=== PATIENT | female | born 1955 | race Hispanic/Latino ===

== ENCOUNTER 2019-01-20 04:49 | Emergency (ER) | payer MEDICARE ==
[~2019-01-20] VITALS: Ht 154.9 cm; Wt 65.8 kg
--- OUTSIDE RECORDS SUMMARY | 2019-01-20 04:52 | XMS REPORT | Clinical Summary ---
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 Active blood glucose meter Use as 1 Kit 0 (ACCU-CHEK JAKE PLUS directed.. 9 METER)Indications: Controlled type 2 diabetes mellitus with complication, without long-term current use of insulin Active blood glucose (ACCU-CHEK Use 2 times 100 Each 3 JAKE PLUS TEST STRP) daily to test 9 test stripsIndications: blood sugar. Controlled type 2 diabetes mellitus with complication, without long-term current use of insulin Active lancets (ACCU-CHEK Use 2 times 100 Each 2 SOFTCLIX daily to 9 LANCETS)Indications: check blood Controlled type 2 sugar. diabetes mellitus with complication, without long-term current use of insulin Active alendronate (FOSAMAX) 70 Take 1 tablet 12 tablet 3 mg tabletIndications: once a week 9 Senile osteoporosis on empty stomach with 8 oz of water and remain upright for 30 minutes. Active loratadine (CLARITIN) 10 Take 1 tablet 30 tablet 0 mg tabletIndications: by mouth 9 Upper respiratory daily. infection with cough and congestion Active benzonatate (TESSALON Take 2 20 capsule 0 PERLES) 100 mg capsules by 9 capsuleIndications: Upper mouth 3 times respiratory infection daily as with cough and congestion needed for Cough. Active naproxen (NAPROSYN) 500 Take 1 tablet 60 tablet 1 mg tabletIndications: by mouth 2 9 Primary osteoarthritis of times daily both knees as needed for Pain (take with food) (1 fwljtj=809 mg). Active levothyroxine (SYNTHROID) TAKE 1 TABLET 30 tablet 2 88 mcg tabletIndications: BY MOUTH 9 Hypothyroidism, EVERY MORNING unspecified type BEFORE BREAKFAST. Active atorvastatin (LIPITOR) 20 Take 1 tablet 90 tablet 1 mg tabletIndications: by mouth at 9 Hypertriglyceridemia bedtime nightly. Active traMADol (ULTRAM) 50 mg Take 1 tablet 30 tablet 0 tabletIndications: Pain by mouth 2 9 in both knees, times daily unspecified chronicity, as needed for Primary osteoarthritis of Pain. both knees Active fenofibrate (LOFIBRA) 160 TAKE 1 TABLET 90 tablet 0 mg tabletIndications: BY MOUTH 9 Hyperlipidemia, EVERY DAY unspecified hyperlipidemia type Active metFORMIN (GLUCOPHAGE) TAKE 1 TABLET 180 tablet 0 500 mg tabletIndications: BY MOUTH 9 Controlled type 2 TWICE DAILY diabetes mellitus with WITH FOOD. complication, without long-term current use of insulin Active ammonium lactate Apply to 222 mL 0 (LAC-HYDRIN) 12 % affected area 9 lotionIndications: Dry as needed for skin dermatitis dry skin. Active traZODone (DESYREL) 50 mg Take 1/2 to 2 180 tablet 0 tabletIndications: PTSD tablets by 9 (post-traumatic stress mouth nightly disorder), Moderate at bedtime as episode of recurrent needed for major depressive Sleep. disorder, Grief Active busPIRone (BUSPAR) 10 mg Take 1 tablet 270 tablet 0 tabletIndications: PTSD by mouth 3 9 (post-traumatic stress times daily disorder) For anxiety.. Active FLUoxetine (PROZAC) 20 mg Take 1 90 capsule 0 capsuleIndications: PTSD capsule by 9 (post-traumatic stress mouth daily disorder), Moderate For episode of recurrent depression. major depressive disorder, Grief 07/06/2018 Discontinued hydrocortisone Insert 1 12 1 (ANUSOL-HC) 25 mg rectal Suppository Suppository 5 suppositoryIndications: rectally 2 Hemorrhoid times daily as needed for hemorrhoids. 07/06/2018 Discontinued blood glucose Use as 1 Kit 0 meterIndications: directed 2 7 Borderline diabetes, times weekly. Controlled type 2 diabetes mellitus without complication, without long-term current use of insulin 07/06/2018 Discontinued lancets 28 1 Each 2 100 Each 12 gaugeIndications: times weekly. 7 Borderline diabetes, Controlled type 2 diabetes mellitus without complication, without long-term current use of insulin 07/06/2018 Discontinued blood glucose test 1 Each 2 50 Each 6 stripsIndications: times weekly. 7 Borderline diabetes, Controlled type 2 diabetes mellitus without complication, without long-term current use of insulin 07/06/2018 Discontinued ergocalciferol (VITAMIN Take 1 12 capsule 0 D2) 50,000 unit capsule by 7 capsuleIndications: mouth weekly. Vitamin D deficiency 04/11/2018 Discontinued levothyroxine (SYNTHROID) Take 1 tablet 90 tablet 1 75 mcg tabletIndications: by mouth 8 Hypothyroidism, every morning unspecified type (before breakfast). 07/06/2018 Discontinued fenofibrate (LOFIBRA) 160 Take 1 tablet 30 tablet 3 mg tabletIndications: by mouth 8 Hyperlipidemia, daily. unspecified hyperlipidemia type 06/28/2018 Discontinued metFORMIN (GLUCOPHAGE) Take 1 tablet 60 tablet 3 500 mg tabletIndications: by mouth 2 8 Controlled type 2 times daily diabetes mellitus without (with meals). complication, without long-term current use of insulin 07/06/2018 Discontinued alendronate (FOSAMAX) 70 Take 1 tablet 12 tablet 3 mg tabletIndications: once a week 8 Senile osteoporosis on empty stomach with 8 oz of water and remain upright for 30 minutes. 07/06/2018 Discontinued blood glucose meter Use as 1 Kit 0 (ACCU-CHEK JAKE PLUS directed.. 8 METER)Indications: Controlled type 2 diabetes mellitus with complication, without long-term current use of insulin 07/06/2018 Discontinued blood glucose (ACCU-CHEK Use 2 times 50 Each 3 JAKE PLUS TEST STRP) weekly (once 8 test stripsIndications: per day on Controlled type 2 Mon,) to diabetes mellitus with test blood complication, without sugar. long-term current use of insulin 07/06/2018 Discontinued lancets (ACCU-CHEK Use 2 times 100 Each 1 SOFTCLIX weekly as 8 LANCETS)Indications: directed. Controlled type 2 diabetes mellitus with complication, without long-term current use of insulin 02/14/2018 Discontinued sertraline (ZOLOFT) 100 Take 2 180 tablet 0 mg tabletIndications: tablets by 8 PTSD (post-traumatic mouth daily stress disorder) For depression and anxiety. Take every day, do not skip doses.. 02/14/2018 Discontinued busPIRone (BUSPAR) 7.5 mg Take 1 tablet 270 tablet 0 tabletIndications: PTSD by mouth 3 8 (post-traumatic stress times daily disorder) For anxiety.. 02/14/2018 Discontinued traMADol (ULTRAM) 50 mg Take 1 tablet 30 tablet 0 tabletIndications: Pain by mouth 8 in both knees, every 8 hours unspecified chronicity, as needed for Primary osteoarthritis of Pain. both knees 07/06/2018 Discontinued traMADol (ULTRAM) 50 mg Take 1 tablet 30 tablet 0 tabletIndications: Pain by mouth 8 in both knees, every 8 hours unspecified chronicity, as needed for Primary osteoarthritis of Pain. both knees, Pain in joint, multiple sites 07/06/2018 Discontinued naproxen (NAPROSYN) 500 Take 1 tablet 40 tablet 0 mg tabletIndications: by mouth 2 8 Primary osteoarthritis of times daily both knees, Pain in both (with meals). knees, unspecified chronicity, Pain in joint, multiple sites 08/23/2018 Discontinued busPIRone (BUSPAR) 7.5 mg Take 1 tablet 270 tablet 0 tabletIndications: PTSD by mouth 3 8 (post-traumatic stress times daily disorder) For anxiety.. 07/06/2018 Discontinued sertraline (ZOLOFT) 100 Take 2 180 tablet 0 mg tabletIndications: tablets by 8 PTSD (post-traumatic mouth daily stress disorder) For depression and anxiety. Take every day, do not skip doses.. 06/13/2018 Discontinued levothyroxine (SYNTHROID) TAKE 1 TABLET 90 tablet 0 75 mcg tabletIndications: BY MOUTH 8 Hypothyroidism, EVERY MORNING unspecified type BEFORE BREAKFAST 09/21/2018 Discontinued levothyroxine (SYNTHROID) TAKE 1 TABLET 90 tablet 0 75 mcg tabletIndications: BY MOUTH 9 Hypothyroidism, EVERY MORNING unspecified type BEFORE BREAKFAST 07/06/2018 Discontinued metFORMIN (GLUCOPHAGE) TAKE 1 TABLET 60 tablet 0 500 mg tabletIndications: BY MOUTH 9 Controlled type 2 TWICE DAILY diabetes mellitus without WITH MEALS complication, without long-term current use of insulin 01/03/2019 tropicamide (MYDRIACYL) Instill 1 15 mL 0 0.5 % ophthalmic Drop in each 9 solutionIndications: eye once as Controlled type 2 needed for up diabetes mellitus with to 1 dose complication, without (for poor long-term current use of retina scan insulin image). 12/20/2018 Discontinued metFORMIN (GLUCOPHAGE) TAKE 1 TABLET 180 tablet 1 500 mg tabletIndications: BY MOUTH 9 Controlled type 2 TWICE DAILY diabetes mellitus with WITH MEALS. complication, without long-term current use of insulin 08/23/2018 Discontinued sertraline (ZOLOFT) 100 Take 2 180 tablet 1 mg tabletIndications: tablets by 9 PTSD (post-traumatic mouth daily stress disorder) For depression and anxiety. Take every day, do not skip doses.. 12/20/2018 Discontinued fenofibrate (LOFIBRA) 160 Take 1 tablet 90 tablet 1 mg tabletIndications: by mouth 9 Hyperlipidemia, daily. unspecified hyperlipidemia type 07/06/2018 Discontinued naproxen (NAPROSYN) 500 Take 1 tablet 40 tablet 1 mg tabletIndications: by mouth 2 9 Primary osteoarthritis of times daily both knees, Pain in both (with meals). knees, unspecified chronicity 09/13/2018 Discontinued traMADol (ULTRAM) 50 mg Take 1 tablet 30 tablet 0 tabletIndications: Pain by mouth 9 in both knees, every 8 hours unspecified chronicity, as needed for Primary osteoarthritis of Pain. both knees 07/11/2018 azithromycin (ZITHROMAX) Take 2 6 Each 0 250 mg tabletIndications: tablets by 9 Upper respiratory mouth on the infection with cough and first day, congestion then take one tablet every day for the next 4 days. 09/13/2018 Discontinued naproxen (NAPROSYN) 500 TAKE 1 TABLET 180 tablet 1 mg tabletIndications: BY MOUTH 9 Primary osteoarthritis of TWICE DAILY both knees, Pain in both WITH FOOD knees, unspecified chronicity 09/24/2018 Discontinued busPIRone (BUSPAR) 10 mg Take 1 tablet 270 tablet 0 tabletIndications: PTSD by mouth 3 9 (post-traumatic stress times daily disorder) For anxiety.. 01/10/2019 Discontinued FLUoxetine (PROZAC) 20 mg Take 1 90 capsule 0 capsuleIndications: PTSD capsule by 9 (post-traumatic stress mouth daily disorder), Moderate For episode of recurrent depression. major depressive disorder, Grief 11/15/2018 Discontinued traZODone (DESYREL) 50 mg Take 0.5-2 180 tablet 0 tabletIndications: PTSD tablets by 9 (post-traumatic stress mouth nightly disorder), Moderate at bedtime as episode of recurrent needed for major depressive Sleep. disorder, Grief 09/13/2018 Discontinued naproxen (NAPROSYN) 500 Take 1 tablet 60 tablet 1 mg tabletIndications: by mouth 2 9 Primary osteoarthritis of times daily both knees as needed for Pain (take with food) (1 lzoyxb=477 mg). 11/29/2018 Discontinued traMADol (ULTRAM) 50 mg Take 1 tablet 30 tablet 0 tabletIndications: Pain by mouth 9 in both knees, every 8 hours unspecified chronicity, as needed for Primary osteoarthritis of Pain. both knees 11/29/2018 Discontinued levothyroxine (SYNTHROID) TAKE 1 TABLET 90 tablet 0 75 mcg tabletIndications: BY MOUTH 9 Hypothyroidism, EVERY MORNING unspecified type BEFORE BREAKFAST 11/15/2018 Discontinued busPIRone (BUSPAR) 10 mg Take 1 tablet 270 tablet 0 tabletIndications: PTSD by mouth 3 9 (post-traumatic stress times daily disorder) For anxiety.. 01/10/2019 Discontinued traZODone (DESYREL) 50 mg Take 1/2 to 2 180 tablet 0 tabletIndications: PTSD tablets by 9 (post-traumatic stress mouth nightly disorder), Moderate at bedtime as episode of recurrent needed for major depressive Sleep. disorder, Grief 01/10/2019 Discontinued busPIRone (BUSPAR) 10 mg Take 1 tablet 270 tablet 0 tabletIndications: PTSD by mouth 3 9 (post-traumatic stress times daily disorder) For anxiety.. 11/29/2018 Discontinued levothyroxine (SYNTHROID) TAKE 1 TABLET 30 tablet 2 88 mcg tabletIndications: BY MOUTH 9 Hypothyroidism, EVERY MORNING unspecified type BEFORE BREAKFAST. 11/29/2018 Discontinued atorvastatin (LIPITOR) 20 Take 1 tablet 90 tablet 1 mg tabletIndications: by mouth at 9 Hypertriglyceridemia bedtime nightly. 11/29/2018 Discontinued traMADol (ULTRAM) 50 mg Take 1 tablet 30 tablet 0 tabletIndications: Pain by mouth 9 in both knees, every 8 hours unspecified chronicity, as needed for Primary osteoarthritis of Pain. both knees 01/10/2019 Discontinued ammonium lactate Apply to 222 mL 0 (LAC-HYDRIN) 12 % affected area 9 lotionIndications: Dry as needed for skin dermatitis dry skin. Active Problems Problem Noted Date Primary osteoarthritis of both knees 11/01/2017 Moderate episode of recurrent major depressive disorder 10/12/2017 Rectal cancer, s/p entire tumor removed 05/24/2016, large bowel 06/02/2016 recto-sigmoid resection S/P colonoscopy with polypectomy done at [facility] 03/201605/10/2016 Family history of breast cancer- breast ,colon 08/03/2015 Diabetes mellitus type II, uncontrolled 07/31/2015 Hyperlipidemia 06/12/2015 Thrombocytopenia, unspecified-per ER visit 05/26/2015 06/12/2015 S/P colonoscopic polypectomy done at [place] 04/23/2015 Overview: 5 polyps removed and moderately severe ischemic colitis History of alcohol abuse- quit 2012 " because of stomach problem" ; binge 02/05/2015 drinking 12 pk wk ends for 10 yrs Vitamin D deficiency 02/05/2015 Osteoporosis 02/05/2015 Arthralgia 02/05/2015 Hearing problem 02/05/2015 Shoulder pain 09/18/2014 PTSD (post-traumatic stress disorder) - sisters dying (grief... per 09/05/2014 patient) Shoulder injury 09/05/2014 Ankle pain, left- per history had fracture 2011 -intermittent pain 10/12/2012 Depressive disorder 06/14/2012 Unspecified hypothyroidism 06/14/2012 Unspecified hearing loss 06/14/2012 Tympanic membrane rupture 06/14/2012 Broken tooth 04/27/2012 Osteopenia 04/11/2012 Osteoporosis, unspecified 04/11/2012 Encounters Care Team Description Date Type Specialty Alicia Perez DO 01/17/2019 Hospital Radiology Encounter Alicia Perez DO Sebaceous cyst (Primary Dx); Senile osteoporosis; Dry skin dermatitis 01/10/2019 Office Visit Family [facility] Donald Frank MD PTSD (post-traumatic stress disorder); Moderate episode of recurrent major depressive disorder; Grief 01/10/2019 Orders Only Psychiatry Ivett Macias RN PTSD (post-traumatic stress disorder); Moderate episode of recurrent major depressive disorder; Grief 01/10/2019 Refill [facility] Ailyn Mattson MDD (major depressive disorder), recurrent episode, moderate (Primary Dx); Grief 12/21/2018 Office Visit Psychology Jackson Rose III, MD Hyperlipidemia, unspecified hyperlipidemia type; Controlled type 2 diabetes mellitus with complication, without long-term current use of insulin 12/20/2018 Refill [facility] Alicia Perez DO Hypertriglyceridemia (Primary Dx); Hypothyroidism, unspecified type; Controlled type 2 diabetes mellitus with complication, without long-term current use of insulin; Pain in both knees, unspecified chronicity; Primary osteoarthritis of both knees; PTSD (post-traumatic stress disorder) 11/29/2018 Office Visit [facility] Alicia Perez DO PTSD (post-traumatic stress disorder) 11/29/2018 Orders Only [facility] Jessica Ring RN PTSD (post-traumatic stress disorder); Moderate episode of recurrent major depressive disorder; Grief 11/15/2018 Refill [facility] Jackson Rose III, MD 10/18/2018 Ancillary Radiology Procedure Jessica Ring RN PTSD (post-traumatic stress disorder) 09/24/2018 Refill [facility] Jackson Rose III, MD Hypothyroidism, unspecified type 09/21/2018 Refill [facility] Jackson Rose III, MD PTSD (post-traumatic stress disorder) (Primary Dx); Primary osteoarthritis of both knees; Hyperlipidemia, unspecified hyperlipidemia type; Hypothyroidism, unspecified type; Type 2 diabetes mellitus without complication, without long-term current use of insulin; Preventative health care; Pain in both knees, unspecified chronicity 09/13/2018 Office Visit Family [facility] Donald Frank MD Moderate episode of recurrent major depressive disorder (Primary Dx); PTSD (post-traumatic stress disorder); Grief 08/23/2018 Office Visit Psychiatry Ailyn Mattson MDD (major depressive disorder), severe (Primary Dx); Grief 08/21/2018 Office Visit Psychology Dina Rebollar, RETA 08/20/2018 Nurse Triage Ana Rosa Rodriges RN 08/17/2018 Nurse Triage Dena Chavez NP Controlled type 2 diabetes mellitus with complication, without long-term current use of insulin 08/06/2018 Ancillary Ophthalmology Procedure Dena Suárez RN 08/06/2018 Nurse Only Dena Chavez NP Controlled type 2 diabetes mellitus with complication, without long-term current use of insulin (Primary Dx); PTSD (post-traumatic stress disorder); Senile osteoporosis; Hyperlipidemia, unspecified hyperlipidemia type; Primary osteoarthritis of both knees; Pain in both knees, unspecified chronicity; Hypothyroidism, unspecified type; Pressure in chest; Upper respiratory infection with cough and congestion 07/06/2018 Office Visit [facility] Jackson Roes III, MD Primary osteoarthritis of both knees; Pain in both knees, unspecified chronicity 07/06/2018 Refill [facility] Jackson Rose III, MD Controlled type 2 diabetes mellitus without complication, without long-term current use of insulin 06/28/2018 Refill [facility] Jackson Rose III, MD Hypothyroidism, unspecified type 06/13/2018 Refill [facility] Jackson Rose III, MD Hypothyroidism, unspecified type 04/11/2018 Refill [facility] Clau Phan 03/06/2018 Clinical Case Social Work Mgt Ailyn Mattson MDD (major depressive disorder), recurrent episode, moderate (Primary Dx) 02/20/2018 Office Visit Psychology Dena Chavez NP Controlled type 2 diabetes mellitus without complication, without long-term current use of insulin (Primary Dx); Flu vaccine need; Dietary counseling for Above / Below Normal BMI; Exercise counseling for Above Normal BMI Only!; Primary osteoarthritis of both knees; Seasonal allergic rhinitis, unspecified trigger; Perforated ear drum, bilateral; Pain in both knees, unspecified chronicity; Pain in joint, multiple sites; Need for [id number] (Tdap) vaccine; PTSD (post-traumatic stress disorder) 02/14/2018 Office Visit Family Practice Dina Rebollar RN 01/31/2018 Nurse Triage after 01/19/2018 Immunizations Name Administration Dates Next Due DTaP Diphtheria, Tetanus, 02/27/2008 Acellular, Pertussis Influenza Vaccine 04/09/2015, 07/31/2014 (Deferred: Patient already had this immunization), 02/08/2012 Influenza Vaccine, 06/01/2017 (Deferred: Patient Refused - refused) Seasonal, Injectable Influenza, 02/14/2018 Vaccine<FLUCELVAX>(Multi- Dose) PNEUMOCOCCAL 23-VALPS 07/31/2014 VACCINE 25 MCG/0.5 ML INJECTION Tdap (Tetanus Toxoid, 02/14/2018 Reduced Diphtheria Toxoid And Acellular Pertussis, Absorbed) Tropicamide 0.5% Eye-Annabel 08/06/2018 15ml Family History Medical History Relation Name Comments Cancer Brother Other Brother accident Cancer Daughter Cancer Mother breast Cancer Sister colon Cancer Sister breast Relation Name Status Comments Brother Alive Brother Brother Daughter Alive Father Maternal Grandfather Maternal Grandmother Mother Paternal Grandfather Paternal Grandmother Sister Sister Alive Sister Alive Sister Alive Sister Alive Son Alive Social History Date Tobacco Use Types Packs/Day Years Used Never Smoker Smokeless Tobacco: Never Used Tobacco Cessation: Counseling Given: No Drinks/Week oz/Week Comments Alcohol Use occasional: social gatherings Yes Food Insecurity Answer Date Recorded Within the past 12 months, you worried that your Never true 02/14/2018 food would run out before you got money to buy more. Within the past 12 months, the food you bought Never true 02/14/2018 just didn't last and you didn't have money to get more. Sex Assigned at Date Recorded Not on file Industry Job Start Date Occupation Not on file Not on file Not on file Travel End Travel History Travel Start No recent travel history available. Last Filed Vital Signs Reading Time Taken Comments Vital Sign 119/65 01/10/2019 9:33 AM CDT Blood Pressure 81 01/10/2019 9:33 AM CDT Pulse 36.7 C (98.1 F) 01/10/2019 9:33 AM CDT Temperature 20 01/10/2019 9:33 AM CDT Respiratory Rate - - Oxygen Saturation - - Inhaled Oxygen Concentration 67.1 kg (148 lb) 01/10/2019 9:33 AM CDT Weight 154.9 cm (5' 1") 01/10/2019 9:33 AM CDT Height 27.96 01/10/2019 9:33 AM CDT Body Mass Index Plan of Treatment Care Team Description Date Type Specialty Ailyn Mattson [address] [place] [address] [id number] [place] [address] 01/21/2019 Office Visit Psychology Alicia Perez DO [address] [place] [address] [place] [address] 01/31/2019 Lab Appointment Lab Donald Frank MD [address] [facility] 2nd [id number] [place] [address] 03/14/2019 Office Visit Psychiatry Health Maintenance Due Date Last Done Comments Cervical Cancer Scrn (3 06/27/2017 06/27/2014, 10/22/2002 Yrs) DM Foot Exam (Yearly) 07/07/2019 07/06/2018, 02/14/2018, 06/01/2017, Additional history exists DM Retinal Exam (Yearly) 08/07/2019 08/06/2018, 06/08/2017, 05/11/2016 Breast Cancer Scrn 10/19/2019 10/18/2018, 10/12/2017, 10/17/2016, (Yearly) Additional history exists DM HGBA1C (Yearly) 11/14/2019 11/13/2018, 08/06/2018, 09/15/2017, Additional history exists DM Microalbumin Urine 11/14/2019 11/13/2018, 09/13/2017, 08/24/2016, Scrn (Yearly) Additional history exists Goals Goal Patient Associated Recent Progress Patient-Stat Author Goal Type Problems ed? Eat Healthy Lifestyle No Emperatriz Joe Procedures Comments Procedure Name Priority Date/Time Associated Diagnosis ALANINE Routine 11/13/2018 Hyperlipidemia, AMINOTRASFERASE/ASPARTATE 8:24 AM CDT unspecified AMINOTRANSFERASE hyperlipidemia type (ALT/AST) LIPID PROFILE Routine 11/13/2018 Hyperlipidemia, 8:24 AM CDT unspecified hyperlipidemia type THYROID STIMULATING Routine 11/13/2018 Hypothyroidism, HORMONE (TSH) 8:24 AM CDT unspecified type FREE T4 Routine 11/13/2018 Hypothyroidism, 8:24 AM CDT unspecified type GLUCOSE Routine 11/13/2018 Type 2 diabetes mellitus 8:24 AM CDT without complication, without long-term current use of insulin HEMOGLOBIN A1C Routine 11/13/2018 Type 2 diabetes mellitus 8:23 AM CDT without complication, without long-term current use of insulin MICROALBUMIN / CREATININE Routine 11/13/2018 Type 2 diabetes mellitus URINE RATIO 8:23 AM CDT without complication, without long-term current use of insulin MAMMOGRAM BILAT SCREEN Routine 10/18/2018 [facility] DIGITAL 1:41 PM CDT OPHTHALMOLOGY RETINAL Routine 08/06/2018 Controlled type 2 SCAN 10:18 AM CDT diabetes mellitus with complication, without long-term current use of insulin THYROID STIMULATING Routine 08/06/2018 Hypothyroidism, HORMONE (TSH) 9:25 AM CDT unspecified type LIVER PROFILE Routine 08/06/2018 Hyperlipidemia, 9:25 AM CDT unspecified hyperlipidemia type LIPID PROFILE Routine 08/06/2018 Hyperlipidemia, 9:25 AM CDT unspecified hyperlipidemia type HEMOGLOBIN A1C Routine 08/06/2018 Controlled type 2 9:25 AM CDT diabetes mellitus with complication, without long-term current use of insulin CBC/DIFF Routine 08/06/2018 Controlled type 2 9:25 AM CDT diabetes mellitus with complication, without long-term current use of insulin BASIC METABOLIC PANEL Routine 08/06/2018 Controlled type 2 9:25 AM CDT diabetes mellitus with complication, without long-term current use of insulin 12 LEAD EKG STAT 07/06/2018 Pressure in chest 3:59 PM [employer]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 TSH 5.13 (H) 0.57 - 3.74 uIU/mL DERICK DICKERSON Comment: LABORATORY If , please see the following reference ranges (not verified by lab): 1st Trimester: 0.05 -3.70 uIU/mL 2nd Trimester: 0.31 -4.35 uIU/mL 3rd Trimester: 0.41 - 5.18 uIU/mL Specimen Blood Performing Organization Address [facility] Phone Number [facility] [address] [place] [address] * FREE T4 (11/13/2018 8:24 AM CDT) Free T4 0.97 0.61 - 1.18 ng/dl [facility] ARELLANOB [facility] Specimen Blood Performing Organization Address [facility] Phone Number [facility] [address] [place] [address] * LIPID PROFILE (11/13/2018 8:24 AM CDT) Only the most recent of 2 results within the time period is included. Triglyceride 369 (H) <150 mg/dL DERICK DICKERSON Comment: LABORATORY Normal: < 150.0 mg/dL Borderline: 150-199 mg/dL High: 200-499 mg/dL Very High: >=500 mg/dL Cholesterol 200.0 <=200.0 mg/dL DERICK DICKERSON Comment: LABORATORY Desirable: < 200.0 mg/dL Borderline: 200 - 240 mg/dL High Risk: > 240 mg/dL HDL 41.0 See Reference Range DERICK TSERING Comment: Narrative. mg/dL LABORATORY Increased CHD Risk: < 40.0 mg/dL Decreased CHD Risk: > 60 mg/dL LDL 85 <100 mg/dL DERICK TSERING Comment: LABORATORY Optimal: < 100.0 mg/dL Near Optimal: 120-129 mg/dL Borderline: 130-159 mg/dL High: 160-189 mg/dL Very High: >=190 mg/dL Specimen Blood Performing Organization Address [facility] Phone Number [facility] [address] [place] [address] * GLUCOSE (11/13/2018 8:24 AM CDT) Glucose 145 (H) 70 - 110 mg/dL [facility] Specimen Blood Performing Organization Address [facility] Phone Number [facility] [address] [place] [address] * ALT/AST (11/13/2018 8:24 AM CDT) ALT 13 7 - 52 U/L [facility] TS[facility] AST 10 (L) 13 - 39 U/L [facility] TS[facility] Specimen Blood Performing Organization Address [facility] Phone Number [facility] [address] [place] [address] * MICROALBUM, URINE (11/13/2018 8:23 AM CDT) Microalbumin, <0.7 <30.0 mg/dL DERICK TSERING [facility] Creatinine, 128 20 - 320 mg/dL DERICK TSERING Urine LABORATORY Urine <5.5 0.0 - 30.0 mg/g DERICK TSERING Microalbumin LABORATORY Specimen Urine Performing Organization Address [facility] Phone Number [facility] [address] [place] [address] * HEMOGLOBIN A1C (11/13/2018 8:23 AM CDT) Only the most recent of 2 results within the time period is included. Hemoglobin A1c 7.1 % [facility] Estimated 157 (H) 70 - 110 mg/dL DERICK TSERING Average Glucose LABORATORY Specimen Blood Performing Organization Address [facility] Phone Number [facility] [address] [place] [phone] * MAMMOGRAM BILAT SCREEN DIGITAL (10/18/2018 1:41 PM CDT) Specimen Impressions Performed At IMPRESSION: BENIGN SMS There is no mammographic evidence of malignancy. A 1 year screening mammogram is recommended. This document has been electronically signed. Dodie Parada M.D. aar/penrad:10/18/2018 14:10:10 Costume Mistress: Leda Byrd Sr. Boning Room Worker, [facility] letter sent: Mammography Normal Mammogram BI-RADS: 2 Benign G0202 Z85.3 Narrative Performed At #[id number] - MAMMOGRAM BILAT SCREEN DIGITAL SMS BILATERAL DIGITAL SCREENING MAMMOGRAM WITH CAD: 10/18/2018 CLINICAL: Screening for malignancy. Comparison is made to exams dated:10/12/2017, 10/17/2016, 10/17/2016 [facility], 08/21/2015, and 07/09/2014 [facility] [place]. The tissue of both breasts is heterogeneously dense. This may lower the sensitivity of mammography. Current study was also evaluated with a Computer Aided Detection (CAD) system. There are benign calcifications in both breasts.There also are benign masses in both breasts. No significant masses, calcifications, or other findings are seen in either breast. Procedure Note Interface, Rad/Mammog In - 10/18/2018 2:28 PM CDT #[id number] - MAMMOGRAM BILAT SCREEN DIGITAL BILATERAL DIGITAL SCREENING MAMMOGRAM WITH CAD: 10/18/2018 CLINICAL: Screening for malignancy. Comparison is made to exams dated: 10/12/2017, 10/17/2016, 10/17/2016 [facility], 08/21/2015, and 07/09/2014 [facility] [place]. The tissue of both breasts is heterogeneously dense. This may lower the sensitivity of mammography. Current study was also evaluated with a Computer Aided Detection (CAD) system. There are benign calcifications in both breasts. There also are benign masses in both breasts. No significant masses, calcifications, or other findings are seen in either breast. IMPRESSION IMPRESSION: BENIGN There is no mammographic evidence of malignancy. A 1 year screening mammogram is recommended. This document has been electronically signed. Dodie Parada M.D. aar/penrad:10/18/2018 14:10:10 Costume Mistress: Leda Byrd Sr. Boning Room Worker, [facility] letter sent: Mammography Normal Mammogram BI-RADS: 2 Benign G0202 Z85.3 Performing Organization Address [facility] Phone Number SMS * OPHTHALMOLOGY RETINAL SCAN (08/06/2018 10:18 AM CDT) RETINAL NORMAL IRIS SCAN-FINAL RESULT Right Diabetic None IRIS Retinopathy Right Macular None IRIS Edema Right Other None IRIS Suspected Conditions Right Image Gradeable Image IRIS Quality Left Diabetic None IRIS Retinopathy Left Macular None IRIS Edema Left Other None IRIS Suspected Conditions Left Image Gradeable Image IRIS Quality Specimen Narrative Performed At Retinal Study Result for MARIBELL FRANCES MAGDALENA, a 62 y/o, F (: 1955, ) presented to [facility] on 08-06-2018 for a retinal imaging study of the left and right eyes. Based on the findings of the study, the following is recommended for MARIBELL FRANCES Normal Scan: Please advise the patient to return for another scan in 1 year. Interpreting Provider's Comments:No comments provided Right Eye Findings: Normal Result.Negative for Diabetic Retinopathy. Left Eye Findings: Normal Result.Negative for Diabetic Retinopathy. This result was electronically signed by Alonzo Alan MD, , Taxonomy: [id number] on 08-06-2018 11:42:25 [facility] time. NOTE:Any pathology noted on this diabetic retinal evaluation should be confirmed by an appropriate ophthalmic examination. Performing Organization Address City/[facility] Phone Number IRIS * LIVER PROFILE (08/06/2018 9:25 AM CDT) Protein, Total, 6.8 6.0 - 8.3 g/dL [facility] Serum 1 Albumin 4.1 3.7 - 5.3 g/dL [facility] 1 Bilirubin, 0.8 0.2 - 1.2 mg/dL [facility] Total 1 Alkaline 103 34 - 104 U/L [facility] Phosphatase, S 1 AST (SGOT) 10 (L) 13 - 39 U/L [facility] 1 ALT 10 7 - 52 U/L [facility] 1 D Bilirubin 0.1 0.0 - 0.2 mg/dL [facility] 1 Specimen Blood Performing Organization Address City/State/Zipcode Phone Number MISYS [facility] 1 * CBC/DIFF (08/06/2018 9:25 AM CDT) WBC 8.1 4.5 - 11.0 K/uL [facility] 2 RBC 4.49 4.20 - 5.40 M/uL [facility] 2 Hemoglobin 13.6 12.0 - 16.0 g/dL [facility] 2 Hematocrit 41.7 37.0 - 47.0 % [facility] 2 MCV 93 (H) 82 - 92 fL [facility] 2 MCH 30.3 27.0 - 32.0 pg [facility] 2 MCHC 32.6 32.0 - 36.0 g/dL [facility] 2 RDW 42.5 36.4 - 46.3 fL [facility] 2 Platelets 262 150 - 400 K/uL [facility] 2 Mean Platelet 11.1 9.4 - 12.4 fL [facility] Volume 2 Percent NRBC 0.0 [facility] 2 Absolute NRBC 0.00 [facility] 2 Neutrophils 59.6 34.0 - 70.0 % [facility] 2 Lymphs 30.9 20.0 - 50.0 % [facility] 2 Monocytes 8.2 5.0 - 12.0 % [facility] 2 Eos 0.7 0.7 - 5.0 % [facility] 2 Basos 0.4 0.1 - 1.2 % [facility] 2 Immature 0.2 0.0 - 0.5 [facility] Granulocytes 2 Neutrophils 4.79 1.56 - 6.13 K/uL [facility] (Absolute) 2 Lymphs 2.49 1.18 - 3.74 K/uL [facility] (Absolute) 2 Monocytes(Absol 0.66 (H) 0.24 - 0.36 K/uL [facility] [place]) 2 Eos (Absolute) 0.06 0.04 - 0.36 K/uL [facility] 2 Baso (Absolute) 0.03 0.01 - 0.08 K/uL [facility] 2 Immature Grans 0.02 0.00 - 0.03 K/uL [facility] (Abs) 2 Specimen Blood Performing Organization Address [facility] Phone Number MISYS [facility] * BASIC METABOLIC PANEL (08/06/2018 9:25 AM CDT) CO2 33 (H) 21 - 31 mmol/L [facility] 1 Chloride 103 98 - 107 mmol/L [facility] 1 Potassium 4.0 3.5 - 5.1 mmol/L [facility] 1 Sodium 140 136 - 145 mmol/L [facility] 1 Glucose 130 (H) 70 - 110 mg/dL [facility] 1 BUN 11 7 - 25 mg/dL [facility] 1 Creatinine 0.80 0.6 - 1.2 mg/dL [facility] 1 Anion Gap 4 [facility] 1 Calcium 9.1 8.6 - 10.3 mg/dL [facility] 1 GFR, Estimated >60 mL/min/1.73 m2 [facility] 1 eGFR If Africn >60 mL/min/1.73 m2 [facility] Am 1 Specimen Blood Performing Organization Address [facility] Phone Number [facility] 1 * 12 LEAD EKG (07/06/2018 3:59 PM LANDSCAPE HORTICULTURE INSTRUCTOR) 12 LEAD EKG FOR [facility] Test Date:2018-07-06 Pat Name: MARIBELL Tobias ent: [id number] Room: Gender: F Appeals And Generalist Clerk: :[phone] Requested By: DENA Hansen Order Number: [id number] Abdiel MD: Noelle Borrero Measurements Intervals [place] Rate: 65 P:10 [place]: 152 QRS: 28 QRSD: 77 T:53 QT: 382 QTc:399 Interpretive Statements SINUS RHYTHM Electronically Signed On 07-06-2018 16:08:02 LANDSCAPE HORTICULTURE INSTRUCTOR by Noelle Borrero Specimen Performing Organization Address [facility] Phone Number [facility] * DIABETIC FOOT EXAM (07/06/2018 3:30 PM LANDSCAPE HORTICULTURE INSTRUCTOR) Only the most recent of 2 results within the time period is included. Narrative Performed At Dena Chavez NP 07/06/20184:36 PM Diabetic Foot Exam was performed at 07/06/2018 4:35 PM.Right foot sensation is normal, right foot pulses are normal, right foot appearance is normal.Left foot sensation is normal,left foot pulses are normal, left foot appearance is normal. after 01/19/2018 Insurance Type Payer Benefit Subscriber ID Effective Phone Address Plan / Dates Group AARP MEDICARE COMPLETE AARP xxxxxxxxx 2016-P [phone] MEDICARE resent [address] [place] [address] [id number] [facility] (Home) [place] [phone] Maribell Frances Third Self 1955 [address] [facility] [address] [place] ([place]) [place] [address] Liability Maribell Frances Psych Self 1955 [address] [facility] ([facility]) [place] [phone]
--- OUTSIDE RECORDS SUMMARY | 2019-01-20 04:52 | XMS REPORT | Clinical Summary ---
Author Author [facility] Organization [place] [facility] Address Unknown Phone Unavailable Care Team Providers Care Wage Analyst Name Role Phone Asked, No Pcp PCP Unavailable Allergies Comments Active Allergy Reactions Severity Noted Date Penicillins Itching, Rash Low 04/29/2016 Medications End Date Status Medication Sig Dispensed Refills Start Date Active metFORMIN (GLUCOPHAGE) Take 500 mg 0 500 mg tablet by mouth every morning. Active fenofibrate (LOFIBRA) 160 Take 160 mg 0 MG tablet by mouth every morning. Active levothyroxine (SYNTHROID, Take 75 mcg 0 LEVOXYL) 75 mcg tablet by mouth every morning. Active alendronate (FOSAMAX) 70 Take 70 mg by 0 MG tablet mouth every 7 days. Take in the morning with a full glass of water, on an empty stomach, and do not take anything else by mouth or lie down for the next 30 min. Active sertraline (ZOLOFT) 50 MG Take 50 mg by 0 tablet mouth nightly. Active busPIRone (BUSPAR) 5 MG Take 5 mg by 0 tablet mouth nightly. Active CIMETIDINE (TAGAMET HB Take 1 tablet 0 ORAL) by mouth as needed. Active traMADol (ULTRAM) 50 mg Take 50 mg by 0 tablet mouth every 6 6 (six) hours as needed. Active Problems Problem Noted Date Colon carcinoma 05/24/2016 Social History Date Tobacco Use Types Packs/Day Years Used Never Smoker Drinks/Week oz/Week Comments Alcohol Use occassional No Sex Assigned at Date Recorded Not on file Industry Job Start Date Occupation Not on file Not on file Not on file Travel End Travel History Travel Start No recent travel history available. Last Filed Vital Signs Not on file Plan of Treatment Health Maintenance Due Date Last Done Comments CERVICAL CANCER SCREENING 1977 BREAST CANCER SCREENING 2006 COLONOSCOPY SCREENING 2006 SHINGLES VACCINES (#1) 2006 INFLUENZA VACCINE 12/06/2018 Implants Device Identifier Shelf Expiration Date Model / Serial / Lot Implanted Type Area Manufactur er 11/05/2020 XL 5410 / / [id number] Epifix Xl 4 X 10 - [id number] Surgical N/A: N/A MIMEDX Implanted: Qty: 1 on 05/24/2016 by Implants; [employer] Kandi Pete MD at [facility] Expanders; HOSPITAL Extenders; Surgical Wires 2231 / / Drain Wound Hbls Round Radopaq Surgical N/A: N/A Trocar Radha White 0.25in 19fr - Implants; [id number] Expanders; Implanted: Qty: 1 on 05/24/2016 by Extenders; Kandi Pete MD at [facility] Surgical HOSPITAL Wires 12/06/2020 XL 5410 / / [id number] Epifix Xl 4 X 10 - [id number] Surgical N/A: N/A MIMEDX Implanted: 05/24/2016 at [facility] Implants; [facility] (Quantity not on file) Expanders; Extenders; Surgical Wires Results Not on fileafter 01/19/2018 Insurance Type Payer Benefit Subscriber ID Effective Phone Address Plan / Dates Group Medicare MEDICARE MEDICARE xxxxxxxxxx 2013-P MARTINEZ, PART A AND [place] B Advance Directives For more information, please contact: [phone] Patient Infrastructure Architect Explanation Type Date Recorded Advance Directives, Living Will and Medical Power of Milking Machine Technician Date Inactivated Comments Code Status Date Activated 05/26/2016 7:54 PM Full Code 05/24/2016 11:39 PM Code Status decision reached by: Patient
--- OUTSIDE RECORDS SUMMARY | 2019-01-20 04:53 | XMS REPORT | Continuity of Care Document ---
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 Role Phone [email or web address] Unavailable Unavailable Problems Problem Status Onset Date Classification Date Reported Comments Source Primary osteoarthritis of both knees Active 11/01/2017 12/22/2018 [facility] Moderate episode of recurrent major depressive disorder Active 10/12/2017 12/22/2018 [facility] Rectal cancer, s/p entire tumor removed 05/24/2016, large bowel recto-sigmoid resection Active 06/02/2016 12/22/2018 [facility] S/P colonoscopy with polypectomy done at [facility] 03/2016 Active 05/10/2016 12/22/2018 [facility] Family history of breast cancer- breast ,colon Active 08/03/2015 12/22/2018 [facility] Diabetes mellitus type II, uncontrolled Active 07/31/2015 12/22/2018 [facility] Hyperlipidemia Active 06/12/2015 12/22/2018 [facility] Thrombocytopenia, unspecified-per ER visit 05/26/2015 Active 06/12/2015 12/22/2018 [facility] S/P colonoscopic polypectomy done at [facility] Active 04/23/2015 12/22/2018 [facility] Vitamin D deficiency Active 02/05/2015 12/22/2018 [facility] Osteoporosis Active 02/05/2015 12/22/2018 [facility] Arthralgia Active 02/05/2015 12/22/2018 [facility] Shoulder pain Active 09/18/2014 12/22/2018 [facility] PTSD - sisters dying (grief... per patient) Active 09/05/2014 11/13/2018 [facility] Shoulder injury Active 09/05/2014 12/22/2018 [facility] PTSD (post-traumatic stress disorder) - sisters dying (grief... per patient) Active 09/05/2014 12/22/2018 [facility] Ankle pain, left- per history had fracture 2012 -intermittent pain Active 10/12/2012 11/13/2018 [facility] Ankle pain, left- per history had fracture 2012 -intermittent pain Active 10/12/2012 12/22/2018 [facility] Depressive disorder Active 06/14/2012 12/22/2018 [facility] Unspecified hypothyroidism Active 06/14/2012 12/22/2018 [facility] Unspecified hearing loss Active 06/14/2012 12/22/2018 [facility] Tympanic membrane rupture Active 06/14/2012 12/22/2018 [facility] Broken tooth Active 04/27/2012 12/22/2018 [facility] Osteopenia Active 04/11/2012 12/22/2018 [facility] Osteoporosis, unspecified Active 04/11/2012 12/22/2018 [facility] PTSD Active 11/13/2018 [facility] Hypothyroidism, unspecified type Active 12/22/2018 [facility] Hyperlipidemia, unspecified hyperlipidemia type Active 12/22/2018 [facility] Type 2 diabetes mellitus without complication, without long-term current use of insulin Active 12/22/2018 [facility] Preventative health care Active 12/22/2018 [facility] Pain in both knees, unspecified chronicity Active 12/22/2018 [facility] Grief Active 12/22/2018 [facility] MDD , severe Active 11/13/2018 [facility] Controlled type 2 diabetes mellitus with complication, without long-term current use of insulin Active 12/22/2018 [facility] Senile osteoporosis Active 12/22/2018 [facility] Pressure in chest Active 12/22/2018 [facility] Upper respiratory infection with cough and congestion Active 12/22/2018 [facility] Controlled type 2 diabetes mellitus without complication, without long-term current use of insulin Active 12/22/2018 [facility] Perforated ear drum, bilateral Active 12/22/2018 [facility] MDD , recurrent episode, moderate Active 11/13/2018 [facility] Flu vaccine need Active 12/22/2018 [facility] Dietary counseling Active 12/22/2018 [facility] Exercise counseling Active 12/22/2018 [facility] Seasonal allergic rhinitis, unspecified trigger Active 12/22/2018 [facility] Pain in joint, multiple sites Active 12/22/2018 [facility] Need for ndtszypkcg-vkhvqbt-ufbgudflh vaccine Active 11/13/2018 [facility] Hypertriglyceridemia Active 12/22/2018 [facility] PTSD (post-traumatic stress disorder) Active 12/22/2018 [facility] MDD (major depressive disorder), severe Active 12/22/2018 [facility] MDD (major depressive disorder), recurrent episode, moderate Active 12/22/2018 [facility] Need for hudcekmgjv-fswbprl-couwwyyyt (Tdap) vaccine Active 12/22/2018 [facility] Medications Medication Details Route Status Patient Instructions Ordering Provider Order Date Source levothyroxine (SYNTHROID) 88 mcg tablet TAKE 1 TABLET BY MOUTH EVERY MORNING BEFORE BREAKFAST. Inactive 11/29/2018 [facility] atorvastatin (LIPITOR) 20 mg tablet Take 1 tablet by mouth at bedtime nightly. Oral Inactive 11/29/2018 [facility] traMADol (ULTRAM) 50 mg tablet Take 1 tablet by mouth every 8 hours as needed for Pain. Oral Inactive 11/29/2018 [facility] traZODone (DESYREL) 50 mg tablet Take 1/2 to 2 tablets by mouth nightly at bedtime as needed for Sleep. Oral Active 11/15/2018 [facility] busPIRone (BUSPAR) 10 mg tablet Take 1 tablet by mouth 3 times daily For anxiety.. Oral Active 11/15/2018 [facility] levothyroxine (SYNTHROID) 75 mcg tablet TAKE 1 TABLET BY MOUTH EVERY MORNING BEFORE BREAKFAST No Longer Active 09/26/2018 [facility] busPIRone (BUSPAR) 10 mg tablet Take 1 tablet by mouth 3 times daily For anxiety.. Oral No Longer Active 09/24/2018 [facility] traMADol (ULTRAM) 50 mg tablet Take 1 tablet by mouth every 8 hours as needed for Pain. Oral No Longer Active 09/14/2018 [facility] naproxen (NAPROSYN) 500 mg tablet Take 1 tablet by mouth 2 times daily as needed for Pain (take with food) (1 pniksl=251 mg). Oral Inactive 09/13/2018 [facility] busPIRone (BUSPAR) 10 mg tablet Take 1 tablet by mouth 3 times daily For anxiety.. Oral No Longer Active 08/23/2018 [facility] FLUoxetine (PROZAC) 20 mg capsule Take 1 capsule by mouth daily For depression. Oral Active 08/23/2018 [facility] traZODone (DESYREL) 50 mg tablet Take 0.5-2 tablets by mouth nightly at bedtime as needed for Sleep. Oral No Longer Active 08/23/2018 [facility] naproxen (NAPROSYN) 500 mg tablet TAKE 1 TABLET BY MOUTH TWICE DAILY WITH FOOD No Longer Active 07/09/2018 [facility] tropicamide (MYDRIACYL) 0.5 % ophthalmic solution Instill 1 Drop in each eye once as needed for up to 1 dose (for poor retina scan image). Active 07/06/2018 [facility] blood glucose meter (ACCU-CHEK RASHIDA PLUS METER) Use as directed.. Active 07/06/2018 [facility] blood glucose (ACCU-CHEK RASHIDA PLUS TEST STRP) test strips Use 2 times daily to test blood sugar. Active 07/06/2018 [facility] lancets (ACCU-CHEK SOFTCLIX LANCETS) Use 2 times daily to check blood sugar. Active 07/06/2018 [facility] metFORMIN (GLUCOPHAGE) 500 mg tablet TAKE 1 TABLET BY MOUTH TWICE DAILY WITH MEALS. Active 07/06/2018 [facility] sertraline (ZOLOFT) 100 mg tablet Take 2 tablets by mouth daily For depression and anxiety. Take every day, do not skip doses.. Oral No Longer Active 07/06/2018 [facility] alendronate (FOSAMAX) 70 mg tablet Take 1 tablet once a week on empty stomach with 8 oz of water and remain upright for 30 minutes. Active 07/06/2018 [facility] fenofibrate (LOFIBRA) 160 mg tablet Take 1 tablet by mouth daily. Oral Active 07/06/2018 [facility] naproxen (NAPROSYN) 500 mg tablet Take 1 tablet by mouth 2 times daily (with meals). Oral Inactive 07/06/2018 [facility] traMADol (ULTRAM) 50 mg tablet Take 1 tablet by mouth every 8 hours as needed for Pain. Oral No Longer Active 07/06/2018 [facility] azithromycin (ZITHROMAX) 250 mg tablet Take 2 tablets by mouth on the first day, then take one tablet every day for the next 4 days. No Longer Active 07/06/2018 [facility] loratadine (CLARITIN) 10 mg tablet Take 1 tablet by mouth daily. Oral Active 07/06/2018 [facility] benzonatate (TESSALON PERLES) 100 mg capsule Take 2 capsules by mouth 3 times daily as needed for Cough. Oral Active 07/06/2018 [facility] metFORMIN (GLUCOPHAGE) 500 mg tablet TAKE 1 TABLET BY MOUTH TWICE DAILY WITH MEALS No Longer Active 06/29/2018 [facility] levothyroxine (SYNTHROID) 75 mcg tablet TAKE 1 TABLET BY MOUTH EVERY MORNING BEFORE BREAKFAST No Longer Active 06/14/2018 [facility] levothyroxine (SYNTHROID) 75 mcg tablet TAKE 1 TABLET BY MOUTH EVERY MORNING BEFORE BREAKFAST No Longer Active 04/12/2018 [facility] Tramadol 50 Mg Tablet Take 1 tablet by mouth every 8 hours as needed for Pain. Oral Active 02/14/2018 [facility] Naproxen 500 Mg Tablet Naprosyn 500 Mg Tablet Take 1 tablet by mouth 2 times daily (with meals). Oral Active 02/14/2018 [facility] Buspirone 7.5 Mg Tablet Take 1 tablet by mouth 3 times daily For anxiety.. Oral Active 02/14/2018 [facility] Sertraline 100 Mg Tablet Take 2 tablets by mouth daily For depression and anxiety. Take every day, do not skip doses.. Oral Active 02/14/2018 [facility] traMADol (ULTRAM) 50 mg tablet Take 1 tablet by mouth every 8 hours as needed for Pain. Oral No Longer Active 02/14/2018 [facility] naproxen (NAPROSYN) 500 mg tablet Take 1 tablet by mouth 2 times daily (with meals). Oral No Longer Active 02/14/2018 [facility] busPIRone (BUSPAR) 7.5 mg tablet Take 1 tablet by mouth 3 times daily For anxiety.. Oral No Longer Active 02/14/2018 [facility] sertraline (ZOLOFT) 100 mg tablet Take 2 tablets by mouth daily For depression and anxiety. Take every day, do not skip doses.. Oral No Longer Active 02/14/2018 [facility] Triamcinolone Acetonide 40 Mg/Ml Suspension For Injection INTRA-ARTICULAR Inactive 01/17/2018 [facility] Lidocaine 10 Mg/Ml (1 %) Injection Solution Injection Inactive 01/17/2018 [facility] triamcinolone acetonide (KENALOG-40) injection 40 mg INTRA-ARTICULAR Inactive 01/17/2018 [facility] lidocaine 1 % (XYLOCAINE) injection 2 mL Injection Inactive 01/17/2018 [facility] Tramadol 50 Mg Tablet Take 1 tablet by mouth every 8 hours as needed for Pain. Oral No Longer Active 12/29/2017 [facility] traMADol (ULTRAM) 50 mg tablet Take 1 tablet by mouth every 8 hours as needed for Pain. Oral No Longer Active 12/29/2017 [facility] Sertraline 100 Mg Tablet Take 2 tablets by mouth daily For depression and anxiety. Take every day, do not skip doses.. Oral No Longer Active 12/28/2017 [facility] Buspirone 7.5 Mg Tablet Take 1 tablet by mouth 3 times daily For anxiety.. Oral No Longer Active 12/28/2017 [facility] sertraline (ZOLOFT) 100 mg tablet Take 2 tablets by mouth daily For depression and anxiety. Take every day, do not skip doses.. Oral No Longer Active 12/28/2017 [facility] busPIRone (BUSPAR) 7.5 mg tablet Take 1 tablet by mouth 3 times daily For anxiety.. Oral No Longer Active 12/28/2017 [facility] Blood-Glucose Meter Accu-Chek Rashida Plus Meter Use as directed.. Active 11/01/2017 [facility] Blood Sugar Diagnostic Strips Accu-Chek Rashida Plus Test Strips Use 2 times weekly (once per day on ) to test blood sugar. Active 11/01/2017 [facility] Lancets Accu-Chek Softclix Lancets Use 2 times weekly as directed. Active 11/01/2017 [facility] Tramadol 50 Mg Tablet Take 1 tablet by mouth every 8 hours as needed for Pain. Oral No Longer Active 11/01/2017 [facility] blood glucose meter (ACCU-CHEK RASHIDA PLUS METER) Use as directed.. No Longer Active 11/01/2017 [facility] blood glucose (ACCU-CHEK RASHIDA PLUS TEST STRP) test strips Use 2 times weekly (once per day on ) to test blood sugar. No Longer Active 11/01/2017 [facility] lancets (ACCU-CHEK SOFTCLIX LANCETS) Use 2 times weekly as directed. No Longer Active 11/01/2017 [facility] traMADol (ULTRAM) 50 mg tablet Take 1 tablet by mouth every 8 hours as needed for Pain. Oral No Longer Active 11/01/2017 [facility] Sertraline 100 Mg Tablet Take 2 tablets by mouth daily For depression and anxiety. Take every day, do not skip doses.. Oral No Longer Active 10/12/2017 [facility] Buspirone 5 Mg Tablet Take 1 tablet by mouth 3 times daily . For anxiety.. Oral No Longer Active 10/12/2017 [facility] sertraline (ZOLOFT) 100 mg tablet Take 2 tablets by mouth daily For depression and anxiety. Take every day, do not skip doses.. Oral No Longer Active 10/12/2017 [facility] busPIRone (BUSPAR) 5 mg tablet Take 1 tablet by mouth 3 times daily . For anxiety.. Oral No Longer Active 10/12/2017 [facility] Tramadol 50 Mg Tablet Take 1 tablet by mouth every 8 hours as needed for Pain. Oral Inactive 09/13/2017 [facility] Sertraline 100 Mg Tablet Take 1.5 tablets by mouth daily For depression and anxiety. Take every day, do not skip doses.. Oral No Longer Active 07/27/2017 [facility] Buspirone 5 Mg Tablet Take 1 tablet by mouth 3 times daily . For anxiety.. Oral No Longer Active 07/27/2017 [facility] Tropicamide 0.5 % Eye Drops Instill 1 Drop in each eye once as needed for up to 1 dose (for poor retina scan image). No Longer Active 06/01/2017 [facility] Levothyroxine 75 McG Tablet Take 1 tablet by mouth every morning (before breakfast). Oral Active 06/01/2017 [facility] Fenofibrate 160 Mg Tablet Take 1 tablet by mouth daily. Oral Active 06/01/2017 [facility] Metformin 500 Mg Tablet Take 1 tablet by mouth 2 times daily (with meals). Oral Active 06/01/2017 [facility] Alendronate 70 Mg Tablet Take 1 tablet once a week on empty stomach with 8 oz of water and remain upright for 30 minutes. Active 06/01/2017 [facility] Buspirone 5 Mg Tablet Take 1 tablet by mouth 3 times daily . For anxiety.. Oral No Longer Active 06/01/2017 [facility] Sertraline 100 Mg Tablet Take 1 tablet by mouth daily For depression and anxiety. Take every day, do not skip doses.. Oral No Longer Active 06/01/2017 [facility] Azelastine 0.05 % Eye Drops Instill 1 Drop in each eye 2 times daily. Active 06/01/2017 [facility] Tramadol 50 Mg Tablet Take 1 tablet by mouth every 8 hours as needed for Pain. Oral No Longer Active 06/01/2017 [facility] levothyroxine (SYNTHROID) 75 mcg tablet Take 1 tablet by mouth every morning (before breakfast). Oral No Longer Active 06/01/2017 [facility] fenofibrate (LOFIBRA) 160 mg tablet Take 1 tablet by mouth daily. Oral No Longer Active 06/01/2017 [facility] metFORMIN (GLUCOPHAGE) 500 mg tablet Take 1 tablet by mouth 2 times daily (with meals). Oral No Longer Active 06/01/2017 [facility] alendronate (FOSAMAX) 70 mg tablet Take 1 tablet once a week on empty stomach with 8 oz of water and remain upright for 30 minutes. No Longer Active 06/01/2017 [facility] azelastine (OPTIVAR) 0.05 % ophthalmic solution Instill 1 Drop in each eye 2 times daily. Active 06/01/2017 [facility] Tramadol 50 Mg Tablet TAKE 1 TABLET BY MOUTH EVERY 8 HOURS NEEDED FOR PAIN Oral No Longer Active 04/14/2017 [facility] Lidocaine 10 Mg/Ml (1 %) Injection Solution Injection Inactive 04/07/2017 [facility] triamcinolone acetonide (KENALOG-40) injection 40 mg INTRA-ARTICULAR Inactive 04/07/2017 [facility] Ergocalciferol (Vitamin D2) 50,000 Unit Capsule Vitamin D2 50,000 Unit Capsule Take 1 capsule by mouth weekly. Oral Active 02/22/2017 [facility] ergocalciferol (VITAMIN D2) 50,000 unit capsule Take 1 capsule by mouth weekly. Oral No Longer Active 02/22/2017 [facility] Tramadol 50 Mg Tablet Ultram 50 Mg Tablet Take 1 tablet by mouth every 8 hours as needed for Pain. Oral No Longer Active 2016 [facility] Sertraline 100 Mg Tablet Take 1 tablet by mouth daily For depression and anxiety. Take every day, do not skip doses.. Oral No Longer Active 12/22/2016 [facility] Buspirone 5 Mg Tablet Take 1 tablet by mouth 3 times daily . For anxiety.. Oral No Longer Active 12/22/2016 [facility] Alendronate 70 Mg Tablet Take 1 tablet once a week on empty stomach with 8 oz of water and remain upright for 30 minutes. No Longer Active 09/15/2016 [facility] Levothyroxine 75 McG Tablet Take 1 tablet by mouth every morning (before breakfast). Oral No Longer Active 09/15/2016 [facility] Fenofibrate 160 Mg Tablet Take 1 tablet by mouth daily. Oral No Longer Active 09/15/2016 [facility] Metformin 500 Mg Tablet Take 1 tablet by mouth 2 times daily (with meals). Oral No Longer Active 09/15/2016 [facility] Lancets 28 Gauge 1 Each 2 times weekly. Active 05/12/2016 [facility] Blood Sugar Diagnostic Strips 1 Each 2 times weekly. Active 05/12/2016 [facility] lancets 28 gauge 1 Each 2 times weekly. No Longer Active 05/12/2016 [facility] blood glucose test strips 1 Each 2 times weekly. No Longer Active 05/12/2016 [facility] Blood-Glucose Meter Use as directed 2 times weekly. Active 05/10/2016 [facility] blood glucose meter Use as directed 2 times weekly. No Longer Active 05/10/2016 [facility] Hydrocortisone Acetate 25 Mg Rectal Suppository Anusol-Hc 25 Mg Rectal Suppository Insert 1 Suppository rectally 2 times daily as needed for hemorrhoids. Rectal Active 06/10/2014 [facility] hydrocortisone (ANUSOL-HC) 25 mg rectal suppository Insert 1 Suppository rectally 2 times daily as needed for hemorrhoids. Rectal No Longer Active 06/10/2014 [facility] Allergies, Adverse Reactions, Alerts Substance Category Reaction Severity Reaction type Status Date Reported Comments Source Penicillin G Propensity to adverse reactions to drug Active 03/26/2010 [facility] Penicillins Itching, Rash Low, Low Propensity to adverse reactions to drug Active 04/29/2016 [facility] Immunizations Immunization Date Given Site Status Last Updated Comments Source Tropicamide 0.5% Eye-Annabel 15ml 08/06/[address] [facility] Influenza, Vaccine<FLUCELVAX>(Multi-Dose) 02/14/2018 [facility] TDap (Tetanus Toxoid, Reduced Diphtheria Toxoid And Acellular Pertussis, Absorbed) 02/14/2018 [facility] Influenza, Vaccine<FLUCELVAX>(Multi-Dose) 02/14/2018 completed [facility] Tdap (Tetanus Toxoid, Reduced Diphtheria Toxoid And Acellular Pertussis, Absorbed) 02/14/2018 completed [facility] Influenza Vaccine, Seasonal, Injectable 06/01/2017 Not Given Deferred: Patient Refused - refused [facility] Influenza Vaccine 04/09/2015 [facility] Influenza Vaccine 07/31/2014 Not Given Deferred: Patient already had this immunization [facility] PNEUMOCOCCAL 23-VALPS VACCINE 25 MCG/0.5 ML INJECTION 07/31/2014 completed [facility] Influenza Vaccine 02/08/2012 completed [facility] DTaP Diphtheria, Tetanus, Acellular, Pertussis 02/27/2008 [facility] Results Order Name Results Value Reference Range Date Interpretation Comments Source FREE T4 Free T4 0.97 0.61 - 1.18 11/13/2018 [facility] FREE T4 Lab Interpretation Normal 11/13/2018 [facility] TSH TSH 5.13 0.57 - 3.74 11/13/2018 If , please see the following reference ranges (not verified by lab):

1st Trimester: 0.05 -3.70 uIU/mL
2nd Trimester: 0.31 -4.35 uIU/mL
3rd Trimester: 0.41 - 5.18 uIU/mL
[facility] TSH Lab Interpretation Abnormal 11/13/2018 [facility] ALT/AST ALT 13 7 - 52 11/13/2018 [facility] ALT/AST AST 10 13 - 39 11/13/2018 [facility] ALT/AST Lab Interpretation Abnormal 11/13/2018 [facility] GLUCOSE Glucose 145 70 - 110 11/13/2018 [facility] GLUCOSE Lab Interpretation Abnormal 11/13/2018 [facility] LIPID PROFILE Triglyceride 369 <150 11/13/2018 Normal: < 150.0 mg/dL
Borderline: 150-199 mg/dL
High: 200- 499 mg/dL
Very High: >=500 mg/dL
[facility] LIPID PROFILE <td ID="[id number]">Cholesterol</td><td><span>200.0</span>
<span style="allIndent"><span style="cellHeader">Comment: </span>
<span ID="[id number]" style="pre">Desirable: < 200.0 mg/dL
Borderline: 200 - 240 mg/dL
High Risk: > 240 mg/dL
</span&gt ;</span></td><td><=200.0 mg/dL</td><td>[facility]</td><td ID="[id number]"/> 200.0 <=200.0 11/13/2018 Desirable: < 200.0 mg/dL
Borderline: 200 - 240 mg/dL
High Risk: > 240 mg/dL
[facility] LIPID PROFILE <td ID="[id number]">HDL</td><td><span>41.0</span>
<span style="allIndent"><span style="cellHeader">Comment: </span>
<span ID="[id number]" style="pre">Increased CHD Risk: < 40.0 mg/dL
Decreased CHD Risk: > 60 mg/dL
</span></span></td><td>See Reference Range Narrative. mg/dL</td><td>[facility]</td><td ID="[id number]"/> 41.0 See Reference Range Narrative. 11/13/2018 Increased CHD Risk: < 40.0 mg/dL
Decreased CHD Risk: > 60 mg/dL
[facility] LIPID PROFILE <td ID="[id number]">LDL</td><td><span>85</span>
<span style="allIndent"><span style="cellHeader">Comment: </span>
<span ID="[id number]" style="pre">Optimal: < 100.0 mg/dL
Near Optimal: 120-129 mg/dL
Borderline: 130-159 mg/dL
High: 160-189 mg/dL
Very High: >=190 mg/dL
</span></span></td><td><100 mg/dL</td><td>[facility]</td><td ID="[id number]"/> 85 <100 11/13/2018 Optimal: < 100.0 mg/dL
Near Optimal: 120-129 mg/dL
Borderline: 130-159 mg/dL
High: 160-189 mg/dL
Very High: >=190 mg/dL
[facility] LIPID PROFILE Lab Interpretation Abnormal 11/13/2018 [facility] MICROALBUM, URINE Microalbumin, Random <0.7 <30.0 mg/dL 11/13/2018 [facility] MICROALBUM, URINE Creatinine, Urine 128 20 - 320 11/13/2018 [facility] MICROALBUM, URINE Urine Microalbumin <5.5 0 - 30 11/13/2018 [facility] MICROALBUM, URINE Lab Interpretation Normal 11/13/2018 [facility] HEMOGLOBIN A1C <td ID="[id number]">Hemoglobin A1c</td><td>7.1</td><td>%</td><td>[facility]</td><td ID="[id number]"/> 7.1 11/13/2018 [facility] HEMOGLOBIN A1C Estimated Average Glucose 157 70 - 110 11/13/2018 [facility] HEMOGLOBIN A1C Lab Interpretation Abnormal 11/13/2018 [facility] MAMMOGRAM BILAT SCREEN DIGITAL <p>IMPRESSION: BENIGN</p><p>There is no mammographic evidence of malignancy. A 1 year </p><p>screening mammogram is recommended.</p><p>This document has been electronically signed.</p><p> </p><p>Dodie Parada M.D.</p><p>aar/penrad:10/18/2018 14:10:10</p><p> </p><p>Lean Specialist: Leda Byrd Sr. Order Builder Loader, </p><p>[facility]</p><p>letter sent: Mammography Normal</p><p>Mammogram BI-RADS: 2 Benign G0202 Z85.3</p> IMPRESSION: BENIGNThere is no mammographic evidence of malignancy. A 1 year screening mammogram is recommended.This document has been electronically signed. Dodie Parada M.D.aar/penrad:10/18/2018 14:10:10 [facility] Specialist: Leda Byrd Sr. Order Builder Loader[facility] Mammography NormalMammogram BI-RADS: 2 Benign G0202 Z85.3 10/18/2018 [facility] MAMMOGRAM BILAT SCREEN DIGITAL <p> </p><p>#[id number] - MAMMOGRAM BILAT SCREEN DIGITAL</p><p>BILATERAL DIGITAL SCREENING MAMMOGRAM WITH CAD: 10/18/2018</p><p>CLINICAL: Screening for malignancy.</p><p> </p><p>Comparison is made to exams dated:10/12/2017, 10/17/2016, 10/17/2016</p><p> [facility] [facility], 08/21/2015, and 07/09/2014 [facility] </p><p>[facility].</p><p>The tissue of both breasts is heterogeneously dense. This may </p><p>lower the sensitivity of mammography.</p><p>Current study was also evaluated with a Computer Aided Detection </p><p>(CAD) system.</p><p>There are benign calcifications in both breasts.There also are </p><p>benign masses in both breasts.</p><p>No significant masses, calcifications, or other findings are seen </p><p>in either breast.</p><p> </p> #[id number] - MAMMOGRAM BILAT SCREEN DIGITALBILATERAL DIGITAL SCREENING MAMMOGRAM WITH CAD: 10/18/2018CLINICAL: Screening for malignancy. Comparison is made to exams dated:10/12/2017, 10/17/2016, 10/17/2016 [facility], 08/21/2015, and 07/09/2014 [facility].The tissue of both breasts is heterogeneously dense. This may lower the sensitivity of mammography.Current study was also evaluated with a Computer Aided Detection (CAD) system.There are benign calcifications in both breasts.There also are benign masses in both breasts.No significant masses, calcifications, or other findings are seen in either breast. 10/18/2018 [facility] MAMMOGRAM BILAT SCREEN DIGITAL <p styleCode="header">Interface, Rad/Mammog In - 10/18/2018 2:28 PM CDT</p><p>
<span>#[id number] - MAMMOGRAM BILAT SCREEN DIGITAL</span>
<span>BILATERAL DIGITAL SCREENING MAMMOGRAM WITH CAD: 10/18/2018</span>
<span>CLINICAL: Screening for malignancy. </span>

<span>Comparison is made to exams dated: 10/12/2017, 10/17/2016, 10/17/2016</span>
<span> [facility], 08/21/2015, and 07/09/2014 [facility] </span>
<span>Bre[facility] Imaging Center. </span>
<span>The tissue of both breasts is heterogeneously dense. This may </span>
<span>lower the sensitivity of mammography. &a mp;lt;/span>
<span>Current study was also evaluated with a Computer Aided Detection </span>
<span>(CAD) system. </span>
<span>There are benign calcifications in both breasts. There also are </span>
<span>benign masses in both breasts. </span>
<span>No significant masses, calcifications, or other findings are seen </span>
<span>in either breast. </span>

<span>IMPRESSION</span>
<span>IMPRESSION: BENIGN</span>
<span>There is no mammographic evidence of malignancy. A 1 year </span>
<span>screening mammogram is recommended. </span>
<span>This document has been electronically signed.</span>

<span>Dodie Parada M.D. </span>
<span>ana lilia/roni:10/18/2018 14:10:10 </span>

<span>Lean Specialist: Leda Byrd Sr. Order Builder Loader, </span>
<span>[facility]</span>
<span>letter sent: Mammography Normal </span>
<span>Mammogram BI-RADS: 2 Benign G0202 Z85.3</span></p> Interface, Rad/Mammog In - 10/18/2018 2:28 PM CDT #[id number] - MAMMOGRAM BILAT SCREEN DIGITAL BILATERAL DIGITAL SCREENING MAMMOGRAM WITH CAD: 10/18/2018 CLINICAL: Screening for malignancy. Comparison is made to exams dated: 10/12/2017, 10/17/2016, 10/17/2016 [facility], 08/21/2015, and 07/09/2014 [facility]. The tissue of both breasts is heterogeneously [...] This document has been electronically signed. Dodie sung/roni:10/18/2018 14:10:10 Lean Specialist: Leda Byrd Sr. Order Builder Loader, [facility] letter sent: Mammography Normal Mammogram BI-RADS: 2 Benign G0202 Z85.3 10/18/2018 [facility] HEMOGLOBIN A1C <td ID="[id number]">Hemoglobin A1c</td><td><span style="flagData">7.5</span><span style="flagData"> (H)</span></td><td>4.3 - 6.1 %</td><td>BT DIAGNOSTIC IMMUNOLOGY</td><td ID="[id number]"/> 7.5 4.3 - 6.1 08/07/2018 [facility] HEMOGLOBIN A1C Est Average Gluc 168.6 08/07/2018 [facility] HEMOGLOBIN A1C Lab Interpretation Abnormal 08/07/2018 [facility] OPHTHALMOLOGY RETINAL SCAN RETINAL SCAN-FINAL RESULT NORMAL 08/06/2018 [facility] OPHTHALMOLOGY RETINAL SCAN Right Diabetic Retinopathy None 08/06/2018 [facility] OPHTHALMOLOGY RETINAL SCAN Right Macular Edema None 08/06/2018 [facility] OPHTHALMOLOGY RETINAL SCAN Right Other Suspected Conditions None 08/06/2018 [facility] OPHTHALMOLOGY RETINAL SCAN Right Image Quality Gradeable Image 08/06/2018 [facility] OPHTHALMOLOGY RETINAL SCAN Left Diabetic Retinopathy None 08/06/2018 [facility] OPHTHALMOLOGY RETINAL SCAN Left Macular Edema None 08/06/2018 [facility] OPHTHALMOLOGY RETINAL SCAN Left Other Suspected Conditions None 08/06/2018 [facility] OPHTHALMOLOGY RETINAL SCAN Left Image Quality Gradeable Image 08/06/2018 [facility] OPHTHALMOLOGY RETINAL SCAN <p>Retinal Study Result for MRAA FRANCES</p><p> </p><p>MARA FRANCES a 62 y/o, F (: 1955, )</p><p>presented to [facility] on 08-06-2018 for a retinal imaging study of the left and right eyes.</p><p> </p><p>Based on the findings of the study, the following is recommended for MARA FRANCES</p><p>Normal Scan: Please advise the patient to return for another scan in 1 year.</p><p> </p><p>Interpreting Provider's Comments:No comments provided</p><p> </p><p>Right Eye Findings:</p><p>Normal Result.Negative for Diabetic Retinopathy.</p><p> </p><p>Left Eye F indings:</p><p>Normal Result.Negative for Diabetic Retinopathy.</p><p> </p><p> </p><p>This result was electronically signed by Alonzo Alan MD, , Taxonomy: [id number] on 08-06-2018 11:42:25 [facility] time.</p><p> </p><p>NOTE:Any pathology noted on this diabetic retinal evaluation should be confirmed by an appropriate ophthalmic examination.</p> Retinal Study Result for MARA FRANCES MAGDALENA, a 62 y/o, F (: 1955, )presented to [facility] on 08-06-2018 for a retinal imaging study of the left and right eyes. Based on the findings of the study, the following is recommended for KATINA FRANCESANormal Scan: Please advise the patient to return for another scan in 1 year. Interpreting Provider's Comments:No comments provided Right Eye Findings:Normal Result.Negative for Diabetic Retinopathy. Left Eye Findings:Normal Result.Negative for Diabetic Retinopathy. This result was electronically signed by Alonzo Alan MD, , Taxonomy: [id number] on 08-06-2018 11:42:25 [facility] time. NOTE:Any pathology noted on this diabetic retinal evaluation should be confirmed by an appropriate ophthalmic examination. 08/06/2018 [facility] TSH <td ID="[id number]">TSH</td><td><span style="flagData">5.51</span><span style="flagData"> (H)</span></td><td>0.57 - 3.74 uIU/mL</td><td>BT MAIN-STATION 1</td><td ID="[id number]"/> 5.51 0.57 - 3.74 08/06/2018 [facility] TSH Lab Interpretation Abnormal 08/06/2018 [facility] BASIC METABOLIC PANEL <td ID="[id number]">CO2</td><td><span style="flagData">33</span><span style="flagData"> (H)</span></td><td>21 - 31 mmol/L</td><td>BT MAIN-STATION 1</td><td ID=&a mp;quot;[id number]"/> 33 21 - 31 08/06/2018 [facility] BASIC METABOLIC PANEL <td ID="[id number]">Chloride</td><td>103</td><td>98 - 107 mmol/L</td><td>BT MAIN-STATION 1</td><td ID="[id number]"/> 103 98 - 107 08/06/2018 [facility] BASIC METABOLIC PANEL <td ID="[id number]">Potassium</td><td>4.0</td><td>3.5 - 5.1 mmol/L</td><td>BT MAIN-STATION 1</td><td ID="[id number]"/> 4.0 3.5 - 5.1 08/06/2018 [facility] BASIC METABOLIC PANEL <td ID="[id number]">Sodium</td><td>140</td><td>136 - 145 mmol/L</td><td>BT MAIN-STATION 1</td><td ID="[id number]"/> 140 136 - 145 08/06/2018 [facility] BASIC METABOLIC PANEL <td ID="[id number]">Glucose</td><td><span style="flagData">130</span><span style="flagData"> (H)</span></td><td>70 - 110 mg/dL</td><td>BT MAIN-STATION 1</td><td ID="[id number]"/> 130 70 - 110 08/06/2018 [facility] BASIC METABOLIC PANEL <td ID="[id number]">BUN</td><td>11</td><td>7 - 25 mg/dL</td><td>BT MAIN-STATION 1</td><td ID="[id number]"/> 11 7 - 25 08/06/2018 [facility] BASIC METABOLIC PANEL <td ID="[id number]">Creatinine</td><td>0.80</td><td>0.6 - 1.2 mg/dL</td><td>BT MAIN-STATION 1</td><td ID="[id number]"/> 0.80 0.6 - 1.2 08/06/2018 [facility] BASIC METABOLIC PANEL Anion Gap 4 08/06/2018 [facility] BASIC METABOLIC PANEL <td ID="[id number]">Calcium</td><td>9.1</td><td>8.6 - 10.3 mg/dL</td><td>BT MAIN-STATION 1</td><td ID="[id number]"/> 9.1 8.6 - 10.3 08/06/2018 [facility] BASIC METABOLIC PANEL GFR, Estimated >60 mL/min/1.73 m2 08/06/2018 [facility] BASIC METABOLIC PANEL eGFR If Africn Am >60 mL/min/1.73 m2 08/06/2018 [facility] BASIC METABOLIC PANEL Lab Interpretation Abnormal 08/06/2018 [facility] LIPID PROFILE <td ID="[id number]">Cholesterol</td><td><span>206</span>
<span style="allIndent"><span style="cellHeader">Comment: </span>
<span ID="[id number]" style="pre">REFERENCE RANGE:
Desirable: <200 mg/dL
Borderline: 200-240 mg/dL
High Risk: >240 mg/dL

</span></span></td><td>mg/dL</td><td>BT MAIN-STATION 1</td><td ID=&amp ;quot;[id number]"/> 206 08/06/2018 REFERENCE RANGE:
Desirable: <200 mg/dL
Borderline: 200-240 mg/dL
High Risk: >240 mg/dL

[facility] LIPID PROFILE <td ID="[id number]">Triglyceride</td><td><span style="flagData">229</span><span style="flagData"> (H)</span>
<span style="allIndent"><span style="cellHeader">Comment: </span>
<span ID="[id number]" style="pre">REFERENCE RANGE:
Normal: &lt ;150 mg/dL
Borderline High: 150-199 mg/dL
High: 200-499 mg/dL
Very High: >iw=349 mg/dL

</span></span></td><td><150 mg/dL</td><td>BT MAIN-STATION 1</td><td ID="[id number]"/> 229 <150 08/06/2018 REFERENCE RANGE:
Normal: <150 mg/dL
Borderline High: 150-199 mg/dL
High: 200-499 mg/dL
Very High: >tp=177 mg/dL

[facility] LIPID PROFILE <td ID="[id number]">HDL</td><td><span>40</span>
<span style="allIndent"><span style="cellHeader">Comment: </span>
<span ID="[id number]" style="pre">Increased CHD risk: <40 mg/dL
Decreased CHD risk: >60 mg/dL

</span></span>&am p;lt;/td><td>mg/dL</td><td>BT MAIN-STATION 1</td><td ID="[id number]"/> 40 08/06/2018 Increased CHD risk: <40 mg/dL
Decreased CHD risk: >60 mg/dL

[facility] LIPID PROFILE <td ID="[id number]">LDL</td><td><span>120</span>
<span style="allIndent"><span style="cellHeader">Comment: </span>
<span ID="[id number]" style="pre">REFERENCE RANGE:
Optimal: <100 mg/dL
Near Optimal: 100-129 mg/dL
Borderline High: 130-159 mg/dL
High: 160-189 mg/dL
Very High: >lg=304 mg/dL

</span></span></td><td>mg/dL</td><td>BT MAIN-STATION 1</td><td ID="[id number]"/> 120 08/06/2018 REFERENCE RANGE:
Optimal: <100 mg/dL
Near Optimal: 100-129 mg/dL
Borderline High: 130-159 mg/dL
High: 160-189 mg/dL
Very High: >uw=380 mg/dL

[facility] LIPID PROFILE Lab Interpretation Abnormal 08/06/2018 [facility] LIVER PROFILE <td ID="[id number]">Protein, Total, Serum</td><td>6.8</td><td>6.0 - 8.3 g/dL</td><td>BT MAIN-STATION 1</td><td ID="[id number]"/> 6.8 6 - 8.3 08/06/2018 [facility] LIVER PROFILE <td ID="[id number]">Albumin</td><td>4.1</td><td>3.7 - 5.3 g/dL</td><td>BT MAIN-STATION 1</td><td ID="[id number]"/> 4.1 3.7 - 5.3 08/06/2018 [facility] LIVER PROFILE <td ID="[id number]">Bilirubin, Total</td><td>0.8</td><td>0.2 - 1.2 mg/dL</td><td>BT MAIN-STATION 1</td><td ID="[id number]"/> 0.8 0.2 - 1.2 08/06/2018 [facility] LIVER PROFILE <td ID="[id number]">Alkaline Phosphatase, S</td><td>103</td><td>34 - 104 U/L</td><td>BT MAIN-STATION 1</td><td ID="[id number]"/> 103 34 - 104 08/06/2018 [facility] LIVER PROFILE <td ID="[id number]">AST (SGOT)</td><td><span style="flagData">10</span><span style="flagData"> (L)</span></td><td>13 - 39 U/L</td><td>BT MAIN-STATION 1</td><td ID="Dhfmcv941474531Acvp1Mcvdwjbyp"/> 10 13 - 39 08/06/2018 [facility] LIVER PROFILE <td ID="Dhohpb605534304Vznd2Frnz">ALT</td><td>10</td><td>7 - 52 U/L</td><td>BT MAIN-STATION 1</td><td ID="[id number]"/> 10 7 - 52 08/06/2018 [facility] LIVER PROFILE <td ID="[id number]">D Bilirubin</td><td>0.1</td><td>0.0 - 0.2 mg/dL</td><td>BT MAIN-STATION 1</td><td ID="[id number]"/> 0.1 0 - 0.2 08/06/2018 [facility] LIVER PROFILE Lab Interpretation Abnormal 08/06/2018 [facility] CBC/DIFF <td ID="[id number]">WBC</td><td>8.1</td><td>4.5 - 11.0 K/uL</td><td>BT MAIN-STATION 2</td><td ID="[id number]"/> 8.1 4.5 - 11 08/06/2018 [facility] CBC/DIFF <td ID="[id number]">RBC</td><td>4.49</td><td>4.20 - 5.40 M/uL</td><td>BT MAIN-STATION 2</td><td ID="Zealty068559103Vqcm9Mmrkdmmho"/> 4.49 4.20 - 5.40 08/06/2018 [facility] CBC/DIFF <td ID="[id number]">Hemoglobin</td><td>13.6</td><td>12.0 - 16.0 g/dL</td><td> MAIN-STATION 2</td><td ID="[id number]"/> 13.6 12 - 16 08/06/2018 [facility] CBC/DIFF <td ID="[id number]">Hematocrit</td><td>41.7</td><td>37.0 - 47.0 %</td><td> MAIN-STATION 2</td><td ID="Zvbxuw559335919Alac7Nnsskpuah"/> 41.7 37 - 47 08/06/2018 [facility] CBC/DIFF <td ID="[id number]">MCV</td><td><span style="flagData">93</span><span style="flagData"> (H)</span></td><td>82 - 92 fL</td><td> MAIN-STATION 2</td><td ID="[id number]"/> 93 82 - 92 08/06/2018 [facility] CBC/DIFF <td ID="[id number]">MCH</td><td>30.3</td><td>27.0 - 32.0 pg</td><td>BT MAIN-STATION 2</td><td ID="[id number]"/> 30.3 27 - 32 08/06/2018 [facility] CBC/DIFF <td ID="[id number]">MCHC</td><td>32.6</td><td>32.0 - 36.0 g/dL</td><td>BT MAIN-STATION 2</td><td ID="Wnryaj079345593Yzeh0Dyrkmwusi"/> 32.6 32 - 36 08/06/2018 [facility] CBC/DIFF <td ID="[id number]">RDW</td><td>42.5</td><td>36.4 - 46.3 fL</td><td>BT MAIN-STATION 2</td><td ID="[id number]"/> 42.5 36.4 - 46.3 08/06/2018 [facility] CBC/DIFF <td ID="[id number]">Platelets</td><td>262</td><td>150 - 400 K/uL</td><td>BT MAIN-STATION 2</td><td ID="[id number]"/> 262 150 - 400 08/06/2018 [facility] CBC/DIFF <td ID="[id number]">Mean Platelet Volume</td><td>11.1</td><td>9.4 - 12.4 fL</td><td>BT MAIN-STATION 2</td><td ID="[id number]"/> 11.1 9.4 - 12.4 08/06/2018 [facility] CBC/DIFF Percent NRBC 0.0 08/06/2018 [facility] CBC/DIFF Absolute NRBC 0.00 08/06/2018 [facility] CBC/DIFF <td ID="[id number]">Neutrophils</td><td>59.6</td><td>34.0 - 70.0 %</td><td>BT MAIN-STATION 2</td><td ID="[id number]"/> 59.6 34 - 70 08/06/2018 [facility] CBC/DIFF <td ID="[id number]">Lymphs</td><td>30.9</td><td>20.0 - 50.0 %</td><td>BT MAIN-STATION 2</td><td ID="Hatvtw576123901Rwrl95Qbybjxmry"/> 30.9 20 - 50 08/06/2018 [facility] CBC/DIFF <td ID="[id number]">Monocytes</td><td>8.2</td><td>5.0 - 12.0 %</td><td>BT MAIN-STATION 2</td><td ID="[id number]"/> 8.2 5 - 12 08/06/2018 [facility] CBC/DIFF <td ID="[id number]">Eos</td><td>0.7</td><td>0.7 - 5.0 %</td><td>BT MAIN-STATION 2</td><td ID="Kmhqiz505274599Seez91Bzhfsbpos"/> 0.7 0.7 - 5 08/06/2018 [facility] CBC/DIFF <td ID="[id number]">Basos</td><td>0.4</td><td>0.1 - 1.2 %</td><td>BT MAIN-STATION 2</td><td ID="[id number]"/> 0.4 0.1 - 1.2 08/06/2018 [facility] CBC/DIFF Immature Granulocytes 0.2 0.0 - 0.5 08/06/2018 [facility] CBC/DIFF Neutrophils (Absolute) 4.79 1.56 - 6.13 08/06/2018 [facility] CBC/DIFF Lymphs (Absolute) 2.49 1.18 - 3.74 08/06/2018 [facility] CBC/DIFF Monocytes(Absolute) 0.66 0.24 - 0.36 08/06/2018 [facility] CBC/DIFF Eos (Absolute) 0.06 0.04 - 0.36 08/06/2018 [facility] CBC/DIFF Baso (Absolute) 0.03 0.01 - 0.08 08/06/2018 [facility] CBC/DIFF Immature Grans (Abs) 0.02 0 - 0.03 08/06/2018 [facility] CBC/DIFF Lab Interpretation Abnormal 08/06/2018 [facility] 12 LEAD EKG 12 LEAD EKG FOR [facility] Test Date:2018-07-06 Pat Name: MARA FRANCESDepartment: [id number] : Gender: FTechnician: :[id number] Requested By: DENA Hansen Order Number: [id number] MD: Noelle Borrero Measurements IntervalsAxis Rate: 65 P:10 IA: 152QRS:28 QRSD: 77 T:53 QT: 382 QTc:399 Interpretive Statements SINUS RHYTHM Electronically Signed On 07-06-2018 16:08:02 RELIEF MATE by Noelle Borrero 07/06/2018 [facility] DIABETIC FOOT EXAM <p>Dena Chavez NP 07/06/20184:36 PM</p><p>Diabetic Foot Exam was performed at 07/06/2018 4:35 PM.Right foot </p><p>sensation is normal, right foot pulses are normal, right foot appearance </p><p>is normal.Left foot sensation is normal,left foot pulses are normal,</p><p>left foot appearance is normal. </p><p> </p><p> </p> Dena Chavez NP 07/06/20184:36 PMDiabetic Foot Exam was performed at 07/06/2018 4:35 PM.Right foot sensation is normal, right foot pulses are normal, right foot appearance is normal.Left foot sensation is normal,left foot pulses are normal,left foot appearance is normal. 07/06/2018 [facility] DIABETIC FOOT EXAM <p>Dena Chavez NP 02/14/20185:29 PM</p><p>Diabetic Foot Exam was performed at 02/14/2018 5:29 PM.Right foot </p><p>sensation is normal, right foot pulses are normal, right foot appearance </p><p>is normal.Left foot sensation is normal,left foot pulses are normal,</p><p>left foot appearance is normal. </p><p> </p><p> </p> Dena Chavez NP 02/14/20185:29 PMDiabetic Foot Exam was performed at 02/14/2018 5:29 PM.Right foot sensation is normal, right foot pulses are normal, right foot appearance is normal.Left foot sensation is normal,left foot pulses are normal,left foot appearance is normal. 02/14/2018 [facility] MAMMOGRAM BILAT SCREEN DIGITAL <p>IMPRESSION: BENIGN</p><p>There is no mammographic evidence of malignancy. A 1 year </p><p>screening mammogram is recommended.</p><p> </p><p>I have reviewed the study and agree with the findings in the </p><p>report.</p><p> </p><p>This document has been electronically signed.</p><p> </p><p>Talia St M.D.</p><p>farshad,dp/:10/12/2017 14:15:49</p><p> </p><p>Lean Specialist: Ms. Mary COBURN(R)(M), [place] </p><p>[facility]</p><p>letter sent: Benign Exam</p><p>Mammogram BI-RADS: 2 Benign G0202 Z12.31</p> IMPRESSION: BENIGNThere is no mammographic evidence of malignancy. A 1 year screening mammogram is recommended. I have reviewed the study and agree with the findings in the report. This document has been electronically signed. Talia Wang,dp/:10/12/2017 14:15:49 Lean Specialist: [facility]. Mary Henriquez RT(R)(M), [facility] Benign Exam Mammogram BI-RADS: 2 Benign G0202 Z12.31 10/12/2017 [facility] MAMMOGRAM BILAT SCREEN DIGITAL <p> </p><p>#[id number] - MAMMOGRAM BILAT SCREEN DIGITAL</p><p>BILATERAL DIGITAL SCREENING MAMMOGRAM WITH CAD: 10/12/2017</p><p>CLINICAL: Screening for malignancy.</p><p> </p><p>Comparison is made to exams dated:08/21/2015, 08/21/2015, </p><p>07/09/2014, 07/09/2014 [facility] [place], 06/27/2014, </p><p>and 05/29/2012 [facility].</p><p>The tissue of both breasts is heterogeneously dense. This may </p><p>lower the sensitivity of mammography.</p><p>Current study was also evaluated with a Computer Aided Detection </p><p>(CAD) system.</p><p>There are benign calcifications and calcifications in both </p><p>breasts.There also are benign masses in both breasts.</p><p>No significant masses, calcifications, or other findings are seen </p><p>in either breast.</p><p>There has been no significant interval change.</p><p> </p> #[id number] - MAMMOGRAM BILAT SCREEN DIGITALBILATERAL DIGITAL SCREENING MAMMOGRAM WITH CAD: 10/12/2017CLINICAL: Screening for malignancy. Comparison is made to exams dated:08/21/2015, 08/21/2015, 07/09/2014, [facility], 06/27/2014, and 05/29/2012 [facility].The tissue of both breasts is heterogeneously dense. This may lower the sensitivity of mammography.Current study was also evaluated with a Computer Aided Detection (CAD) system.There are benign calcifications and calcifications in both breasts.There also are benign masses in both breasts.No significant masses, calcifications, or other findings are seen in either breast.There has been no significant interval change. 10/12/2017 [facility] MAMMOGRAM BILAT SCREEN DIGITAL <p styleCode="header">Interface, Rad/Mammog In - 10/12/2017 3:49 PM CDT</p><p>
<span>#[id number] - MAMMOGRAM BILAT SCREEN DIGITAL</span>
<span>BILATERAL DIGITAL SCREENING MAMMOGRAM WITH CAD: 10/12/2017</span>
<span>CLINICAL: Screening for malignancy. </span>

<span>Comparison is made to exams dated: 08/21/2015, 08/21/2015, </span>
<span>07/09/2014, 07/09/2014 [facility], 06/27/2014, </span>
<span>and 05/29/2012 [facility]. </sp an>
<span>The tissue of both breasts is heterogeneously dense. This may </span>
<span>lower the sensitivity of mammography. </span>
<span>Current study was also evaluated with a Computer Aided Detection </span>
<span>(CAD) system. </span>
<span>There are benign calcifications and calcifications in both </span>
<span>breasts. There also are benign masses in both breasts. </span>
<span>No significant masses, calcifications, or other findings are seen </span>
<span>in either breast. </span>
<span>There has been no significant interval change.</span>

<span>IMPRESSION</span>
<span>IMPRESSION: BENIGN</span>
<span>There is no mammographic evidence of malignancy. A 1 year </span>
<span>screening mammogram is recommended. </span>

<span>I have reviewed the study and agree with the findings in the </span>
<span>report.</span>

<span>This document has been electronically signed.</span>

<span>Talia St M.D.</span>
<span>farshaddp/:10/12/2017 14:15:49 </span>

<span>Lean Specialist: Gege Maryevita Henriquez RT(R)(M), [place] </span>
<span>[facility]</span>
<span>letter sent: Benign Exam </span>
<span>Mammogram BI-RADS: 2 Benign G0202 Z12.31</span></p> Interface, Rad/Mammog In - 10/12/2017 3:49 PM CDT #[id number] - MAMMOGRAM BILAT SCREEN DIGITAL BILATERAL DIGITAL SCREENING MAMMOGRAM WITH CAD: 10/12/2017 CLINICAL: Screening for malignancy. Comparison is made to exams dated: 08/21/2015, 08/21/2015, 07/09/2014, 07/09/2014 [facility], 06/27/2014, and 05/29/2012 [facility]. The tissue of both breasts is heterogeneously dense. This may lower the sensitivity of mammography. Current study was also evaluated with a Computer Aided Detection (CAD) system. There are benign calcifications and calcifications in both breasts. There also are benign masses in both breasts. No significant masses, calcifications, or other findings are seen in either breast. There has been no significant interval change. IMPRESSION IMPRESSION: BENIGN There is no mammographic evidence of malignancy. A 1 year screening mammogram is recommended. I have reviewed the study and agree with the findings in the report. This document has been electronically signed. maci Woods M.D., M.D./:10/12/2017 14:15:49 Lean Specialist: Ms. Mary Henriquez RT(R)(M), [facility] letter sent: Benign Exam Mammogram BI-RADS: 2 Benign G0202 Z12.31 10/12/2017 [facility] HEMOGLOBIN A1C Hemoglobin A1c 7.1 4.3 - 6.1 09/16/2017 [facility] HEMOGLOBIN A1C Est Average Gluc 157.1 09/16/2017 [facility] HEMOGLOBIN A1C Lab Interpretation Abnormal 09/16/2017 [facility] BASIC METABOLIC PANEL CO2 29 21 - 31 09/15/2017 [facility] BASIC METABOLIC PANEL Chloride 105 98 - 107 09/15/2017 [facility] BASIC METABOLIC PANEL Potassium 4.4 3.5 - 5.1 09/15/2017 [facility] BASIC METABOLIC PANEL Sodium 144 136 - 145 09/15/2017 [facility] BASIC METABOLIC PANEL Glucose 130 70 - 110 09/15/2017 [facility] BASIC METABOLIC PANEL Urea Nitrogen 9 7 - 25 09/15/2017 [facility] BASIC METABOLIC PANEL Creatinine 0.80 0.6 - 1.2 09/15/2017 [facility] BASIC METABOLIC PANEL Anion Gap 10 09/15/2017 [facility] BASIC METABOLIC PANEL Calcium 9.4 8.6 - 10.3 09/15/2017 [facility] BASIC METABOLIC PANEL GFR, Estimated >60 mL/min/1.73 m2 09/15/2017 [facility] BASIC METABOLIC PANEL GFR, Estim, Afr-Am >60 mL/min/1.73 m2 09/15/2017 [facility] BASIC METABOLIC PANEL Lab Interpretation Abnormal 09/15/2017 [facility] LIPID PROFILE Cholesterol 203 09/15/2017 REFERENCE RANGE:
Desirable: <200 mg/dL
Borderline: 200-240 mg/dL
High Risk: >240 mg/dL

[facility] LIPID PROFILE Triglyceride 343 <150 09/15/2017 REFERENCE RANGE:
Normal: <150 mg/dL
Borderline High: 150-199 mg/dL
High: 200-499 mg/dL
Very High: >ek=808 mg/dL

[facility] LIPID PROFILE HDL 39 09/15/2017 Increased CHD risk: <40 mg/dL
Decreased CHD risk: >60 mg/dL

[facility] LIPID PROFILE LDL 95 09/15/2017 REFERENCE RANGE:
Optimal: <100 mg/dL
Near Optimal: 100-129 mg/dL
Borderline High: 130-159 mg/dL
High: 160-189 mg/dL
Very High: >qt=041 mg/dL

[facility] LIPID PROFILE Lab Interpretation Abnormal 09/15/2017 [facility] LIVER PROFILE T Protein 6.5 6 - 8.3 09/15/2017 [facility] LIVER PROFILE Albumin 3.9 3.7 - 5.3 09/15/2017 [facility] LIVER PROFILE T Bilirubin 0.6 0.2 - 1.2 09/15/2017 [facility] LIVER PROFILE Alk Phos 121 34 - 104 09/15/2017 [facility] LIVER PROFILE AST 10 13 - 39 09/15/2017 [facility] LIVER PROFILE ALT 11 7 - 52 09/15/2017 [facility] LIVER PROFILE D Bilirubin 0.1 0 - 0.2 09/15/2017 [facility] LIVER PROFILE Lab Interpretation Abnormal 09/15/2017 [facility] TSH TSH 1.97 0.57 - 3.74 09/15/2017 [facility] CBC/DIFF WBC 8.1 4.5 - 11 09/15/2017 [facility] CBC/DIFF RBC 4.61 4.20 - 5.40 09/15/2017 [facility] CBC/DIFF Hemoglobin 13.8 12 - 16 09/15/2017 [facility] CBC/DIFF Hematocrit 41.8 37 - 47 09/15/2017 [facility] CBC/DIFF MCV 91 82 - 92 09/15/2017 [facility] CBC/DIFF MCH 29.9 27 - 32 09/15/2017 [facility] CBC/DIFF MCHC 33.0 32 - 36 09/15/2017 [facility] CBC/DIFF RDW 41.0 36.4 - 46.3 09/15/2017 [facility] CBC/DIFF Platelet 292 150 - 400 09/15/2017 [facility] CBC/DIFF Mean Platelet Volume 10.8 9.4 - 12.4 09/15/2017 [facility] CBC/DIFF Percent NRBC 0.0 09/15/2017 [facility] CBC/DIFF Absolute NRBC 0.00 09/15/2017 [facility] CBC/DIFF Neutrophil 62.0 34 - 70 09/15/2017 [facility] CBC/DIFF Lymphocyte 29.7 20 - 50 09/15/2017 [facility] CBC/DIFF Monocyte 6.6 5 - 12 09/15/2017 [facility] CBC/DIFF Eosinophil 1.1 0.7 - 5 09/15/2017 [facility] CBC/DIFF Basophil 0.4 0.1 - 1.2 09/15/2017 [facility] CBC/DIFF Pct Immat Gran 0.2 0.0 - 0.5 09/15/2017 [facility] CBC/DIFF Neutrophil, Abs 5.01 1.56 - 6.13 09/15/2017 [facility] CBC/DIFF Lymphocyte, Abs 2.40 1.18 - 3.74 09/15/2017 [facility] CBC/DIFF Monocyte, Abs 0.53 0.24 - 0.36 09/15/2017 [facility] CBC/DIFF Eosinophil, Abs 0.09 0.04 - 0.36 09/15/2017 [facility] CBC/DIFF Basophil, Abs 0.03 0.01 - 0.08 09/15/2017 [facility] CBC/DIFF Absol Immat Gran 0.02 0 - 0.03 09/15/2017 [facility] CBC/DIFF Lab Interpretation Abnormal 09/15/2017 [facility] MICROALBUM, URINE Microalbum, Random <0.7 0 - 29 09/14/2017 [facility] MICROALBUM, URINE Creatinine, Ur 20.4 20 - 320 09/14/2017 [facility] MICROALBUM, URINE Urine Microalbumin Unable to calculate, parameters incomplete 0 - 29 09/14/2017 To minimize intra-individual variation, analysis of three random urine
samples collected over the course of a week is recommended.

[facility] OPHTHALMOLOGY RETINAL SCAN RETINAL SCAN-FINAL RESULT NORMAL 06/08/2017 [facility] OPHTHALMOLOGY RETINAL SCAN Right Diabetic Retinopathy None 06/08/2017 [facility] OPHTHALMOLOGY RETINAL SCAN Right Macular Edema None 06/08/2017 [facility] OPHTHALMOLOGY RETINAL SCAN Right Other Suspected Conditions None 06/08/2017 [facility] OPHTHALMOLOGY RETINAL SCAN Right Image Quality Gradeable Image 06/08/2017 [facility] OPHTHALMOLOGY RETINAL SCAN Left Diabetic Retinopathy None 06/08/2017 [facility] OPHTHALMOLOGY RETINAL SCAN Left Macular Edema None 06/08/2017 [facility] OPHTHALMOLOGY RETINAL SCAN Left Other Suspected Conditions None 06/08/2017 [facility] OPHTHALMOLOGY RETINAL SCAN Left Image Quality Gradeable Image 06/08/2017 [facility] OPHTHALMOLOGY RETINAL SCAN <p>Retinal Study Result for MARA FRANCES</p><p> </p><p>MARA FRANCES a 61 y/o, F (: 1955, )</p><p>presented to [facility] on 06-08-2017 for a retinal imaging study of the left and right eyes.</p><p> </p><p>Based on the findings of the study, the following is recommended for MARA FRANCES</p><p>Normal Scan: Please advise the patient to return for another scan in 1 year.</p><p> </p><p>Interpreting Provider's Comments:No comments provided</p><p> </p><p>Right Eye Findings:</p><p>Normal Result.Negative for Diabetic Retinopathy.</p><p> </p><p>Left Eye F indings:</p><p>Normal Result.Negative for Diabetic Retinopathy.</p><p> </p><p> </p><p>This result was electronically signed by Alonzo Alan MD. Taxonomy: [id number] on 06-08-2017 10:11:06 [facility] time.</p><p> </p><p>NOTE:Any pathology noted on this diabetic retinal evaluation should be confirmed by an appropriate ophthalmic examination.</p> Retinal Study Result for MARA FRANCES MAGDALENA, a 61 y/o, F (: 1955, )presented to [facility] on 06-08-2017 for a retinal imaging study of the left and right eyes. Based on the findings of the study, the following is recommended for Kaelyn FRANCESrmal Scan: Please advise the patient to return for another scan in 1 year. Interpreting Provider's Comments:No comments provided Right Eye Findings:Normal Result.Negative for Diabetic Retinopathy. Left Eye Findings:Normal Result.Negative for Diabetic Retinopathy. This result was electronically signed by Alonzo Alan MD. Taxonomy: [id number] on 06-08-2017 10:11:06 [facility] time. NOTE:Any pathology noted on this diabetic retinal evaluation should be confirmed by an appropriate ophthalmic examination. 06/08/2017 [facility] Pathology Reports No Data Provided for This Section Diagnostic Reports No Data Provided for This Section Consultation Notes No Data Provided for This Section Discharge Summaries No Data Provided for This Section History and Physicals No Data Provided for This Section Vital Signs Vital Sign Value Date Comments Source Systolic (mm Hg) 139 11/29/2018 [facility] Diastolic (mm Hg) 64 11/29/2018 [facility] Heart Rate 71 11/29/2018 [facility] Temperature Oral (F) 36.5 Maribel 11/29/2018 [facility] Respitory Rate 20 11/29/2018 [facility] Height 154.9 cm 11/29/2018 [facility] Weight 70.58 11/29/2018 [facility] Systolic (mm Hg) 120 09/13/2018 [facility] Diastolic (mm Hg) 59 09/13/2018 [facility] Heart Rate 73 09/13/2018 [facility] Temperature Oral (F) 36.83 Maribel 09/13/2018 [facility] Respitory Rate 20 09/13/2018 [facility] Height 154.9 cm 09/13/2018 [facility] Weight 68.221 09/13/2018 [facility] Systolic (mm Hg) 142 02/14/2018 [facility] Diastolic (mm Hg) 64 02/14/2018 [facility] Heart Rate 76 02/14/2018 [facility] Temperature Oral (F) 36.67 Maribel 02/14/2018 [facility] Respitory Rate 18 02/14/2018 [facility] Height 154.9 cm 02/14/2018 [facility] Weight 72.576 02/14/2018 [facility] BMI Calculated 30.23 02/14/2018 [facility] Encounters Location Location Details Encounter Type Encounter Number Reason For Visit Attending Provider ADM Date DC Date Status Source Family [place] Refill [id number] Pain in both knees, unspecified chronicity Jackson Rose MD 04/05/2017 [facility] Procedures [place] Office Visit [id number] Primary osteoarthritis of left knee Dena Chavez NP 04/07/2017 04/07/2017 [facility] Nursing [place] Telephone [id number] Nohemycora Hernandezhandy AMEZQUITAN 04/14/2017 [facility] Family Practice [place] Office Visit [id number] Controlled type 2 diabetes mellitus without complication, without long-term current use of insulin Hypothyroidism, unspecified type Hyperlipidemia, unspecified hyperlipidemia type Senile osteoporosis PTSD (post-traumatic stress disorder) Itchy eyes Flu vaccine need Pain in both knees, unspecified chronicity Dena Chavez NP 06/01/2017 06/01/2017 [facility] Ophthalmology/Optometry Straw* Ancillary Procedure [id number] Controlled type 2 diabetes mellitus without complication, without long-term current use of insulin Dena Chavez NP 06/08/2017 06/08/2017 [facility] Psychiatry [place] Office Visit [id number] Other recurrent depressive disorders PTSD (post-traumatic stress disorder) 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 07/27/2017 07/27/2017 [facility] Pharmacy [place] Pharmacy Visit [id number] 07/28/2017 [facility] Practice [place] Office Visit [id number] Hospital discharge follow-up S/P laparoscopic cholecystectomy Controlled type 2 diabetes mellitus with complication, without long-term current use of insulin Other hyperlipidemia Rectal cancer Screening for breast cancer Pain in both knees, unspecified chronicity Dena Chavez NP 09/13/2017 09/13/2017 [facility] [place] Refill [id number] Pain in both knees, unspecified chronicity Jackson Rose MD 09/23/2017 [facility] Mammography [place] Ancillary Procedure [id number] Dena Chavez NP 10/12/2017 10/12/2017 [facility] Psychiatry [place] Office Visit [id number] Moderate episode of recurrent major depressive disorder PTSD (post-traumatic stress disorder) Kar Ochoa MD 10/12/2017 10/12/2017 [facility] [place] Refill [id number] Vitamin D deficiency Jessica Ring RN 10/27/2017 [facility] [place] Office Visit [id number] Encounter to discuss test results Controlled type 2 diabetes mellitus with complication, without long-term current use of insulin Hypertriglyceridemia Primary osteoarthritis of both knees Pain in both knees, unspecified chronicity Dena Chavez NP 11/01/2017 11/01/2017 [facility] [place] Refill [id number] Jackson Rose MD 12/28/2017 [facility] Psychiatry [place] Office Visit [id number] Donald Frank MD 12/28/2017 12/28/2017 [facility] [place] Orders Only [id number] Dena Chavez NP 12/29/2017 [facility] Procedures [place] Office Visit [id number] Harlan Brooks MD 01/12/2018 01/12/2018 [facility] Nursing [place] Telephone [id number] Jessica Ring RN 01/31/2018 [facility] ASK YOUR NURSE PROGRAM Nurse Triage [id number] Dina Rebollar RN 01/31/2018 [facility] [place] Office Visit [id number] Dena Chavez NP 02/14/2018 02/14/2018 [facility] Behavioral Health/Counseling [place] Office Visit [id number] Ailyn Mattson 02/20/2018 02/21/2018 [facility] [place] Telephone [id number] Clau Phan 03/02/2018 [facility] [place] Clinical Case Mgt [id number] Clau Phan 03/06/2018 [facility] Practice [place] Telephone [id number] Dena Chavez NP 03/18/2018 [facility] [place] Telephone [id number] Clau Phan 04/02/2018 [facility] [place] Refill [id number] Jackson Rose MD 04/11/2018 [facility] [place] Telephone [id number] Clau Phan 04/16/2018 [facility] [place] Telephone [id number] Elizabeth Najera RN 05/14/2018 [facility] Practice [place] Refill [id number] Jackson Rose MD 06/13/2018 [facility] [place] Refill [id number] Jackson Rose MD 06/28/2018 [facility] [place] Refill [id number] Jackson Rose MD 07/06/2018 [facility] Travel [id number] 07/06/2018 [facility] [place] Office Visit [id number] Dena Chavez NP 07/06/2018 08/16/2018 [facility] Nursing [place] Nurse Only [id number] Dena Suárez RN 08/06/2018 [facility] Travel [id number] 08/06/2018 [facility] Ophthalmology/Optometry Straw* Ancillary Procedure [id number] 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 08/06/2018 08/06/2018 [facility] Travel [id number] 08/17/2018 [facility] ASK YOUR NURSE PROGRAM Nurse Triage [id number] Ana Rosa Rodriges RN 08/17/2018 [facility] ASK YOUR NURSE PROGRAM Nurse Triage [id number] Dina Rebollar RN 08/20/2018 [facility] [place] Telephone [id number] Elizabeth Najera RN 08/21/2018 [facility] Behavioral Health/Counseling [place] Office Visit [id number] Ailyn Mattson 08/21/2018 08/21/2018 [facility] Psychiatry [place] Office Visit [id number] Donald Frank MD 08/23/2018 08/23/2018 [facility] Travel [id number] 09/13/2018 [facility] Practice [place] Office Visit [id number] Jackson Rose MD 09/13/2018 11/14/2018 [facility] [place] Refill [id number] Jackson Rose MD 09/21/2018 [facility] Practice [place] Refill [id number] Jessica Ring RN 09/24/2018 [facility] Travel [id number] 10/18/2018 [facility] Nursing [place] Telephone [id number] Kelsey Ann 10/18/2018 [facility] Mammography [place] Ancillary Procedure [id number] Jackson Rose MD 10/18/2018 10/18/2018 [facility] Travel [id number] 11/13/2018 [facility] Practice [place] Refill [id number] Jessica Ring RN 11/15/2018 [facility] [place] Orders Only [id number] Alicia Chris DO 11/29/2018 [facility] Practice [place] Office Visit [id number] Alicia Chris DO 11/29/2018 11/29/2018 [facility] [place] Refill [id number] Jackson Rose MD 12/20/2018 [facility] Travel [id number] 12/21/2018 [facility] Behavioral Health/Counseling [place] Office Visit [id number] Ailyn Mattson 12/21/2018 12/21/2018 [facility] Procedures Procedure Code Date Perfomer Comments Source GLUCOSE 10341 11/13/2018 [facility] FREE T4 86104 11/13/2018 [facility] ALANINE AMINOTRASFERASE/ASPARTATE AMINOTRANSFERASE (ALT/AST) 91311 11/13/2018 [facility] MICROALBUMIN / CREATININE URINE RATIO 42322 11/13/2018 [facility] MAMMOGRAM BILAT SCREEN DIGITAL G0202 10/18/2018 [facility] OPHTHALMOLOGY RETINAL SCAN [id number] 08/06/2018 [facility] BASIC METABOLIC PANEL 71052 08/06/2018 [facility] CBC/DIFF 28726 08/06/2018 [facility] HEMOGLOBIN A1C 75928 08/06/2018 [facility] LIPID PROFILE 30289 08/06/2018 [facility] LIVER PROFILE 50780 08/06/2018 [facility] THYROID STIMULATING HORMONE (TSH) 05147 08/06/2018 [facility] 12 LEAD EKG 47049 07/07/2018 [facility] DIABETIC FOOT EXAM 8F 02/15/2018 [facility] TSH 35640 09/15/2017 [facility] MICROALBUM, URINE 62405 09/13/2017 [facility] OPHTHALMOLOGY RETINAL SCAN 654506 06/08/2017 [facility] Assessment and Plan No Data Provided for This Section Plan of Care Plan of Care Date Source DM HGBA1C (Yearly) 11/14/2019 [facility] Breast Cancer Scrn (Yearly) 10/19/2019 [facility] DM Retinal Exam (Yearly) 08/07/2019 [facility] DM Foot Exam (Yearly) 07/07/2019 [facility] DM Foot Exam (Yearly) 02/14/2019 [facility] Upcoming EncountersDateTypeSpecialtyCare TeamDescription 01/21/2019 Office Visit Psychology Ailyn Mattson [address] [place] [address] [phone] (Fax) 01/31/2019 Lab Appointment Lab Alicia Perez, DO[address] [address] [place], [place] [phone] (Fax) 03/14/2019 Office Visit Psychiatry Donald Frank MD[address] [place] [address] [phone] (Fax) Health MaintenanceDue DateLast DoneComments Cervical Cancer Scrn (3 Yrs) 06/27/2017 06/27/2014, 10/22/2002 DM Foot Exam (Yearly) 07/07/2019 07/06/2018, 02/14/2018, 06/01/2017, Additional history exists DM Retinal Exam (Yearly) 08/07/2019 08/06/2018, 06/08/2017, 05/11/2016 Breast Cancer Scrn (Yearly) 10/19/2019 10/18/2018, 10/12/2017, 10/17/2016, Additional history exists DM HGBA1C (Yearly) 11/14/2019 11/13/2018, 08/06/2018, 09/15/2017, Additional history exists DM Microalbumin Urine Scrn (Yearly) 11/14/2019 11/13/2018, 09/13/2017, 08/24/2016, Additional history exists 12/21/2018 [facility] Upcoming EncountersDateTypeSpecialtyCare TeamDescription 12/21/2018 Office Visit Psychology Ailyn Mattson [address] [place] [address] [phone] (Fax) adv $[address] [facility] not active 01/31/2019 Lab Appointment Lab Alicia Perez, [address] [place], [place] [id number] [place], [place] [phone] (Fax) [facility] DateLast DoneComments Cervical Cancer Scrn (3 Yrs) 06/27/2017 06/27/2014, 10/22/2002 DM Foot Exam (Yearly) 07/07/2019 07/06/2018, 02/14/2018, 06/01/2017, Additional history exists DM Retinal Exam (Yearly) 08/07/2019 08/06/2018, 06/08/2017, 05/11/2016 Breast Cancer Scrn (Yearly) 10/19/2019 10/18/2018, 10/12/2017, 10/17/2016, Additional history exists DM HGBA1C (Yearly) 11/14/2019 11/13/2018, 08/06/2018, 09/15/2017, Additional history exists DM Microalbumin Urine Scrn (Yearly) 11/14/2019 11/13/2018, 09/13/2017, 08/24/2016, Additional history exists 12/20/2018 [facility] Upcoming EncountersDateTypeSpecialtyCare TeamDescription 12/21/2018 Office Visit Psychology Ailyn Mattson[address] [place] [phone], [place] [phone] 01/31/2019 Lab Appointment Lab Alicia Perez [address] [place], [place] [id number] [place], [place] [phone] (Fax) [facility] DateLast DoneComments Cervical Cancer Scrn (3 Yrs) 06/27/2017 06/27/2014, 10/22/2002 DM Foot Exam (Yearly) 07/07/2019 07/06/2018, 02/14/2018, 06/01/2017, Additional history exists DM Retinal Exam (Yearly) 08/07/2019 08/06/2018, 06/08/2017, 05/11/2016 Breast Cancer Scrn (Yearly) 10/19/2019 10/18/2018, 10/12/2017, 10/17/2016, Additional history exists DM HGBA1C (Yearly) 11/14/2019 11/13/2018, 08/06/2018, 09/15/2017, Additional history exists DM Microalbumin Urine Scrn (Yearly) 11/14/2019 11/13/2018, 09/13/2017, 08/24/2016, Additional history exists 11/29/2018 [facility] Upcoming EncountersDateTypeSpecialtyCare TeamDescription 11/14/2018 Appointment Audiology Juwan Perry [id number] [place], [place] [phone] Katharine Salas [facility] MaintenanceDue DateLast DoneComments Cervical Cancer Scrn (3 Yrs) 06/27/2017 06/27/2014, 10/22/2002 DM Microalbumin Urine Scrn (Yearly) 09/13/2018 09/13/2017, 08/24/2016, 04/23/2015, Additional history exists DM Foot Exam (Yearly) 07/07/2019 07/06/2018, 02/14/2018, 06/01/2017, Additional history exists DM HGBA1C (Yearly) 08/07/2019 08/06/2018, 09/15/2017, 02/16/2017, Additional history exists DM Retinal Exam (Yearly) 08/07/2019 08/06/2018, 06/08/2017, 05/11/2016 Breast Cancer Scrn (Yearly) 10/19/2019 10/18/2018, 10/12/2017, 10/17/2016, Additional history exists 11/13/2018 [facility] Breast Cancer Scrn (Yearly) 10/12/2018 [facility] DM HGBA1C (Yearly) 09/15/2018 [facility] DM Microalbumin Urine Scrn (Yearly) 09/13/2018 [facility] DM Retinal Exam (Yearly) 06/08/2018 [facility] Upcoming EncountersDateTypeSpecialtyCare TeamDescription 03/21/2018 Office Visit Psychology Ailyn Mattson[address] [place] [phone], [place] [phone] (Fax) 03/22/2018 Office Visit Psychiatry Donald Frank MD7 [facility] [place] [address] [phone] (Fax) E [phone] 04/05/2018 Lab Appointment Lab Dena Chavez, [phone] (Fax) Health MaintenanceDue DateLast DoneComments Cervical Cancer Scrn (3 Yrs) 06/27/2017 06/27/2014, 10/22/2002 DM Retinal Exam (Yearly) 06/08/2018 06/08/2017, 05/11/2016 DM Microalbumin Urine Scrn (Yearly) 09/13/2018 09/13/2017, 08/24/2016, 04/23/2015, Additional history exists DM HGBA1C (Yearly) 09/15/2018 09/15/2017, 02/16/2017, 08/24/2016, Additional history exists Breast Cancer Scrn (Yearly) 10/12/2018 10/12/2017, 10/17/2016, 08/21/2015, Additional history exists DM Foot Exam (Yearly) 02/14/2019 02/14/2018, 06/01/2017, 2016, Additional history exists 03/11/2018 [facility] Cervical Cancer Scrn (3 Yrs) 06/27/2017 [facility] Social History Social History Date Source Tobacco UseTypesPacks/DayYears UsedDate Never Smoker Smokeless Tobacco: Never Used Tobacco Cessation: Counseling Given: No Alcohol UseDrinks/Weekoz/WeekComments Yes occasional: social gatherings Food InsecurityAnswerDate Recorded Within the past 12 months, you worried that your food would run out before you got money to buy more. Never true 02/14/2018 Within the past 12 months, the food you bought just didn't last and you didn't have money to get more. Never true 02/14/2018 Sex Assigned at BirthDate Recorded Not on file Job Start DateOccupationIndustry Not on file Not on file Not on file Travel HistoryTravel StartTravel End No recent travel history available. 11/29/2018 [facility] Family History Value Date Source Medical HistoryRelationNameComments Cancer Brother Other Brother accident Cancer Daughter Cancer Mother breast Cancer Sister colon Cancer Sister breast RelationNameStatusComments Brother Alive Brother Brother Daughter Alive Father Maternal Grandfather Maternal Grandmother Mother Paternal Grandfather Paternal Grandmother Sister Sister Alive Sister Alive Sister Alive Sister Alive Son Alive 12/21/2018 [facility] Medical HistoryRelationNameComments Cancer Brother Other Brother accident Cancer Daughter Cancer Mother breast Cancer Sister colon Cancer Sister breast RelationNameStatusComments Brother Alive Brother Brother Daughter Alive Father Maternal Grandfather Maternal Grandmother Mother Paternal Grandfather Paternal Grandmother Sister Sister Alive Sister Alive Sister Alive Sister Alive Son Alive 12/20/2018 [facility] Medical HistoryRelationNameComments Cancer Brother Other Brother accident Cancer Daughter Cancer Mother breast Cancer Sister colon Cancer Sister breast RelationNameStatusComments Brother Alive Brother Brother Daughter Alive Father Maternal Grandfather Maternal Grandmother Mother Paternal Grandfather Paternal Grandmother Sister Sister Alive Sister Alive Sister Alive Sister Alive Son Alive 11/29/2018 [facility] Medical HistoryRelationNameComments Cancer Brother Other Brother accident Cancer Daughter Cancer Mother breast Cancer Sister colon Cancer Sister breast RelationNameStatusComments Brother Alive Brother Brother Daughter Alive Father Maternal Grandfather Maternal Grandmother Mother Paternal Grandfather Paternal Grandmother Sister Sister Alive Sister Alive Sister Alive Sister Alive Son Alive 11/13/2018 [facility] Medical HistoryRelationNameComments Cancer Brother Other Brother accident Cancer Daughter Cancer Mother breast Cancer Sister colon Cancer Sister breast RelationNameStatusComments Brother Alive Brother Brother Daughter Alive Father Maternal Grandfather Maternal Grandmother Mother Paternal Grandfather Paternal Grandmother Sister Sister Alive Sister Alive Sister Alive Sister Alive Son Alive 03/11/2018 [facility] Advance Directives No Data Provided for This Section Functional Status No Data Provided for This Section
--- OUTSIDE RECORDS SUMMARY | 2019-01-20 04:53 | XMS REPORT | Clinical Summary ---
Author Author [facility] Organization [facility] Address Unknown Phone Unavailable Care Team Providers Care University Tutor Name Role Phone Alicia Perez DO PCP Allergies Comments Active Allergy Reactions Severity Noted Date Penicillin G 03/26/2010 Penicillins Itching, Rash Low 04/29/2016 Medications End Date Status Medication Sig Dispensed Refills Start Date Active azelastine (OPTIVAR) 0.05 Instill 1 6 mL 1 % ophthalmic Drop in each 8 solutionIndications: eye 2 times Itchy eyes daily. 01/03/2019 Active tropicamide (MYDRIACYL) Instill 1 15 mL 0 0.5 % ophthalmic Drop in each 9 solutionIndications: eye once as Controlled type 2 needed for up diabetes mellitus with to 1 dose complication, without (for poor long-term current use of retina scan insulin image). Active blood glucose meter Use as 1 [...] without long-term current use of insulin Active metFORMIN (GLUCOPHAGE) TAKE 1 TABLET 180 [...] and remain upright for 30 minutes. Active fenofibrate (LOFIBRA) 160 Take 1 tablet 90 tablet 1 mg tabletIndications: by mouth 9 Hyperlipidemia, daily. unspecified hyperlipidemia type Active loratadine (CLARITIN) 10 Take 1 tablet 30 tablet 0 mg tabletIndications: by mouth 9 Upper respiratory daily. infection with cough and congestion Active benzonatate (TESSALON Take 2 20 capsule 0 PERLES) 100 mg capsules by 9 capsuleIndications: Upper mouth 3 times respiratory infection daily as with cough and congestion needed for Cough. Active FLUoxetine (PROZAC) 20 mg Take 1 90 capsule 0 capsuleIndications: PTSD capsule by 9 (post-traumatic stress mouth daily disorder), Moderate For episode of recurrent depression. major depressive disorder, Grief Active naproxen (NAPROSYN) 500 Take 1 tablet 60 tablet 1 mg tabletIndications: by mouth 2 9 Primary osteoarthritis of times daily both knees as needed for Pain (take with food) (1 gislnm=624 mg). Active traZODone (DESYREL) 50 mg Take 1/2 to 2 180 tablet 0 tabletIndications: PTSD tablets by 9 (post-traumatic stress mouth nightly disorder), Moderate at bedtime as episode of recurrent needed for major depressive Sleep. disorder, Grief Active busPIRone (BUSPAR) 10 mg Take 1 tablet 270 tablet 0 tabletIndications: PTSD by mouth 3 9 (post-traumatic stress times daily disorder) For anxiety.. Active levothyroxine (SYNTHROID) TAKE 1 TABLET 30 [...] osteoarthritis of Pain. both knees 07/06/2018 Discontinued hydrocortisone Insert 1 12 1 [...] water and remain upright for 30 minutes. 12/28/2017 Discontinued sertraline (ZOLOFT) 100 Take 2 180 tablet 0 10/12/ mg tabletIndications: tablets by 8 PTSD (post-traumatic mouth daily stress disorder) For depression and anxiety. Take every day, do not skip doses.. 12/28/2017 Discontinued busPIRone (BUSPAR) 5 mg Take 1 tablet 270 tablet 0 tabletIndications: PTSD by mouth 3 8 (post-traumatic stress times daily . disorder) For anxiety.. 07/06/2018 Discontinued blood glucose meter Use as [...] complication, without long-term current use of insulin 12/29/2017 Discontinued traMADol (ULTRAM) 50 mg Take 1 tablet 30 tablet 0 tabletIndications: Pain by mouth 8 in both knees, every 8 hours unspecified chronicity, as needed for Primary osteoarthritis of Pain. both knees 02/14/2018 Discontinued sertraline (ZOLOFT) 100 Take 2 [...] Take every day, do not skip doses.. 07/06/2018 Discontinued naproxen (NAPROSYN) 500 Take 1 [...] (post-traumatic stress times daily disorder) For anxiety.. 11/15/2018 Discontinued traZODone (DESYREL) 50 mg Take [...] needed for Pain (take with food) (1 trehoq=840 mg). 11/29/2018 Discontinued traMADol (ULTRAM) 50 mg [...] for Primary osteoarthritis of Pain. both knees Status Hospital, Clinic, or Ordered Dose Route Frequency Start End Date Other Facility Date Administered Medication Ended triamcinolone acetonide 40 mg IX ONCE 01/18/20 (KENALOG-40) injection 40 18 8 mgIndications: Primary osteoarthritis of both knees Ended lidocaine 1 % (XYLOCAINE) 2 mL IJ ONCE 01/18/20 injection 2 18 8 mLIndications: Primary osteoarthritis of both knees Active Problems Problem Noted Date Primary osteoarthritis of both knees 11/01/2017 Moderate episode of recurrent major depressive disorder 10/12/2017 Rectal cancer, s/p entire tumor removed 05/24/2016, large bowel 06/02/2016 recto-sigmoid resection S/P colonoscopy with polypectomy done at [facility] 03/201605/10/2016 Family history of breast cancer- breast ,colon 08/03/2015 Diabetes mellitus type II, uncontrolled 07/31/2015 Hyperlipidemia 06/12/2015 Thrombocytopenia, unspecified-per ER visit 05/26/2015 06/12/2015 S/P colonoscopic polypectomy done at [place] 04/23/2015 Overview: 5 polyps removed and moderately [...] Encounters Care Team Description Date Type Specialty Jackson Rose III, MD Hyperlipidemia, unspecified hyperlipidemia type; Controlled type 2 diabetes mellitus with complication, without long-term current use of insulin 12/20/2018 Refill [facility] Alicia Perez DO Hypertriglyceridemia (Primary Dx); Hypothyroidism, unspecified type; Controlled type 2 diabetes mellitus with complication, without long-term current use of insulin; Pain in both knees, unspecified chronicity; Primary osteoarthritis of both knees; PTSD (post-traumatic stress disorder) 11/29/2018 Office Visit [facility] Alicia Perez DO PTSD (post-traumatic stress disorder) 11/29/2018 Orders Only [facility] Jessica Ring RN PTSD (post-traumatic stress disorder); Moderate episode of recurrent major depressive disorder; Grief 11/15/2018 Refill [facility] 11/13/2018 Travel Jackson Rose III, MD 10/18/2018 Ancillary Radiology Procedure 10/18/2018 Travel Kelsey Ann Appointment Related Questions 10/18/2018 Telephone Jessica Ring RN PTSD (post-traumatic stress disorder) 09/24/2018 Refill [facility] Jackson Rose III, MD Hypothyroidism, unspecified type 09/21/2018 Refill [facility] Jackson Rose III, MD PTSD (post-traumatic stress disorder) (Primary Dx); Primary osteoarthritis of both knees; Hyperlipidemia, unspecified hyperlipidemia type; Hypothyroidism, unspecified type; Type 2 diabetes mellitus without complication, without long-term current use of insulin; Preventative health care; Pain in both knees, unspecified chronicity 09/13/2018 Office Visit [facility] 09/13/2018 Donald Mallory MD Moderate episode of recurrent major depressive disorder (Primary Dx); PTSD (post-traumatic stress disorder); Grief 08/23/2018 Office Visit Psychiatry Ailyn Mattson MDD (major depressive disorder), severe (Primary Dx); Grief 08/21/2018 Office Visit Psychology Elizabeth Najera RN Information Only 08/21/2018 Telephone [facility] Dina Rebollar, RETA 08/20/2018 Nurse Triage 08/17/2018 Travel Ana Rosa Rodriges RN 08/17/2018 Nurse Triage Dena Chavez NP Controlled type 2 diabetes mellitus with complication, without long-term current use of insulin 08/06/2018 Ancillary Ophthalmology Procedure Dena Suárez RN 08/06/2018 Nurse Only 08/06/2018 Travel Dena Chavez NP Controlled type 2 diabetes mellitus with complication, without long-term current use of insulin (Primary Dx); PTSD (post-traumatic stress disorder); Senile osteoporosis; Hyperlipidemia, unspecified hyperlipidemia type; Primary osteoarthritis of both knees; Pain in both knees, unspecified chronicity; Hypothyroidism, unspecified type; Pressure in chest; Upper respiratory infection with cough and congestion 07/06/2018 Office Visit [facility] Jackson Rose III, MD Primary osteoarthritis of both knees; Pain in both knees, unspecified chronicity 07/06/2018 Refill [facility] 07/06/2018 Travel Jackson Rose III, MD Controlled type 2 diabetes mellitus without complication, without long-term current use of insulin 06/28/2018 Refill [facility] Jackson Rose III, MD Hypothyroidism, unspecified type 06/13/2018 Refill [facility] Elizabeth Najera RN Information Only 05/14/2018 Telephone [facility] Clau Phan Ski Topper; Pre-clinic Chart Review 04/16/2018 Telephone Social Work Jackson Rose III, MD Hypothyroidism, unspecified type 04/11/2018 Refill [facility] Clau Phan Ski Topper 04/02/2018 Telephone Social Work Dena Chavez NP Consult (Needs to schedule appointment with Audiology.) 03/18/2018 Telephone [facility] Clau Phan 03/06/2018 Clinical Case Social Work Mgt Clau Phan Ski Topper; Pre-clinic Chart Review 03/02/2018 Telephone Social Work Ailyn Mattson MDD (major depressive disorder), recurrent [...] Pain in joint, multiple sites; Need for [id number]-[id number] (Tdap) vaccine; PTSD (post-traumatic stress disorder) 02/14/2018 Office Visit Family Practice Jessica Ring, RETA Can Not Get Appointment 01/31/2018 Telephone Dina Rebollar RN 01/31/2018 Nurse Triage Harlan Brooks MD Primary osteoarthritis of both knees (Primary Dx) 01/12/2018 Office Visit Family Practice Dena Chavez NP Pain in both knees, unspecified chronicity; Primary osteoarthritis of both knees 12/29/2017 Orders Only Family Practice Donald Frank MD Moderate episode of recurrent major depressive disorder (Primary Dx); PTSD (post-traumatic stress disorder) 12/28/2017 Office Visit Psychiatry Jackson Rose III, MD Pain in both knees, unspecified chronicity; Primary osteoarthritis of both knees 12/28/2017 Refill Family Practice after 12/19/2017 Immunizations Name Administration Dates Next Due DTaP [...] Signs Reading Time Taken Comments Vital Sign 139/64 11/29/2018 1:10 PM CDT Blood Pressure 71 11/29/2018 1:10 PM CDT Pulse 36.5 C (97.7 F) 11/29/2018 1:10 PM CDT Temperature 20 11/29/2018 1:10 PM CDT Respiratory Rate - - Oxygen Saturation - - Inhaled Oxygen Concentration 70.6 kg (155 lb 9.6 oz) 11/29/2018 1:10 PM CDT Weight 154.9 cm (5' 1") 11/29/2018 1:10 PM CDT Height 29.4 11/29/2018 1:10 PM CDT Body Mass Index Plan of Treatment Care Team Description Date Type Specialty Ailyn Mattson [address] [place] [address] [id number] [place], [place] [id number] adv $95 if [facility] not active 12/21/2018 Office Visit Psychology Alicia Perez DO [address] [place] [address] [address] [place], [place] [id number] 01/31/2019 Lab Appointment Lab Health Maintenance Due Date Last Done Comments [...] Type Problems ed? Eat Healthy Lifestyle No Joe, Emperatriz Jessica Procedures Comments Procedure Name Priority Date/Time Associated [...] of insulin MAMMOGRAM BILAT SCREEN Routine 10/18/2018 [facility] DIGITAL 1:41 PM CDT OPHTHALMOLOGY [...] STAT 07/06/2018 Pressure in chest 3:59 PM RAM CAR OPERATOR DIABETIC FOOT EXAM Routine 07/06/2018 Controlled type 2 3:30 PM RAM CAR OPERATOR diabetes mellitus with complication, without long-term current use of insulin DIABETIC FOOT EXAM Routine 02/14/2018 Controlled type 2 3:58 PM CDT diabetes mellitus without complication, without long-term current use of insulin after 12/19/2017 Results * TSH (11/13/2018 8:24 AM CDT) Only the most recent of 2 results within the time period is included. TSH 5.13 (H) 0.57 - 3.74 uIU/mL [facility] Comment: LABORATORY If , please see the following reference ranges (not verified by lab): 1st Trimester: 0.05 -3.70 uIU/mL 2nd Trimester: 0.31 -4.35 uIU/mL 3rd Trimester: 0.41 - 5.18 uIU/mL Specimen Blood Performing Organization Address [facility] Phone Number [facility] [address] [place] [address] * FREE T4 (11/13/2018 8:24 AM CDT) Free T4 0.97 0.61 - 1.18 ng/dl [facility] Specimen Blood Performing Organization Address [facility] Phone Number [facility] [address] [place] [address] * LIPID PROFILE (11/13/2018 8:24 AM CDT) Only the most recent of 2 results within the time period is included. Triglyceride 369 (H) <150 mg/dL [facility] Comment: LABORATORY Normal: < 150.0 mg/dL Borderline: 150-199 mg/dL High: 200-499 mg/dL Very High: >=500 mg/dL Cholesterol 200.0 <=200.0 mg/dL [facility] Comment: LABORATORY Desirable: < 200.0 mg/dL Borderline: 200 - 240 mg/dL High Risk: > 240 mg/dL HDL 41.0 See Reference Range [facility] Comment: Narrative. mg/dL LABORATORY Increased CHD Risk: < 40.0 mg/dL Decreased CHD Risk: > 60 mg/dL LDL 85 <100 mg/dL [facility] Comment: LABORATORY Optimal: < 100.0 mg/dL Near Optimal: 120-129 mg/dL Borderline: 130-159 mg/dL High: 160-189 mg/dL Very High: >=190 mg/dL Specimen Blood Performing Organization Address [facility] Phone Number [facility] [address] [place] [address] * GLUCOSE (11/13/2018 8:24 AM CDT) Glucose 145 (H) 70 - 110 mg/dL [facility] Specimen Blood Performing Organization Address [facility] Phone Number [facility] [address] [place] [address] * ALT/AST (11/13/2018 8:24 AM CDT) ALT 13 7 - 52 U/L [facility] AST 10 (L) 13 - 39 U/L [facility] Specimen Blood Performing Organization Address [facility] Phone Number [facility] [address] [place] [address] * MICROALBUM, URINE (11/13/2018 8:23 AM CDT) Microalbumin, <0.7 <30.0 mg/dL [facility] Random LABORATORY Creatinine, 128 20 - 320 mg/dL [facility] Urine LABORATORY Urine <5.5 0.0 - 30.0 mg/g [facility] Microalbumin LABORATORY Specimen Urine Performing Organization Address [facility] Phone Number [facility] [address] [place] [phone] * HEMOGLOBIN A1C (11/13/2018 8:23 AM CDT) Only the most recent of 2 results within the time period is included. Hemoglobin A1c 7.1 % [facility] Estimated 157 (H) 70 - 110 mg/dL [facility] Average Glucose LABORATORY Specimen Blood Performing Organization Address City/State/Zipcode Phone Number [facility] [address] [place] [address] * MAMMOGRAM BILAT SCREEN DIGITAL (10/18/2018 1:41 PM CDT) Specimen Impressions Performed At IMPRESSION: BENIGN SMS There is no mammographic evidence of malignancy. A 1 year screening mammogram is recommended. This document has been electronically signed. Dodie sung/penlinda:10/18/2018 14:10:10 College Recruiter: Leda Byrd Sr. Neurourologist, [facility] letter sent: Mammography Normal Mammogram BI-RADS: 2 Benign G0202 Z85.3 Narrative Performed At #[id number] - MAMMOGRAM BILAT SCREEN DIGITAL SMS BILATERAL DIGITAL SCREENING MAMMOGRAM WITH CAD: 10/18/2018 CLINICAL: Screening for malignancy. Comparison is made to exams dated:10/12/2017, 10/17/2016, 10/17/2016 [facility], 08/21/2015, and 07/09/2014 [facility]. The tissue of both breasts is heterogeneously dense. This may lower the sensitivity of mammography. Current study was also evaluated with a Computer Aided Detection (CAD) system. There are benign calcifications in both breasts.There also are benign masses in both breasts. No significant masses, calcifications, or other findings are seen in either breast. Procedure Note Interface, Rad/Mammog In - 10/18/2018 2:28 PM CDT #[id number] - MAMMOGRAM BILAT SCREEN DIGITAL BILATERAL DIGITAL SCREENING MAMMOGRAM WITH CAD: 10/18/2018 CLINICAL: Screening for malignancy. Comparison is made to exams dated: 10/12/2017, 10/17/2016, 10/17/2016 [facility], 08/21/2015, and 07/09/2014 [facility]. The tissue of both breasts is heterogeneously [...] has been electronically signed. Dodie Parada M.D. aar/penlinda:10/18/2018 14:10:10 College Recruiter: Leda Byrd Sr. Neurourologist, [facility] letter sent: Mammography Normal Mammogram BI-RADS: 2 Benign G0202 Z85.3 Performing Organization Address City/[facility] Phone Number SMS * OPHTHALMOLOGY RETINAL SCAN [...] y/o, F (: 1955, ) presented to [facility] on 08-06-2018 for a retinal imaging study [...] signed by Alonzo Alan MD, , Taxonomy: [id number] on 08-06-2018 11:42:25 [facility] time. NOTE:Any pathology noted on this diabetic retinal evaluation should be confirmed by an appropriate ophthalmic examination. Performing Organization Address [facility] Phone Number IRIS * LIVER PROFILE (08/06/2018 [...] (H) 0.24 - 0.36 K/uL BT MAIN-STATION radha) 2 Eos (Absolute) 0.06 0.04 - 0.36 K/uL BT MAIN-STATION 2 Baso (Absolute) 0.03 0.01 - 0.08 K/uL BT MAIN-STATION 2 Immature Grans 0.02 0.00 - 0.03 K/uL BT MAIN-STATION (Abs) 2 Specimen Blood Performing Organization Address [facility] Phone Number MISYS BT MAIN-STATION 2 * [...] Am 1 Specimen Blood Performing Organization Address [facility] Phone Number MISYS BT MAIN-STATION 1 * 12 LEAD EKG (07/06/2018 3:59 PM RAM CAR OPERATOR) 12 LEAD EKG FOR [facility] Test Date:2018-07-06 Pat Name: MARIBELL Tobias ent: [id number] Room: Gender: F Telegraphic Typewriter Installer: :[id number] Requested By: DENA Hansen Order Number: [id number] Reading MD: Noelle Borrero Measurements Intervals Parsons Rate: 65 P:10 NH: 152 QRS: 28 QRSD: 77 T:53 QT: 382 QTc:399 Interpretive Statements SINUS RHYTHM Electronically Signed On 07-06-2018 16:08:02 RAM CAR OPERATOR by Noelle Borrero Specimen Performing Organization Address City/[facility] Phone Number [facility] * DIABETIC FOOT EXAM (07/06/2018 3:30 PM RAM CAR OPERATOR) Only the most recent of 2 results within the time period is included. Narrative Performed At Dena Chavez NP 07/06/20184:36 PM Diabetic Foot Exam was performed at 07/06/2018 4:35 PM.Right foot sensation is normal, right foot pulses are normal, right foot appearance is normal.Left foot sensation is normal,left foot pulses are normal, left foot appearance is normal. after 12/19/2017 Insurance Type Payer Benefit Subscriber ID Effective Phone Address Plan / Dates Group [employer] MEDICARE COMPLETE AAR xxxxxxxxx 2016-P [phone] [address] [place] [id number] [place] [address] [facility] xxxxxxxxx 2018-P [phone] [place] [id number] [facility] [address]
--- OUTSIDE RECORDS SUMMARY | 2019-01-20 04:54 | XMS REPORT | Clinical Summary ---
Author Author [facility] Organization [facility] Address Unknown Phone Unavailable Care Team Providers Care Health Safety Coordinator Name Role Phone Alicia Perez DO PCP [...] needed for Pain (take with food) (1 njgrhk=021 mg). Active traZODone (DESYREL) 50 mg Take [...] needed for Pain (take with food) (1 iddhrq=352 mg). 11/29/2018 Discontinued traMADol (ULTRAM) 50 mg [...] resection S/P colonoscopy with polypectomy done at [facility] 03/201605/10/2016 Family history of breast cancer- breast ,colon 08/03/2015 Diabetes mellitus type II, uncontrolled 07/31/2015 Hyperlipidemia 06/12/2015 Thrombocytopenia, unspecified-per ER visit 05/26/2015 06/12/2015 S/P colonoscopic polypectomy done at [facility] 04/23/2015 Overview: 5 polyps removed and moderately [...] Encounters Care Team Description Date Type Specialty Ailyn Mattson MDD (major depressive disorder), recurrent episode, moderate (Primary Dx); Grief 12/21/2018 Office Visit Psychology 12/21/2018 Travel Jackson Rose III, MD Hyperlipidemia, unspecified hyperlipidemia type; Controlled type 2 diabetes mellitus with complication, without long-term current use of insulin 12/20/2018 Refill [facility][1] Alicia Perez DO Hypertriglyceridemia (Primary Dx); Hypothyroidism, unspecified type; Controlled type 2 diabetes mellitus with complication, without long-term current use of insulin; Pain in both knees, unspecified chronicity; Primary osteoarthritis of both knees; PTSD (post-traumatic stress disorder) 11/29/2018 Office Visit Family [facility] Alicia Perez DO PTSD (post-traumatic stress disorder) 11/29/2018 Orders Only [facility][1] Jessica Ring RN PTSD (post-traumatic stress disorder); Moderate episode of recurrent major depressive disorder; Grief 11/15/2018 Refill [facility] Practice 11/13/2018 Travel Jackson Rose III, MD 10/18/2018 Ancillary Radiology Procedure 10/18/2018 Travel Kelsey Ann Appointment Related Questions 10/18/2018 Telephone Jessica Ring RN PTSD (post-traumatic stress disorder) 09/24/2018 Refill [facility][1] Jackson Rose III, MD Hypothyroidism, unspecified type 09/21/2018 Refill [facility][1] Jackson Rose III, MD PTSD (post-traumatic stress disorder) (Primary Dx); Primary osteoarthritis of both knees; Hyperlipidemia, unspecified hyperlipidemia type; Hypothyroidism, unspecified type; Type 2 diabetes mellitus without complication, without long-term current use of insulin; Preventative health care; Pain in both knees, unspecified chronicity 09/13/2018 Office Visit Family Practice 09/13/2018 Travel Donald Frank MD Moderate episode of recurrent major depressive disorder (Primary Dx); PTSD (post-traumatic stress disorder); Grief 08/23/2018 Office Visit Psychiatry Ailyn Mattson MDD (major depressive disorder), severe (Primary Dx); Grief 08/21/2018 Office Visit Psychology Elizabeth Najera RN Information Only 08/21/2018 Telephone [facility] Practice Dina Rebollar RN 08/20/2018 Nurse Triage 08/17/2018 Travel Ana Rosa Rodriges RN 08/17/2018 Nurse Triage Dena Chavez NP Controlled type 2 diabetes mellitus with complication, without long-term current use of insulin 08/06/2018 Ancillary Ophthalmology Procedure Dena Suárez, RETA 08/06/2018 Nurse Only 08/06/2018 Travel Dena Chavez NP Controlled type 2 diabetes mellitus with complication, without long-term current use of insulin (Primary Dx); PTSD (post-traumatic stress disorder); Senile osteoporosis; Hyperlipidemia, unspecified hyperlipidemia type; Primary osteoarthritis of both knees; Pain in both knees, unspecified chronicity; Hypothyroidism, unspecified type; Pressure in chest; Upper respiratory infection with cough and congestion 07/06/2018 Office Visit [facility][1] Jackson Rose III, MD Primary osteoarthritis of both knees; Pain in both knees, unspecified chronicity 07/06/2018 Refill [facility][1] 07/06/2018 Travel Jackson Rose III, MD Controlled type 2 diabetes mellitus without complication, without long-term current use of insulin 06/28/2018 Refill [facility][1] Jackson Rose III, MD Hypothyroidism, unspecified type 06/13/2018 Refill [facility][1] Elizabeth Najera RN Information Only 05/14/2018 Telephone [facility][1] Clau Phan Survey Cad Technician; Pre-clinic Chart Review 04/16/2018 Telephone Social Work Jackson Rose III, MD Hypothyroidism, unspecified type 04/11/2018 Refill [facility][1] Clau Phan Survey Cad Technician 04/02/2018 Telephone Social Work Dena Chavez NP Consult (Needs to schedule appointment with Audiology.) 03/18/2018 Telephone [facility][1] Clau Phan 03/06/2018 Clinical Case Social Work Mgt Clau Phan Survey Cad Technician; Pre-clinic Chart Review 03/02/2018 Telephone Social Work Aliyn Mattson MDD (major depressive disorder), recurrent episode, [...] Pain in joint, multiple sites; Need for bxhiaptwzq-okdtkai-gtzzuhtgv (Tdap) vaccine; PTSD (post-traumatic stress disorder) 02/14/2018 Office Visit Family Practice Jessica Ring, RN Can Not Get Appointment 01/31/2018 Telephone Dina [...] both knees 12/28/2017 Refill Family Practice after 12/20/2017 Immunizations Name Administration Dates Next Due DTaP [...] Team Description Date Type Specialty Ailyn Mattson [address] [place] [address] [id number] [place] [address] [phone] 01/21/2019 Office Visit Psychology Alicia Perez DO [address] [place] [address] [place], [place] [id number] 01/31/2019 Lab Appointment Lab Donald Frank MD [address] [facility] 2nd Floor [address] [place], [place] [id number] 03/14/2019 Office Visit Psychiatry Health Maintenance Due [...] Goal Type Problems ed? Eat Healthy Lifestyle Bella MayoaEmperatriz Procedures Comments Procedure Name Priority Date/Time Associated [...] of insulin MAMMOGRAM BILAT SCREEN Routine 10/18/2018 [facility] health care DIGITAL 1:41 PM CDT OPHTHALMOLOGY RETINAL Routine [...] STAT 07/06/2018 Pressure in chest 3:59 PM WAITER/[employer]RESS [employer] DIABETIC FOOT EXAM Routine 07/06/2018 Controlled type 2 3:30 PM [employer]ITER[employer] diabetes mellitus with complication, without long-term current use of insulin DIABETIC FOOT EXAM Routine 02/14/2018 Controlled type 2 3:58 PM CDT diabetes mellitus without complication, without long-term current use of insulin after 12/20/2017 Results * TSH (11/13/2018 8:24 AM CDT) [...] 5.18 uIU/mL Specimen Blood Performing Organization Address [facility] Phone Number [facility] [address] [place] [address] * FREE T4 (11/13/2018 8:24 AM CDT) Free T4 0.97 0.61 - 1.18 ng/dl [facility] Specimen Blood Performing Organization Address [facility] Phone Number [facility] [address] [place] [address] * LIPID PROFILE (11/13/2018 8:24 AM CDT) Only the most recent of 2 results within the time period is included. Triglyceride 369 (H) <150 mg/dL [facility] Comment: [facility] Normal: < 150.0 mg/dL Borderline: 150-199 mg/dL High: 200-499 mg/dL Very High: >=500 mg/dL Cholesterol 200.0 <=200.0 mg/dL [facility] Comment: [facility] Desirable: < 200.0 mg/dL [...] >=190 mg/dL Specimen Blood Performing Organization Address [facility] Phone Number [facility] [address] [place] [address] * GLUCOSE (11/13/2018 8:24 AM CDT) Glucose 145 (H) 70 - 110 mg/dL [facility] Specimen Blood Performing Organization Address [facility] Phone Number [facility] [address] [place] [address] * ALT/AST (11/13/2018 8:24 AM CDT) ALT 13 7 - 52 U/L [facility] AST 10 (L) 13 - 39 U/L [facility] Specimen Blood Performing Organization Address [facility] Phone Number [facility] [address] [place] [address] * MICROALBUM, URINE (11/13/2018 8:23 AM CDT) Microalbumin, <0.7 <30.0 mg/dL [facility] Creatinine, 128 20 - 320 mg/dL [facility] Urine [facility] Urine <5.5 0.0 - 30.0 mg/g [facility] Microalbumin [facility] Specimen Urine Performing Organization Address [facility]/Zipcode Phone Number [facility] [address] [place] [address] * HEMOGLOBIN A1C (11/13/2018 8:23 AM CDT) Only the most recent of 2 results within the time period is included. Hemoglobin A1c 7.1 % [facility] Estimated 157 (H) 70 - 110 mg/dL [facility] Average Glucose LABOR[facility]ORY Specimen Blood Performing Organization Address City/State/Zipcode Phone Number [facility] [address] [place] [address] * MAMMOGRAM BILAT SCREEN DIGITAL (10/18/2018 1:41 PM CDT) Specimen Impressions Performed At IMPRESSION: BENIGN SMS There is no mammographic evidence of malignancy. A 1 year screening mammogram is recommended. This document has been electronically signed. Dodie sung/penrad:10/18/2018 14:10:10 Cook Box Filler: Leda Byrd Sr. Collections Specialist, [facility] letter sent: Mammography Normal Mammogram BI-RADS: 2 Benign G0202 Z85.3 Narrative Performed At #[id number] - MAMMOGRAM BILAT SCREEN DIGITAL SMS BILATERAL DIGITAL SCREENING MAMMOGRAM WITH CAD: 10/18/2018 CLINICAL: Screening for malignancy. Comparison is made to exams dated:10/12/2017, 10/17/2016, 10/17/2016 [facility], 08/21/2015, and 07/09/2014 [facility] [place]. The tissue of both breasts is heterogeneously dense. This may lower the sensitivity of mammography. Current study was also evaluated with a Computer Aided Detection (CAD) system. There are benign calcifications in both breasts.There also are benign masses in both breasts. No significant masses, calcifications, or other findings are seen in either breast. Procedure Note Interface, Rad/Mammog In - 10/18/2018 2:28 PM CDT #[id number] - MAMMOGRAM BILAT SCREEN DIGITAL BILATERAL DIGITAL SCREENING MAMMOGRAM WITH CAD: 10/18/2018 CLINICAL: Screening for malignancy. Comparison is made to exams dated: 10/12/2017, 10/17/2016, 10/17/2016 [facility], 08/21/2015, and 07/09/2014 [facility]. The tissue of both [...] has been electronically signed. Dodie sung/roni:10/18/2018 14:10:10 Cook Box Filler: Leda Byrd Sr. Collections Specialist, [facility] letter sent: Mammography Normal Mammogram BI-RADS: 2 Benign G0202 Z85.3 Performing Organization Address City/State/[facility] Phone Number SMS * OPHTHALMOLOGY RETINAL SCAN [...] At Retinal Study Result for MARIBELL FRANCES PRADIP WEBERENEZMARIBELLevita 62 y/o, F (: 1955, ) presented to [facility] on 08-06-2018 for a retinal imaging study of the left and right eyes. Based on the findings of the study, the following is recommended for FRANCESMARIBELL Normal Scan: Please advise the patient to return for another scan in 1 year. Interpreting Provider's Comments:No comments provided Right Eye Findings: Normal Result.Negative for Diabetic Retinopathy. Left Eye Findings: Normal Result.Negative for Diabetic Retinopathy. This result was electronically signed by Alonzo Alan MD, , Taxonomy: [id number] on 08-06-2018 11:42:25 [facility] time. NOTE:Any pathology noted on this diabetic retinal evaluation should be confirmed by an appropriate ophthalmic examination. Performing Organization Address City/State/[facility] Phone Number IRIS * LIVER PROFILE (08/06/2018 9:25 AM CDT) Pathologist [facility] Protein, Total, 6.8 6.0 - 8.3 g/dL [...] 1 * CBC/DIFF (08/06/2018 9:25 AM CDT) [facility] WBC 8.1 4.5 - 11.0 K/uL BT [...] (H) 0.24 - 0.36 K/uL BT MAIN-STATION andreafski) 2 Eos (Absolute) 0.06 0.04 - 0.36 K/uL BT MAIN-STATION 2 Baso (Absolute) 0.03 0.01 - 0.08 K/uL BT MAIN-STATION 2 Immature Grans 0.02 0.00 - 0.03 K/uL BT MAIN-STATION (Abs) 2 Specimen Blood Performing Organization Address [facility] Phone Number MISYS BT MAIN-STATION 2 * [...] Am 1 Specimen Blood Performing Organization Address [facility] Phone Number MISYS BT MAIN-STATION 1 * 12 LEAD EKG (07/06/2018 3:59 PM WAITER/[employer]RESS [employer]) 12 LEAD EKG FOR [facility] Test Date:2018-07-06 Pat Name: MARIBELL Tobias ent: [id number] Room: Gender: F Cost Accounting Analyst: :[id number] 12-27 Requested By: DENA Hansen Order Number: [id number] Abdiel MD: Noelle Borrero Measurements Intervals [place] Rate: 65 P:10 WI: 152 QRS: 28 QRSD: 77 T:53 QT: 382 QTc:399 Interpretive Statements SINUS RHYTHM Electronically Signed On 07-06-2018 16:08:02 [employer] by Noelle Borrero Specimen Performing Organization Address City/State/Zipcode Phone Number SMS * DIABETIC FOOT EXAM (07/06/2018 3:30 PM [employer]) Only the most recent of 2 results within the time period is included. Narrative Performed At Dena Chavez NP 07/06/20184:36 PM Diabetic Foot Exam was performed at 07/06/2018 4:35 PM.Right foot sensation is normal, right foot pulses are normal, right foot appearance is normal.Left foot sensation is normal,left foot pulses are normal, left foot appearance is normal. after 12/20/2017 Insurance Type Payer Benefit Subscriber ID Effective Phone Address Plan / Dates Group [employer] MEDICARE COMPLETE [facility] xxxxxxxxx 2016-P [phone] [id number] [place] [address] [facility] xxxxxxxxx 2018-P [phone] [place] [id number] [facility] [id number]
--- OUTSIDE RECORDS SUMMARY | 2019-01-20 04:54 | XMS REPORT | Clinical Summary ---
Author Author [facility] Organization [facility] Address Unknown Phone Unavailable Care Team Providers Care Braze Operator Name Role Phone Alicia Perez DO PCP [...] recurrent depression. major depressive disorder, Grief Active traZODone (DESYREL) 50 mg Take 0.5-2 180 tablet 0 tabletIndications: PTSD tablets by 9 (post-traumatic stress mouth nightly disorder), Moderate at bedtime as episode of recurrent needed for major depressive Sleep. disorder, Grief Active naproxen (NAPROSYN) 500 Take 1 tablet 60 tablet 1 mg tabletIndications: by mouth 2 9 Primary osteoarthritis of times daily both knees as needed for Pain (take with food) (1 musred=068 mg). Active traMADol (ULTRAM) 50 mg Take 1 tablet 30 tablet 0 tabletIndications: Pain by mouth 9 in both knees, every 8 hours unspecified chronicity, as needed for Primary osteoarthritis of Pain. both knees Active levothyroxine (SYNTHROID) TAKE 1 TABLET 90 tablet 0 75 mcg tabletIndications: BY MOUTH 9 Hypothyroidism, EVERY MORNING unspecified type BEFORE BREAKFAST Active busPIRone (BUSPAR) 10 mg Take 1 tablet 270 tablet 0 tabletIndications: PTSD by mouth 3 9 (post-traumatic stress times daily disorder) For anxiety.. 07/06/2018 Discontinued hydrocortisone Insert 1 12 1 [...] (post-traumatic stress times daily disorder) For anxiety.. 09/13/2018 Discontinued naproxen (NAPROSYN) 500 Take 1 tablet 60 tablet 1 mg tabletIndications: by mouth 2 9 Primary osteoarthritis of times daily both knees as needed for Pain (take with food) (1 gsdiwg=818 mg). Status Hospital, Clinic, or Ordered Dose Route [...] resection S/P colonoscopy with polypectomy done at [facility] 03/201605/10/2016 Family history of breast cancer- breast ,colon 08/03/2015 Diabetes mellitus type II, uncontrolled 07/31/2015 Hyperlipidemia 06/12/2015 Thrombocytopenia, unspecified-per ER visit 05/26/2015 06/12/2015 S/P colonoscopic polypectomy done at [place] 04/23/2015 Overview: 5 polyps removed and moderately [...] Encounters Care Team Description Date Type Specialty 11/13/2018 Travel Jackson Rose III, MD 10/18/2018 Ancillary Radiology Procedure 10/18/2018 Travel Kelsey Ann Appointment Related Questions 10/18/2018 Telephone Jessica Ring RN PTSD (post-traumatic stress disorder) 09/24/2018 Refill [facility] Jackson Rose III, MD Hypothyroidism, unspecified type 09/21/2018 Refill [facility] Jackson Rose III, MD PTSD (post-traumatic stress [...] Elizabeth Najera RN Information Only 08/21/2018 Telephone [facility] Dina Rebollar, RETA 08/20/2018 Nurse Triage 08/17/2018 Travel Aan Rosa Rodriges RN 08/17/2018 Nurse Triage Dena [...] with cough and congestion 07/06/2018 Office Visit Family Practice Jackson Rose III, MD Primary osteoarthritis of both knees; Pain in both knees, unspecified chronicity 07/06/2018 Refill [facility] 07/06/2018 Travel Jackson Rose III, MD Controlled type 2 diabetes mellitus without complication, without long-term current use of insulin 06/28/2018 Refill [facility] Jackson Rose III, MD Hypothyroidism, unspecified type 06/13/2018 Refill [facility] Elizabeth Najera RN Information Only 05/14/2018 Telephone [facility] Clau Phan Glove Turner; Pre-clinic Chart Review 04/16/2018 Telephone Social Work Jackson Rose III, MD Hypothyroidism, unspecified type 04/11/2018 Refill [facility] Clau Phan [employer] 04/02/2018 Telephone Social Work Dena Chavez NP Consult (Needs to schedule appointment with Audiology.) 03/18/2018 Telephone [facility] Clau Phan 03/06/2018 Clinical Case Social Work Mgt Clau Phan [employer]ove Turner; Pre-clinic Chart Review 03/02/2018 Telephone Social Work [...] Pain in joint, multiple sites; Need for ujscajlcpv-xyrbgqj-wwkxtghfo (Tdap) vaccine; PTSD (post-traumatic stress disorder) 02/14/2018 [...] both knees 12/28/2017 Refill Family Practice after 11/12/2017 Immunizations Name Administration Dates Next Due DTaP [...] Signs Reading Time Taken Comments Vital Sign 120/59 09/13/2018 2:26 PM CDT Blood Pressure 73 09/13/2018 2:26 PM CDT Pulse 36.8 C (98.3 F) 09/13/2018 2:26 PM CDT Temperature 20 09/13/2018 2:26 PM CDT Respiratory Rate - - Oxygen Saturation - - Inhaled Oxygen Concentration 68.2 kg (150 lb 6.4 oz) 09/13/2018 2:26 PM CDT Weight 154.9 cm (5' 1") 09/13/2018 2:26 PM CDT Height 28.42 09/13/2018 2:26 PM CDT Body Mass Index Plan of Treatment Care Team Description Date Type Specialty [facility] [address] [place] [address] Katharine Salas 11/14/2018 Appointment Audiology Health Maintenance Due Date Last Done Comments Cervical Cancer Scrn (3 06/27/2017 06/27/2014, 10/22/2002 Yrs) DM Microalbumin Urine 09/13/2018 09/13/2017, 08/24/2016, 04/23/2015, Scrn (Yearly) Additional history exists DM Foot Exam (Yearly) 07/07/2019 07/06/2018, 02/14/2018, 06/01/2017, Additional history exists DM HGBA1C (Yearly) 08/07/2019 08/06/2018, 09/15/2017, 02/16/2017, Additional history exists DM Retinal Exam (Yearly) 08/07/2019 08/06/2018, 06/08/2017, 05/11/2016 Breast Cancer Scrn 10/19/2019 10/18/2018, 10/12/2017, 10/17/2016, (Yearly) Additional history exists Goals Goal Patient Associated Recent Progress Patient-Stat Author Goal Type Problems ed? Eat Healthy Lifestyle Emperatriz Chaves Procedures Comments Procedure Name Priority Date/Time Associated Diagnosis MAMMOGRAM BILAT SCREEN Routine 10/18/2018 [facility] DIGITAL 1:41 PM CDT OPHTHALMOLOGY [...] STAT 07/06/2018 Pressure in chest 3:59 PM ASSET ADMINISTRATOR DIABETIC FOOT EXAM Routine 07/06/2018 Controlled type 2 3:30 PM ASSET ADMINISTRATOR diabetes mellitus with complication, without long-term current use of insulin DIABETIC FOOT EXAM Routine 02/14/2018 Controlled type 2 3:58 PM CDT diabetes mellitus without complication, without long-term current use of insulin after 11/12/2017 Results * MAMMOGRAM BILAT SCREEN DIGITAL (10/18/2018 1:41 PM CDT) Specimen Impressions Performed At IMPRESSION: BENIGN SMS There is no mammographic evidence of malignancy. A 1 year screening mammogram is recommended. This document has been electronically signed. Dodie sung/roni:10/18/2018 14:10:10 Sports Editor: Leda Byrd Sr. Supervisory Historian, [facility] letter sent: Mammography Normal Mammogram BI-RADS: 2 Benign G0202 Z85.3 Narrative Performed At #[id number] - MAMMOGRAM BILAT SCREEN DIGITAL SMS BILATERAL DIGITAL SCREENING MAMMOGRAM WITH CAD: 10/18/2018 CLINICAL: Screening for malignancy. Comparison is made to exams dated:10/12/2017, 10/17/2016, 10/17/2016 [facility], 08/21/2015, and 07/09/2014 [facility]. The tissue of both [...] Rad/Mammog In - 10/18/2018 2:28 PM CDT #[id number] - MAMMOGRAM BILAT SCREEN DIGITAL BILATERAL DIGITAL SCREENING MAMMOGRAM WITH CAD: 10/18/2018 CLINICAL: Screening for malignancy. Comparison is made to exams dated: 10/12/2017, 10/17/2016, 10/17/2016 [facility], 08/21/2015, and 07/09/2014 [facility]. The tissue of both [...] has been electronically signed. Dodie sung/penlinda:10/18/2018 14:10:10 Sports Editor: Leda Byrd Sr. Supervisory Historian, [facility] letter sent: Mammography Normal Mammogram BI-RADS: 2 Benign G0202 Z85.3 Performing Organization Address City/State/Zipcode Phone Number SMS * OPHTHALMOLOGY RETINAL SCAN [...] Performed At Retinal Study Result for MARIBELL FRACNES MAGDALENA, a 62 y/o, F (: 1955, ) presented to [facility] on 08-06-2018 for a retinal imaging study [...] signed by Alonzo Alan MD, , Taxonomy: [id number] on 08-06-2018 11:42:25 [facility] time. NOTE:Any pathology noted on this diabetic retinal evaluation should be confirmed by an appropriate ophthalmic examination. Performing Organization Address City/[facility]/Zipcode Phone Number IRIS * HEMOGLOBIN A1C (08/06/2018 9:25 AM CDT) Hemoglobin A1c 7.5 (H) 4.3 - 6.1 % BT DIAGNOSTIC IMMUNOLOGY Est Average 168.6 mg/dL BT DIAGNOSTIC Gluc IMMUNOLOGY Specimen Blood Performing Organization Address [facility] Phone Number MISYS BT DIAGNOSTIC IMMUNOLOGY * TSH (08/06/2018 9:25 AM CDT) TSH 5.51 (H) 0.57 - 3.74 uIU/mL BT MAIN-STATION 1 Specimen Blood Performing Organization Address [facility] Phone Number MISYS BT MAIN-STATION 1 * LIVER PROFILE (08/06/2018 9:25 AM CDT) [...] MAIN-STATION 1 Specimen Blood Performing Organization Address [facility] Phone Number MISYS BT MAIN-STATION 1 * LIPID PROFILE (08/06/2018 9:25 AM CDT) Cholesterol 206 mg/dL BT MAIN-STATION Comment: 1 REFERENCE RANGE: Desirable: <200 mg/dL Borderline: 200-240 mg/dL High Risk: >240 mg/dL Triglyceride 229 (H) <150 mg/dL BT MAIN-STATION Comment: 1 REFERENCE RANGE: Normal: <150 mg/dL Borderline High: 150-199 mg/dL High: 200-499 mg/dL Very High: >xk=817 mg/dL HDL 40 mg/dL BT MAIN-STATION Comment: 1 Increased CHD risk: <40 mg/dL Decreased CHD risk: >60 mg/dL LDL 120 mg/dL BT MAIN-STATION Comment: 1 REFERENCE RANGE: Optimal: <100 mg/dL Near Optimal: 100-129 mg/dL Borderline High: 130-159 mg/dL High: 160-189 mg/dL Very High: >or=697 mg/dL Specimen Blood Performing Organization Address City/State/Zipcode Phone [...] (H) 0.24 - 0.36 K/uL BT MAIN-STATION [place]) 2 Eos (Absolute) 0.06 0.04 - 0.36 K/uL BT MAIN-STATION 2 Baso (Absolute) 0.03 0.01 - 0.08 K/uL BT MAIN-STATION 2 Immature Grans 0.02 0.00 - 0.03 K/uL BT MAIN-STATION (Abs) 2 Specimen Blood Performing Organization Address City/[facility] Phone Number MISYS BT MAIN-STATION 2 * [...] Am 1 Specimen Blood Performing Organization Address City/State/Zipcode Phone Number MISYS BT MAIN-STATION 1 * 12 LEAD EKG (07/06/2018 3:59 PM ASSET ADMINISTRATOR) 12 LEAD EKG FOR [facility] Test Date:2018-07-06 Pat Name: MARIBELL Tobias ent: [id number] Room: Gender: F Nutrient Management Specialist: :[id number] Requested By: DENA Hansen Order Number: [id number] Reading MD: Noelle Borrero Measurements Intervals [place] Rate: 65 P:10 SD: 152 QRS: 28 QRSD: 77 T:53 QT: 382 QTc:399 Interpretive Statements SINUS RHYTHM Electronically Signed On 07-06-2018 16:08:02 ASSET ADMINISTRATOR by Noelle Borrero Specimen Performing Organization Address City/State/Zipcode Phone Number SMS * DIABETIC FOOT EXAM (07/06/2018 3:30 PM ASSET ADMINISTRATOR) Only the most recent of 2 results within the time period is included. Narrative Performed At Dena Chavez NP 07/06/20184:36 PM Diabetic Foot Exam was performed at 07/06/2018 4:35 PM.Right foot sensation is normal, right foot pulses are normal, right foot appearance is normal.Left foot sensation is normal,left foot pulses are normal, left foot appearance is normal. after 11/12/2017 Insurance Type Payer Benefit Subscriber ID Effective Phone Address Plan / Dates Group AARP MEDICARE COMPLETE AAR xxxxxxxxx 2016-P [phone] [address] MED[place]ARE [place] [address] [place] [address] Maribell Frances Third Self 1955 [id number] [place] (Home) [place] [address] Liability Maribell Frances Psych Self [address] (Home) [place] [address]
--- OUTSIDE RECORDS SUMMARY | 2019-01-20 04:55 | XMS REPORT | Clinical Summary ---
Author Author [facility] Organization [facility] Address Unknown Phone Unavailable Care Team Providers Care Talent Development Analyst Name Role Phone Alicia Perez DO PCP [...] needed for Pain (take with food) (1 axyxmh=477 mg). Active traZODone (DESYREL) 50 mg Take [...] needed for Pain (take with food) (1 epcyhj=800 mg). 11/29/2018 Discontinued traMADol (ULTRAM) 50 mg [...] resection S/P colonoscopy with polypectomy done at [facility] 03/201605/10/2016 Family history of breast cancer- breast ,colon 08/03/2015 Diabetes mellitus type II, uncontrolled 07/31/2015 Hyperlipidemia 06/12/2015 Thrombocytopenia, unspecified-per ER visit 05/26/2015 06/12/2015 S/P colonoscopic polypectomy done at [place] 04/23/2015 Overview: 5 polyps removed and moderately [...] Description Date Type Specialty Alicia Perez DO Hypertriglyceridemia (Primary Dx); Hypothyroidism, unspecified type; Controlled type 2 diabetes mellitus with complication, without long-term current use of insulin; Pain in both knees, unspecified chronicity; Primary osteoarthritis of both knees; PTSD (post-traumatic stress disorder) 11/29/[address] [facility] [place] [place] Jessica Ring RN PTSD (post-traumatic stress disorder); Moderate episode of recurrent major depressive disorder; Grief 11/15/2018 Refill [facility] 11/13/2018 Travel Jackson Rsoe III, MD 10/18/2018 Ancillary Radiology Procedure 10/18/2018 Travel Kelsey Ann Appointment Related Questions 10/18/2018 Telephone Jessica Ring RN PTSD (post-traumatic stress disorder) 09/24/[address] [facility] [place] [place] Jackson Rose III, MD Hypothyroidism, unspecified type 09/21/[address] [facility] [place] [place] Jackson Rose III, MD PTSD (post-traumatic [...] Elizabeth Najera RN Information Only 08/21/[address] [facility] [place] [place] Dina Rebollar, RETA 08/20/2018 Nurse Triage [...] with cough and congestion 07/06/2018 Office Visit [facility] Jackson Rose III, MD Primary osteoarthritis of both knees; Pain in both knees, unspecified chronicity 07/06/2018 Refill [facility] 07/06/2018 Travel Jackson Rose III, MD Controlled type 2 diabetes mellitus without complication, without long-term current use of insulin 06/28/[address] [facility] [place] [place] Jackson Rose III, MD Hypothyroidism, unspecified type 06/13/2018 Refill [facility] Elizabeth Najera RN Information Only 05/14/[address] 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 [place] Clau Phan [employer] 04/02/2018 Telephone Social Work Dena Chavez NP Consult (Needs to schedule appointment with Audiology.) 03/18/[address] [facility] [place] [place] Clau Phan 03/06/2018 Clinical Case Social Work Mgt Clau Phan [employer] Marker; Pre-clinic Chart Review 03/02/2018 Telephone Social Work [...] Pain in joint, multiple sites; Need for ebyggkcbsx-pjnlogt-izyprhvuu (Tdap) vaccine; PTSD (post-traumatic stress disorder) 02/14/2018 Office Visit Family Practice Jessica Ring, RETA Can Not Get Appointment 01/31/2018 Telephone Dina Rebollar RN 01/31/2018 Nurse Triage Harlan Brooks MD Primary osteoarthritis of both knees (Primary Dx) 01/12/2018 Office Visit [facility] Dena Chavez NP Pain in both knees, unspecified chronicity; Primary osteoarthritis of both knees 12/29/2017 Orders Only [facility] Donald Frank MD Moderate episode of recurrent major depressive disorder (Primary Dx); PTSD (post-traumatic stress disorder) 12/28/2017 Office Visit Psychiatry Jackson Rose III, MD Pain in both knees, unspecified chronicity; Primary osteoarthritis of both knees 12/28/2017 Refill Family Practice after 11/28/2017 Immunizations Name Administration Dates Next Due DTaP [...] Team Description Date Type Specialty Ailyn Mattson [address] [place], [place] [id number] 12/21/2018 Office Visit Psychology Chris AliciaDO evita [address] [place] [address] 01/31/2019 Lab Appointment Lab Health Maintenance Due [...] of insulin MAMMOGRAM BILAT SCREEN Routine 10/18/2018 [facility] DIGITAL 1:41 PM CDT OPHTHALMOLOGY RETINAL Routine [...] STAT 07/06/2018 Pressure in chest 3:59 PM CAR TRIMMER DIABETIC FOOT EXAM Routine 07/06/2018 Controlled type 2 3:30 PM CAR TRIMMER diabetes mellitus with complication, without long-term current use of insulin DIABETIC FOOT EXAM Routine 02/14/2018 Controlled type 2 3:58 PM CDT diabetes mellitus without complication, without long-term current use of insulin after 11/28/2017 Results * TSH (11/13/2018 8:24 AM CDT) [...] Specimen Blood Performing Organization Address [facility] Phone Number [facility] [address] [place] [address] * FREE T4 (11/13/2018 8:24 AM CDT) Free T4 0.97 0.61 - 1.18 ng/dl [facility] Specimen Blood Performing Organization Address [facility] Phone Number [facility] [address] [place] [address] * LIPID PROFILE (11/13/2018 8:24 AM CDT) Only the most recent of 2 results within the time period is included. Triglyceride 369 (H) <150 mg/dL [facility] Comment: LABORATORY Normal: < 150.0 mg/dL Borderline: 150-199 mg/dL High: 200-499 mg/dL Very High: >=500 mg/dL Cholesterol 200.0 <=200.0 mg/dL [facility] Comment: LABORATORY Desirable: < 200.0 mg/dL Borderline: 200 - 240 mg/dL High Risk: > 240 mg/dL HDL 41.0 See Reference Range [facility] Comment: Narrative. mg/dL LABORATORY Increased CHD Risk: < 40.0 mg/dL Decreased CHD Risk: > 60 mg/dL LDL 85 <100 mg/dL [facility] Comment: LABORATORY Optimal: < 100.0 mg/dL Near Optimal: 120-129 mg/dL Borderline: 130-159 mg/dL High: 160-189 mg/dL Very High: >=190 mg/dL Specimen Blood Performing Organization Address [facility] Phone Number [facility] [address] [place] [address] * GLUCOSE (11/13/2018 8:24 AM CDT) Glucose 145 (H) 70 - 110 mg/dL [facility] Specimen Blood Performing Organization Address [facility] Phone Number [facility] [address] [place] [address] * ALT/AST (11/13/2018 8:24 AM CDT) ALT 13 7 - 52 U/L [facility] AST 10 (L) 13 - 39 U/L [facility] Specimen Blood Performing Organization Address [facility] Phone Number [facility] [address] [place] [address] * MICROALBUM, URINE (11/13/2018 8:23 AM CDT) Microalbumin, <0.7 <30.0 mg/dL [facility] Random [facility] Creatinine, 128 20 - 320 mg/dL [facility] Urine LABORATORY Urine <5.5 0.0 - 30.0 mg/g [facility] Microalbumin LAB[facility]ORY Specimen Urine Performing Organization Address [facility] Phone Number [facility] [address] [place] [address] * HEMOGLOBIN A1C (11/13/2018 8:23 AM CDT) Only the most recent of 2 results within the time period is included. Hemoglobin A1c 7.1 % [facility] Estimated 157 (H) 70 - 110 mg/dL [facility] Average Glucose LABORATORY Specimen Blood Performing Organization Address [facility] Phone Number [facility] [address] [place], [place] [phone] * MAMMOGRAM BILAT SCREEN DIGITAL (10/18/2018 1:41 PM CDT) Specimen Impressions Performed At IMPRESSION: BENIGN SMS There is no mammographic evidence of malignancy. A 1 year screening mammogram is recommended. This document has been electronically signed. Dodie Parada M.D. aar/penrad:10/18/2018 14:10:10 Brake Drum Lathe Operator: Leda Byrd Sr. Field Administrative [facility] letter sent: Mammography Normal Mammogram BI-RADS: 2 Benign G0202 Z85.3 Narrative Performed At #[id number] - MAMMOGRAM BILAT SCREEN DIGITAL SMS BILATERAL DIGITAL SCREENING MAMMOGRAM WITH CAD: 10/18/2018 CLINICAL: Screening for malignancy. Comparison is made to exams dated:10/12/2017, 10/17/2016, 10/17/2016 [facility] 08/21/2015, and 07/09/2014 [facility] [place]. The tissue of both breasts is heterogeneously dense. This may lower the sensitivity of mammography. Current study was also evaluated with a Computer Aided Detection (CAD) system. There are benign calcifications in both breasts.There also are benign masses in both breasts. No significant masses, calcifications, or other findings are seen in either breast. Procedure Note Interface, Rad/Mammog In - 10/18/2018 2:28 PM CDT #[id number] - MAMMOGRAM BILAT SCREEN DIGITAL BILATERAL DIGITAL SCREENING MAMMOGRAM WITH CAD: 10/18/2018 CLINICAL: Screening for malignancy. Comparison is made to exams dated: 10/12/2017, 10/17/2016, 10/17/2016 [facility] 08/21/2015, and 07/09/2014 [facility] [place]. The tissue of both breasts is heterogeneously [...] electronically signed. Dodie Parada M.D. aar/penrad:10/18/2018 14:10:10 Brake Drum Lathe Operator: Leda Byrd Sr. Field Administrative AssistantHackensack [facility] letter sent: Mammography Normal Mammogram [...] y/o, F (: 1955, ) presented to [facility] on 08-06-2018 for a retinal imaging [...] signed by Alonzo Alan MD, , Taxonomy: [id number] on 08-06-2018 11:42:25 [facility] time. NOTE:Any pathology noted on this diabetic retinal evaluation should be confirmed by an appropriate ophthalmic examination. Performing Organization Address [facility] Phone Number IRIS * LIVER PROFILE (08/06/2018 [...] MAIN-STATION 1 Specimen Blood Performing Organization Address [facility] Phone Number MISYS BT MAIN-STATION 1 * [...] (H) 0.24 - 0.36 K/uL BT MAIN-STATION [place]) 2 Eos (Absolute) 0.06 0.04 - 0.36 K/uL BT MAIN-STATION 2 Baso (Absolute) 0.03 0.01 - 0.08 K/uL BT MAIN-STATION 2 Immature Grans 0.02 0.00 - 0.03 K/uL BT MAIN-STATION (Abs) 2 Specimen Blood Performing Organization Address City/State/Zipcode Phone Number MISYS BT MAIN-STATION 2 * [...] Am 1 Specimen Blood Performing Organization Address City/[facility] Phone Number MISYS BT MAIN-STATION 1 * 12 LEAD EKG (07/06/2018 3:59 PM CAR TRIMMER) 12 LEAD EKG FOR [facility] Test Date:2018-07-06 Pat Name: MARIBELL Tobias ent: [id number] Room: Gender: F 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 Narrative Performed At Dena Chavez NP 07/06/20184:36 PM Diabetic Foot Exam was performed at 07/06/2018 4:35 PM.Right foot sensation is normal, right foot pulses are normal, right foot appearance is normal.Left foot sensation is normal,left foot pulses are normal, left foot appearance is normal. after 11/28/2017 Insurance Type Payer Benefit Subscriber ID Effective Phone Address Plan / Dates Group AARP MEDICARE COMPLETE AAR xxxxxxxxx 2016-P [phone] [address] [place] [address] [place] [address] Maribell Frances Third Self 1955 [phone] (Home) [place] [id number] Liability Maribell Frances Psych Self 1955 [phone] (Home) [place] [id number]
--- OUTSIDE RECORDS SUMMARY | 2019-01-20 04:55 | XMS REPORT | Clinical Summary ---
Author Author [facility] Organization [facility] Address Unknown Phone Unavailable Care Team Providers Care Computer Engineering Professor Name Role Phone ScottRosaura [employer] MANAG[employer] PCP Allergies Active Allergy Reactions Severity Noted Date Comments Penicillin G 03/26/2010 Current Medications Prescription Sig. Disp. Refills Start End Date Status Date hydrocortisone Insert 1 Suppository 12 1 06/10/19 Active (ANUSOL-HC) 25 mg rectal rectally 2 times daily as Suppository 15 suppositoryIndications: needed for hemorrhoids. Hemorrhoid blood glucose Use as directed 2 times 1 Kit 0 05/10/19 Active meterIndications: weekly. 17 Borderline diabetes, Controlled type 2 diabetes mellitus without complication, without long-term current use of insulin lancets 28 1 Each 2 times weekly. 100 Each 12 05/12/19 Active gaugeIndications: 17 Borderline diabetes, Controlled type 2 diabetes mellitus without complication, without long-term current use of insulin blood glucose test 1 Each 2 times weekly. 50 Each 6 05/12/19 Active stripsIndications: 17 Borderline diabetes, Controlled type 2 diabetes mellitus without complication, without long-term current use of insulin ergocalciferol (VITAMIN Take 1 capsule by mouth 12 capsule 0 02/23/20 Active D2) 50,000 unit weekly. 17 capsuleIndications: Vitamin D deficiency levothyroxine (SYNTHROID) Take 1 tablet by mouth 90 tablet 1 06/01/19 Active 75 mcg tabletIndications: every morning (before 18 Hypothyroidism, breakfast). unspecified type fenofibrate (LOFIBRA) 160 Take 1 tablet by mouth 30 tablet 3 06/01/19 Active mg tabletIndications: daily. 18 Hyperlipidemia, unspecified hyperlipidemia type metFORMIN (GLUCOPHAGE) Take 1 tablet by mouth 2 60 tablet 3 06/01/19 Active 500 mg tabletIndications: times daily (with meals). 18 Controlled type 2 diabetes mellitus without complication, without long-term current use of insulin alendronate (FOSAMAX) 70 Take 1 tablet once a week 12 tablet 3 06/01/19 Active mg tabletIndications: on empty stomach with 8 18 Senile osteoporosis oz of water and remain upright for 30 minutes. azelastine (OPTIVAR) 0.05 Instill 1 Drop in each 6 mL 1 06/01/19 Active % ophthalmic eye 2 times daily. 18 solutionIndications: Itchy eyes blood glucose meter Use as directed.. 1 Kit 0 11/02/19 Active (ACCU-CHEK JAKE PLUS 18 METER)Indications: Controlled type 2 diabetes mellitus with complication, without long-term current use of insulin blood glucose (ACCU-CHEK Use 2 times weekly (once 50 Each 11/02/19 Active JAKE PLUS TEST STRP) per day on Mon,) to 18 test stripsIndications: test blood sugar. Controlled type 2 diabetes mellitus with complication, without long-term current use of insulin lancets (ACCU-CHEK Use 2 times weekly as 100 Each 1 11/02/19 Active SOFTCLIX directed. 18 LANCETS)Indications: Controlled type 2 diabetes mellitus with complication, without long-term current use of insulin traMADol (ULTRAM) 50 mg Take 1 tablet by mouth 30 tablet 0 02/15/20 Active tabletIndications: Pain every 8 hours as needed 18 in both knees, for Pain. unspecified chronicity, Primary osteoarthritis of both knees, Pain in joint, multiple sites naproxen (NAPROSYN) 500 Take 1 tablet by mouth 2 40 tablet 0 20 Active mg tabletIndications: times daily (with meals). 18 Primary osteoarthritis of both knees, Pain in both knees, unspecified chronicity, Pain in joint, multiple sites busPIRone (BUSPAR) 7.5 mg Take 1 tablet by mouth 3 270 tablet 0 02/15/20 Active tabletIndications: PTSD times daily For anxiety.. 18 (post-traumatic stress disorder) sertraline (ZOLOFT) 100 Take 2 tablets by mouth 180 tablet 0 20 Active mg tabletIndications: daily For depression and 18 PTSD (post-traumatic anxiety. Take every day, stress disorder) do not skip doses.. alendronate (FOSAMAX) 70 Take 1 tablet once a week 12 tablet 3 09/16/19 06/01/19 Discontin mg tabletIndications: on empty stomach with 8 17 18 ued Senile osteoporosis oz of water and remain upright for 30 minutes. levothyroxine (SYNTHROID) Take 1 tablet by mouth 90 tablet 1 09/16/19 06/01/19 Discontin 75 mcg tabletIndications: every morning (before 17 18 ued Hypothyroidism, breakfast). unspecified type fenofibrate (LOFIBRA) 160 Take 1 tablet by mouth 30 tablet 3 09/16/19 06/01/19 Discontin mg tabletIndications: daily. 17 18 ued Hyperlipidemia, unspecified hyperlipidemia type metFORMIN (GLUCOPHAGE) Take 1 tablet by mouth 2 60 tablet 3 09/16/19 06/01/19 Discontin 500 mg tabletIndications: times daily (with meals). 17 18 ued Controlled type 2 diabetes mellitus without complication, without long-term current use of insulin sertraline (ZOLOFT) 100 Take 1 tablet by mouth 90 tablet 0 12/23/19 06/01/19 Discontin mg tabletIndications: daily For depression and 17 18 ued PTSD (post-traumatic anxiety. Take every day, stress disorder) do not skip doses.. busPIRone (BUSPAR) 5 mg Take 1 tablet by mouth 3 270 tablet 0 12/23/19 06/01/19 Discontin tabletIndications: PTSD times daily . For 17 18 ued (post-traumatic stress anxiety.. disorder) traMADol (ULTRAM) 50 mg Take 1 tablet by mouth 30 tablet 0 12/28/19 04/05/20 Discontin tabletIndications: Pain every 8 hours as needed 17 17 ued in both knees, for Pain. unspecified chronicity traMADol (ULTRAM) 50 mg TAKE 1 TABLET BY MOUTH 30 tablet 0 04/14/20 06/01/19 Discontin tabletIndications: Pain EVERY 8 HOURS NEEDED 17 18 ued in both knees, FOR PAIN unspecified chronicity tropicamide (MYDRIACYL) Instill 1 Drop in each 15 mL 0 06/01/19 06/01/19 0.5 % ophthalmic eye once as needed for up 18 18 solutionIndications: to 1 dose (for poor Controlled type 2 retina scan image). diabetes mellitus without complication, without long-term current use of insulin busPIRone (BUSPAR) 5 mg Take 1 tablet by mouth 3 270 tablet 0 06/01/19 07/28/19 Discontin tabletIndications: PTSD times daily . For 18 18 ued (post-traumatic stress anxiety.. disorder) sertraline (ZOLOFT) 100 Take 1 tablet by mouth 90 tablet 0 06/01/19 07/28/19 Discontin mg tabletIndications: daily For depression and 18 18 ued PTSD (post-traumatic anxiety. Take every day, stress disorder) do not skip doses.. traMADol (ULTRAM) 50 mg Take 1 tablet by mouth 30 tablet 0 06/01/19 09/14/19 Discontin tabletIndications: Pain every 8 hours as needed 18 18 ued in both knees, for Pain. unspecified chronicity sertraline (ZOLOFT) 100 Take 1.5 tablets by mouth 135 tablet 0 07/28/19 10/13/19 Discontin mg tabletIndications: daily For depression and 18 18 ued PTSD (post-traumatic anxiety. Take every day, stress disorder) do not skip doses.. busPIRone (BUSPAR) 5 mg Take 1 tablet by mouth 3 270 tablet 0 07/28/19 10/13/19 Discontin tabletIndications: PTSD times daily . For 18 18 ued (post-traumatic stress anxiety.. disorder) traMADol (ULTRAM) 50 mg Take 1 tablet by mouth 30 tablet 0 09/14/19 09/14/19 Discontin tabletIndications: Pain every 8 hours as needed 18 18 ued in both knees, for Pain. unspecified chronicity traMADol (ULTRAM) 50 mg Take 1 tablet by mouth 30 tablet 0 09/14/19 11/02/19 Discontin tabletIndications: Pain every 8 hours as needed 18 18 ued in both knees, for Pain. unspecified chronicity sertraline (ZOLOFT) 100 Take 2 tablets by mouth 180 tablet 0 10/13/19 12/29/19 Discontin mg tabletIndications: daily For depression and 18 18 ued PTSD (post-traumatic anxiety. Take every day, stress disorder) do not skip doses.. busPIRone (BUSPAR) 5 mg Take 1 tablet by mouth 3 270 tablet 0 10/13/19 12/29/19 Discontin tabletIndications: PTSD times daily . For 18 18 ued (post-traumatic stress anxiety.. disorder) traMADol (ULTRAM) 50 mg Take 1 tablet by mouth 30 tablet 0 11/02/19 12/30/19 Discontin tabletIndications: Pain every 8 hours as needed 18 18 ued in both knees, for Pain. unspecified chronicity, Primary osteoarthritis of both knees sertraline (ZOLOFT) 100 Take 2 tablets by mouth 180 tablet 0 12/29/19 02/15/20 Discontin mg tabletIndications: daily For depression and 18 18 ued PTSD (post-traumatic anxiety. Take every day, stress disorder) do not skip doses.. busPIRone (BUSPAR) 7.5 mg Take 1 tablet by mouth 3 270 tablet 0 12/29/19 02/15/20 Discontin tabletIndications: PTSD times daily For anxiety.. 18 18 ued (post-traumatic stress disorder) traMADol (ULTRAM) 50 mg Take 1 tablet by mouth 30 tablet 0 12/30/19 02/15/20 Discontin tabletIndications: Pain every 8 hours as needed 18 18 ued in both knees, for Pain. unspecified chronicity, Primary osteoarthritis of both knees Hospital, Clinic, or Ordered Dose Route Frequency Start End Date Status Other Facility Date Administered Medication lidocaine 1 % (XYLOCAINE) 2 mL IJ ONCE 04/07/20 04/07/20 Ended injection 2 17 17 mLIndications: Primary osteoarthritis of left knee triamcinolone acetonide 40 mg IX ONCE 04/07/20 04/07/20 Ended (KENALOG-40) injection 40 17 17 mgIndications: Primary osteoarthritis of left knee triamcinolone acetonide 40 mg IX ONCE 01/18/20 01/18/20 Ended (KENALOG-40) injection 40 18 18 mgIndications: Primary osteoarthritis of both knees lidocaine 1 % (XYLOCAINE) 2 mL IJ ONCE 01/18/20 01/18/20 Ended injection 2 18 18 mLIndications: Primary osteoarthritis of both knees Active Problems Problem Noted Date Primary osteoarthritis of both knees 11/01/2017 Moderate episode of recurrent major depressive disorder 10/12/2017 Rectal cancer, s/p entire tumor removed 05/24/2016, large bowel 06/02/2016 recto-sigmoid resection S/P colonoscopy with polypectomy done at [facility] 03/201605/10/2016 Family history of breast cancer- breast ,colon 08/03/2015 Diabetes mellitus type II, uncontrolled 07/31/2015 Hyperlipidemia 06/12/2015 Thrombocytopenia, unspecified-per ER visit 05/26/2015 06/12/2015 S/P colonoscopic polypectomy done at [place] 04/23/2015 Overview: 5 polyps removed and moderately [...] 04/27/2012 Osteopenia 04/11/2012 Osteoporosis, unspecified 04/11/2012 Encounters Date Type Specialty Care Team Description 03/06/2018 Clinical Case Social Work Clau Phan Mgshelley 03/02/2018 Telephone Social Work Clau Phan [employer] [facility]; Pre-clinic Chart Review 02/20/2018 Office Visit Psychology Ailyn Mattson MDD (major depressive disorder), recurrent episode, moderate (Primary Dx) 02/14/2018 Office Visit Family Practice Rosaura Chavez NP Controlled type 2 diabetes mellitus without complication, without long-term current use of insulin (Primary Dx); Flu vaccine need; Dietary counseling for Above / Below Normal BMI; Exercise counseling for Above Normal BMI Only!; Primary osteoarthritis of both knees; Seasonal allergic rhinitis, unspecified trigger; Perforated ear drum, bilateral; Pain in both knees, unspecified chronicity; Pain in joint, multiple sites 01/31/2018 Telephone Jessica Ring, RETA Can Not Get Appointment 01/31/2018 Nurse Triage Dina Rebollar RN 01/12/2018 Office Visit Family Practice Harlan Brooks MD Primary osteoarthritis of both knees (Primary Dx) 12/29/2017 Orders Only Family Practice Rosaura Cahvez NP Pain in both knees, unspecified chronicity; Primary osteoarthritis of both knees 12/28/2017 Office Visit Psychiatry Donald Frank MD Moderate episode of recurrent major depressive disorder (Primary Dx); PTSD (post-traumatic stress disorder) 12/28/[address] [facility] Jackson Rose MD Pain in both knees, unspecified chronicity; Primary osteoarthritis of both knees 11/01/2017 Office Visit [facility] Rosaura Chavez NP Encounter to discuss test results (Primary Dx); Controlled type 2 diabetes mellitus with complication, without long-term current use of insulin; Hypertriglyceridemia; Primary osteoarthritis of both knees; Pain in both knees, unspecified chronicity 10/27/[address] [facility] Jessica Ring RN Vitamin D deficiency 10/12/2017 Office Visit Psychiatry Kar Ochoa MD Moderate episode of Donald Frank MD recurrent major depressive disorder (Primary Dx); PTSD (post-traumatic stress disorder) 10/12/2017 Ancillary Radiology Rosaura Chavez NP Procedure 09/23/[address] [facility] Jackson Rose MD Pain in both knees, unspecified chronicity 09/13/[address] [facility] Rosaura Chavez NP Hospital discharge follow-up (Primary Dx); S/P laparoscopic cholecystectomy 08/09/2017; Controlled type 2 diabetes mellitus with complication, without long-term current use of insulin; Other hyperlipidemia; Rectal cancer, s/p entire tumor removed 05/24/2016, large bowel recto-sigmoid resection; Screening for breast cancer; Pain in both knees, unspecified chronicity 07/28/2017 Pharmacy Visit 07/27/2017 Office Visit Psychiatry Rosaura Chavez NP Other recurrent Donald Frank MD depressive disorders (Primary Dx); PTSD (post-traumatic stress disorder) 06/08/2017 Ancillary Ophthalmology Rosaura Chavez NP Controlled type 2 Procedure diabetes mellitus without complication, without long-term current use of insulin 06/01/2017 Office Visit [facility] Practice Rosaura Chavez NP Controlled type 2 diabetes mellitus without complication, without long-term current use of insulin (Primary Dx); Hypothyroidism, unspecified type; Hyperlipidemia, unspecified hyperlipidemia type; Senile osteoporosis; PTSD (post-traumatic stress disorder); Itchy eyes; Flu vaccine need; Pain in both knees, unspecified chronicity 04/14/2017 Telephone Nohemy Esqueda LVN Medication Refill 04/07/2017 Office Visit [facility] Practice Rosaura Chavez NP Primary osteoarthritis of Harlan Brooks MD left knee (Primary Dx) 04/05/2017 Refill Family Practice Jackson Rose MD Pain in both knees, unspecified chronicity after 03/10/2017 Immunizations Name Dates Previously Given Next Due DTaP Diphtheria, Tetanus, 02/27/2008 Acellular, Pertussis Influenza Vaccine 04/09/2015, 07/31/2014 (Deferred: Patient already had this immunization), 02/08/2012 Influenza Vaccine, 06/01/2017 (Deferred: Patient Refused - refused) Seasonal, Injectable Influenza, 02/14/2018 Vaccine<FLUCELVAX>(Multi- Dose) PNEUMOCOCCAL 23-VALPS 07/31/2014 VACCINE 25 MCG/0.5 ML INJECTION TDap (Tetanus Toxoid, 02/14/2018 Reduced Diphtheria Toxoid And Acellular Pertussis, Absorbed) Family History Medical History Relation Name Comments Cancer Brother Other Brother accident Cancer Daughter Cancer Mother breast Cancer Sister colon Cancer Sister breast Relation Name Status Comments Brother Alive Brother Brother Daughter Alive Father Maternal Grandfather Maternal Grandmother Mother Paternal Grandfather Paternal Grandmother Sister Sister Alive Sister Alive Sister Alive Sister Alive Son Alive Social History Tobacco Use Types Packs/Day Years Used Date Never Smoker Smokeless Tobacco: Never Used Tobacco Cessation: Counseling Given: No Alcohol Use Drinks/Week oz/Week Comments Yes occasional: social gatherings Sex Assigned at Date Recorded Not on file Last Filed Vital Signs Vital Sign Reading Time Taken Blood Pressure 142/64 02/14/2018 3:39 PM CDT Pulse 76 02/14/2018 3:39 PM CDT Temperature 36.7 C (98 F) 02/14/2018 3:39 PM CDT Respiratory Rate 18 02/14/2018 3:39 PM CDT Oxygen Saturation - - Inhaled Oxygen - - Concentration Weight 72.6 kg (160 lb) 02/14/2018 3:39 PM CDT Height 154.9 cm (5' 1") 02/14/2018 3:39 PM CDT Body Mass Index 30.23 02/14/2018 3:39 PM CDT Plan of Treatment Date Type Specialty Care Team Description 03/21/2018 Office Visit Psychology Ailyn Mattson [address] [place] [address] [id number] [place] [address] [phone] 03/22/2018 Office Visit Psychiatry Donald Frank MD [address] [facility] [id number] [place] [address] [phone] 04/05/2018 Lab Appointment Lab Rosaura Chavez KASIA [phone] Health Maintenance Due Date Last Done Comments Cervical Cancer Scrn (3 06/27/2017 06/27/2014, 10/22/2002 Yrs) DM Retinal Exam (Yearly) 06/08/2018 06/08/2017, 05/11/2016 DM Microalbumin Urine 09/13/2018 09/13/2017, 08/24/2016, 04/23/2015, Scrn (Yearly) Additional history exists DM HGBA1C (Yearly) 09/15/2018 09/15/2017, 02/16/2017, 08/24/2016, Additional history exists Breast Cancer Scrn 10/12/2018 10/12/2017, 10/17/2016, 08/21/2015, (Yearly) Additional history exists DM Foot Exam (Yearly) 02/14/2019 02/14/2018, 06/01/2017, 2016, Additional history exists Goals Patient Goal Type Goal Recent Progress Patient-Stat Author ed? Lifestyle Eat Healthy Emperatriz Chaves Procedures Procedure Name Priority Date/Time Associated Diagnosis Comments DIABETIC FOOT EXAM Routine 02/14/2018 Controlled type 2 Results for this 3:58 PM CDT diabetes mellitus without procedure are in the complication, without results section. long-term current use of insulin MAMMOGRAM BILAT SCREEN Routine 10/12/2017 Screening for breast Results for this DIGITAL 2:04 PM CDT cancer procedure are in the results section. TSH Routine 09/15/2017 Controlled type 2 Results for this 9:46 AM CDT diabetes mellitus with procedure are in the complication, without results section. long-term current use of insulin LIVER PROFILE Routine 09/15/2017 Other hyperlipidemia Results for this 9:46 AM CDT procedure are in the results section. LIPID PROFILE Routine 09/15/2017 Other hyperlipidemia Results for this 9:46 AM CDT procedure are in the results section. HEMOGLOBIN A1C Routine 09/15/2017 Controlled type 2 Results for this 9:46 AM CDT diabetes mellitus with procedure are in the complication, without results section. long-term current use of insulin CBC/DIFF Routine 09/15/2017 Controlled type 2 Results for this 9:46 AM CDT diabetes mellitus with procedure are in the complication, without results section. long-term current use of insulin BASIC METABOLIC PANEL Routine 09/15/2017 Controlled type 2 Results for this 9:46 AM CDT diabetes mellitus with procedure are in the complication, without results section. long-term current use of insulin MICROALBUM, URINE Routine 09/13/2017 Controlled type 2 Results for this 4:19 PM CDT diabetes mellitus with procedure are in the complication, without results section. long-term current use of insulin OPHTHALMOLOGY RETINAL Routine 06/08/2017 Controlled type 2 Results for this SCAN 5:11 PM [employer] diabetes mellitus without procedure are in the complication, without results section. long-term current use of insulin DIABETIC FOOT EXAM Routine 06/01/2017 Controlled type 2 Results for this 11:44 AM [employer] diabetes mellitus without procedure are in the complication, without results section. long-term current use of insulin after 03/10/2017 Results * DIABETIC FOOT EXAM (02/14/2018 3:58 PM) Only the most recent of 2 results within the time period is included. Narrative Performed At Rosaura Chavez NP 02/14/20185:29 PM Diabetic Foot Exam was performed at 02/14/2018 5:29 PM.Right foot sensation is normal, right foot pulses are normal, right foot appearance is normal.Left foot sensation is normal,left foot pulses are normal, left foot appearance is normal. * MAMMOGRAM BILAT SCREEN DIGITAL (10/12/2017 2:04 PM) Impressions Performed At IMPRESSION: BENIGN SMS There is no mammographic evidence of malignancy. A 1 year screening mammogram is recommended. I have reviewed the study and agree with the findings in the report. This document has been electronically signed. Talia yen,dp/:10/12/2017 14:15:49 Women'S Apparel Salesperson: Ms. Mary Henriquez RT(R)(M), [facility] letter sent: Benign Exam Mammogram BI-RADS: 2 Benign G0202 Z12.31 Narrative Performed At #[id number] - MAMMOGRAM BILAT SCREEN DIGITAL SMS BILATERAL DIGITAL SCREENING MAMMOGRAM WITH CAD: 10/12/2017 CLINICAL: Screening for malignancy. Comparison is made to exams dated:08/21/2015, 08/21/2015, 07/09/2014, 07/09/2014 [facility] [place], 06/27/2014, and 05/29/2012 [facility]. The tissue of both breasts is heterogeneously dense. This may lower the sensitivity of mammography. Current study was also evaluated with a Computer Aided Detection (CAD) system. There are benign calcifications and calcifications in both breasts.There also are benign masses in both breasts. No significant masses, calcifications, or other findings are seen in either breast. There has been no significant interval change. Procedure Note Interface, Rad/Mammog In - 10/12/2017 3:49 PM CDT #[id number] - MAMMOGRAM BILAT SCREEN DIGITAL BILATERAL DIGITAL SCREENING MAMMOGRAM WITH CAD: 10/12/2017 CLINICAL: Screening for malignancy. Comparison is made to exams dated: 08/21/2015, 08/21/2015, 07/09/2014, 07/09/2014 [facility], 06/27/2014, and 05/29/2012 [facility]. The tissue of both breasts is heterogeneously [...] This document has been electronically signed. Talia yen,dp/:10/12/2017 14:15:49 Women[employer]S App[employer] Salesperson: Ms. Mary Henriquez RT(R)(M), [facility] letter sent: Benign Exam Mammogram BI-RADS: 2 Benign G0202 Z12.31 Performing Organization Address City/State/Zipcode Phone Number SMS * HEMOGLOBIN A1C (09/15/2017 9:46 AM) Hemoglobin A1c 7.1 (H) 4.3 - 6.1 % [facility]UN[facility] Est Average Gluc 157.1 mg/dL [facility]UN[facility] Specimen Blood Performing Organization Address [facility] Phone Number [facility] * TSH (09/15/2017 9:46 AM) TSH 1.97 0.57 - 3.74 uIU/mL BT MAIN[facility]ST[facility] 1 Specimen Blood Performing Organization Address [facility] Phone Number [facility] 1 * LIVER PROFILE (09/15/2017 9:46 AM) T Protein 6.5 6.0 - 8.3 g/dL BT [facility] 1 Albumin 3.9 3.7 - 5.3 g/dL BT [facility] 1 T Bilirubin 0.6 0.2 - 1.2 mg/dL BT [facility] 1 Alk Phos 121 (H) 34 - 104 U/L BT MAIN[facility] 1 AST 10 (L) 13 - 39 U/L BT MAIN[facility] 1 ALT 11 7 - 52 U/L BT [facility] 1 D Bilirubin 0.1 0.0 - 0.2 mg/dL BT MAIN-ST[facility] 1 Specimen Blood Performing Organization Address [facility] Phone Number MISYS BT [facility]IN[facility] 1 * LIPID PROFILE (09/15/2017 9:46 AM) Cholesterol 203 mg/dL BT MAIN-STATION 1 Comment: REFERENCE RANGE: Desirable: <200 mg/dL Borderline: 200-240 mg/dL High Risk: >240 mg/dL Triglyceride 343 (H) <150 mg/dL BT MAIN-STATION 1 Comment: REFERENCE RANGE: Normal: <150 mg/dL Borderline High: 150-199 mg/dL High: 200-499 mg/dL Very High: >lp=925 mg/dL HDL 39 mg/dL BT MAIN-STATION 1 Comment: Increased CHD risk: <40 mg/dL Decreased CHD risk: >60 mg/dL LDL 95 mg/dL BT MAIN-STATION 1 Comment: REFERENCE RANGE: Optimal: <100 mg/dL Near Optimal: 100-129 mg/dL Borderline High: 130-159 mg/dL High: 160-189 mg/dL Very High: >kg=829 mg/dL Specimen Blood Performing Organization Address [facility] Phone Number [facility] 1 * CBC/DIFF (09/15/2017 9:46 AM) WBC 8.1 4.5 - 11.0 K/uL BT MAIN-STATION 2 RBC 4.61 4.20 - 5.40 M/uL BT MAIN-[facility]ATION 2 Hemoglobin 13.8 12.0 - 16.0 g/dL BT MAIN[facility] 2 Hematocrit 41.8 37.0 - 47.0 % BT [facility]IN[facility] 2 MCV 91 82 - 92 fL BT MAIN[facility] 2 MCH 29.9 27.0 - 32.0 pg BT MAIN-[facility]ATION 2 MCHC 33.0 32.0 - 36.0 g/dL BT [facility]IN[facility] 2 RDW 41.0 36.4 - 46.3 fL BT MAIN-[facility] 2 Platelet 292 150 - 400 K/uL BT MAIN[facility]ATION 2 Mean Platelet Volume 10.8 9.4 - 12.4 fL BT MAIN-[facility]ATION 2 Percent NRBC 0.0 BT MAIN-[facility]ATION 2 Absolute NRBC 0.00 BT MAIN-[facility] 2 Neutrophil 62.0 34.0 - 70.0 % BT [facility] 2 Lymphocyte 29.7 20.0 - 50.0 % BT MAIN[facility] 2 Monocyte 6.6 5.0 - 12.0 % BT MAIN-[facility] 2 Eosinophil 1.1 0.7 - 5.0 % BT MAIN-[facility] 2 Basophil 0.4 0.1 - 1.2 % BT MAIN-[facility] 2 Pct Immat Gran 0.2 0.0 - 0.5 BT MAIN-STATION 2 Neutrophil, Abs 5.01 1.56 - 6.13 K/uL BT MAIN-STATION 2 Lymphocyte, Abs 2.40 1.18 - 3.74 K/uL BT MAIN-STATION 2 Monocyte, Abs 0.53 (H) 0.24 - 0.36 K/uL BT MAIN-STATION 2 Eosinophil, Abs 0.09 0.04 - 0.36 K/uL BT MAIN-STATION 2 Basophil, Abs 0.03 0.01 - 0.08 K/uL BT MAIN-STATION 2 Absol Immat Gran 0.02 0.00 - 0.03 K/uL BT MAIN-STATION 2 Specimen Blood Performing Organization Address City/State/Zipcode Phone Number MISYS BT MAIN-STATION 2 * BASIC METABOLIC PANEL (09/15/2017 9:46 AM) CO2 29 21 - 31 mmol/L BT MAIN-STATION 1 Chloride 105 98 - 107 mmol/L [facility] Potassium 4.4 3.5 - 5.1 mmol/L [facility] 1 Sodium 144 136 - 145 mmol/L [facility] 1 Glucose 130 (H) 70 - 110 mg/dL [facility] 1 Urea Nitrogen 9 7 - 25 mg/dL [facility] Creatinine 0.80 0.6 - 1.2 mg/dL [facility] 1 Anion Gap 10 [facility] 1 Calcium 9.4 8.6 - 10.3 mg/dL [facility] 1 GFR, Estimated >60 mL/min/1.73 m2 [facility] 1 GFR, Estim, Afr-Am >60 mL/min/1.73 m2 [facility] 1 Specimen Blood Performing Organization Address [facility] Phone Number [facility] * MICROALBUM, URINE (09/13/2017 4:19 PM) Microalbum, Random <0.7 0.0 - 29.0 mg/dL [facility] Creatinine, Ur 20.4 20 - 320 mg/dL [facility] 1 Urine Microalbumin Unable to calculate, 0 - 29 mg/g UCR [facility] 3 parameters incomplete Comment: To minimize intra-individual variation, analysis of three random urine samples collected over the course of a week is recommended. Performing Organization Address [facility] Phone Number [facility] * OPHTHALMOLOGY RETINAL SCAN (06/08/2017 5:11 PM) RETINAL SCAN-FINAL RESULT NORMAL IRIS Right Diabetic None IRIS Retinopathy Right Macular Edema None IRIS Right Other Suspected None IRIS Conditions Right Image Quality Gradeable Image IRIS Left Diabetic Retinopathy None IRIS Left Macular Edema None IRIS Left Other Suspected None IRIS Conditions Left Image Quality Gradeable Image IRIS Narrative Performed At Retinal Study Result for MARIBELL SARABIA MAGDALENA, a 61 y/o, F (: 1955, ) presented to [facility] on 06-08-2017 for a retinal imaging study of the left and right eyes. Based on the findings of the study, the following is recommended for MARIBELL SARABIA Normal Scan: Please advise the patient to return for another scan in 1 year. Interpreting Provider's Comments:No comments provided Right Eye Findings: Normal Result.Negative for Diabetic Retinopathy. Left Eye Findings: Normal Result.Negative for Diabetic Retinopathy. This result was electronically signed by Alonzo Alan MD. Taxonomy: [id number] on 06-08-2017 10:11:06 [facility] time. NOTE:Any pathology noted on this diabetic retinal evaluation should be confirmed by an appropriate ophthalmic examination. Performing Organization Address City/State/Zipcode Phone Number IRIS after 03/10/2017
--- OUTSIDE RECORDS SUMMARY | 2019-01-20 04:56 | XMS REPORT ---
[facility] Unknown Phone Unavailable Care Team Providers Care Window Decorator Name Role Phone Unavailable Unavailable Payers Payer Name Policy Type Policy Number Effective Date Expiration Date Problems This patient has no known problems. Allergies, Adverse Reactions, Alerts Allergy Name Allergy Type Status Severity Reaction(s) Onset Date Inactive Date Treating Clinician Comments cyclobenzaprine HCl DA Active MD 2019-01-14 00:00:00 Penicillins DA Active MD 2019-01-14 00:00:00 Sulfa (Sulfonamide Antibiotics) DA Active MD 2019-01-14 00:00:00 cyclobenzaprine HCl DA Active MD 2018-08-17 00:00:00 Penicillins DA Active MD 2018-08-17 00:00:00 Sulfa (Sulfonamide Antibiotics) DA Active MD 2018-08-17 00:00:00 cyclobenzaprine HCl DA Active MD 2016-03-09 00:00:00 Penicillins DA Active MD 2016-03-09 00:00:00 Sulfa (Sulfonamide Antibiotics) DA Active MD 2016-03-09 00:00:00 Medications This patient has no known medications. Encounters Start Date/Time End Date/Time Encounter Type Admission Type Attending Clinicians Care Facility Care Department Encounter ID 2019-03-14 00:00:00 2019-03-14 00:00:00 Outpatient [facility] [id number] 2019-01-31 00:00:00 2019-01-31 00:00:00 Outpatient [facility] [id number] 2019-01-21 00:00:00 2019-01-21 00:00:00 Outpatient [facility] [id number] 2019-01-17 00:00:00 2019-01-17 00:00:00 Outpatient [facility] [id number] 2019-01-10 09:33:53 2019-01-10 09:33:53 Outpatient [facility] [id number] 2018-12-21 13:01:40 2018-12-21 13:01:40 Outpatient [facility] [id number] 2018-12-07 00:00:00 2018-12-07 00:00:00 Outpatient [facility] [id number] 2018-11-29 13:10:50 2018-11-29 13:10:50 Outpatient [facility] [id number] 2018-11-22 00:00:00 2018-11-22 00:00:00 Outpatient [facility] [id number] 2018-11-14 00:00:00 2018-11-14 00:00:00 Outpatient [facility] [id number] 2018-11-13 08:22:35 2018-11-13 08:22:35 Outpatient [facility] [id number] 2018-11-13 00:00:00 2018-11-13 00:00:00 Outpatient [facility] [id number] 2018-10-25 00:00:00 2018-10-25 00:00:00 Outpatient [facility] [id number] 2018-10-18 13:08:17 2018-10-18 13:08:17 Outpatient [facility] [id number] 2018-10-12 00:00:00 2018-10-12 00:00:00 Outpatient [facility] [id number] 2018-09-14 00:00:00 2018-09-14 00:00:00 Outpatient [facility] [id number] 2018-09-13 14:26:49 2018-09-13 14:26:49 Outpatient [facility] [id number] 2018-09-11 00:00:00 2018-09-11 00:00:00 Outpatient [facility] [id number] 2018-08-23 14:04:56 2018-08-23 14:04:56 Outpatient [facility] [id number] 2018-08-21 08:32:32 2018-08-21 08:32:32 Outpatient [facility] [id number] 2018-08-06 10:08:12 2018-08-06 10:08:12 Outpatient [facility] [id number] 2018-08-06 09:59:22 2018-08-06 09:59:22 Outpatient [facility] [id number] 2018-07-06 15:02:16 2018-07-06 15:02:16 Outpatient [facility] [id number] 2018-04-05 00:00:00 2018-04-05 00:00:00 Outpatient [facility] [id number] 2018-04-02 00:00:00 2018-04-02 00:00:00 Outpatient [facility] [id number] 2018-03-22 00:00:00 2018-03-22 00:00:00 Outpatient [facility] [id number] 2018-03-21 00:00:00 2018-03-21 00:00:00 Outpatient [facility] [id number] 2018-03-06 00:00:00 2018-03-06 00:00:00 Outpatient [facility] [id number] 2018-02-20 14:15:23 2018-02-20 14:15:23 Outpatient [facility] [id number] 2018-02-14 15:37:42 2018-02-14 15:37:42 Outpatient [facility] [id number] 2018-01-31 00:00:00 2018-01-31 00:00:00 Outpatient [facility] [id number] 2018-01-29 00:00:00 2018-01-29 00:00:00 Outpatient [facility] [id number] 2018-01-12 10:23:53 2018-01-12 10:23:53 Outpatient [facility] [id number] 2017-12-29 00:00:00 2017-12-29 00:00:00 Outpatient [facility] [id number] 2017-12-28 15:30:41 2017-12-28 15:30:41 Outpatient [facility] [id number] 2017-12-22 00:00:00 2017-12-22 00:00:00 Outpatient [facility] [id number] 2017-11-01 15:30:06 2017-11-01 15:30:06 Outpatient [facility] [id number] 2017-11-01 00:00:00 2017-11-01 00:00:00 Outpatient [facility] [id number] 2017-10-12 14:53:48 2017-10-12 14:53:48 Outpatient [facility] [id number] 2017-10-12 13:32:46 2017-10-12 13:32:46 Outpatient [facility] [id number] 2017-09-15 09:47:31 2017-09-15 09:47:31 Outpatient [facility] [id number] 2017-09-13 15:35:04 2017-09-13 15:35:04 Outpatient [facility] [id number] 2017-08-30 00:00:00 2017-08-30 00:00:00 Outpatient [facility] [id number] 2017-08-28 00:00:00 2017-08-28 00:00:00 Outpatient [facility] [id number] 2017-07-31 00:00:00 2017-07-31 00:00:00 Outpatient [facility] [id number] 2017-07-27 15:25:03 2017-07-27 15:25:03 Outpatient [facility] [id number] 2017-06-08 15:26:34 2017-06-08 15:26:34 Outpatient [facility] [id number] 2017-06-01 10:58:06 2017-06-01 10:58:06 Outpatient [facility] [id number] 2017-04-14 00:00:00 2017-04-14 00:00:00 Outpatient [facility] [id number] 2017-04-07 08:09:53 2017-04-07 08:09:53 Outpatient [facility] [id number] 2017-03-16 00:00:00 2017-03-16 00:00:00 Outpatient [facility] [id number] 2017-02-16 09:18:13 2017-02-16 09:18:13 Outpatient [facility] [id number] 2017-02-10 11:16:30 2017-02-10 11:16:30 Outpatient [facility] [id number] 2017-02-02 00:00:00 2017-02-02 00:00:00 Outpatient [facility] [id number] 2017-01-30 09:00:32 2017-01-30 09:00:32 Outpatient [facility] [id number] 2017-01-06 00:00:00 2017-01-06 00:00:00 Outpatient [facility] [id number] 2017-01-06 00:00:00 2017-01-06 00:00:00 Outpatient [facility] [id number] 2016-12-30 00:00:00 2016-12-30 00:00:00 Outpatient [facility] [id number] 2016-12-30 00:00:00 2016-12-30 00:00:00 Outpatient [facility] [id number] 2016 15:34:28 2016 15:34:28 Outpatient [facility] [id number] 2016-12-22 15:38:55 2016-12-22 15:38:55 Outpatient [facility] [id number] 2016-12-16 00:00:00 2016-12-16 00:00:00 Outpatient [facility] [id number] 2016-10-17 10:16:50 2016-10-17 10:16:50 Outpatient [facility] [id number] 2016-09-29 15:17:30 2016-09-29 15:17:30 Outpatient [facility] [id number] Results Test Description Test Time Test Comments Text Results Atomic Results Result Comments BASIC METABOLIC PANEL 2019-01-17 18:27:00 SODIUM (test code=NA) 131 mmol/L 136-145 POTASSIUM (test code=K) 3.5 mmol/L 3.5-5.1 CHLORIDE (test code=CL) 97.0 mmol/L 98-107 CARBON DIOXIDE (test code=CO2) 23.0 mmol/L 21-32 ANION GAP (test code=GAP) 14.5 10-20 GLUCOSE (test code=GLU) 129 mg/dL 74-106 BLOOD UREA NITROGEN (test code=BUN) 4 mg/dL 7-18 GLOMERULAR FILTRATION RATE (test code=GFR) > 60 mL/min >=60 Estimated GFR by using Modified MDRD formula.Chronic kidney disease is defined as either kidney damageor GFR <60 mL/min/1.73 m2 for >3 months. CREATININE (test code=CREAT) 0.60 mg/dL 0.55-1.02 Note change in reference range due to change in reagent. BUN/CREATININE RATIO (test code=BUN/CREA) 6.7 10-20 CALCIUM (test code=CA) 7.9 mg/dL 8.5-10.1 HEPATIC FUNCTION [id number] 18:27:00* Test Item Value Reference Range Comments TOTAL PROTEIN (test code=PROT) 7.0 gram/dL 6.4-8.2 ALBUMIN (test code=ALB) 3.1 g/dL 3.4-5.0 GLOBULIN (test code=GLOB) 3.9 gram/dL 2.7-4.2 ALBUMIN/GLOBULIN RATIO (test code=A/G) 0.8 0.75-1.50 BILIRUBIN TOTAL (test code=BILT) 0.70 mg/dL 0.0-1.0 BILIRUBIN DIRECT (test code=BILD) 0.19 mg/dL 0.0-0.20 SGOT/AST (test code=AST) 20 IUnit/L 15-37 SGPT/ALT (test code=ALT) 29 IUnit/L 12-78 ALKALINE PHOSPHATASE TOTAL (test code=ALKP) 142 IUnit/L 45-117 Note change in reference range due to change in reagent. [id number] 18:27:00* Test Item Value Reference Range Comments LIPASE (test code=LIP) 72 U/L 73.0-393.0 [id number] 18:27:00* Test Item Value Reference Range Comments TROPONIN-I (test code=TROPI) <0.015 ng/mL 0-0.045 BASIC METABOLIC [id number] 18:16:00* Test Item Value Reference Range Comments SODIUM (test code=NA) 131 mmol/L 136-145 POTASSIUM (test code=K) 3.5 mmol/L 3.5-5.1 CHLORIDE (test code=CL) 97.0 mmol/L 98-107 CARBON DIOXIDE (test code=CO2) mmol/L 21-32 ANION GAP (test code=GAP) 10-20 GLUCOSE (test code=GLU) mg/dL 74-106 BLOOD UREA NITROGEN (test code=BUN) mg/dL 7-18 GLOMERULAR FILTRATION RATE (test code=GFR) mL/min >=60 CREATININE (test code=CREAT) mg/dL 0.55-1.02 BUN/CREATININE RATIO (test code=BUN/CREA) 10-20 CALCIUM (test code=CA) mg/dL 8.5-10.1 HEPATIC FUNCTION [id number] 18:16:00* Test Item Value Reference Range Comments TOTAL PROTEIN (test code=PROT) gram/dL 6.4-8.2 ALBUMIN (test code=ALB) g/dL 3.4-5.0 GLOBULIN (test code=GLOB) gram/dL 2.7-4.2 ALBUMIN/GLOBULIN RATIO (test code=A/G) 0.75-1.50 BILIRUBIN TOTAL (test code=BILT) mg/dL 0.0-1.0 BILIRUBIN DIRECT (test code=BILD) mg/dL 0.0-0.20 SGOT/AST (test code=AST) IUnit/L 15-37 SGPT/ALT (test code=ALT) IUnit/L 12-78 ALKALINE PHOSPHATASE TOTAL (test code=ALKP) IUnit/L 45-117 [id number] 18:16:00* Test Item Value Reference Range Comments LIPASE (test code=LIP) U/L 73.0-393.0 [id number] 18:16:00* Test Item Value Reference Range Comments TROPONIN-I (test code=TROPI) ng/mL 0-0.045 CBC W/O [id number] 18:03:00* Test Item Value Reference Range Comments WHITE BLOOD CELL (test code=WBC) 4.5 K/mm3 4.5-12.5 RED BLOOD CELL (test code=RBC) 4.18 mill/mm3 3.7-5.2 HEMOGLOBIN (test code=HGB) 12.5 gram/dL 11.5-15.5 HEMATOCRIT (test code=HCT) 35.3 % 36.0-46.0 MEAN CELL VOLUME (test code=MCV) 84.4 fL 80-98 MEAN CELL HGB (test code=MCH) 29.9 picogram 27.0-33.0 MEAN CELL HGB CONCETRATION (test code=MCHC) 35.4 gram/dL 33.0-36.0 RED CELL DISTRIBUTION WIDTH (test code=RDW) 11.9 % 11.6-16.2 PLATELET COUNT (test code=PLT) 184 K/mm3 150-450 MEAN PLATELET VOLUME (test code=MPV) 10.2 fL 6.7-11.0 - CT ABD PELVIS [id number] 10:47:00 Name: MARA FRANCES [facility] : 1955 Age/S: 63 / F [address] [facility] Unit #: [id number] Loc: [facility] [place] [address] Phys: Jackelin Gaona MD Acct: [id number] Dis Date: Status: REG ER PHONE #: [phone] Exam Date: 01/17/2019 1023 FAX #: [phone] Reason: epigastric abdminal pain EXAMS: CPT CODE: [id number] CT ABD PELVIS W/CONT 15107 REASON FOR EXAM: epigastric abdminal pain EXAM ORDER DATE: 01/17/2019 8:45 AM Ordering Nina: Jackelin Gaona MD PROCEDURE: - CT ABD PELVIS W/CONT COMPARISON: FINDINGS: CT images of the abdomen and pelvis were obtained with IV and without oral contrast at 5mm. Dose modulation, iterative reconstruction, and/or weight based adjustment of the MA/KV was utilized to reduce the radiation dose to as low as reasonably achievable. Intravenous contrast: 100cc of Omnipaque 370. The liver, spleen, pancreas are grossly within normal limits. Subcentimeter low- density lesion in the right lobe the liver suggestive of hepatic cyst The patient is status post cholecystectomy The kidneys are within normal limits. The urinary bladder is unremarkable. The colon, small bowel, and stomach are within normal limits without evidence of obstruction. The appendix is unremarkable. Mild diffuse atherosclerotic disease of the abdominal aorta. No evidence of free air or free fluid. The uterus is unremarkable. IMPRESSION: No acute findings in the abdomen at 1047 Reported and signed by: Carlos López M.D. CC: Jackelin Gaona MD Technologist:Zulema Saravia RT(R),CT CTDI: DLP: Trnscb Christiano e/Time: 01/17/2019 (9627) tADAIRL Orig Print D/T: S: (4797) PAGE 1 Signed Report BASIC METABOLIC [id number] 09:54:00* Test Item Value Reference Range Comments SODIUM (test code=NA) 134 mmol/L 136-145 POTASSIUM (test code=K) 3.3 mmol/L 3.5-5.1 CHLORIDE (test code=CL) 99.0 mmol/L 98-107 CARBON DIOXIDE (test code=CO2) 27.0 mmol/L 21-32 ANION GAP (test code=GAP) 11.3 10-20 GLUCOSE (test code=GLU) 137 mg/dL 74-106 BLOOD UREA NITROGEN (test code=BUN) 6 mg/dL 7-18 GLOMERULAR FILTRATION RATE (test code=GFR) > 60 mL/min >=60 Estimated GFR by using Modified MDRD formula.Chronic kidney disease is defined as either kidney damageor GFR <60 mL/min/1.73 m2 for >3 months. CREATININE (test code=CREAT) 0.80 mg/dL 0.55-1.02 Note change in reference range due to change in reagent. BUN/CREATININE RATIO (test code=BUN/CREA) 7.5 10-20 CALCIUM (test code=CA) 8.8 mg/dL 8.5-10.1 HEPATIC FUNCTION [id number] 09:54:00* Test Item Value Reference Range Comments TOTAL PROTEIN (test code=PROT) 7.6 gram/dL 6.4-8.2 ALBUMIN (test code=ALB) 3.5 g/dL 3.4-5.0 GLOBULIN (test code=GLOB) 4.1 gram/dL 2.7-4.2 ALBUMIN/GLOBULIN RATIO (test code=A/G) 0.9 0.75-1.50 BILIRUBIN TOTAL (test code=BILT) 0.70 mg/dL 0.0-1.0 BILIRUBIN DIRECT (test code=BILD) 0.12 mg/dL 0.0-0.20 SGOT/AST (test code=AST) 30 IUnit/L 15-37 SGPT/ALT (test code=ALT) 32 IUnit/L 12-78 ALKALINE PHOSPHATASE TOTAL (test code=ALKP) 174 IUnit/L 45-117 Note change in reference range due to change in reagent. [id number] 09:54:00* Test Item Value Reference Range Comments LIPASE (test code=LIP) 76 U/L 73.0-393.0 [id number] 09:54:00* Test Item Value Reference Range Comments TROPONIN-I (test code=TROPI) <0.015 ng/mL 0-0.045 BASIC METABOLIC [id number] 09:42:00* Test Item Value Reference Range Comments SODIUM (test code=NA) 134 mmol/L 136-145 POTASSIUM (test code=K) 3.3 mmol/L 3.5-5.1 CHLORIDE (test code=CL) 99.0 mmol/L 98-107 CARBON DIOXIDE (test code=CO2) mmol/L 21-32 ANION GAP (test code=GAP) 10-20 GLUCOSE (test code=GLU) mg/dL 74-106 BLOOD UREA NITROGEN (test code=BUN) mg/dL 7-18 GLOMERULAR FILTRATION RATE (test code=GFR) mL/min >=60 CREATININE (test code=CREAT) mg/dL 0.55-1.02 BUN/CREATININE RATIO (test code=BUN/CREA) 10-20 CALCIUM (test code=CA) mg/dL 8.5-10.1 HEPATIC FUNCTION [id number] 09:42:00* Test Item Value Reference Range Comments TOTAL PROTEIN (test code=PROT) gram/dL 6.4-8.2 ALBUMIN (test code=ALB) g/dL 3.4-5.0 GLOBULIN (test code=GLOB) gram/dL 2.7-4.2 ALBUMIN/GLOBULIN RATIO (test code=A/G) 0.75-1.50 BILIRUBIN TOTAL (test code=BILT) mg/dL 0.0-1.0 BILIRUBIN DIRECT (test code=BILD) mg/dL 0.0-0.20 SGOT/AST (test code=AST) IUnit/L 15-37 SGPT/ALT (test code=ALT) IUnit/L 12-78 ALKALINE PHOSPHATASE TOTAL (test code=ALKP) IUnit/L 45-117 [id number] 09:42:00* Test Item Value Reference Range Comments LIPASE (test code=LIP) U/L 73.0-393.0 [id number] 09:42:00* Test Item Value Reference Range Comments TROPONIN-I (test code=TROPI) ng/mL 0-0.045 CBC W/AUTO [id number] 09:31:00* Test Item Value Reference Range Comments WHITE BLOOD CELL (test code=WBC) 4.7 K/mm3 4.5-12.5 RED BLOOD CELL (test code=RBC) 4.64 mill/mm3 3.7-5.2 HEMOGLOBIN (test code=HGB) 13.9 gram/dL 11.5-15.5 HEMATOCRIT (test code=HCT) 39.4 % 36.0-46.0 MEAN CELL VOLUME (test code=MCV) 84.9 fL 80-98 MEAN CELL HGB (test code=MCH) 30.0 picogram 27.0-33.0 MEAN CELL HGB CONCETRATION (test code=MCHC) 35.3 gram/dL 33.0-36.0 RED CELL DISTRIBUTION WIDTH (test code=RDW) 11.9 % 11.6-16.2 RED CELL DISTRIBUTION WIDTH SD (test code=RDW-SD) 36.3 fL 37.0-51.0 PLATELET COUNT (test code=PLT) 199 K/mm3 150-450 MEAN PLATELET VOLUME (test code=MPV) 10.9 fL 6.7-11.0 NEUTROPHIL % (test code=NT%) 70.6 % 39.0-69.0 IMMATURE GRANULOCYTE % (test code=IG%) 0.0 % 0.0-5.0 LYMPHOCYTE % (test code=LY%) 17.5 % 25.0-55.0 MONOCYTE % (test code=MO%) 10.3 % 0.0-10.0 EOSINOPHIL % (test code=EO%) 0.8 % 0.0-5.0 BASOPHIL % (test code=BA%) 0.8 % 0.0-1.0 NUCLEATED RBC % (test code=NRBC%) 0.0 % 0-0 NEUTROPHIL # (test code=NT#) 3.34 K/mm3 1.8-7.7 IMMATURE GRANULOCYTE # (test code=IG#) 0.00 x10 3/uL 0-0.03 LYMPHOCYTE # (test code=LY#) 0.83 K/mm3 1.0-5.0 MONOCYTE # (test code=MO#) 0.49 K/mm3 0-0.8 EOSINOPHIL # (test code=EO#) 0.04 K/mm3 0.0-0.5 BASOPHIL # (test code=BA#) 0.04 K/mm3 0.0-0.2 NUCLEATED RBC # (test code=NRBC#) 0.00 K/mm3 0.0-0.1 MANUAL DIFF REQUIRED (test code=MDIFF) NO URINALYSIS [id number] 08:36:00* Test Item Value Reference Range Comments UA COLOR (test code=COLU) Light-Yellow YELLOW UA APPEARANCE (test code=APPU) CLEAR CLEAR UA GLUCOSE DIPSTICK (test code=DGLUU) NEGATIVE mg/dL NEGATIVE UA BILIRUBIN DIPSTICK (test code=BILU) NEGATIVE mg/dL NEGATIVE UA KETONE DIPSTICK (test code=KETU) NEGATIVE mg/dL NEGATIVE UA SPECIFIC GRAVITY (test code=SGU) 1.009 1.001-1.035 UA BLOOD DIPSTICK (test code=BRIANNA) Negative mg/dL NEGATIVE UA PH DIPSTICK (test code=BARRY) 7.0 5.0-8.0 UA PROTEIN DIPSTICK (test code=PROU) NEGATIVE mg/dL NEGATIVE UA UROBILINIOGEN DIPSTICK (test code=URO) Normal mg/dL NEGATIVE UA NITRITE DIPSTICK (test code=ANUP) NEGATIVE NEGATIVE UA LEUKOCYTE ESTERASE W REFLEX (test code=LEUUR) NEGATIVE Sabas/uL NEGATIVE UA WBC (test code=WBCU) 0-5 per HPF 0-5 UA RBC (test code=RBCU) 0-2 #/HPF 0-5 UA EPITHELIAL CELLS (test code=EPIU) FEW per HPF FEW UA BACTERIA (test code=BACU) FEW #/HPF NONE Urine Source? Clean CatchURINALYSIS [id number] 08:30:00* Test Item Value Reference Range Comments UA COLOR (test code=COLU) Light-Yellow YELLOW UA APPEARANCE (test code=APPU) CLEAR CLEAR UA GLUCOSE DIPSTICK (test code=DGLUU) NEGATIVE mg/dL NEGATIVE UA BILIRUBIN DIPSTICK (test code=BILU) NEGATIVE mg/dL NEGATIVE UA KETONE DIPSTICK (test code=KETU) NEGATIVE mg/dL NEGATIVE UA SPECIFIC GRAVITY (test code=SGU) 1.009 1.001-1.035 UA BLOOD DIPSTICK (test code=BRIANNA) Negative mg/dL NEGATIVE UA PH DIPSTICK (test code=BARRY) 7.0 5.0-8.0 UA PROTEIN DIPSTICK (test code=PROU) NEGATIVE mg/dL NEGATIVE UA UROBILINIOGEN DIPSTICK (test code=URO) Normal mg/dL NEGATIVE UA NITRITE DIPSTICK (test code=ANUP) NEGATIVE NEGATIVE UA LEUKOCYTE ESTERASE W REFLEX (test code=LEUUR) NEGATIVE Sabas/uL NEGATIVE UA WBC (test code=WBCU) per HPF 0-5 UA RBC (test code=RBCU) per HPF 0-5 UA EPITHELIAL CELLS (test code=EPIU) per HPF Few UA BACTERIA (test code=BACU) per HPF NONE Urine Source? Clean [id number] 12:51:00* Test Item Value Reference Range Comments GLUBED (test code=GLUBED) 163 mg/dL 74-106 Performed by certified chucking and sawing machine operator at [facility] - CT NECK [id number] 11:06:00 Name: MARA FRANCES [facility] : 1955 Age/S: 62 / F [address] Unit #: [id number] Loc: [facility] [place] [address] Phys: Ad Shelby MD Acct: [id number] Dis Date: Status: REG ER PHONE #: [phone] Exam Date: 11/16/2018 1059 FAX #: [phone] Reason: pain EXAMS: CPT CODE: [id number] CT NECK W/CONTRAST 12713 TECHNIQUE: - CT NECK W/CONTRAST . This exam was performed using one or more of the following dose reduction techniques: Automated exposure control, adjustment of the mA and/ or kV according to patient size or use of iterative reconstruction technique. COMPARISON: None provided. HISTORY: 62 years Female pain FINDINGS: Lymphadenopathy: No significant adenopathy. Parotid, submandibular salivary glands and space of mastication: No stones, focal mass, enlargement, or other abnormalities. Nasopharynx, Oropharynx: No asymmetry or soft tissue mass. The carotid space, lateral pharyngeal space, para-pharyngeal space are normal. Soft palate, tonsillar fossa, and tongue are normal. Larynx and Para-laryngeal space: True and false vocal cords are symmetric. No discrete mass. The glottic, supraglottic and infraglottic airway is normal. Median glossoepiglottic fold, epiglottis, aryepiglottic fold, pyriform sinus, para-laryngeal space are normal. Post cricoid space is normal. Visualized bones: Age appropriate. Other: Thyroid gland: No abnormalities. Included intracranial structures: No abnormalities. IMPRESSION: No significant neck abnormalities demonstrated. PAGE 1 Signed Report (CONTINUED) Name: MARA FRANCES [facility] : Age/S: 62 / F [address] [facility] Unit #: [id number] Loc: [facility] [place] [address] Phys: Ad Shelby MD Acct: [id number] Dis Da te: Status: REG ER PHONE #: Exam Date: 11/16/2018 1059 FAX #: [phone] Reason: pain EXAMS: CPT CODE: [id number] CT NECK W/CONTRAST 86803 <Continued> at 1106 Reported and signed by: Sami Arevalo M.D. CC: Ad Shelby MD Technologist:[address],RT(R),CT CTDI: DLP: Trnscb Date/Time: 11/16/2018 (2758) t.VEL Orig Print D/T: S: 11/16/2018 (8979) PAGE 2 Signed Report BASIC METABOLIC [id number] 10:43:00* Test Item Value Reference Range Comments SODIUM (test code=NA) 140 mmol/L 136-145 POTASSIUM (test code=K) 3.7 mmol/L 3.5-5.1 CHLORIDE (test code=CL) 107.0 mmol/L 98-107 CARBON DIOXIDE (test code=CO2) 26.0 mmol/L 21-32 ANION GAP (test code=GAP) 10.7 10-20 GLUCOSE (test code=GLU) 144 mg/dL 74-106 BLOOD UREA NITROGEN (test code=BUN) 9 mg/dL 7-18 GLOMERULAR FILTRATION RATE (test code=GFR) > 60 mL/min >=60 Estimated GFR by using Modified MDRD formula.Chronic kidney disease is defined as either kidney damageor GFR <60 mL/min/1.73 m2 for >3 months. CREATININE (test code=CREAT) 0.80 mg/dL 0.55-1.02 Note change in reference range due to change in reagent. BUN/CREATININE RATIO (test code=BUN/CREA) 10.8 10-20 CALCIUM (test code=CA) 8.7 mg/dL 8.5-10.1 [id number] 10:43:00* Test Item Value Reference Range Comments TROPONIN-I (test code=TROPI) <0.015 ng/mL 0-0.045 BASIC METABOLIC [id number] 10:35:00* Test Item Value Reference Range Comments SODIUM (test code=NA) 140 mmol/L 136-145 POTASSIUM (test code=K) 3.7 mmol/L 3.5-5.1 CHLORIDE (test code=CL) 107.0 mmol/L 98-107 CARBON DIOXIDE (test code=CO2) 26.0 mmol/L 21-32 ANION GAP (test code=GAP) 10.7 10-20 GLUCOSE (test code=GLU) 144 mg/dL 74-106 BLOOD UREA NITROGEN (test code=BUN) 9 mg/dL 7-18 GLOMERULAR FILTRATION RATE (test code=GFR) > 60 mL/min >=60 Estimated GFR by using Modified MDRD formula.Chronic kidney disease is defined as either kidney damageor GFR <60 mL/min/1.73 m2 for >3 months. CREATININE (test code=CREAT) 0.80 mg/dL 0.55-1.02 Note change in reference range due to change in reagent. BUN/CREATININE RATIO (test code=BUN/CREA) 10.8 10-20 CALCIUM (test code=CA) 8.7 mg/dL 8.5-10.1 [id number] 10:35:00* Test Item Value Reference Range Comments TROPONIN-I (test code=TROPI) ng/mL 0-0.045 BASIC METABOLIC [id number] 10:29:00* Test Item Value Reference Range Comments SODIUM (test code=NA) 140 mmol/L 136-145 POTASSIUM (test code=K) 3.7 mmol/L 3.5-5.1 CHLORIDE (test code=CL) 107.0 mmol/L 98-107 CARBON DIOXIDE (test code=CO2) mmol/L 21-32 ANION GAP (test code=GAP) 10-20 GLUCOSE (test code=GLU) mg/dL 74-106 BLOOD UREA NITROGEN (test code=BUN) mg/dL 7-18 GLOMERULAR FILTRATION RATE (test code=GFR) mL/min >=60 CREATININE (test code=CREAT) mg/dL 0.55-1.02 BUN/CREATININE RATIO (test code=BUN/CREA) 10-20 CALCIUM (test code=CA) mg/dL 8.5-10.1 [id number] 10:29:00* Test Item Value Reference Range Comments TROPONIN-I (test code=TROPI) ng/mL 0-0.045 PROTHROMBIN [id number] 10:22:00* Test Item Value Reference Range Comments PROTHROMBIN TIME PATIENT (test code=PTP) 10.0 seconds 9.0-14.0 INTERNATIONAL NORMAL RATIO (test code=INR) 0.8 0.8-1.2 The therapeutic range for oral anticoagulant therapy formost indications is an international normalized ratio (INR)of between 2.0 and 3.0. The recommended therapeutic INRrange for various clinical situations is listed below: Clinical Situation INR range Pulmonary e mbolism treatment (2.0-3.0)Venous thrombosis treatmentVenous thrombosis prophylaxis (high risk surgery)Prevention of systemic embolism from: Acute myocardial infarction Valvular heart disease Atrial fibrillation Mechanical prosthetic heart valves (2.5-3.5) IS PATIENT ON ANTICOAGULANTS? NTHROMBOPLASTIN TIME [id number] 10:22:00* Test Item Value Reference Range Comments THROMBOPLASTIN TIME PARTIAL (test code=PTT) 28.8 seconds 25.0-36.5 IS PATIENT ON ANTICOAGULANTS? N- XR CHEST 1 [id number] 10:15:00 FAX: Ad Shelby MD [place]: B St: REG Name: MARA SHORT [facility] : [birth year] Age/S: 62/F [address] [facility] Unit #: [id number] Loc: CHAVEZ [place] [address] Phys: Ad Shelby MD Acct: [id number] Dis Date: Status: REG ER PHONE #: [phone] Exam Date: 11/16/2018 1008 FAX #: [phone] Reason: CODE STROKE EXAMS: CPT CODE: [id number] XR CHEST 1 V 53525 TECHNIQUE - XR CHEST 1 V . COMPARISON: Chest x-ray 08/17/2018 HISTORY: 62 years Female CODE STROKE FINDINGS: Left lower lung field atelectasis versus infiltrate. Small left effusion. No pneumothorax. No congestion. Cardiac silhouette is enlarged. 4 mm de nsity right upper lobe. Overall since old chest x-ray 08/17/2018 no significant change. IMPRESSION: Overall since old chest x-ray 08/17/2018 no significant change. Electronically Sig beata by Sami Arevalo M.D. on 11/16/2018 at 1015 Reported an d signed by: Sami Arevalo M.D. CC: Ad Shelby MD Technologist: FLYNN MORRISON JR Trnnhrd Date/Time/By: 11/16/2018 (1015) : By: OksanaKRIS Orig Print D/T: S: 11/16/2018 (1014) PAGE 1 Signed Report CBC W/AUTO [id number] 10:06:00* Test Item Value Reference Range Comments WHITE BLOOD CELL (test code=WBC) 9.3 K/mm3 4.5-12.5 RED BLOOD CELL (test code=RBC) 4.66 mill/mm3 3.7-5.2 HEMOGLOBIN (test code=HGB) 14.0 gram/dL 11.5-15.5 HEMATOCRIT (test code=HCT) 41.1 % 36.0-46.0 MEAN CELL VOLUME (test code=MCV) 88.2 fL 80-98 MEAN CELL HGB (test code=MCH) 30.0 picogram 27.0-33.0 MEAN CELL HGB CONCETRATION (test code=MCHC) 34.1 gram/dL 33.0-36.0 RED CELL DISTRIBUTION WIDTH (test code=RDW) 12.0 % 11.6-16.2 RED CELL DISTRIBUTION WIDTH SD (test code=RDW-SD) 38.9 fL 37.0-51.0 PLATELET COUNT (test code=PLT) 267 K/mm3 150-450 MEAN PLATELET VOLUME (test code=MPV) 10.4 fL 6.7-11.0 NEUTROPHIL % (test code=NT%) 63.4 % 39.0-69.0 IMMATURE GRANULOCYTE % (test code=IG%) 0.4 % 0.0-5.0 LYMPHOCYTE % (test code=LY%) 27.4 % 25.0-55.0 MONOCYTE % (test code=MO%) 7.1 % 0.0-10.0 EOSINOPHIL % (test code=EO%) 1.2 % 0.0-5.0 BASOPHIL % (test code=BA%) 0.5 % 0.0-1.0 NUCLEATED RBC % (test code=NRBC%) 0.0 % 0-0 NEUTROPHIL # (test code=NT#) 5.91 K/mm3 1.8-7.7 IMMATURE GRANULOCYTE # (test code=IG#) 0.04 x10 3/uL 0-0.03 LYMPHOCYTE # (test code=LY#) 2.56 K/mm3 1.0-5.0 MONOCYTE # (test code=MO#) 0.66 K/mm3 0-0.8 EOSINOPHIL # (test code=EO#) 0.11 K/mm3 0.0-0.5 BASOPHIL # (test code=BA#) 0.05 K/mm3 0.0-0.2 NUCLEATED RBC # (test code=NRBC#) 0.00 K/mm3 0.0-0.1 CBC W/AUTO [id number] 10:05:00* Test Item Value Reference Range Comments WHITE BLOOD CELL (test code=WBC) K/mm3 4.5-12.5 RED BLOOD CELL (test code=RBC) mill/mm3 3.7-5.2 HEMOGLOBIN (test code=HGB) 14.0 gram/dL 11.5-15.5 HEMATOCRIT (test code=HCT) 41.1 % 36.0-46.0 MEAN CELL VOLUME (test code=MCV) fL 80-98 MEAN CELL HGB (test code=MCH) picogram 27.0-33.0 MEAN CELL HGB CONCETRATION (test code=MCHC) gram/dL 33.0-36.0 RED CELL DISTRIBUTION WIDTH (test code=RDW) % 11.6-16.2 RED CELL DISTRIBUTION WIDTH SD (test code=RDW-SD) fL 37.0-51.0 PLATELET COUNT (test code=PLT) K/mm3 150-450 MEAN PLATELET VOLUME (test code=MPV) fL 6.7-11.0 NEUTROPHIL % (test code=NT%) % 39.0-69.0 IMMATURE GRANULOCYTE % (test code=IG%) % 0.0-5.0 LYMPHOCYTE % (test code=LY%) % 25.0-55.0 MONOCYTE % (test code=MO%) % 0.0-10.0 EOSINOPHIL % (test code=EO%) % 0.0-5.0 BASOPHIL % (test code=BA%) % 0.0-1.0 NEUTROPHIL # (test code=NT#) K/mm3 1.8-7.7 LYMPHOCYTE # (test code=LY#) K/mm3 1.0-5.0 MONOCYTE # (test code=MO#) K/mm3 0-0.8 EOSINOPHIL # (test code=EO#) K/mm3 0.0-0.5 BASOPHIL # (test code=BA#) K/mm3 0.0-0.2 [id number] 15:28:00* Test Item Value Reference Range Comments TROPONIN-I (test code=TROPI) <0.015 ng/mL 0-0.045 BASIC METABOLIC [id number] 15:20:00* Test Item Value Reference Range Comments SODIUM (test code=NA) 138 mmol/L 136-145 POTASSIUM (test code=K) 4.0 mmol/L 3.5-5.1 CHLORIDE (test code=CL) 104.0 mmol/L 98-107 CARBON DIOXIDE (test code=CO2) 29.0 mmol/L 21-32 ANION GAP (test code=GAP) 9.0 10-20 GLUCOSE (test code=GLU) 125 mg/dL 74-106 BLOOD UREA NITROGEN (test code=BUN) 10 mg/dL 7-18 GLOMERULAR FILTRATION RATE (test code=GFR) > 60 mL/min >=60 Estimated GFR by using Modified MDRD formula.Chronic kidney disease is defined as either kidney damageor GFR <60 mL/min/1.73 m2 for >3 months. CREATININE (test code=CREAT) 0.80 mg/dL 0.55-1.02 Note change in reference range due to change in reagent. BUN/CREATININE RATIO (test code=BUN/CREA) 12.5 10-20 CALCIUM (test code=CA) 8.9 mg/dL 8.5-10.1 HEPATIC FUNCTION [id number] 15:20:00* Test Item Value Reference Range Comments TOTAL PROTEIN (test code=PROT) 7.7 gram/dL 6.4-8.2 ALBUMIN (test code=ALB) 3.9 g/dL 3.4-5.0 GLOBULIN (test code=GLOB) 3.8 gram/dL 2.7-4.2 ALBUMIN/GLOBULIN RATIO (test code=A/G) 1.0 0.75-1.50 BILIRUBIN TOTAL (test code=BILT) 0.60 mg/dL 0.0-1.0 BILIRUBIN DIRECT (test code=BILD) 0.11 mg/dL 0.0-0.20 SGOT/AST (test code=AST) 14 IUnit/L 15-37 SGPT/ALT (test code=ALT) 20 IUnit/L 12-78 ALKALINE PHOSPHATASE TOTAL (test code=ALKP) 134 IUnit/L 45-117 Note change in reference range due to change in reagent. [id number] 15:20:00* Test Item Value Reference Range Comments LIPASE (test code=LIP) 102 U/L 73.0-393.0 URINALYSIS [id number] 15:19:00* Test Item Value Reference Range Comments UA COLOR (test code=COLU) COLORLESS YELLOW UA APPEARANCE (test code=APPU) CLEAR CLEAR UA GLUCOSE DIPSTICK (test code=DGLUU) NEGATIVE mg/dL NEGATIVE UA BILIRUBIN DIPSTICK (test code=BILU) NEGATIVE mg/dL NEGATIVE UA KETONE DIPSTICK (test code=KETU) NEGATIVE mg/dL NEGATIVE UA SPECIFIC GRAVITY (test code=SGU) 1.002 1.001-1.035 UA BLOOD DIPSTICK (test code=BRIANNA) Negative mg/dL NEGATIVE UA PH DIPSTICK (test code=BARRY) 6.0 5.0-8.0 UA PROTEIN DIPSTICK (test code=PROU) NEGATIVE mg/dL NEGATIVE UA UROBILINIOGEN DIPSTICK (test code=URO) Normal mg/dL NEGATIVE UA NITRITE DIPSTICK (test code=ANUP) NEGATIVE NEGATIVE UA LEUKOCYTE ESTERASE W REFLEX (test code=LEUUR) NEGATIVE [place]/uL NEGATIVE UA WBC (test code=WBCU) 0-5 per HPF 0-5 UA RBC (test code=RBCU) 0-2 per HPF 0-5 UA EPITHELIAL CELLS (test code=EPIU) Few (2-5/hpf) per HPF Few UA BACTERIA (test code=BACU) NONE SEEN per HPF NONE Urine Source? Clean CatchBASIC METABOLIC [id number] 15:11:00* Test Item Value Reference Range Comments SODIUM (test code=NA) 138 mmol/L 136-145 POTASSIUM (test code=K) 4.0 mmol/L 3.5-5.1 CHLORIDE (test code=CL) 104.0 mmol/L 98-107 CARBON DIOXIDE (test code=CO2) mmol/L 21-32 ANION GAP (test code=GAP) 10-20 GLUCOSE (test code=GLU) mg/dL 74-106 BLOOD UREA NITROGEN (test code=BUN) mg/dL 7-18 GLOMERULAR FILTRATION RATE (test code=GFR) mL/min >=60 CREATININE (test code=CREAT) mg/dL 0.55-1.02 BUN/CREATININE RATIO (test code=BUN/CREA) 10-20 CALCIUM (test code=CA) mg/dL 8.5-10.1 HEPATIC FUNCTION [id number] 15:11:00* Test Item Value Reference Range Comments TOTAL PROTEIN (test code=PROT) gram/dL 6.4-8.2 ALBUMIN (test code=ALB) g/dL 3.4-5.0 GLOBULIN (test code=GLOB) gram/dL 2.7-4.2 ALBUMIN/GLOBULIN RATIO (test code=A/G) 0.75-1.50 BILIRUBIN TOTAL (test code=BILT) mg/dL 0.0-1.0 BILIRUBIN DIRECT (test code=BILD) mg/dL 0.0-0.20 SGOT/AST (test code=AST) IUnit/L 15-37 SGPT/ALT (test code=ALT) IUnit/L 12-78 ALKALINE PHOSPHATASE TOTAL (test code=ALKP) IUnit/L 45-117 [id number] 15:11:00* Test Item Value Reference Range Comments LIPASE (test code=LIP) U/L 73.0-393.0 URINALYSIS [id number] 15:03:00* Test Item Value Reference Range Comments UA COLOR (test code=COLU) COLORLESS YELLOW UA APPEARANCE (test code=APPU) CLEAR CLEAR UA GLUCOSE DIPSTICK (test code=DGLUU) NEGATIVE mg/dL NEGATIVE UA BILIRUBIN DIPSTICK (test code=BILU) NEGATIVE mg/dL NEGATIVE UA KETONE DIPSTICK (test code=KETU) NEGATIVE mg/dL NEGATIVE UA SPECIFIC GRAVITY (test code=SGU) 1.002 1.001-1.035 UA BLOOD DIPSTICK (test code=BRIANNA) Negative mg/dL NEGATIVE UA PH DIPSTICK (test code=BARRY) 6.0 5.0-8.0 UA PROTEIN DIPSTICK (test code=PROU) NEGATIVE mg/dL NEGATIVE UA UROBILINIOGEN DIPSTICK (test code=URO) Normal mg/dL NEGATIVE UA NITRITE DIPSTICK (test code=ANUP) NEGATIVE NEGATIVE UA LEUKOCYTE ESTERASE W REFLEX (test code=LEUUR) NEGATIVE Sabas/uL NEGATIVE UA WBC (test code=WBCU) per HPF 0-5 UA RBC (test code=RBCU) per HPF 0-5 UA EPITHELIAL CELLS (test code=EPIU) per HPF Few UA BACTERIA (test code=BACU) per HPF NONE Urine Source? Clean CatchCBC W/O [id number] 15:02:00* Test Item Value Reference Range Comments WHITE BLOOD CELL (test code=WBC) 9.5 K/mm3 4.5-12.5 RED BLOOD CELL (test code=RBC) 4.84 mill/mm3 3.7-5.2 HEMOGLOBIN (test code=HGB) 14.7 gram/dL 11.5-15.5 HEMATOCRIT (test code=HCT) 41.9 % 36.0-46.0 MEAN CELL VOLUME (test code=MCV) 86.6 fL 80-98 MEAN CELL HGB (test code=MCH) 30.4 picogram 27.0-33.0 MEAN CELL HGB CONCETRATION (test code=MCHC) 35.1 gram/dL 33.0-36.0 RED CELL DISTRIBUTION WIDTH (test code=RDW) 12.1 % 11.6-16.2 PLATELET COUNT (test code=PLT) 281 K/mm3 150-450 MEAN PLATELET VOLUME (test code=MPV) 10.3 fL 6.7-11.0 B-TYPE NATRIURETIC [id number] 12:56:00* Test Item Value Reference Range Comments B-TYPE NATRIURETIC PEPTIDE (test code=BNP) 31.08 pgram/mL 0-100 PROTHROMBIN [id number] 12:40:00* Test Item Value Reference Range Comments PROTHROMBIN TIME PATIENT (test code=PTP) 11.3 seconds 9.0-14.0 INTERNATIONAL NORMAL RATIO (test code=INR) 1.0 0.8-1.2 The therapeutic range for oral anticoagulant therapy formost indications is an international normalized ratio (INR)of between 2.0 and 3.0. The recommended therapeutic INRrange for various clinical situations is listed below: Clinical Situation INR range Pulmonary e mbolism treatment (2.0-3.0)Venous thrombosis treatmentVenous thrombosis prophylaxis (high risk surgery)Prevention of systemic embolism from: Acute myocardial infarction Valvular heart disease Atrial fibrillation Mechanical prosthetic heart valves (2.5-3.5) IS PATIENT ON ANTICOAGULANTS? NTHROMBOPLASTIN TIME [id number] 12:40:00* Test Item Value Reference Range Comments THROMBOPLASTIN TIME PARTIAL (test code=PTT) 31.7 seconds 25.0-36.5 IS PATIENT ON ANTICOAGULANTS? NBASIC METABOLIC [id number] 12:37:00* Test Item Value Reference Range Comments SODIUM (test code=NA) 141 mmol/L 136-145 POTASSIUM (test code=K) 3.7 mmol/L 3.5-5.1 CHLORIDE (test code=CL) 107.0 mmol/L 98-107 CARBON DIOXIDE (test code=CO2) 28.0 mmol/L 21-32 ANION GAP (test code=GAP) 9.7 10-20 GLUCOSE (test code=GLU) 117 mg/dL 74-106 BLOOD UREA NITROGEN (test code=BUN) 9 mg/dL 7-18 GLOMERULAR FILTRATION RATE (test code=GFR) > 60 mL/min >=60 Estimated GFR by using Modified MDRD formula.Chronic kidney disease is defined as either kidney damageor GFR <60 mL/min/1.73 m2 for >3 months. CREATININE (test code=CREAT) 0.90 mg/dL 0.55-1.02 Note change in reference range due to change in reagent. BUN/CREATININE RATIO (test code=BUN/CREA) 10.0 10-20 CALCIUM (test code=CA) 8.9 mg/dL 8.5-10.1 HEPATIC FUNCTION [id number] 12:37:00* Test Item Value Reference Range Comments TOTAL PROTEIN (test code=PROT) 7.5 gram/dL 6.4-8.2 ALBUMIN (test code=ALB) 3.8 g/dL 3.4-5.0 GLOBULIN (test code=GLOB) 3.7 gram/dL 2.7-4.2 ALBUMIN/GLOBULIN RATIO (test code=A/G) 1.0 0.75-1.50 BILIRUBIN TOTAL (test code=BILT) 0.60 mg/dL 0.0-1.0 BILIRUBIN DIRECT (test code=BILD) 0.13 mg/dL 0.0-0.20 SGOT/AST (test code=AST) 10 IUnit/L 15-37 SGPT/ALT (test code=ALT) 15 IUnit/L 12-78 ALKALINE PHOSPHATASE TOTAL (test code=ALKP) 111 IUnit/L 45-117 Note change in reference range due to change in reagent. [id number] 12:37:00* Test Item Value Reference Range Comments LIPASE (test code=LIP) 100 U/L 73.0-393.0 [id number] 12:37:00* Test Item Value Reference Range Comments MAGNESIUM (test code=MAG) 2.2 mg/dL 1.8-2.4 [id number] 12:37:00* Test Item Value Reference Range Comments TROPONIN-I (test code=TROPI) <0.015 ng/mL 0-0.045 - CT HEAD/BRAIN W/O [id number] 12:25:00 Name: MARA FRANCES [facility] : 1955 Age/S: 62 / F [place] Unit #: [id number] Loc: [facility]Z [place] [address] Phys: Shawnee Krishna MD Acct: [id number] Dis Date: Status: REG ER PHONE #: [phone] Exam Date: 08/17/2018 1201 FAX #: [phone] Reason: paresthesia EXAMS: CPT CODE: [id number] CT HEAD/BRAIN W/O CONT 39840 HISTORY: Paresthesia. COMPARISON: November 22, 2017. CT brain without contrast: Automated exposure control. No acute intracranial bleeds or extra-axial collections are noted. No acute territorial vascular infarction is noted. 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 The sulci, gyri, ventricles and subarachnoid spaces and the basilar cisterns are normal for patient's age. No herniation or hydrocephalus or midline shift is noted. Mild periventricular ischemic gliosis is noted. Age-appropriate atrophy is noted as well. Portions of the visualized paranasal sinuses demonstrated polyp or retention cyst within the floor of the right maxillary sinus. No obvious bony calvarial defect is noted. Marked sclerosis of bilateral mastoid air cells. IMPRESSION: No acute intracranial bleeds or extra-axial collections. No acute territorial vascular infarction. No herniation or hydrocephalus or midline shift. Chronic white matter ischemic disease and atrophy . at 1225 Report ed and signed by: Edouard Millan M.D. CC: Shawnee Krishna MD Technologist:SAMANTHA NICOLE RT(R) CTDI: D LP: Trnscb Date/Time: 08/17/2018 (1008) [email or web address] Orig Print D/T: S: 08/17/2018 (5371) CTDI: DLP: PAGE 1 Signed Report CBC W/O DIFF 2018-08-17 12:15:00* Test Item Value Reference Range Comments WHITE BLOOD CELL (test code=WBC) 9.0 K/mm3 4.5-12.5 RED BLOOD CELL (test code=RBC) 4.67 mill/mm3 3.7-5.2 HEMOGLOBIN (test code=HGB) 13.7 gram/dL 11.5-15.5 HEMATOCRIT (test code=HCT) 42.3 % 36.0-46.0 MEAN CELL VOLUME (test code=MCV) 90.6 fL 80-98 MEAN CELL HGB (test code=MCH) 29.3 picogram 27.0-33.0 MEAN CELL HGB CONCETRATION (test code=MCHC) 32.4 gram/dL 33.0-36.0 RED CELL DISTRIBUTION WIDTH (test code=RDW) 12.1 % 11.6-16.2 PLATELET COUNT (test code=PLT) 260 K/mm3 150-450 MEAN PLATELET VOLUME (test code=MPV) 10.5 fL 6.7-11.0 BASIC METABOLIC [id number] 12:14:00* Test Item Value Reference Range Comments SODIUM (test code=NA) 141 mmol/L 136-145 POTASSIUM (test code=K) 3.7 mmol/L 3.5-5.1 CHLORIDE (test code=CL) 107.0 mmol/L 98-107 CARBON DIOXIDE (test code=CO2) mmol/L 21-32 ANION GAP (test code=GAP) 10-20 GLUCOSE (test code=GLU) mg/dL 74-106 BLOOD UREA NITROGEN (test code=BUN) mg/dL 7-18 GLOMERULAR FILTRATION RATE (test code=GFR) mL/min >=60 CREATININE (test code=CREAT) mg/dL 0.55-1.02 BUN/CREATININE RATIO (test code=BUN/CREA) 10-20 CALCIUM (test code=CA) mg/dL 8.5-10.1 HEPATIC FUNCTION [id number] 12:14:00* Test Item Value Reference Range Comments TOTAL PROTEIN (test code=PROT) gram/dL 6.4-8.2 ALBUMIN (test code=ALB) g/dL 3.4-5.0 GLOBULIN (test code=GLOB) gram/dL 2.7-4.2 ALBUMIN/GLOBULIN RATIO (test code=A/G) 0.75-1.50 BILIRUBIN TOTAL (test code=BILT) mg/dL 0.0-1.0 BILIRUBIN DIRECT (test code=BILD) mg/dL 0.0-0.20 SGOT/AST (test code=AST) IUnit/L 15-37 SGPT/ALT (test code=ALT) IUnit/L 12-78 ALKALINE PHOSPHATASE TOTAL (test code=ALKP) IUnit/L 45-117 [id number] 12:14:00* Test Item Value Reference Range Comments LIPASE (test code=LIP) U/L 73.0-393.0 [id number] 12:14:00* Test Item Value Reference Range Comments MAGNESIUM (test code=MAG) mg/dL 1.8-2.4 [id number] 12:14:00* Test Item Value Reference Range Comments TROPONIN-I (test code=TROPI) ng/mL 0-0.045 CBC W/O [id number] 12:13:00* Test Item Value Reference Range Comments WHITE BLOOD CELL (test code=WBC) K/mm3 4.5-12.5 RED BLOOD CELL (test code=RBC) mill/mm3 3.7-5.2 HEMOGLOBIN (test code=HGB) 13.7 gram/dL 11.5-15.5 HEMATOCRIT (test code=HCT) 42.3 % 36.0-46.0 MEAN CELL VOLUME (test code=MCV) fL 80-98 MEAN CELL HGB (test code=MCH) picogram 27.0-33.0 MEAN CELL HGB CONCETRATION (test code=MCHC) gram/dL 33.0-36.0 RED CELL DISTRIBUTION WIDTH (test code=RDW) % 11.6-16.2 PLATELET COUNT (test code=PLT) K/mm3 150-450 MEAN PLATELET VOLUME (test code=MPV) fL 6.7-11.0 - XR CHEST 1 [id number] 11:28:00 FAX: Shawnee Krishna MD [phone] [place]: B St: REG Name: MARA SHORT [facility] : [birth year] Age/S: 62/F [address] [facility] Unit #: [id number] Loc: [facility] [place] [address] Phys: Shawnee Krishna MD Acct: [id number] Dis Date: Status: REG ER PHONE #: [phone] Exam Date: 08/17/2018 1055 FAX #: [phone] Reason: CHEST PAIN EXAMS: CPT CODE: [id number] XR CHEST 1 V 24196 HISTORY: Chest pain. COMPARISON: August 08, 2018. No acute infiltrates or congestion is noted. Suboptimal inspiration. Dependent changes. Small left effusion. Cardiomegaly. IMPRESSION: Small e ffusion without infiltrates or congestion. Dependent changes. Electr onically Signed by Nina Millan on 08/17/2018 at 1128 Reported and signed by: Edouard Millan M.D. CC: Shawnee Sapp MD Technologist: Esther Snyder(R) Trnscrd Date/Time/By: 08/17/2018 (1128 ) : By: [email or web address] Orig Print D/T: S: 08/17/2018 (2900) PAGE 1 Signed Report BASIC METABOLIC [id number] 13:49:00* Test Item Value Reference Range Comments SODIUM (test code=NA) 141 mmol/L 136-145 POTASSIUM (test code=K) 3.8 mmol/L 3.5-5.1 CHLORIDE (test code=CL) 106.0 mmol/L 98-107 CARBON DIOXIDE (test code=CO2) 28.0 mmol/L 21-32 ANION GAP (test code=GAP) 10.8 10-20 GLUCOSE (test code=GLU) 154 mg/dL 74-106 BLOOD UREA NITROGEN (test code=BUN) 10 mg/dL 7-18 GLOMERULAR FILTRATION RATE (test code=GFR) > 60 mL/min >=60 Estimated GFR by using Modified MDRD formula.Chronic kidney disease is defined as either kidney damageor GFR <60 mL/min/1.73 m2 for >3 months. CREATININE (test code=CREAT) 0.90 mg/dL 0.55-1.02 Note change in reference range due to change in reagent. BUN/CREATININE RATIO (test code=BUN/CREA) 11.1 10-20 CALCIUM (test code=CA) 9.2 mg/dL 8.5-10.1 [id number] 13:49:00* Test Item Value Reference Range Comments TROPONIN-I (test code=TROPI) <0.015 ng/mL 0-0.045 - XR CHEST 1 [id number] 13:47:00 FAX: Jean St MD [phone] [place]: St: REG Name: MARA SHORT [facility] : [birth year] Age/S: 62/F [address] [facility] Unit #: [id number] Loc: [place] [address] Phys: Jean St MD Acct: [id number] Dis Date: Status: REG ER PHONE #: [phone] Exam Date: 08/08/2018 1319 FAX #: [phone] Reason: CHEST PAIN EXAMS: CPT CODE: [id number] XR CHEST 1 V 36957 HISTORY: Chest pain. COMPARISON: August 06, 2017. Trace left effusion with dependent joel nges without infiltrates or congestion. Calcified granuloma in the right u pper lobe laterally. Suboptimal inspiration. Cardiomegaly. IMPRESSION: Trace left effusion with dependent changes without infiltrates or congestion. at 134 Reported and signed by : Edouard Millan M.D. CC: Jean St MD Technologist: Esther Snyder(R); Laura Perez(R) Trnscrd Date/Time/By: 08/08/2018 (6950) : By: [email or web address] Orig Print D/T: S: 08/08/2018 (4225) PAGE 1 Signed Report [id number] 13:39:00* Test Item Value Reference Range Comments D-DIMER (test code=DDIMER) 293.00 ng/mLFEU 0-500 Clinical Cut-off value for D- Dimer is 500 ng/mL FEU. Comment: The [employer] D-Dimer assay is intended for use asan aid in the diagnosis of venous thromboembolism (VTE)[deep vein thrombosis (DVT) or pulmonary embolism (PE)].The measurement of D-Dimer should not be used as an aid inthe diagnosis of VTE, in patient with: -Therapeutic dose anticoagulant therapy for >24 hours -Fibrinolytic therapy within previous 7 days -Trauma or surgery within previous 4 weeks -Disseminated malignancies - Aortic aneurysm -Sepsis, severe infections, pneumonia, severe skin infections -Liver cirrhosis - CBC W/O [id number] 13:36:00* Test Item Value Reference Range Comments WHITE BLOOD CELL (test code=WBC) 7.4 K/mm3 4.5-12.5 RED BLOOD CELL (test code=RBC) 4.82 mill/mm3 3.7-5.2 HEMOGLOBIN (test code=HGB) 14.7 gram/dL 11.5-15.5 HEMATOCRIT (test code=HCT) 43.5 % 36.0-46.0 MEAN CELL VOLUME (test code=MCV) 90.2 fL 80-98 MEAN CELL HGB (test code=MCH) 30.5 picogram 27.0-33.0 MEAN CELL HGB CONCETRATION (test code=MCHC) 33.8 gram/dL 33.0-36.0 RED CELL DISTRIBUTION WIDTH (test code=RDW) 12.2 % 11.6-16.2 PLATELET COUNT (test code=PLT) 275 K/mm3 150-450 MEAN PLATELET VOLUME (test code=MPV) 10.4 fL 6.7-11.0 CBC W/O [id number] 13:26:00* Test Item Value Reference Range Comments WHITE BLOOD CELL (test code=WBC) K/mm3 4.5-12.5 RED BLOOD CELL (test code=RBC) mill/mm3 3.7-5.2 HEMOGLOBIN (test code=HGB) 14.7 gram/dL 11.5-15.5 HEMATOCRIT (test code=HCT) 43.5 % 36.0-46.0 MEAN CELL VOLUME (test code=MCV) fL 80-98 MEAN CELL HGB (test code=MCH) picogram 27.0-33.0 MEAN CELL HGB CONCETRATION (test code=MCHC) gram/dL 33.0-36.0 RED CELL DISTRIBUTION WIDTH (test code=RDW) % 11.6-16.2 PLATELET COUNT (test code=PLT) K/mm3 150-450 MEAN PLATELET VOLUME (test code=MPV) fL 6.7-11.0
[2019-01-20] MEDS ORDERED: SODIUM CHLORIDE 0.9% 1000ML 1,000 ML IV STA (05:03)
[2019-01-20 05:53] LABS: BILIRUBIN,URINE NEGATIVE (NEGATIVE); CLARITY,URINE CLEAR (CLEAR); KETONES,URINE NEGATIVE (NEGATIVE); LEUKOCYTE ESTERASE ,URINE SMALL (NEGATIVE); NITRITE,URINE NEGATIVE (NEGATIVE); PROTEIN,URINE DIPSTICK NEGATIVE (NEGATIVE); URINE UROBILINOGEN 0.2 mg/dL (0.2 - 1)
[2019-01-20 05:54] LABS: BASOPHILS % 0.4 % (0.0-1.0); EOSINOPHILS # (AUTO) 0.1 (0.0-0.4); EOSINOPHILS % 0.8 % (0.0-6.0); HEMATOCRIT 37.8 % (34.2-44.1); HEMOGLOBIN 13.7 g/dL (12.0-16.0); LYMPHOCYTES # (AUTO) 1.8 (1.0-3.2); LYMPHOCYTES % 18.5 % (18.0-39.1); MEAN CORPUSCULAR HEMOGLOBIN 30.2 pg (28-32); MEAN CORPUSCULAR HGB CONC 36.2 g/dL (31-35); MEAN CORPUSCULAR VOLUME 83.3 fL (81-99); MONOCYTES # (AUTO) 0.8 (0.2-0.8); MONOCYTES % 7.9 % (4.4-11.3); NEUTROPHILS # (AUTO) 6.9 (2.1-6.9); NEUTROPHILS % 71.9 % (38.7-80.0); PLATELET COUNT 295 x10e3/uL (140-360); RED BLOOD COUNT 4.54 x10e6/uL (3.6-5.1); RED CELL DISTRIBUTION WIDTH 11.9 % (11.7-14.4)
[2019-01-20 05:58] LABS: COLOR,URINE YELLOW (YELLOW)
[2019-01-20] MEDS ORDERED: MORPHINE SULFATE INJ 4 MG/ML INJ 1ML IV PRN (06:00)
[2019-01-20] MEDS ORDERED: ONDANSETRON HCL INJ 2MG/ML 2ML 2 MG/ML VIAL ONE (06:08)
[2019-01-20] MEDS ORDERED: MORPHINE SULFATE INJ 4 MG/ML INJ 1ML ONE (06:08)
[2019-01-20 06:13] LABS: ALANINE AMINOTRANSFERASE 16 IU/L (0-55); ALBUMIN 3.7 g/dL (3.5-5.0); ALBUMIN/GLOBULIN RATIO 1.1 (0.8-2.0); ALKALINE PHOSPHATASE 119 IU/L (40-150); ANION GAP 13.3 mmol/L (8-16); BLOOD UREA NITROGEN 5 mg/dL (7-26); BUN/CREATININE RATIO 6 (6-25); CALCIUM 9.2 mg/dL (8.4-10.2); CARBON DIOXIDE 28 mmol/L (22-29); CHLORIDE 97 mmol/L (98-107); CREATININE, SERUM 0.82 mg/dL (0.57-1.11); EST GLOMERULAR FILTRATION RATE > 60 ML/MIN (60-); GLUCOSE 164 mg/dL (74-118); LIPASE 22 U/L (8-78); POTASSIUM 3.3 mmol/L (3.5-5.1); SODIUM 135 mmol/L (136-145)
[2019-01-20 06:17] LABS: BACTERIA,URINE MODERATE /HPF; EPITHELIAL CELLS,URINE FEW /LPF; RBC,URINE 0-5 /HPF (0-5)
[2019-01-20] MEDS ORDERED: SODIUM CHLORIDE 0.9% 50ML 50 ML ONE (06:30)
[2019-01-20] MEDS ORDERED: IOPAMIDOL 370 MG/ML 200 ML INFUS..BTL INJ ONE (06:30)
[2019-01-20] MEDS ORDERED: ONDANSETRON HCL INJ 2MG/ML 2ML 2 MG/ML VIAL IV STA (06:52)
--- NOTE | 2019-01-20 07:24 | NUR ---
report to polly [facility]
--- NOTE | 2019-01-20 07:36 | Diagnostic Imaging Report ---
EXAM: CT of the abdomen and pelvis WITH contrast HISTORY: Abdominal pain, right lower quadrant, flank pain, history of colorectal cancer, cholecystectomy, appendectomy, tubal ligation COMPARISON: None. TECHNIQUE: The abdomen and pelvis were scanned utilizing a multidetector helical scanner. Coronal and sagittal reformats are provided. PROTOCOL: Routine IV CONTRAST: 100 cc of Isovue-[id number]. ORAL CONTRAST: None, which limits sensitivity and specificity of the exam. RADIATION DOSE: Total DLP: 311.7 mGy*cm Estimated effective dose: (DLP x 0.015 x size factor) Dose modulation, iterative reconstruction, and/or weight based adjustment of the mA/kV was utilized to reduce the radiation dose to as low as reasonably achievable. COMPLICATIONS: None FINDINGS: LOWER THORAX: Unremarkable. HEPATOBILIARY: A 4 mm hypodensity near the dome of the right lobe, too small to characterize, statistically most likely a small cyst. Focal fatty infiltration adjacent to the falciform ligament. No biliary dilation. Metallic clips in the right upper quadrant of the abdomen are compatible with prior cholecystectomy. SPLEEN: No splenomegaly. PANCREAS: No focal masses or ductal dilatation. ADRENALS: No discrete adrenal nodule. KIDNEYS/URETERS: No hydronephrosis, stones, or definite solid mass lesions. PELVIC ORGANS/BLADDER: The visualized pelvic organs appear unremarkable. GI TRACT: Radiopaque suture material at the sigmoid colon. Radiopaque suture material position of the cecum and No dilation or wall thickening identified. PERITONEUM / RETROPERITONEUM: No free air or fluid. LYMPH NODES: No pathologically enlarged lymph node. Small nonspecific mesenteric and retroperitoneal lymph nodes. VESSELS: Diffusely scattered calcified and irregular noncalcified atherosclerotic vascular plaques. BONES and JOINTS: No aggressive osseous lesion or acute fracture. A few small scattered nonaggressive sclerotic densities, for example: The L2 vertebral body, right iliac bone, and the largest at the left sacral ala measuring 1.2 cm in greatest dimension. SOFT TISSUES: Unremarkable. IMPRESSION: 1. No acute CT abnormality. 2. A few scattered small nonaggressive sclerotic osseous lesions, statistically most likely bone islands. However, given the provided history of colorectal cancer, correlation with a follow-up nonemergent nuclear medicine bone scan would be needed for more definitive characterization. Signed by: Dr. Ralph Kelley D.O., M.M.M. on 01/20/2019 7:33 AM
== END 2019-01-20 08:16 | disposition home or self-care (01) ==
LOC: ER 04:49
DX: R10.11 Right upper quadrant pain (principal); R05 Cough; Z85.038 Personal history of other malignant neoplasm of large intestine; I10 Essential (primary) hypertension; E11.9 Type 2 diabetes mellitus without complications; E03.9 Hypothyroidism, unspecified; E78.5 Hyperlipidemia, unspecified
CPT/HCPCS: 36415; 74177; 80053; 81001; 83690; 85025; 99284; J2270; J2405; J7030; Q9967

== ENCOUNTER 2019-01-22 00:48 | Emergency (ER) | payer MEDICARE ==
[~2019-01-22] VITALS: Ht 154.9 cm; Wt 65.8 kg
--- OUTSIDE RECORDS SUMMARY | 2019-01-22 00:51 | XMS REPORT | Clinical Summary ---
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 Name Role Phone Asked, No Pcp PCP [...] Manufactur er 11/05/2020 XL 5410 / / [id number] Epifix Xl 4 X 10 - [id number] Surgical N/A: N/A MIMEDX Implanted: Qty: 1 on 05/24/2016 by Implants; [employer] Kandi Pete MD at [facility] Expanders; HOSPITAL Extenders; Surgical Wires 2231 / / Drain Wound Hbls Round Radopaq Surgical N/A: N/A Trocar Radha White 0.25in 19fr - Implants; [id number] Expanders; Implanted: Qty: 1 on 05/24/2016 by Extenders; Kandi Pete MD at [facility] Surgical HOSPITAL Wires 12/06/2020 XL 5410 / / [id number] Epifix Xl 4 X 10 - [id number] Surgical N/A: N/A MIMEDX Implanted: 05/24/2016 at [facility] not on [facility] Expanders; Extenders; Surgical Wires Results Not on fileafter 01/21/2018 Insurance Type Payer Benefit Subscriber ID Effective Phone Address Plan / Dates Group Medicare MEDICARE MEDICARE xxxxxxxxxx 2013-P MARTINEZ, PART A AND stella [place] B Advance Directives For more information, please contact: [phone] 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
--- OUTSIDE RECORDS SUMMARY | 2019-01-22 00:52 | XMS REPORT | Clinical Summary ---
Author Author [facility] Organization [facility] Address Unknown Phone Unavailable Care Team Providers Care Inspector Machine Cut Glass Name Role Phone Alicia Perez DO PCP [...] needed for Pain (take with food) (1 yrpfmi=031 mg). Active levothyroxine (SYNTHROID) TAKE 1 TABLET [...] needed for Pain (take with food) (1 bkpxkc=432 mg). 11/29/2018 Discontinued traMADol (ULTRAM) 50 mg [...] resection S/P colonoscopy with polypectomy done at [facility] 03/201605/10/2016 Family history of breast cancer- breast ,colon 08/03/2015 Diabetes mellitus type II, uncontrolled 07/31/2015 Hyperlipidemia 06/12/2015 Thrombocytopenia, unspecified-per ER visit 05/26/2015 06/12/2015 S/P colonoscopic polypectomy done at [facility] 04/23/2015 Overview: 5 polyps removed and moderately [...] Team Description Date Type Specialty Ailyn Mattson Arrived 01/21/2019 Office Visit Psychology Alicia Perez DO 01/17/2019 Hospital Radiology Encounter Alicia Perez DO Sebaceous cyst (Primary Dx); Senile osteoporosis; Dry skin dermatitis 01/10/2019 Office Visit Family [facility] Donald Frank MD PTSD (post-traumatic stress disorder); Moderate episode of recurrent major depressive disorder; Grief 01/10/2019 Orders Only Psychiatry Ivett Macias RN PTSD (post-traumatic stress disorder); Moderate episode of recurrent major depressive disorder; Grief 01/10/2019 Refill [facility] Ailyn Mattson MDD (major depressive disorder), recurrent episode, moderate (Primary Dx); Grief 12/21/2018 Office Visit Psychology Jackson Rose III, MD Hyperlipidemia, unspecified hyperlipidemia type; Controlled type 2 diabetes mellitus with complication, without long-term current use of insulin 12/20/2018 Refill [facility] Alicia Perez DO Hypertriglyceridemia (Primary Dx); Hypothyroidism, unspecified type; Controlled type 2 diabetes mellitus with complication, without long-term current use of insulin; Pain in both knees, unspecified chronicity; Primary osteoarthritis of both knees; PTSD (post-traumatic stress disorder) 11/29/2018 Office Visit [facility] Alicia Perez DO PTSD (post-traumatic stress disorder) 11/29/2018 Orders Only [facility] Jessica Ring RN PTSD (post-traumatic stress disorder); Moderate episode of recurrent major depressive disorder; Grief 11/15/2018 Refill [facility] Jackson Rose III, MD 10/18/2018 Ancillary Radiology Procedure Jessica Ring RN PTSD (post-traumatic stress disorder) 09/24/2018 Refill [facility] Jackson Rose III, MD Hypothyroidism, unspecified type 09/21/2018 Refill [facility] Jackson Rose III, MD PTSD (post-traumatic stress disorder) (Primary Dx); Primary osteoarthritis of both knees; Hyperlipidemia, unspecified hyperlipidemia type; Hypothyroidism, unspecified type; Type 2 diabetes mellitus without complication, without long-term current use of insulin; Preventative health care; Pain in both knees, unspecified chronicity 09/13/2018 Office Visit [facility] Donald Frank MD Moderate episode of recurrent major depressive disorder (Primary Dx); PTSD (post-traumatic stress disorder); Grief 08/23/2018 Office Visit Psychiatry Ailyn Mattson MDD (major depressive disorder), severe (Primary Dx); Grief 08/21/2018 Office Visit Psychology Dina Rebollar, RN 08/20/2018 Nurse Triage Ana Rosa Rodriges RN [...] with cough and congestion 07/06/2018 Office Visit [facility] Jackson Rose III, MD Primary osteoarthritis of both knees; Pain in both knees, unspecified chronicity 07/06/2018 Refill [facility] Jackson Rose III, MD Controlled type 2 diabetes mellitus without complication, without long-term current use of insulin 06/28/2018 Refill [facility] Jackson Rose III, MD Hypothyroidism, unspecified type 06/13/2018 Refill [facility] Jackson Rose III, MD Hypothyroidism, unspecified type 04/11/2018 Refill [facility] Clau Phan 03/06/2018 Clinical [...] Pain in joint, multiple sites; Need for dwzngoasvc-zebbkds-xvnhrnlrv (Tdap) vaccine; PTSD (post-traumatic stress disorder) 02/14/2018 Office Visit Family Practice Dina Rebollar RN 01/31/2018 Nurse Triage after 01/20/2018 Immunizations Name Administration Dates Next Due DTaP [...] Treatment Care Team Description Date Type Specialty Alicia Perez DO [address] [place] [address] [place], [place] [id number] 01/31/2019 Lab Appointment Lab Ailyn Mattson [address] [place] [address] [id number] [place] [address] [phone] 02/21/2019 Office Visit Psychology Donald Frank MD [address] [facility] [id number] [place] [address] 03/14/2019 Office Visit Psychiatry Health [...] of insulin MAMMOGRAM BILAT SCREEN Routine 10/18/2018 [facility] care DIGITAL 1:41 PM CDT OPHTHALMOLOGY RETINAL [...] STAT 07/06/2018 Pressure in chest 3:59 PM INFORMATICS MANAGER DIABETIC FOOT EXAM Routine 07/06/2018 Controlled type 2 3:30 PM INFORMATICS MANAGER diabetes mellitus with complication, without long-term current use of insulin DIABETIC FOOT EXAM Routine 02/14/2018 Controlled type 2 3:58 PM CDT diabetes mellitus without complication, without long-term current use of insulin after 01/20/2018 Results * TSH (11/13/2018 8:24 AM CDT) [...] 5.18 uIU/mL Specimen Blood Performing Organization Address [facility] Phone Number [facility] [address] [place] [address] * FREE T4 (11/13/2018 8:24 AM CDT) Free T4 0.97 0.61 - 1.18 ng/dl [facility] Specimen Blood Performing Organization Address [facility] Phone Number [facility] [address] [place] [address] * LIPID PROFILE (11/13/2018 8:24 AM CDT) [...] >=190 mg/dL Specimen Blood Performing Organization Address [facility] Phone Number [facility] [address] [place] [address] * GLUCOSE (11/13/2018 8:24 AM CDT) Glucose 145 (H) 70 - 110 mg/dL [facility] Specimen Blood Performing Organization Address [facility] Phone Number [facility] [address] [place] [address] * ALT/AST (11/13/2018 8:24 AM CDT) ALT 13 7 - 52 U/L [facility] AST 10 (L) 13 - 39 U/L [facility] Specimen Blood Performing Organization Address [facility] Phone Number [facility] [address] [place] [address] * MICROALBUM, URINE (11/13/2018 8:23 AM CDT) Microalbumin, <0.7 <30.0 mg/dL [facility] Creatinine, 128 20 - 320 mg/dL [facility] Urine [facility]OR[facility] Urine <5.5 0.0 - 30.0 mg/g [facility] Microalbumin [facility] Specimen Urine Performing Organization Address [facility] Phone Number [facility] [address] [place] [address] * HEMOGLOBIN A1C (11/13/2018 8:23 AM CDT) Only the most recent of 2 results within the time period is included. Hemoglobin A1c 7.1 % [facility] Estimated 157 (H) 70 - 110 mg/dL [facility] Average Glucose LABORATORY Specimen Blood Performing Organization Address [facility] Phone Number [facility] [address] [place] [address] * MAMMOGRAM BILAT SCREEN DIGITAL (10/18/2018 1:41 PM CDT) Specimen Impressions Performed At IMPRESSION: BENIGN SMS There is no mammographic evidence of malignancy. A 1 year screening mammogram is recommended. This document has been electronically signed. Dodie sung/penrad:10/18/2018 14:10:10 File Drawer Finisher: Leda Byrd Sr. Placing Judge, [facility] letter sent: Mammography Normal Mammogram BI-RADS: 2 Benign G0202 Z85.3 Narrative Performed At #[id number] - MAMMOGRAM BILAT SCREEN DIGITAL SMS BILATERAL DIGITAL SCREENING MAMMOGRAM WITH CAD: 10/18/2018 CLINICAL: Screening for malignancy. Comparison is made to exams dated:10/12/2017, 10/17/2016, 10/17/2016 [facility], 08/21/2015, and 07/09/2014 [facility]. The tissue of both breasts is [...] Rad/Mammog In - 10/18/2018 2:28 PM CDT #[id number] - MAMMOGRAM BILAT SCREEN DIGITAL BILATERAL DIGITAL SCREENING MAMMOGRAM WITH CAD: 10/18/2018 CLINICAL: Screening for malignancy. Comparison is made to exams dated: 10/12/2017, 10/17/2016, 10/17/2016 [facility], 08/21/2015, and 07/09/2014 [facility] [place]. The tissue of both breasts is heterogeneously [...] has been electronically signed. Dodie sung/roni:10/18/2018 14:10:10 File Drawer Finisher: Leda Byrd Sr. Placing Judge, [facility] letter sent: Mammography Normal Mammogram BI-RADS: 2 Benign G0202 Z85.3 Performing Organization Address [facility] Phone Number SMS * OPHTHALMOLOGY RETINAL SCAN [...] y/o, F (: 1955, ) presented to [facility] on 08-06-2018 for a retinal [...] signed by Alonzo Alan MD, , Taxonomy: [id number] on 08-06-2018 11:42:25 [facility] time. NOTE:Any pathology noted on this diabetic retinal evaluation should be confirmed by an appropriate ophthalmic examination. Performing Organization Address [facility] Phone Number IRIS * [...] (Abs) 2 Specimen Blood Performing Organization Address [facility] Phone Number MISYS BT MAIN-STATION 2 * [...] Am 1 Specimen Blood Performing Organization Address [facility] Phone Number MISYS BT MAIN-STATION 1 * 12 LEAD EKG (07/06/2018 3:59 PM INFORMATICS MANAGER) 12 LEAD EKG FOR [facility] Test Date:2018-07-06 Pat Name: MARIBELL Tobias ent: [id number] Room: Gender: F Coke Drawer: :[id number] 12-27 Requested By: DENA Hansen Order Number: [id number] Reading MD: Noelle Borrero Measurements Intervals [place] Rate: 65 P:10 SC: 152 QRS: 28 QRSD: 77 T:53 QT: 382 QTc:399 Interpretive Statements SINUS RHYTHM Electronically Signed On 07-06-2018 16:08:02 INFORMATICS MANAGER by Noelle Borrero Specimen Performing Organization Address [facility] Phone Number [facility] * DIABETIC FOOT EXAM (07/06/2018 3:30 PM INFORMATICS MANAGER) Only the most recent of 2 results within the time period is included. Narrative Performed At Dena Chavez NP 07/06/20184:36 PM Diabetic Foot Exam was performed at 07/06/2018 4:35 PM.Right foot sensation is normal, right foot pulses are normal, right foot appearance is normal.Left foot sensation is normal,left foot pulses are normal, left foot appearance is normal. after 01/20/2018 Insurance Type Payer Benefit Subscriber ID Effective Phone Address Plan / Dates Group [employer] MEDICARE COMPLETE AAR xxxxxxxxx 2016-P [phone] [id number] [place] [address] [facility] xxxxxxxxx 2018-P [phone] [place] [id number] [facility] [id number]
--- OUTSIDE RECORDS SUMMARY | 2019-01-22 00:52 | XMS REPORT | Continuity of Care Document ---
Author Author [facility] Organization [facility] Address Unknown Phone Unavailable Care Team Providers Care Volcanologist Name Role Phone [employer] Unavailable Unavailable Problems Problem Status Onset Date Classification Date Reported Comments Source Primary osteoarthritis of both knees Active 11/01/2017 01/22/2019 [facility] Moderate episode of recurrent major depressive disorder Active 10/12/2017 01/22/2019 [facility] Rectal cancer, s/p entire tumor removed 05/24/2016, large bowel recto-sigmoid resection Active 06/02/2016 01/22/2019 [facility] S/P colonoscopy with polypectomy done at [facility] 03/2016 Active 05/10/2016 01/22/2019 [facility] Family history of breast cancer- breast ,colon Active 08/03/2015 01/22/2019 [facility] Diabetes mellitus type II, uncontrolled Active 07/31/2015 01/22/2019 [facility] Hyperlipidemia Active 06/12/2015 01/22/2019 [facility] Thrombocytopenia, unspecified-per ER visit 05/26/2015 Active 06/12/2015 01/22/2019 [facility] S/P colonoscopic polypectomy done at [place] Active 04/23/2015 01/22/2019 [facility] Vitamin D deficiency Active 02/05/2015 01/22/2019 [facility] Osteoporosis Active 02/05/2015 01/22/2019 [facility] Arthralgia Active 02/05/2015 01/22/2019 [facility] Shoulder pain Active 09/18/2014 01/22/2019 [facility] PTSD - sisters dying (grief... per patient) Active 09/05/2014 11/13/2018 [facility] Shoulder injury Active 09/05/2014 01/22/2019 [facility] PTSD (post-traumatic stress disorder) - sisters dying (grief... per patient) Active 09/05/2014 01/22/2019 [facility] Ankle pain, left- per history had fracture 2012 -intermittent pain Active 10/12/2012 11/13/2018 [facility] Ankle pain, left- per history had fracture 2012 -intermittent pain Active 10/12/2012 01/22/2019 [facility] Depressive disorder Active 06/14/2012 01/22/2019 [facility] Unspecified hypothyroidism Active 06/14/2012 01/22/2019 [facility] Unspecified hearing loss Active 06/14/2012 01/22/2019 [facility] Tympanic membrane rupture Active 06/14/2012 01/22/2019 [facility] Broken tooth Active 04/27/2012 01/22/2019 [facility] Osteopenia Active 04/11/2012 01/22/2019 [facility] Osteoporosis, unspecified Active 04/11/2012 01/22/2019 [facility] PTSD Active 11/13/2018 [facility] Hypothyroidism, unspecified type Active 01/22/2019 [facility] Hyperlipidemia, unspecified hyperlipidemia type Active 01/22/2019 [facility] Type 2 diabetes mellitus without complication, without long-term current use of insulin Active 01/22/2019 [facility] Preventative health care Active 01/22/2019 [facility] Pain in both knees, unspecified chronicity Active 01/22/2019 [facility] Grief Active 01/22/2019 [facility] MDD , severe Active 11/13/2018 [facility] Controlled type 2 diabetes mellitus with complication, without long-term current use of insulin Active 01/22/2019 [facility] Senile osteoporosis Active 01/22/2019 [facility] Pressure in chest Active 01/22/2019 [facility] Upper respiratory infection with cough and congestion Active 01/22/2019 [facility] Controlled type 2 diabetes mellitus without complication, without long-term current use of insulin Active 01/22/2019 [facility] Perforated ear drum, bilateral Active 01/22/2019 [facility] MDD , recurrent episode, moderate Active 11/13/2018 [facility] Flu vaccine need Active 01/22/2019 [facility] Dietary counseling Active 01/22/2019 [facility] Exercise counseling Active 01/22/2019 [facility] Seasonal allergic rhinitis, unspecified trigger Active 01/22/2019 [facility] Pain in joint, multiple sites Active 01/22/2019 [facility] Need for uwmyqssvff-fbkxedg-abqgzutkz vaccine Active 11/13/2018 [facility] Hypertriglyceridemia Active 01/22/2019 [facility] PTSD (post-traumatic stress disorder) Active 01/22/2019 [facility] MDD (major depressive disorder), severe Active 01/22/2019 [facility] MDD (major depressive disorder), recurrent episode, moderate Active 01/22/2019 [facility] Need for pkgeflpfzj-apjdqph-mfckxpell (Tdap) vaccine Active 01/22/2019 [facility] Sebaceous cyst Active 01/22/2019 [facility] Dry skin dermatitis Active 01/22/2019 [facility] Medications Medication Details Route Status Patient Instructions Ordering Provider Order Date Source ammonium lactate (LAC-HYDRIN) 12 % lotion Apply to affected area as needed for dry skin. Topical Inactive 01/10/2019 [facility] traZODone (DESYREL) 50 mg tablet Take 1/2 to 2 tablets by mouth nightly at bedtime as needed for Sleep. Oral Active 01/10/2019 [facility] busPIRone (BUSPAR) 10 mg tablet Take 1 tablet by mouth 3 times daily For anxiety.. Oral Active 01/10/2019 [facility] FLUoxetine (PROZAC) 20 mg capsule Take 1 capsule by mouth daily For depression. Oral Active 01/10/2019 [facility] fenofibrate (LOFIBRA) 160 mg tablet TAKE 1 TABLET BY MOUTH EVERY DAY Active 12/25/2018 [facility] metFORMIN (GLUCOPHAGE) 500 mg tablet TAKE 1 TABLET BY MOUTH TWICE DAILY WITH FOOD. Active 12/25/2018 [facility] levothyroxine (SYNTHROID) 88 mcg tablet TAKE 1 TABLET BY MOUTH EVERY MORNING BEFORE BREAKFAST. Inactive 11/29/2018 [facility] atorvastatin (LIPITOR) 20 mg tablet Take 1 tablet by mouth at bedtime nightly. Oral Inactive 11/29/2018 [facility] traMADol (ULTRAM) 50 mg tablet Take 1 tablet by mouth every 8 hours as needed for Pain. Oral Inactive 11/29/2018 [facility] traZODone (DESYREL) 50 mg tablet Take 1/2 to 2 tablets by mouth nightly at bedtime as needed for Sleep. Oral No Longer Active 11/15/2018 [facility] busPIRone (BUSPAR) 10 mg tablet Take 1 tablet by mouth 3 times daily For anxiety.. Oral No Longer Active 11/15/2018 [facility] levothyroxine (SYNTHROID) 75 mcg tablet TAKE 1 TABLET BY MOUTH EVERY MORNING BEFORE BREAKFAST No Longer Active 09/26/2018 [facility] busPIRone (BUSPAR) 10 mg tablet Take 1 tablet by mouth 3 times daily For anxiety.. Oral No Longer Active 09/24/2018 [facility] traMADol (ULTRAM) 50 mg tablet Take 1 tablet by mouth every 8 hours as needed for Pain. Oral No Longer Active 09/14/2018 [facility] naproxen (NAPROSYN) 500 mg tablet Take 1 tablet by mouth 2 times daily as needed for Pain (take with food) (1 tnmtys=143 mg). Oral Inactive 09/13/2018 [facility] busPIRone (BUSPAR) 10 mg tablet Take 1 tablet by mouth 3 times daily For anxiety.. Oral No Longer Active 08/23/2018 [facility] FLUoxetine (PROZAC) 20 mg capsule Take 1 capsule by mouth daily For depression. Oral No Longer Active 08/23/2018 [facility] traZODone (DESYREL) 50 mg tablet Take 0.5-2 tablets by mouth nightly at bedtime as needed for Sleep. Oral No Longer Active 08/23/2018 [facility] naproxen (NAPROSYN) 500 mg tablet TAKE 1 TABLET BY MOUTH TWICE DAILY WITH FOOD No Longer Active 07/09/2018 [facility] tropicamide (MYDRIACYL) 0.5 % ophthalmic solution Instill 1 Drop in each eye once as needed for up to 1 dose (for poor retina scan image). No Longer Active 07/06/2018 [facility] blood glucose meter (ACCU-CHEK RASHIDA PLUS METER) Use as directed.. Active 07/06/2018 [facility] blood glucose (ACCU-CHEK RASHIDA PLUS TEST STRP) test strips Use 2 times daily to test blood sugar. Active 07/06/2018 [facility] lancets (ACCU-CHEK SOFTCLIX LANCETS) Use 2 times daily to check blood sugar. Active 07/06/2018 [facility] metFORMIN (GLUCOPHAGE) 500 mg tablet TAKE 1 TABLET BY MOUTH TWICE DAILY WITH MEALS. No Longer Active 07/06/2018 [facility] sertraline (ZOLOFT) 100 mg tablet Take 2 tablets by mouth daily For depression and anxiety. Take every day, do not skip doses.. Oral No Longer Active 07/06/2018 [facility] alendronate (FOSAMAX) 70 mg tablet Take 1 tablet once a week on empty stomach with 8 oz of water and remain upright for 30 minutes. Active 07/06/2018 [facility] fenofibrate (LOFIBRA) 160 mg tablet Take 1 tablet by mouth daily. Oral No Longer Active 07/06/2018 [facility] naproxen (NAPROSYN) 500 mg tablet Take 1 tablet by mouth 2 times daily (with meals). Oral Inactive 07/06/2018 [facility] traMADol (ULTRAM) 50 mg tablet Take 1 tablet by mouth every 8 hours as needed for Pain. Oral No Longer Active 07/06/2018 [facility] azithromycin (ZITHROMAX) 250 mg tablet Take 2 tablets by mouth on the first day, then take one tablet every day for the next 4 days. No Longer Active 07/06/2018 [facility] loratadine (CLARITIN) 10 mg tablet Take 1 tablet by mouth daily. Oral Active 07/06/2018 [facility] benzonatate (TESSALON PERLES) 100 mg capsule Take 2 capsules by mouth 3 times daily as needed for Cough. Oral Active 07/06/2018 [facility] metFORMIN (GLUCOPHAGE) 500 mg tablet TAKE 1 TABLET BY MOUTH TWICE DAILY WITH MEALS No Longer Active 06/29/2018 [facility] levothyroxine (SYNTHROID) 75 mcg tablet TAKE 1 TABLET BY MOUTH EVERY MORNING BEFORE BREAKFAST No Longer Active 06/14/2018 [facility] levothyroxine (SYNTHROID) 75 mcg tablet TAKE 1 TABLET BY MOUTH EVERY MORNING BEFORE BREAKFAST No Longer Active 04/12/2018 [facility] Tramadol 50 Mg Tablet Take 1 tablet by mouth every 8 hours as needed for Pain. Oral Active 02/14/2018 [facility] Naproxen 500 Mg Tablet Naprosyn 500 Mg Tablet Take 1 tablet by mouth 2 times daily (with meals). Oral Active 02/14/2018 [facility] Buspirone 7.5 Mg Tablet Take 1 tablet by mouth 3 times daily For anxiety.. Oral Active 02/14/2018 [facility] Sertraline 100 Mg Tablet Take 2 tablets by mouth daily For depression and anxiety. Take every day, do not skip doses.. Oral Active 02/14/2018 [facility] traMADol (ULTRAM) 50 mg tablet Take 1 tablet by mouth every 8 hours as needed for Pain. Oral No Longer Active 02/14/2018 [facility] naproxen (NAPROSYN) 500 mg tablet Take 1 tablet by mouth 2 times daily (with meals). Oral No Longer Active 02/14/2018 [facility] busPIRone (BUSPAR) 7.5 mg tablet Take 1 tablet by mouth 3 times daily For anxiety.. Oral No Longer Active 02/14/2018 [facility] sertraline (ZOLOFT) 100 mg tablet Take 2 tablets by mouth daily For depression and anxiety. Take every day, do not skip doses.. Oral No Longer Active 02/14/2018 [facility] Triamcinolone Acetonide 40 Mg/Ml Suspension For Injection INTRA-ARTICULAR Inactive 01/17/2018 [facility] Lidocaine 10 Mg/Ml (1 %) Injection Solution Injection Inactive 01/17/2018 [facility] triamcinolone acetonide (KENALOG-40) injection 40 mg INTRA-ARTICULAR Inactive 01/17/2018 [facility] lidocaine 1 % (XYLOCAINE) injection 2 mL Injection Inactive 01/17/2018 [facility] Tramadol 50 Mg Tablet Take 1 tablet by mouth every 8 hours as needed for Pain. Oral No Longer Active 12/29/2017 [facility] traMADol (ULTRAM) 50 mg tablet Take 1 tablet by mouth every 8 hours as needed for Pain. Oral No Longer Active 12/29/2017 [facility] Sertraline 100 Mg Tablet Take 2 tablets by mouth daily For depression and anxiety. Take every day, do not skip doses.. Oral No Longer Active 12/28/2017 [facility] Buspirone 7.5 Mg Tablet Take 1 tablet by mouth 3 times daily For anxiety.. Oral No Longer Active 12/28/2017 [facility] sertraline (ZOLOFT) 100 mg tablet Take 2 tablets by mouth daily For depression and anxiety. Take every day, do not skip doses.. Oral No Longer Active 12/28/2017 [facility] busPIRone (BUSPAR) 7.5 mg tablet Take 1 tablet by mouth 3 times daily For anxiety.. Oral No Longer Active 12/28/2017 [facility] Blood-Glucose Meter Accu-Chek Rashida Plus Meter Use as directed.. Active 11/01/2017 [facility] Blood Sugar Diagnostic Strips Accu-Chek Rashida Plus Test Strips Use 2 times weekly (once per day on Mon,) to test blood sugar. Active 11/01/2017 [facility] Lancets Accu-Chek Softclix Lancets Use 2 times weekly as directed. Active 11/01/2017 [facility] Tramadol 50 Mg Tablet Take 1 tablet by mouth every 8 hours as needed for Pain. Oral No Longer Active 11/01/2017 [facility] blood glucose meter (ACCU-CHEK RASHIDA PLUS METER) Use as directed.. No Longer Active 11/01/2017 [facility] blood glucose (ACCU-CHEK RASHIDA PLUS TEST STRP) test strips Use 2 times weekly (once per day on Mon,) to test blood sugar. No Longer Active 11/01/2017 [facility] lancets (ACCU-CHEK SOFTCLIX LANCETS) Use 2 times weekly as directed. No Longer Active 11/01/2017 [facility] traMADol (ULTRAM) 50 mg tablet Take 1 tablet by mouth every 8 hours as needed for Pain. Oral No Longer Active 11/01/2017 [facility] Sertraline 100 Mg Tablet Take 2 tablets by mouth daily For depression and anxiety. Take every day, do not skip doses.. Oral No Longer Active 10/12/2017 [facility] Buspirone 5 Mg Tablet Take 1 tablet by mouth 3 times daily . For anxiety.. Oral No Longer Active 10/12/2017 [facility] sertraline (ZOLOFT) 100 mg tablet Take 2 tablets by mouth daily For depression and anxiety. Take every day, do not skip doses.. Oral No Longer Active 10/12/2017 [facility] busPIRone (BUSPAR) 5 mg tablet Take 1 tablet by mouth 3 times daily . For anxiety.. Oral No Longer Active 10/12/2017 [facility] Tramadol 50 Mg Tablet Take 1 tablet by mouth every 8 hours as needed for Pain. Oral Inactive 09/13/2017 [facility] Sertraline 100 Mg Tablet Take 1.5 tablets by mouth daily For depression and anxiety. Take every day, do not skip doses.. Oral No Longer Active 07/27/2017 [facility] Buspirone 5 Mg Tablet Take 1 tablet by mouth 3 times daily . For anxiety.. Oral No Longer Active 07/27/2017 [facility] Tropicamide 0.5 % Eye Drops Instill 1 Drop in each eye once as needed for up to 1 dose (for poor retina scan image). No Longer Active 06/01/2017 [facility] Levothyroxine 75 McG Tablet Take 1 tablet by mouth every morning (before breakfast). Oral Active 06/01/2017 [facility] Fenofibrate 160 Mg Tablet Take 1 tablet by mouth daily. Oral Active 06/01/2017 [facility] Metformin 500 Mg Tablet Take 1 tablet by mouth 2 times daily (with meals). Oral Active 06/01/2017 [facility] Alendronate 70 Mg Tablet Take 1 tablet once a week on empty stomach with 8 oz of water and remain upright for 30 minutes. Active 06/01/2017 [facility] Buspirone 5 Mg Tablet Take 1 tablet by mouth 3 times daily . For anxiety.. Oral No Longer Active 06/01/2017 [facility] Sertraline 100 Mg Tablet Take 1 tablet by mouth daily For depression and anxiety. Take every day, do not skip doses.. Oral No Longer Active 06/01/2017 [facility] Azelastine 0.05 % Eye Drops Instill 1 Drop in each eye 2 times daily. Active 06/01/2017 [facility] Tramadol 50 Mg Tablet Take 1 tablet by mouth every 8 hours as needed for Pain. Oral No Longer Active 06/01/2017 [facility] levothyroxine (SYNTHROID) 75 mcg tablet Take 1 tablet by mouth every morning (before breakfast). Oral No Longer Active 06/01/2017 [facility] fenofibrate (LOFIBRA) 160 mg tablet Take 1 tablet by mouth daily. Oral No Longer Active 06/01/2017 [facility] metFORMIN (GLUCOPHAGE) 500 mg tablet Take 1 tablet by mouth 2 times daily (with meals). Oral No Longer Active 06/01/2017 [facility] alendronate (FOSAMAX) 70 mg tablet Take 1 tablet once a week on empty stomach with 8 oz of water and remain upright for 30 minutes. No Longer Active 06/01/2017 [facility] azelastine (OPTIVAR) 0.05 % ophthalmic solution Instill 1 Drop in each eye 2 times daily. Active 06/01/2017 [facility] Tramadol 50 Mg Tablet TAKE 1 TABLET BY MOUTH EVERY 8 HOURS NEEDED FOR PAIN Oral No Longer Active 04/14/2017 [facility] Lidocaine 10 Mg/Ml (1 %) Injection Solution Injection Inactive 04/07/2017 [facility] triamcinolone acetonide (KENALOG-40) injection 40 mg INTRA-ARTICULAR Inactive 04/07/2017 [facility] Ergocalciferol (Vitamin D2) 50,000 Unit Capsule Vitamin D2 50,000 Unit Capsule Take 1 capsule by mouth weekly. Oral Active 02/22/2017 [facility] ergocalciferol (VITAMIN D2) 50,000 unit capsule Take 1 capsule by mouth weekly. Oral No Longer Active 02/22/2017 [facility] Tramadol 50 Mg Tablet Ultram 50 Mg Tablet Take 1 tablet by mouth every 8 hours as needed for Pain. Oral No Longer Active 2016 [facility] Sertraline 100 Mg Tablet Take 1 tablet by mouth daily For depression and anxiety. Take every day, do not skip doses.. Oral No Longer Active 12/22/2016 [facility] Buspirone 5 Mg Tablet Take 1 tablet by mouth 3 times daily . For anxiety.. Oral No Longer Active 12/22/2016 [facility] Alendronate 70 Mg Tablet Take 1 tablet once a week on empty stomach with 8 oz of water and remain upright for 30 minutes. No Longer Active 09/15/2016 [facility] Levothyroxine 75 McG Tablet Take 1 tablet by mouth every morning (before breakfast). Oral No Longer Active 09/15/2016 [facility] Fenofibrate 160 Mg Tablet Take 1 tablet by mouth daily. Oral No Longer Active 09/15/2016 [facility] Metformin 500 Mg Tablet Take 1 tablet by mouth 2 times daily (with meals). Oral No Longer Active 09/15/2016 [facility] Lancets 28 Gauge 1 Each 2 times weekly. Active 05/12/2016 [facility] Blood Sugar Diagnostic Strips 1 Each 2 times weekly. Active 05/12/2016 [facility] lancets 28 gauge 1 Each 2 times weekly. No Longer Active 05/12/2016 [facility] blood glucose test strips 1 Each 2 times weekly. No Longer Active 05/12/2016 [facility] Blood-Glucose Meter Use as directed 2 times weekly. Active 05/10/2016 [facility] blood glucose meter Use as directed 2 times weekly. No Longer Active 05/10/2016 [facility] Hydrocortisone Acetate 25 Mg Rectal Suppository Anusol-Hc 25 Mg Rectal Suppository Insert 1 Suppository rectally 2 times daily as needed for hemorrhoids. Rectal Active 06/10/2014 [facility] hydrocortisone (ANUSOL-HC) 25 mg rectal suppository Insert 1 Suppository rectally 2 times daily as needed for hemorrhoids. Rectal No Longer Active 06/10/2014 [facility] Allergies, Adverse Reactions, Alerts Substance Category Reaction Severity Reaction type Status Date Reported Comments Source Penicillin G Propensity to adverse reactions to drug Active 03/26/2010 [facility] Penicillins Itching, Rash Low, Low Propensity to adverse reactions to drug Active 04/29/2016 [facility] Penicillin Unknown Allergy to Substance Active 01/20/2019 [facility] Trazodone Unknown Allergy to Substance Active 01/20/2019 [facility] Immunizations Immunization Date Given Site Status Last Updated Comments Source Tropicamide 0.5% Eye-Annabel 15ml 08/06/2018 completed Jose Armando [facility] Influenza, Vaccine<FLUCELVAX>(Multi-Dose) 02/14/2018 completed [facility] TDap (Tetanus Toxoid, Reduced Diphtheria Toxoid And Acellular Pertussis, Absorbed) 02/14/2018 completed [facility] Influenza, Vaccine<FLUCELVAX>(Multi-Dose) 02/14/2018 completed [facility] Tdap (Tetanus Toxoid, Reduced Diphtheria Toxoid And Acellular Pertussis, Absorbed) 02/14/2018 completed [facility] Influenza Vaccine, Seasonal, Injectable 06/01/2017 Not Given Deferred: Patient Refused - refused [facility] Influenza Vaccine 04/09/2015 completed [facility] Influenza Vaccine 07/31/2014 Not Given Deferred: Patient already had this immunization [facility] PNEUMOCOCCAL 23-VALPS VACCINE 25 MCG/0.5 ML INJECTION 07/31/2014 completed [facility] Influenza Vaccine 02/08/2012 completed [facility] DTaP Diphtheria, Tetanus, Acellular, Pertussis 02/27/2008 [facility] Results Order Name Results Value Reference Range Date Interpretation Comments Source Blood leukocytes automated count (number/volume) 9.55 4.8 - 10.8 01/20/2019 [facility] Blood erythrocytes automated count (number/volume) 4.54 3.6 - 5.1 01/20/2019 [facility] Blood hemoglobin measurement (moles/volume) 13.7 12.0 - 16.0 01/20/2019 [facility] Automated blood hematocrit (volume fraction) 37.8 34.2 - 44.1 01/20/2019 [facility] Automated erythrocyte mean corpuscular volume 83.3 81 - 99 01/20/2019 [facility] Automated erythrocyte mean corpuscular hemoglobin (mass per erythrocyte) 30.2 28 - 32 01/20/2019 [facility] Automated erythrocyte mean corpuscular hemoglobin concentration measurement (mass/volume) 36.2 31 - 35 01/20/2019 [facility] RDW BldCo-Rto 11.9 11.7 - 14.4 01/20/2019 [facility] Automated blood platelet count (count/volume) 295 140 - 360 01/20/2019 [facility] Automated blood segmented neutrophil count as percentage of total leukocytes 71.9 38.7 - 80.0 01/20/2019 [facility] Automated blood lymphocyte count as percentage ot total leukocytes 18.5 18.0 - 39.1 01/20/2019 [facility] Automated blood monocyte count as percentage of total leukocytes 7.9 4.4 - 11.3 01/20/2019 [facility] Automated blood eosinophil count as percentage of total leukocytes 0.8 0.0 - 6.0 01/20/2019 [facility] Automated blood basophil count as percentage of total leukocytes 0.4 0.0 - 1.0 01/20/2019 [facility] IM GRANULOCYTES % 0.5 0.0 - 1.0 01/20/2019 [facility] Automated blood neutrophil count 6.9 2.1 - 6.9 01/20/2019 [facility] Blood lymphocytes count (number/volume) 1.8 1.0 - 3.2 01/20/2019 [facility] Blood monocytes automated count (number/volume) 0.8 0.2 - 0.8 01/20/2019 [facility] Automated blood eosinophil count 0.1 0.0 - 0.4 01/20/2019 [facility] Automated blood basophil count (count/volume) 0.0 0.0 - 0.1 01/20/2019 [facility] Absolute Immature Granulocyte (auto 0.05 0 - 0.1 01/20/2019 [facility] Urine color determination YELLOW YELLOW 01/20/2019 [facility] Urine clarity CLEAR CLEAR 01/20/2019 [facility] Specific gravity of Urine by Test strip <=1.005 1.010 - 1.025 01/20/2019 [facility] Urine pH measurement by automated test strip 6 5 - 7 01/20/2019 [facility] Urine leukocyte esterase detection by automated test strip SMALL NEGATIVE 01/20/2019 [facility] Urine nitrite detection by automated test strip NEGATIVE NEGATIVE 01/20/2019 [facility] Urine protein detection by automated test strip NEGATIVE NEGATIVE 01/20/2019 [facility] Urine glucose detection by automated test strip NEGATIVE NEGATIVE 01/20/2019 [facility] Urine ketones detection by automated test strip NEGATIVE NEGATIVE 01/20/2019 [facility] Urine urobilinogen measurement by test strip (mass/volume) 0.2 0.2 - 1 01/20/2019 [facility] Urine total bilirubin detection NEGATIVE NEGATIVE 01/20/2019 [facility] Urine erythrocytes detection NEGATIVE NEGATIVE 01/20/2019 [facility] Automated urine sediment leukocyte count by microscopy (number/high power field) 6-10 0 - 5 01/20/2019 [facility] Erythrocytes detection in urine sediment by light microscopy 0-5 0 - 5 01/20/2019 [facility] Bacteria detection in urine sediment by light microscopy MODERATE NONE 01/20/2019 [facility] Epithelial cells detection in urine sediment by light microscopy FEW NONE 01/20/2019 [facility] Serum or plasma sodium measurement (moles/volume) 135 136 - 145 01/20/2019 [facility] Serum or plasma potassium measurement (moles/volume) 3.3 3.5 - 5.1 01/20/2019 [facility] Serum or plasma chloride measurement (moles/volume) 97 98 - 107 01/20/2019 [facility] Serum or plasma carbon dioxide, total measurement (moles/volume) 28 22 - 29 01/20/2019 [facility] Serum or plasma anion gap 13.3 8 - 16 01/20/2019 [facility] Serum or plasma urea nitrogen measurement (mass/volume) 5 7 - 26 01/20/2019 [facility] Serum or plasma creatinine measurement (mass/volume) 0.82 0.57 - 1.11 01/20/2019 [facility] Serum or plasma urea nitrogen/creatinine mass ratio 6 6 - 25 01/20/2019 [facility] Estimated glomerular filtration rate (GFR) determination > 60 60 01/20/2019 [facility] Glucose measurement 164 74 - 118 01/20/2019 [facility] Serum or plasma calcium measurement (mass/volume) 9.2 8.4 - 10.2 01/20/2019 [facility] Serum or plasma total bilirubin measurement (mass/volume) 0.7 0.2 - 1.2 01/20/2019 [facility] Aspartate Amino Transf (AST/SGOT) 15 5 - 34 01/20/2019 [facility] Serum or plasma alanine aminotransferase measurement (enzymatic activity/volume) 16 0 - 55 01/20/2019 [facility] Serum or plasma protein measurement (mass/volume) 7.1 6.5 - 8.1 01/20/2019 [facility] Serum or plasma albumin measurement (mass/volume) 3.7 3.5 - 5.0 01/20/2019 [facility] Plasma globulin measurement (mass/volume) 3.4 2.3 - 3.5 01/20/2019 [facility] Serum or plasma albumin/globulin mass ratio 1.1 0.8 - 2.0 01/20/2019 [facility] Serum or plasma alkaline phosphatase measurement (enzymatic activity/volume) 119 40 - 150 01/20/2019 [facility] Serum or plasma lipase measurement (enzymatic activity/volume) 22 8 - 78 01/20/2019 [facility] FREE T4 Free T4 0.97 0.61 - 1.18 11/13/2018 [facility] FREE T4 Lab Interpretation Normal 11/13/2018 [facility] TSH TSH 5.13 0.57 - 3.74 11/13/2018 If , please see the following reference ranges (not verified by lab):

1st Trimester: 0.05 -3.70 uIU/mL
2nd Trimester: 0.31 -4.35 uIU/mL
3rd Trimester: 0.41 - 5.18 uIU/mL
[facility] TSH Lab Interpretation Abnormal 11/13/2018 [facility] ALT/AST ALT 13 7 - 52 11/13/2018 [facility] ALT/AST AST 10 13 - 39 11/13/2018 [facility] ALT/AST Lab Interpretation Abnormal 11/13/2018 [facility] GLUCOSE Glucose 145 70 - 110 11/13/2018 [facility] GLUCOSE Lab Interpretation Abnormal 11/13/2018 [facility] LIPID PROFILE Triglyceride 369 <150 11/13/2018 Normal: < 150.0 mg/dL
Borderline: 150-199 mg/dL
High: 200- 499 mg/dL
Very High: >=500 mg/dL
[facility] LIPID PROFILE <td ID="[id number]">Cholesterol</td><td><span>200.0</span>
<span style="allIndent"><span style="cellHeader">Comment: </span>
<span ID="[id number]" style="pre">Desirable: < 200.0 mg/dL
Borderline: 200 - 240 mg/dL
High Risk: > 240 mg/dL
</span&gt ;</span></td><td><=200.0 mg/dL</td><td>[facility]</td><td ID="[id number]"/> 200.0 <=200.0 11/13/2018 Desirable: < 200.0 mg/dL
Borderline: 200 - 240 mg/dL
High Risk: > 240 mg/dL
[facility] LIPID PROFILE <td ID="[id number]">HDL</td><td><span>41.0</span>
<span style="allIndent"><span style="cellHeader">Comment: </span>
<span ID="[id number]" style="pre">Increased CHD Risk: < 40.0 mg/dL
Decreased CHD Risk: > 60 mg/dL
</span></span></td><td>See Reference Range Narrative. mg/dL</td><td>[facility]</td><td ID="[id number]"/> 41.0 See Reference Range Narrative. 11/13/2018 Increased CHD Risk: < 40.0 mg/dL
Decreased CHD Risk: > 60 mg/dL
[facility] LIPID PROFILE <td ID="[id number]">LDL</td><td><span>85</span>
<span style="allIndent"><span style="cellHeader">Comment: </span>
<span ID="[id number]" style="pre">Optimal: < 100.0 mg/dL
Near Optimal: 120-129 mg/dL
Borderline: 130-159 mg/dL
High: 160-189 mg/dL
Very High: >=190 mg/dL
</span></span></td><td><100 mg/dL</td><td>[facility]</td><td ID="[id number]"/> 85 <100 11/13/2018 Optimal: < 100.0 mg/dL
Near Optimal: 120-129 mg/dL
Borderline: 130-159 mg/dL
High: 160-189 mg/dL
Very High: >=190 mg/dL
[facility] LIPID PROFILE Lab Interpretation Abnormal 11/13/2018 [facility] MICROALBUM, URINE Microalbumin, Random <0.7 <30.0 mg/dL 11/13/2018 [facility] MICROALBUM, URINE Creatinine, Urine 128 20 - 320 11/13/2018 [facility] MICROALBUM, URINE Urine Microalbumin <5.5 0 - 30 11/13/2018 [facility] MICROALBUM, URINE Lab Interpretation Normal 11/13/2018 [facility] HEMOGLOBIN A1C <td ID="[id number]">Hemoglobin A1c</td><td>7.1</td><td>%</td><td>[facility]</td><td ID="[id number]"/> 7.1 11/13/2018 [facility] HEMOGLOBIN A1C Estimated Average Glucose 157 70 - 110 11/13/2018 [facility] HEMOGLOBIN A1C Lab Interpretation Abnormal 11/13/2018 [facility] MAMMOGRAM BILAT SCREEN DIGITAL <p>IMPRESSION: BENIGN</p><p>There is no mammographic evidence of malignancy. A 1 year </p><p>screening mammogram is recommended.</p><p>This document has been electronically signed.</p><p> </p><p>Dodie Parada M.D.</p><p>aar/penrad:10/18/2018 14:10:10</p><p> </p><p>[employer] Director: Leda Byrd Sr. Director Of Nursing, </p><p>[facility]</p><p>letter sent: Mammography Normal</p><p>Mammogram BI-RADS: 2 Benign G0202 Z85.3</p> IMPRESSION: BENIGNThere is no mammographic evidence of malignancy. A 1 year screening mammogram is recommended.This document has been electronically signed. Dodie Parada M.D.aar/penrad:10/18/2018 14:10:10 [employer] Director: Leda Byrd Sr. Director Of [facility] NormalMammogram BI-RADS: 2 Benign G0202 Z85.3 10/18/2018 [facility] MAMMOGRAM BILAT SCREEN DIGITAL <p> </p><p>#[id number] - MAMMOGRAM BILAT SCREEN DIGITAL</p><p>BILATERAL DIGITAL SCREENING MAMMOGRAM WITH CAD: 10/18/2018</p><p>CLINICAL: Screening for malignancy.</p><p> </p><p>Comparison is made to exams dated:10/12/2017, 10/17/2016, 10/17/2016</p><p> [facility], 08/21/2015, and 07/09/2014 [facility] </p><p>Breast Imaging Center.</p><p>The tissue of both breasts is heterogeneously dense. This may </p><p>lower the sensitivity of mammography.</p><p>Current study was also evaluated with a Computer Aided Detection </p><p>(CAD) system.</p><p>There are benign calcifications in both breasts.There also are </p><p>benign masses in both breasts.</p><p>No significant masses, calcifications, or other findings are seen </p><p>in either breast.</p><p> </p> #[id number] - MAMMOGRAM BILAT SCREEN DIGITALBILATERAL DIGITAL SCREENING MAMMOGRAM WITH CAD: 10/18/2018CLINICAL: Screening for malignancy. Comparison is made to exams dated:10/12/2017, 10/17/2016, 10/17/2016 [facility], 08/21/2015, and 07/09/2014 [facility].The tissue of both breasts is heterogeneously dense. This may lower the sensitivity of mammography.Current study was also evaluated with a Computer Aided Detection (CAD) system.There are benign calcifications in both breasts.There also are benign masses in both breasts.No significant masses, calcifications, or other findings are seen in either breast. 10/18/2018 [facility] MAMMOGRAM BILAT SCREEN DIGITAL <p styleCode="header">Interface, Rad/Mammog In - 10/18/2018 2:28 PM CDT</p><p>
<span>#[id number] - MAMMOGRAM BILAT SCREEN DIGITAL</span>
<span>BILATERAL DIGITAL SCREENING MAMMOGRAM WITH CAD: 10/18/2018</span>
<span>CLINICAL: Screening for malignancy. </span>

<span>Comparison is made to exams dated: 10/12/2017, 10/17/2016, 10/17/2016</span>
<span> [facility], 08/21/2015, and 07/09/2014 [facility] </span>
<span>Breast Imaging Center. </span>
<span>The tissue [...] Parada M.D. </span>
<span>ana lilia/roni:10/18/2018 14:10:10 </span>

<span>[employer] Director: Leda Byrd Sr. Director Of Nursing, </span>
<span>[facility]</span>
<span>letter sent: Mammography Normal </span>
<span>Mammogram BI-RADS: 2 Benign G0202 Z85.3</span></p> Interface, Rad/Mammog In - 10/18/2018 2:28 PM CDT #[id number] - MAMMOGRAM BILAT SCREEN DIGITAL BILATERAL DIGITAL SCREENING MAMMOGRAM WITH CAD: 10/18/2018 CLINICAL: Screening for malignancy. Comparison is made to exams dated: 10/12/2017, 10/17/2016, 10/17/2016 [facility], 08/21/2015, and 07/09/2014 [facility]. The tissue of both [...] electronically signed. Dodie Parada M.D. aar/penrad:10/18/2018 14:10:10 [employer] Director: Leda Byrd Sr. Director Of Nursing, [facility] letter sent: Mammography Normal Mammogram BI-RADS: 2 Benign G0202 Z85.3 10/18/2018 [facility] HEMOGLOBIN A1C <td ID="[id number]">Hemoglobin A1c</td><td><span style="flagData">7.5</span><span style="flagData"> (H)</span></td><td>4.3 - 6.1 %</td><td>[facility]MMUN[facility]</td><td ID="[id number]"/> 7.5 4.3 - 6.1 08/07/2018 [facility] HEMOGLOBIN A1C Est Average Gluc 168.6 08/07/2018 [facility] HEMOGLOBIN A1C Lab Interpretation Abnormal 08/07/2018 [facility] OPHTHALMOLOGY RETINAL SCAN RETINAL SCAN-FINAL RESULT NORMAL 08/06/2018 [facility] OPHTHALMOLOGY RETINAL SCAN Right Diabetic Retinopathy None 08/06/2018 [facility] OPHTHALMOLOGY RETINAL SCAN Right Macular Edema None 08/06/2018 [facility] OPHTHALMOLOGY RETINAL SCAN Right Other Suspected Conditions None 08/06/2018 [facility] OPHTHALMOLOGY RETINAL SCAN Right Image Quality Gradeable Image 08/06/2018 [facility] OPHTHALMOLOGY RETINAL SCAN Left Diabetic Retinopathy None 08/06/2018 [facility] OPHTHALMOLOGY RETINAL SCAN Left Macular Edema None 08/06/2018 [facility] OPHTHALMOLOGY RETINAL SCAN Left Other Suspected Conditions None 08/06/2018 [facility] OPHTHALMOLOGY RETINAL SCAN Left Image Quality Gradeable Image 08/06/2018 [facility] OPHTHALMOLOGY RETINAL SCAN <p>Retinal Study Result for MARA FRANCES</p><p> </p><p>MARA FRANCES a 62 y/o, F (: 1955, )</p><p>presented to [facility][Note 3] on 08-06-2018 for a retinal imaging study of the left and right eyes.</p><p> </p><p>Based on the findings of the study, the following is recommended for FRANCES, MARA</p><p>Normal Scan: Please advise the patient to return for another scan in 1 year.</p><p> </p><p>Interpreting Provider's Comments:No comments provided</p><p> </p><p>Right Eye Findings:</p><p>Normal Result.Negative for Diabetic Retinopathy.</p><p> </p><p>Left Eye F indings:</p><p>Normal Result.Negative for Diabetic Retinopathy.</p><p> </p><p> </p><p>This result was electronically signed by Alonzo Alan MD, , Taxonomy: [id number] on 08-06-2018 11:42:25 UTC time.</p><p> </p><p>NOTE:Any pathology noted on this diabetic retinal evaluation should be confirmed by an appropriate ophthalmic examination.</p> Retinal Study Result for MARA FRANCES MAGDALENA, a 62 y/o, F (: 1955, )presented to [facility][Note 3] on 08-06-2018 for a retinal imaging study [...] signed by Alonzo Alan MD, , Taxonomy: [id number] on 08-06-2018 11:42:25 UTC time. NOTE:Any pathology noted on this diabetic retinal evaluation should be confirmed by an appropriate ophthalmic examination. 08/06/2018 [facility] TSH <td ID="[id number]">TSH</td><td><span style="flagData">5.51</span><span style="flagData"> (H)</span></td><td>0.57 - 3.74 uIU/mL</td><td>[facility]</td><td ID="[id number]"/> 5.51 0.57 - 3.74 08/06/2018 [facility] TSH Lab Interpretation Abnormal 08/06/2018 [facility] BASIC METABOLIC PANEL <td ID="[id number]">CO2</td><td><span style="flagData">33</span><span style="flagData"> (H)</span></td><td>21 - 31 mmol/L</td><td>[facility]</td><td ID=&a mp;quot;[id number]"/> 33 21 - 31 08/06/2018 [facility] BASIC METABOLIC PANEL <td ID="[id number]">Chloride</td><td>103</td><td>98 - 107 mmol/L</td><td>[facility]</td><td ID="[id number]"/> 103 98 - 107 08/06/2018 [facility] BASIC METABOLIC PANEL <td ID="[id number]">Potassium</td><td>4.0</td><td>3.5 - 5.1 mmol/L</td><td>[facility]</td><td ID="[id number]"/> 4.0 3.5 - 5.1 08/06/2018 [facility] BASIC METABOLIC PANEL <td ID="[id number]">Sodium</td><td>140</td><td>136 - 145 mmol/L</td><td>[facility]</td><td ID="[id number]"/> 140 136 - 145 08/06/2018 [facility] BASIC METABOLIC PANEL <td ID="[id number]">Glucose</td><td><span style="flagData">130</span><span style="flagData"> (H)</span></td><td>70 - 110 mg/dL</td><td>[facility]</td><td ID="[id number]"/> 130 70 - 110 08/06/2018 [facility] BASIC METABOLIC PANEL <td ID="[id number]">BUN</td><td>11</td><td>7 - 25 mg/dL</td><td>[facility]</td><td ID="[id number]"/> 11 7 - 25 08/06/2018 [facility] BASIC METABOLIC PANEL <td ID="[id number]">Creatinine</td><td>0.80</td><td>0.6 - 1.2 mg/dL</td><td>[facility]</td><td ID="[id number]"/> 0.80 0.6 - 1.2 08/06/2018 [facility] BASIC METABOLIC PANEL Anion Gap 4 08/06/2018 [facility] BASIC METABOLIC PANEL <td ID="[id number]">Calcium</td><td>9.1</td><td>8.6 - 10.3 mg/dL</td><td>[facility]</td><td ID="[id number]"/> 9.1 8.6 - 10.3 08/06/2018 [facility] BASIC METABOLIC PANEL GFR, Estimated >60 mL/min/1.73 m2 08/06/2018 [facility] BASIC METABOLIC PANEL eGFR If Africn Am >60 mL/min/1.73 m2 08/06/2018 [facility] BASIC METABOLIC PANEL Lab Interpretation Abnormal 08/06/2018 [facility] LIPID PROFILE <td ID="[id number]">Cholesterol</td><td><span>206</span>
<span style="allIndent"><span style="cellHeader">Comment: </span>
<span ID="[id number]" style="pre">REFERENCE RANGE:
Desirable: <200 mg/dL
Borderline: 200-240 mg/dL
High Risk: >240 mg/dL

</span></span></td><td>mg/dL</td><td>[facility]</td><td ID=&amp ;quot;[id number]"/> 206 08/06/2018 REFERENCE RANGE:
Desirable: <200 mg/dL
Borderline: 200-240 mg/dL
High Risk: >240 mg/dL

[facility] LIPID PROFILE <td ID="[id number]">Triglyceride</td><td><span style="flagData">229</span><span style="flagData"> (H)</span>
<span style="allIndent"><span style="cellHeader">Comment: </span>
<span ID="[id number]" style="pre">REFERENCE RANGE:
Normal: &lt ;150 mg/dL
Borderline High: 150-199 mg/dL
High: 200-499 mg/dL
Very High: >xf=852 mg/dL

</span></span></td><td><150 mg/dL</td><td>[facility]</td><td ID="[id number]"/> 229 <150 08/06/2018 REFERENCE RANGE:
Normal: <150 mg/dL
Borderline High: 150-199 mg/dL
High: 200-499 mg/dL
Very High: >yz=533 mg/dL

[facility] LIPID PROFILE <td ID="[id number]">HDL</td><td><span>40</span>
<span style="allIndent"><span style="cellHeader">Comment: </span>
<span ID="[id number]" style="pre">Increased CHD risk: <40 mg/dL
Decreased CHD risk: >60 mg/dL

</span></span>&am p;lt;/td><td>mg/dL</td><td> [facility]</td><td ID="[id number]"/> 40 08/06/2018 Increased CHD risk: <40 mg/dL
Decreased CHD risk: >60 mg/dL

[facility] LIPID PROFILE <td ID="[id number]">LDL</td><td><span>120</span>
<span style="allIndent"><span style="cellHeader">Comment: </span>
<span ID="[id number]" style="pre">REFERENCE RANGE:
Optimal: <100 mg/dL
Near Optimal: 100-129 mg/dL
Borderline High: 130-159 mg/dL
High: 160-189 mg/dL
Very High: >ff=908 mg/dL

</span></span></td><td>mg/dL</td><td>[facility]</td><td ID="[id number]"/> 120 08/06/2018 REFERENCE RANGE:
Optimal: <100 mg/dL
Near Optimal: 100-129 mg/dL
Borderline High: 130-159 mg/dL
High: 160-189 mg/dL
Very High: >ew=287 mg/dL

[facility] LIPID PROFILE Lab Interpretation Abnormal 08/06/2018 [facility] LIVER PROFILE <td ID="[id number]">Protein, Total, Serum</td><td>6.8</td><td>6.0 - 8.3 g/dL</td><td>[facility]</td><td ID="[id number]"/> 6.8 6 - 8.3 08/06/2018 [facility] LIVER PROFILE <td ID="[id number]">Albumin</td><td>4.1</td><td>3.7 - 5.3 g/dL</td><td>[facility]</td><td ID="[id number]"/> 4.1 3.7 - 5.3 08/06/2018 [facility] LIVER PROFILE <td ID="[id number]">Bilirubin, Total</td><td>0.8</td><td>0.2 - 1.2 mg/dL</td><td>[facility]</td><td ID="[id number]"/> 0.8 0.2 - 1.2 08/06/2018 [facility] LIVER PROFILE <td ID="[id number]">Alkaline Phosphatase, S</td><td>103</td><td>34 - 104 U/L</td><td>[facility]</td><td ID="[id number]"/> 103 34 - 104 08/06/2018 [facility] LIVER PROFILE <td ID="[id number]">AST (SGOT)</td><td><span style="flagData">10</span><span style="flagData"> (L)</span></td><td>13 - 39 U/L</td><td>[facility]</td><td ID="[id number]"/> 10 13 - 39 08/06/2018 [facility] LIVER PROFILE <td ID="[id number]">ALT</td><td>10</td><td>7 - 52 U/L</td><td>[facility]</td><td ID="[id number]"/> 10 7 - 52 08/06/2018 [facility] LIVER PROFILE <td ID="[id number]">D Bilirubin</td><td>0.1</td><td>0.0 - 0.2 mg/dL</td><td>[facility]</td><td ID="[id number]"/> 0.1 0 - 0.2 08/06/2018 [facility] LIVER PROFILE Lab Interpretation Abnormal 08/06/2018 [facility] CBC/DIFF <td ID="[id number]">WBC</td><td>8.1</td><td>4.5 - 11.0 K/uL</td><td>[facility]</td><td ID="[id number]"/> 8.1 4.5 - 11 08/06/2018 [facility] CBC/DIFF <td ID="[id number]">RBC</td><td>4.49</td><td>4.20 - 5.40 M/uL</td><td>[facility]</td><td ID="[id number]"/> 4.49 4.20 - 5.40 08/06/2018 [facility] CBC/DIFF <td ID="[id number]">Hemoglobin</td><td>13.6</td><td>12.0 - 16.0 g/dL</td><td> [facility]</td><td ID="[id number]"/> 13.6 12 - 16 08/06/2018 [facility] CBC/DIFF <td ID="[id number]">Hematocrit</td><td>41.7</td><td>37.0 - 47.0 %</td><td> [facility] 2</td><td ID="[id number]"/> 41.7 37 - 47 08/06/2018 [facility] CBC/DIFF <td ID="[id number]">MCV</td><td><span style="flagData">93</span><span style="flagData"> (H)</span></td><td>82 - 92 fL</td><td>[facility]</td><td ID="[id number]"/> 93 82 - 92 08/06/2018 [facility] CBC/DIFF <td ID="[id number]">MCH</td><td>30.3</td><td>27.0 - 32.0 pg</td><td>[facility]</td><td ID="[id number]"/> 30.3 27 - 32 08/06/2018 [facility] CBC/DIFF <td ID="[id number]">MCHC</td><td>32.6</td><td>32.0 - 36.0 g/dL</td><td>[facility] 2</td><td ID="[id number]"/> 32.6 32 - 36 08/06/2018 [facility] CBC/DIFF <td ID="[id number]">RDW</td><td>42.5</td><td>36.4 - 46.3 fL</td><td>BT [facility] 2</td><td ID="[id number]"/> 42.5 36.4 - 46.3 08/06/2018 [facility] CBC/DIFF <td ID="[id number]">Platelets</td><td>262</td><td>150 - 400 K/uL</td><td>[facility] 2</td><td ID="[id number]"/> 262 150 - 400 08/06/2018 [facility] CBC/DIFF <td ID="[id number]">Mean Platelet Volume</td><td>11.1</td><td>9.4 - 12.4 fL</td><td>BT [facility] 2</td><td ID="[id number]"/> 11.1 9.4 - 12.4 08/06/2018 [facility] CBC/DIFF Percent NRBC 0.0 08/06/2018 [facility] CBC/DIFF Absolute NRBC 0.00 08/06/2018 [facility] CBC/DIFF <td ID="[id number]">Neutrophils</td><td>59.6</td><td>34.0 - 70.0 %</td><td>BT [facility]ATION 2</td><td ID="[id number]"/> 59.6 34 - 70 08/06/2018 [facility] CBC/DIFF <td ID="[id number]">Lymphs</td><td>30.9</td><td>20.0 - 50.0 %</td><td>BT [facility]-STATION 2</td><td ID="[id number]"/> 30.9 20 - 50 08/06/2018 [facility] CBC/DIFF <td ID="[id number]">Monocytes</td><td>8.2</td><td>5.0 - 12.0 %</td><td>BT MAIN-STATION 2</td><td ID="[id number]"/> 8.2 5 - 12 08/06/2018 [facility] CBC/DIFF <td ID="[id number]">Eos</td><td>0.7</td><td>0.7 - 5.0 %</td><td>BT MAIN-STATION 2</td><td ID="[id number]"/> 0.7 0.7 - 5 08/06/2018 [facility] CBC/DIFF <td ID="[id number]">Basos</td><td>0.4</td><td>0.1 - 1.2 %</td><td>BT MAIN-STATION 2</td><td ID="[id number]"/> 0.4 0.1 - 1.2 08/06/2018 [facility] CBC/DIFF Immature Granulocytes 0.2 0.0 - 0.5 08/06/2018 [facility] CBC/DIFF Neutrophils (Absolute) 4.79 1.56 - 6.13 08/06/2018 [facility] CBC/DIFF Lymphs (Absolute) 2.49 1.18 - 3.74 08/06/2018 [facility] CBC/DIFF Monocytes(Absolute) 0.66 0.24 - 0.36 08/06/2018 [facility] CBC/DIFF Eos (Absolute) 0.06 0.04 - 0.36 08/06/2018 [facility] CBC/DIFF Baso (Absolute) 0.03 0.01 - 0.08 08/06/2018 [facility] CBC/DIFF Immature Grans (Abs) 0.02 0 - 0.03 08/06/2018 [facility] CBC/DIFF Lab Interpretation Abnormal 08/06/2018 [facility] 12 LEAD EKG 12 LEAD EKG FOR [facility] Test Date:2018-07-06 Pat Name: MARA Jordanpartment: [id number] : Gender: FTechnician: :[id number] Requested By: DENA Hansen Order Number: [id number] MD: Noelle Borrero Measurements IntervalsAxis Rate: 65 P:10 FL: 152QRS:28 QRSD: 77 T:53 QT: 382 QTc:399 Interpretive Statements SINUS RHYTHM Electronically Signed On 07-06-2018 16:08:02 TIRE GROOVER by Noelle Borrero 07/06/2018 [facility] DIABETIC FOOT EXAM <p>Dena Chavez NP 07/06/20184:36 [...] are normal,left foot appearance is normal. 07/06/2018 [facility] DIABETIC FOOT EXAM <p>Dena Chavez NP :29 PM</p><p>Diabetic Foot Exam was performed at 02/14/2018 5:29 PM.Right foot </p><p>sensation is normal, right foot pulses are normal, right foot appearance </p><p>is normal.Left foot sensation is normal,left foot pulses are normal,</p><p>left foot appearance is normal. </p><p> </p><p> </p> Dena Chavez NP :29 PMDiabetic Foot Exam was performed at 02/14/2018 5:29 PM.Right foot sensation is normal, right foot pulses are normal, right foot appearance is normal.Left foot sensation is normal,left foot pulses are normal,left foot appearance is normal. 02/14/2018 [facility] MAMMOGRAM BILAT SCREEN DIGITAL <p>IMPRESSION: BENIGN</p><p>There is no mammographic evidence of malignancy. A 1 year </p><p>screening mammogram is recommended.</p><p> </p><p>I have reviewed the study and agree with the findings in the </p><p>report.</p><p> </p><p>This document has been electronically signed.</p><p> </p><p>Talia St M.D.</p><p>farshad,dp/:10/12/2017 14:15:49</p><p> </p><p>[employer] Director: Ms. Mary Henriquez RT(R)(M), [place] </p><p>[facility]</p><p>letter sent: Benign Exam</p><p>Mammogram BI-RADS: 2 Benign G0202 Z12.31</p> IMPRESSION: BENIGNThere is no mammographic evidence of malignancy. A 1 year screening mammogram is recommended. I have reviewed the study and agree with the findings in the report. This document has been electronically signed. Talia Wang,dp/:10/12/2017 14:15:49 [employer] [employer] Director: Ms. Mary Henriquez RT(R)(M), [facility] Mammogram BI-RADS: 2 Benign G0202 Z12.31 10/12/2017 [facility] MAMMOGRAM BILAT SCREEN DIGITAL <p> </p><p>#[id number] - MAMMOGRAM BILAT SCREEN DIGITAL</p><p>BILATERAL DIGITAL SCREENING MAMMOGRAM WITH CAD: 10/12/2017</p><p>CLINICAL: Screening for malignancy.</p><p> </p><p>Comparison is made to exams dated:08/21/2015, 08/21/2015, </p><p>07/09/2014, 07/09/2014 [facility], 06/27/2014, </p><p>and 05/29/2012 [facility].</p><p>The tissue of both breasts is heterogeneously dense. This may </p><p>lower the sensitivity of mammography.</p><p>Current study was also evaluated with a Computer Aided Detection </p><p>(CAD) system.</p><p>There are benign calcifications and calcifications in both </p><p>breasts.There also are benign masses in both breasts.</p><p>No significant masses, calcifications, or other findings are seen </p><p>in either breast.</p><p>There has been no significant interval change.</p><p> </p> #[id number] - MAMMOGRAM BILAT SCREEN DIGITALBILATERAL DIGITAL SCREENING MAMMOGRAM WITH CAD: 10/12/2017CLINICAL: Screening for malignancy. Comparison is made to exams dated:08/21/2015, 08/21/2015, 07/09/2014, [facility], 06/27/2014, and 05/29/2012 [facility].The tissue of both breasts is heterogeneously dense. This may lower the sensitivity of mammography.Current study was also evaluated with a Computer Aided Detection (CAD) system.There are benign calcifications and calcifications in both breasts.There also are benign masses in both breasts.No significant masses, calcifications, or other findings are seen in either breast.There has been no significant interval change. 10/12/2017 [facility] MAMMOGRAM BILAT SCREEN DIGITAL <p styleCode="header">Interface, Rad/Mammog In - 10/12/2017 3:49 PM CDT</p><p>
<span>#[id number] - MAMMOGRAM BILAT SCREEN DIGITAL</span>
<span>BILATERAL DIGITAL SCREENING MAMMOGRAM WITH CAD: 10/12/2017</span>
<span>CLINICAL: Screening for malignancy. </span>

<span>Comparison is made to exams dated: 08/21/2015, 08/21/2015, </span>
<span>07/09/2014, 07/09/2014 [facility], 06/27/2014, </span>
<span>and 05/29/2012 [facility]. </sp an>
<span>The tissue of both breasts [...] signed.</span>

<span>Talia St M.D.</span>
<span>farshaddp/:10/12/2017 14:15:49 </span>

<span>[place] [employer] Director: Ms. Mary Henriquez RT(R)(M), [place] </span>
<span>[facility]</span>
<span>letter sent: Benign Exam </span>
<span>Mammogram BI-RADS: 2 Benign G0202 Z12.31</span></p> Interface, Rad/Mammog In - 10/12/2017 3:49 PM CDT #[id number] - MAMMOGRAM BILAT SCREEN DIGITAL BILATERAL DIGITAL SCREENING MAMMOGRAM WITH CAD: 10/12/2017 CLINICAL: Screening for malignancy. Comparison is made to exams dated: 08/21/2015, 08/21/2015, 07/09/2014, 07/09/2014 [facility], 06/27/2014, and 05/29/2012 [facility]. The tissue of both breasts is [...] This document has been electronically signed. Talia St M.D. apb,dp/:10/12/2017 14:15:49 [place] [employer] Director: Ms. Mary Henriquez RT(R)(M), [facility] letter sent: Benign Exam Mammogram BI-RADS: 2 Benign G0202 Z12.31 10/12/2017 [facility] HEMOGLOBIN A1C Hemoglobin A1c 7.1 4.3 - 6.1 09/16/2017 [facility] HEMOGLOBIN A1C Est Average Gluc 157.1 09/16/2017 [facility] HEMOGLOBIN A1C Lab Interpretation Abnormal 09/16/2017 [facility] BASIC METABOLIC PANEL CO2 29 21 - 31 09/15/2017 [facility] BASIC METABOLIC PANEL Chloride 105 98 - 107 09/15/2017 [facility] BASIC METABOLIC PANEL Potassium 4.4 3.5 - 5.1 09/15/2017 [facility] BASIC METABOLIC PANEL Sodium 144 136 - 145 09/15/2017 [facility] BASIC METABOLIC PANEL Glucose 130 70 - 110 09/15/2017 [facility] BASIC METABOLIC PANEL Urea Nitrogen 9 7 - 25 09/15/2017 [facility] BASIC METABOLIC PANEL Creatinine 0.80 0.6 - 1.2 09/15/2017 [facility] BASIC METABOLIC PANEL Anion Gap 10 09/15/2017 [facility] BASIC METABOLIC PANEL Calcium 9.4 8.6 - 10.3 09/15/2017 [facility] BASIC METABOLIC PANEL GFR, Estimated >60 mL/min/1.73 m2 09/15/2017 [facility] BASIC METABOLIC PANEL GFR, Estim, Afr-Am >60 mL/min/1.73 m2 09/15/2017 [facility] BASIC METABOLIC PANEL Lab Interpretation Abnormal 09/15/2017 [facility] LIPID PROFILE Cholesterol 203 09/15/2017 REFERENCE RANGE:
Desirable: <200 mg/dL
Borderline: 200-240 mg/dL
High Risk: >240 mg/dL

[facility] LIPID PROFILE Triglyceride 343 <150 09/15/2017 REFERENCE RANGE:
Normal: <150 mg/dL
Borderline High: 150-199 mg/dL
High: 200-499 mg/dL
Very High: >dk=558 mg/dL

[facility] LIPID PROFILE HDL 39 09/15/2017 Increased CHD risk: <40 mg/dL
Decreased CHD risk: >60 mg/dL

[facility] LIPID PROFILE LDL 95 09/15/2017 REFERENCE RANGE:
Optimal: <100 mg/dL
Near Optimal: 100-129 mg/dL
Borderline High: 130-159 mg/dL
High: 160-189 mg/dL
Very High: >ck=565 mg/dL

[facility] LIPID PROFILE Lab Interpretation Abnormal 09/15/2017 [facility] LIVER PROFILE T Protein 6.5 6 - 8.3 09/15/2017 [facility] LIVER PROFILE Albumin 3.9 3.7 - 5.3 09/15/2017 [facility] LIVER PROFILE T Bilirubin 0.6 0.2 - 1.2 09/15/2017 [facility] LIVER PROFILE Alk Phos 121 34 - 104 09/15/2017 [facility] LIVER PROFILE AST 10 13 - 39 09/15/2017 [facility] LIVER PROFILE ALT 11 7 - 52 09/15/2017 [facility] LIVER PROFILE D Bilirubin 0.1 0 - 0.2 09/15/2017 [facility] LIVER PROFILE Lab Interpretation Abnormal 09/15/2017 [facility] TSH TSH 1.97 0.57 - 3.74 09/15/2017 [facility] CBC/DIFF WBC 8.1 4.5 - 11 09/15/2017 [facility] CBC/DIFF RBC 4.61 4.20 - 5.40 09/15/2017 [facility] CBC/DIFF Hemoglobin 13.8 12 - 16 09/15/2017 [facility] CBC/DIFF Hematocrit 41.8 37 - 47 09/15/2017 [facility] CBC/DIFF MCV 91 82 - 92 09/15/2017 [facility] CBC/DIFF MCH 29.9 27 - 32 09/15/2017 [facility] CBC/DIFF MCHC 33.0 32 - 36 09/15/2017 [facility] CBC/DIFF RDW 41.0 36.4 - 46.3 09/15/2017 [facility] CBC/DIFF Platelet 292 150 - 400 09/15/2017 [facility] CBC/DIFF Mean Platelet Volume 10.8 9.4 - 12.4 09/15/2017 [facility] CBC/DIFF Percent NRBC 0.0 09/15/2017 [facility] CBC/DIFF Absolute NRBC 0.00 09/15/2017 [facility] CBC/DIFF Neutrophil 62.0 34 - 70 09/15/2017 [facility] CBC/DIFF Lymphocyte 29.7 20 - 50 09/15/2017 [facility] CBC/DIFF Monocyte 6.6 5 - 12 09/15/2017 [facility] CBC/DIFF Eosinophil 1.1 0.7 - 5 09/15/2017 [facility] CBC/DIFF Basophil 0.4 0.1 - 1.2 09/15/2017 [facility] CBC/DIFF Pct Immat Gran 0.2 0.0 - 0.5 09/15/2017 [facility] CBC/DIFF Neutrophil, Abs 5.01 1.56 - 6.13 09/15/2017 [facility] CBC/DIFF Lymphocyte, Abs 2.40 1.18 - 3.74 09/15/2017 [facility] CBC/DIFF Monocyte, Abs 0.53 0.24 - 0.36 09/15/2017 [facility] CBC/DIFF Eosinophil, Abs 0.09 0.04 - 0.36 09/15/2017 [facility] CBC/DIFF Basophil, Abs 0.03 0.01 - 0.08 09/15/2017 [facility] CBC/DIFF Absol Immat Gran 0.02 0 - 0.03 09/15/2017 [facility] CBC/DIFF Lab Interpretation Abnormal 09/15/2017 [facility] MICROALBUM, URINE Microalbum, Random <0.7 0 - 09/14/2017 [facility] MICROALBUM, URINE Creatinine, Ur 20.4 20 - 320 09/14/2017 [facility] MICROALBUM, URINE Urine Microalbumin Unable to calculate, parameters incomplete 0 - 09/14/2017 To minimize intra-individual variation, analysis of three random urine
samples collected over the course of a week is recommended.

[facility] OPHTHALMOLOGY RETINAL SCAN RETINAL SCAN-FINAL RESULT NORMAL 06/08/2017 [facility] OPHTHALMOLOGY RETINAL SCAN Right Diabetic Retinopathy None 06/08/2017 [facility] OPHTHALMOLOGY RETINAL SCAN Right Macular Edema None 06/08/2017 [facility] OPHTHALMOLOGY RETINAL SCAN Right Other Suspected Conditions None 06/08/2017 [facility] OPHTHALMOLOGY RETINAL SCAN Right Image Quality Gradeable Image 06/08/2017 [facility] OPHTHALMOLOGY RETINAL SCAN Left Diabetic Retinopathy None 06/08/2017 [facility] OPHTHALMOLOGY RETINAL SCAN Left Macular Edema None 06/08/2017 [facility] OPHTHALMOLOGY RETINAL SCAN Left Other Suspected Conditions None 06/08/2017 [facility] OPHTHALMOLOGY RETINAL SCAN Left Image Quality Gradeable Image 06/08/2017 [facility] OPHTHALMOLOGY RETINAL SCAN <p>Retinal Study Result for MARA FARNCES</p><p> </p><p>MARA FRANCES a 61 y/o, F (: 1955, )</p><p>presented to [facility][Note 3] on 06-08-2017 for a retinal imaging study [...] electronically signed by Alonzo Alan MD. Taxonomy: [id number] on 06-08-2017 10:11:06 [facility] time.</p><p> </p><p>NOTE:Any pathology noted on this diabetic retinal evaluation should be confirmed by an appropriate ophthalmic examination.</p> Retinal Study Result for MARA FRANCES MAGDALENAevita 61 y/o, F (: 1955, )presented to [facility][Note 3] on 06-08-2017 for a retinal imaging study of the left and right eyes. Based on the findings of the study, the following is recommended for Sangeeta FRANCES Scan: Please advise the patient to return for another scan in 1 year. Interpreting Provider's Comments:No comments provided Right Eye Findings:Normal Result.Negative for Diabetic Retinopathy. Left Eye Findings:Normal Result.Negative for Diabetic Retinopathy. This result was electronically signed by Alonzo Alan MD. Taxonomy: [id number] on 06-08-2017 10:11:06 [facility] time. NOTE:Any pathology noted on this diabetic retinal evaluation should be confirmed by an appropriate ophthalmic examination. 06/08/2017 [facility] Pathology Reports No Data Provided for This Section Diagnostic Reports No Data Provided for This Section Consultation Notes No Data Provided for This Section Discharge Summaries No Data Provided for This Section History and Physicals No Data Provided for This Section Vital Signs Vital Sign Value Date Comments Source Systolic (mm Hg) 119 01/10/2019 [facility] Diastolic (mm Hg) 65 01/10/2019 [facility] Heart Rate 81 01/10/2019 [facility] Temperature Oral (F) 36.72 Maribel 01/10/2019 [facility] Respitory Rate 20 01/10/2019 [facility] Height 154.9 cm 01/10/2019 [facility] Weight 67.132 01/10/2019 [facility] Systolic (mm Hg) 139 11/29/2018 [facility] Diastolic (mm Hg) 64 11/29/2018 [facility] Heart Rate 71 11/29/2018 [facility] Temperature Oral (F) 36.5 Maribel 11/29/2018 [facility] Respitory Rate 20 11/29/2018 [facility] Height 154.9 cm 11/29/2018 [facility] Weight 70.58 11/29/2018 [facility] Systolic (mm Hg) 120 09/13/2018 [facility] Diastolic (mm Hg) 59 09/13/2018 [facility] Heart Rate 73 09/13/2018 [facility] Temperature Oral (F) 36.83 Maribel 09/13/2018 [facility] Respitory Rate 20 09/13/2018 [facility] Height 154.9 cm 09/13/2018 [facility] Weight 68.221 09/13/2018 [facility] Systolic (mm Hg) 142 02/14/2018 [facility] Diastolic (mm Hg) 64 02/14/2018 [facility] Heart Rate 76 02/14/2018 [facility] Temperature Oral (F) 36.67 Maribel 02/14/2018 [facility] Respitory Rate 18 02/14/2018 [facility] Height 154.9 cm 02/14/2018 [facility] Weight 72.576 02/14/2018 [facility] BMI Calculated 30.23 02/14/2018 [facility] Encounters Location Location Details Encounter Type Encounter Number Reason For Visit Attending Provider ADM Date DC Date Status Source [facility] [place] Refill [id number] Pain in both knees, unspecified chronicity Jackson Rose MD 04/05/2017 [facility] Procedures [place] Office Visit [id number] Primary osteoarthritis of left knee Dena Chavez LEATHER TANNER 04/07/2017 04/07/2017 [facility] [place] Telephone [id number] Nohemy Hernandezhandy AMEZQUITAN 04/14/2017 [facility] [place] Office Visit [id number] Controlled type 2 diabetes mellitus without complication, without long-term current use of insulin Hypothyroidism, unspecified type Hyperlipidemia, unspecified hyperlipidemia type Senile osteoporosis PTSD (post-traumatic stress disorder) Itchy eyes Flu vaccine need Pain in both knees, unspecified chronicity Dena Chavez NP 06/01/2017 06/01/2017 [facility] Ophthalmology/Optometry [place] Ancillary Procedure [id number] Controlled type 2 diabetes mellitus without complication, without long-term current use of insulin Dena Chavez NP 06/08/2017 06/08/2017 [facility] Psychiatry [place] Office Visit [id number] Other recurrent depressive disorders PTSD (post-traumatic stress disorder) Dena Chavez LEATHER TANNER 07/27/2017 07/27/2017 [facility] [place] Pharmacy Visit [id number] 07/28/2017 [facility] [place] Office Visit [id number] Hospital discharge follow-up S/P laparoscopic cholecystectomy Controlled type 2 diabetes mellitus with complication, without long-term current use of insulin Other hyperlipidemia Rectal cancer Screening for breast cancer Pain in both knees, unspecified chronicity Dena Chavez NP 09/13/2017 09/13/2017 [facility] [place] Refill [id number] Pain in both knees, unspecified chronicity Jackson Rose MD 09/23/2017 [facility] Mammography [place] Ancillary Procedure [id number] Dena Chavez LEATHER TANNER 10/12/2017 10/12/2017 [facility] Psychiatry [place] Office Visit [id number] Moderate episode of recurrent major depressive disorder PTSD (post-traumatic stress disorder) Kar Ochoa MD 10/12/2017 10/12/2017 [facility] [place] Refill [id number] Vitamin D deficiency Jessica Ring RN 10/27/2017 [facility] [place] Office Visit [id number] Encounter to discuss test results Controlled type 2 diabetes mellitus with complication, without long-term current use of insulin Hypertriglyceridemia Primary osteoarthritis of both knees Pain in both knees, unspecified chronicity Dena Chavez NP 11/01/2017 11/01/2017 [facility] [place] Refill [id number] Jackson Rose MD 12/28/2017 [facility] Psychiat[facility] [place] Office Visit [id number] Donald Frank MD 12/28/2017 12/28/2017 [facility] [place] Orders Only [id number] Dena Chavez NP 12/29/2017 [facility] [place] Office Visit [id number] Harlan Brooks MD 01/12/2018 01/12/2018 [facility] [place] Telephone [id number] Jessica Ring RN 01/31/2018 [facility] ASK YOUR NURSE PROGRAM Nurse Triage [id number] Dina Rebollar RN 01/31/2018 [facility] [place] Office Visit [id number] Dena Chavez NP 02/14/2018 02/14/2018 [facility] Behavioral Health/Counseling [place] Office Visit [id number] Ailyn Mattson 02/20/2018 02/21/2018 [facility] [place] Telephone [id number] Clau Phan 03/02/[address] [facility] [place] Clinical Case Mgt [id number] Clau Phan 03/06/2018 [facility] [place] Telephone [id number] Dena Chavez NP 03/18/[address] [facility] [place] Telephone [id number] Clau Phan 04/02/2018 [facility] [place] Refill [id number] Jackson Rose MD 04/11/[address] [facility] [place] Telephone [id number] Clau Phan 04/16/2018 [facility] [place] Telephone [id number] Elizabeth Najera RN 05/14/2018 [facility] [place] Refill [id number] Jackson Rose MD 06/13/2018 [facility] [place] Refill [id number] Jackson Rose MD 06/28/2018 [facility] [place] Refill [id number] Jackson Rose MD 07/06/2018 [facility] Travel [id number] 07/06/2018 [facility] [place] Office Visit [id number] Dena Chavez NP 07/06/2018 08/16/2018 [facility] [place] Nurse Only [id number] Dena Suárez RN 08/06/2018 [facility] Travel [id number] 08/06/2018 [facility] Ophthalmology/Optometry [place]* Ancillary Procedure [id number] Dena Chavez LEATHER TANNER 08/06/2018 08/06/2018 [facility] Travel [id number] 08/17/2018 [facility] ASK YOUR NURSE PROGRAM Nurse Triage [id number] Ana Rosa Rodriges RN 08/17/2018 [facility] ASK YOUR NURSE PROGRAM Nurse Triage [id number] Dina Rebollar RN 08/20/2018 [facility] [place] Telephone [id number] Elizabeth Najera RN 08/21/2018 [facility] [place] Office Visit [id number] Ailyn Mattson 08/21/2018 08/21/2018 [facility] Psychiatry [place] Office Visit [id number] Donald Frank MD 08/23/2018 08/23/2018 [facility] Travel [id number] 09/13/2018 [facility] [place] Office Visit [id number] Jackson Rose MD 09/13/2018 11/14/2018 [facility] [place] Refill [id number] Jackson Rose MD 09/21/2018 [facility] [place] Refill [id number] Jessica Ring RN 09/24/2018 [facility] Travel [id number] 10/18/2018 [facility] [place] Telephone [id number] Kelsey Ann 10/18/2018 [facility] Mammography [place] Ancillary Procedure [id number] Jackson Rose MD 10/18/2018 10/18/2018 [facility] Travel [id number] 11/13/2018 [facility] [place] Refill [id number] Jessica Ring RN 11/15/2018 [facility] [place] Orders Only [id number] Alicia Perez DO 11/29/2018 [facility] [place] Office Visit [id number] Alicia Perez DO 11/29/2018 11/29/2018 [facility] [place] Refill [id number] Jackson Rose MD 12/20/2018 [facility] Travel [id number] 12/21/2018 [facility] [place] Office Visit [id number] Ailyn Mattson 12/21/2018 12/21/2018 [facility] Psychiatry [place] Orders Only [id number] Donald Frank MD 01/10/2019 [facility] [place] Refill [id number] Ivett Macias RN 01/10/2019 [facility] [place] Office Visit [id number] Alicia Perez DO 01/10/2019 01/10/2019 [facility] Radiology [facility] Hospital Encounter [id number] Alicia Perez DO 01/17/2019 [facility] Depart Emergency Room [id number] ELI JOHNSON MD 01/20/2019 01/20/2019 [facility] Behavioral Health/Counseling [place] Office Visit [id number] Ailyn Mattson 01/21/2019 01/21/2019 [facility] Procedures Procedure Code Date Perfomer Comments Source Computed tomography of abdomen and pelvis with contrast [id number] 01/20/2019 [facility] GLUCOSE 60373 11/13/2018 [facility] FREE T4 86631 11/13/2018 [facility] ALANINE AMINOTRASFERASE/ASPARTATE AMINOTRANSFERASE (ALT/AST) 98779 11/13/2018 [facility] MICROALBUMIN / CREATININE URINE RATIO 80803 11/13/2018 [facility] MAMMOGRAM BILAT SCREEN DIGITAL G0202 10/18/2018 [facility] OPHTHALMOLOGY RETINAL SCAN [id number] 08/06/2018 [facility] BASIC METABOLIC PANEL 69513 08/06/2018 [facility] CBC/DIFF 04140 08/06/2018 [facility] HEMOGLOBIN A1C 85414 08/06/2018 [facility] LIPID PROFILE 85909 08/06/2018 [facility] LIVER PROFILE 01518 08/06/2018 [facility] THYROID STIMULATING HORMONE (TSH) 32542 08/06/2018 [facility] 12 LEAD EKG 74930 07/07/2018 [facility] DIABETIC FOOT EXAM 8F 02/15/2018 [facility] TSH 50300 09/15/2017 [facility] MICROALBUM, URINE 84527 09/13/2017 [facility] OPHTHALMOLOGY RETINAL SCAN 131153 06/08/2017 [facility] Assessment and Plan No Data Provided for This Section Plan of Care Plan of Care Date Source DM HGBA1C (Yearly) 11/14/2019 [facility] Breast Cancer Scrn (Yearly) 10/19/2019 [facility] DM Retinal Exam (Yearly) 08/07/2019 [facility] DM Foot Exam (Yearly) 07/07/2019 [facility] DM Foot Exam (Yearly) 02/14/2019 [facility] Upcoming EncountersDateTypeSpecialtyCare TeamDescription 01/31/2019 Lab Appointment Lab Alicia Perez, DO9[address] [phone] (Fax) 02/21/2019 Office Visit Psychology Ailyn Mattson M927 [facility] [place] [address] [phone] (Fax) 03/14/2019 Office Visit Psychiatry Donald Frank MD[address] [place] [address] [phone] (Fax) Health MaintenanceDue DateLast DoneComments Cervical Cancer [...] 11/14/2019 11/13/2018, 09/13/2017, 08/24/2016, Additional history exists 01/21/2019 [facility] Discharge Date 01/20/19 8:16am Disposition HOME, SELF-CARE Condition at Discharge Stable Instructions/Education Provided Abdominal Pain - Adult Urinary Tract Infection - Women Forms Provided Work/School Excuse Prescriptions See Medication Section Referrals [facility] Order Date: Call for an appointment Additional Instructions/Education FOLLOW UP WITH YOUR PRIMARY DOCTOR TAKE MEDICATION PROVIDED IF SYMPTOMS WORSEN, RETURN TO NEAREST EMERGENCY ROOM 01/20/2019 [facility] Upcoming EncountersDateTypeSpecialtyCare TeamDescription 01/21/2019 Office Visit Psychology Ailyn Mattson M927 [facility] [place] [address] [phone] (Fax) 01/31/2019 Lab Appointment Lab Alicia Perez, DO9[address] [place], [place] [phone] (Fax) 03/14/2019 Office Visit Psychiatry Donald Frank MD[address] [place] [address] [phone] (Fax) Health MaintenanceDue DateLast DoneComments Cervical Cancer [...] 11/13/2018, 09/13/2017, 08/24/2016, Additional history exists 12/21/2018 [facility] Upcoming EncountersDateTypeSpecialtyCare TeamDescription 12/21/2018 Office Visit Psychology Ailyn Mattson [address] [phone] (Fax) adv $95 if [facility] not active 01/31/2019 Lab Appointment Lab Alicia Perez DO[address] [place], [place] [id number] [place] [phone] (Fax) Health MaintenanceDue DateLast DoneComments Cervical Cancer [...] 11/13/2018, 09/13/2017, 08/24/2016, Additional history exists 12/20/2018 [facility] Upcoming EncountersDateTypeSpecialtyCare TeamDescription 12/21/2018 Office Visit Psychology Ailyn Mattson[address] [place] [id number], [place] [phone] 01/31/2019 Lab Appointment Lab Alicia Perez DO927 [facility]15[address] [place] [place] [phone] (Fax) [facility] DateLast DoneComments Cervical Cancer Scrn (3 Yrs) 06/27/2017 06/27/2014, 10/22/2002 DM Foot Exam (Yearly) 07/07/2019 07/06/2018, 02/14/2018, 06/01/2017, Additional history exists DM Retinal Exam (Yearly) 08/07/2019 08/06/2018, 06/08/2017, 05/11/2016 Breast Cancer Scrn (Yearly) 10/19/2019 10/18/2018, 10/12/2017, 10/17/2016, Additional history exists DM HGBA1C (Yearly) 11/14/2019 11/13/2018, 08/06/2018, 09/15/2017, Additional history exists DM Microalbumin Urine Scrn (Yearly) 11/14/2019 11/13/2018, 09/13/2017, 08/24/2016, Additional history exists 11/29/2018 [facility] Upcoming EncountersDateTypeSpecialtyCare TeamDescription 11/14/2018 Appointment Audiology Juwan Perry of [id number] [place], [place] [phone] Katharine Salas [facility] DateLast DoneComments Cervical Cancer Scrn (3 Yrs) 06/27/2017 06/27/2014, 10/22/2002 DM Microalbumin Urine Scrn (Yearly) 09/13/2018 09/13/2017, 08/24/2016, 04/23/2015, Additional history exists DM Foot Exam (Yearly) 07/07/2019 07/06/2018, 02/14/2018, 06/01/2017, Additional history exists DM HGBA1C (Yearly) 08/07/2019 08/06/2018, 09/15/2017, 02/16/2017, Additional history exists DM Retinal Exam (Yearly) 08/07/2019 08/06/2018, 06/08/2017, 05/11/2016 Breast Cancer Scrn (Yearly) 10/19/2019 10/18/2018, 10/12/2017, 10/17/2016, Additional history exists 11/13/2018 [facility] Breast Cancer Scrn (Yearly) 10/12/2018 [facility] DM HGBA1C (Yearly) 09/15/2018 [facility] DM Microalbumin Urine Scrn (Yearly) 09/13/2018 [facility] DM Retinal Exam (Yearly) 06/08/2018 [facility] Upcoming EncountersDateTypeSpecialtyCare TeamDescription 03/21/2018 Office Visit Psychology Ailyn Mattson[address] [facility], [place] [phone] (Fax) 03/22/2018 Office Visit Psychiatry Donald Frank MD[address] [facility], [place] [phone] (Fax) E 1 04/05/2018 Lab Appointment Lab Scott Dena, [phone] (Fax) Health MaintenanceDue DateLast DoneComments Cervical Cancer [...] 02/14/2018, 06/01/2017, 2016, Additional history exists 03/11/2018 [facility] Cervical Cancer Scrn (3 Yrs) 06/27/2017 [facility] Social History Social History Date Source Smoking Status Start Date Stop Date Never Smoker 01/20/2019 [facility] Tobacco UseTypesPacks/DayYears UsedDate Never Smoker Smokeless Tobacco: [...] StartTravel End No recent travel history available. 01/10/2019 [facility] Family History Value Date Source Medical HistoryRelationNameComments Cancer Brother Other Brother accident Cancer Daughter Cancer Mother breast Cancer Sister colon Cancer Sister breast RelationNameStatusComments Brother Alive Brother Brother Daughter Alive Father Maternal Grandfather Maternal Grandmother Mother Paternal Grandfather Paternal Grandmother Sister Sister Alive Sister Alive Sister Alive Sister Alive Son Alive 01/21/2019 [facility] Medical HistoryRelationNameComments Cancer Brother Other Brother accident Cancer Daughter Cancer Mother breast Cancer Sister colon Cancer Sister breast RelationNameStatusComments Brother Alive Brother Brother Daughter Alive Father Maternal Grandfather Maternal Grandmother Mother Paternal Grandfather Paternal Grandmother Sister Sister Alive Sister Alive Sister Alive Sister Alive Son Alive 12/21/2018 [facility] Medical HistoryRelationNameComments Cancer Brother Other Brother accident Cancer Daughter Cancer Mother breast Cancer Sister colon Cancer Sister breast RelationNameStatusComments Brother Alive Brother Brother Daughter Alive Father Maternal Grandfather Maternal Grandmother Mother Paternal Grandfather Paternal Grandmother Sister Sister Alive Sister Alive Sister Alive Sister Alive Son Alive 12/20/2018 [facility] Medical HistoryRelationNameComments Cancer Brother Other Brother accident Cancer Daughter Cancer Mother breast Cancer Sister colon Cancer Sister breast RelationNameStatusComments Brother Alive Brother Brother Daughter Alive Father Maternal Grandfather Maternal Grandmother Mother Paternal Grandfather Paternal Grandmother Sister Sister Alive Sister Alive Sister Alive Sister Alive Son Alive 11/29/2018 [facility] Medical HistoryRelationNameComments Cancer Brother Other Brother accident Cancer Daughter Cancer Mother breast Cancer Sister colon Cancer Sister breast RelationNameStatusComments Brother Alive Brother Brother Daughter Alive Father Maternal Grandfather Maternal Grandmother Mother Paternal Grandfather Paternal Grandmother Sister Sister Alive Sister Alive Sister Alive Sister Alive Son Alive 11/13/2018 [facility] Medical HistoryRelationNameComments Cancer Brother Other Brother accident Cancer Daughter Cancer Mother breast Cancer Sister colon Cancer Sister breast RelationNameStatusComments Brother Alive Brother Brother Daughter Alive Father Maternal Grandfather Maternal Grandmother Mother Paternal Grandfather Paternal Grandmother Sister Sister Alive Sister Alive Sister Alive Sister Alive Son Alive 03/11/2018 [facility] Advance Directives Order Name Results Value Date Source Advance Directives Advance Directives Directive Response Recorded Date/Time Does the patient have an advance directive? No 01/20/19 5:48am Do you have a Directive to Physician? No 01/20/19 5:48am Do you have a Medical Power of Qa Lead? No 01/20/19 5:48am Do you have an out of hospital Do Not Resuscitate Order? No 01/20/19 5:48am Do you have any special needs we should be aware of? No 01/20/19 5:48am Do you have a support person here with you today? Yes 01/20/19 5:49am Did patient receive Notice of Privacy Practices? Yes 01/20/19 5:49am Did patient receive patient rights and responsibilities? Yes 01/20/19 5:49am 01/20/2019 [facility] Functional Status No Data Provided for This Section
--- OUTSIDE RECORDS SUMMARY | 2019-01-22 01:21 | XMS REPORT | Clinical Summary ---
Author Author [facility] Organization [facility] Address Unknown Phone Unavailable Care Team Providers Care Survey Analyst Name Role Phone Alicia Perez DO [...] needed for Pain (take with food) (1 kfoqnu=247 mg). Active levothyroxine (SYNTHROID) TAKE 1 TABLET [...] needed for Pain (take with food) (1 tbcxhy=389 mg). 11/29/2018 Discontinued traMADol (ULTRAM) 50 mg [...] resection S/P colonoscopy with polypectomy done at [facility] 03/201605/10/2016 Family history of breast cancer- breast ,colon 08/03/2015 Diabetes mellitus type II, uncontrolled 07/31/2015 Hyperlipidemia 06/12/2015 Thrombocytopenia, unspecified-per ER visit 05/26/2015 06/12/2015 S/P colonoscopic polypectomy done at [facility] 04/23/2015 Overview: 5 polyps removed and moderately [...] 01/21/2019 Office Visit Psychology Alicia Perez DO No Show 01/17/2019 Hospital Radiology Encounter Alicia Perez DO Sebaceous cyst (Primary Dx); Senile osteoporosis; Dry skin dermatitis 01/10/2019 Office Visit [facility] Donald Frank MD PTSD (post-traumatic stress disorder); Moderate episode of recurrent major depressive disorder; Grief 01/10/2019 Orders Only Psychiatry Ivett Macias RN PTSD (post-traumatic stress disorder); Moderate episode of recurrent major depressive disorder; Grief 01/10/2019 Refill [facility] Ailyn Mattson MDD (major depressive disorder), recurrent episode, moderate (Primary Dx); Grief 12/21/2018 Office Visit Psychology Jackson Rose III, MD Hyperlipidemia, unspecified hyperlipidemia type; Controlled type 2 diabetes mellitus with complication, without long-term current use of insulin 12/20/2018 Refill [facility] Alicia Perez DO Hypertriglyceridemia (Primary Dx); Hypothyroidism, unspecified type; Controlled type 2 diabetes mellitus with complication, without long-term current use of insulin; Pain in both knees, unspecified chronicity; Primary osteoarthritis of both knees; PTSD (post-traumatic stress disorder) 11/29/2018 Office Visit [facility] Alicia Perez DO PTSD (post-traumatic stress disorder) 11/29/2018 Orders Only [facility] Jessica Ring RN PTSD (post-traumatic stress disorder); Moderate episode of recurrent major depressive disorder; Grief 11/15/2018 Refill [facility] Jackson Rose III, MD 10/18/2018 Ancillary Radiology Procedure Jessica Ring RN PTSD (post-traumatic stress disorder) 09/24/2018 Refill [facility] Jackson Rose III, MD Hypothyroidism, unspecified type 09/21/2018 Refill [facility] Jackson Rose III, MD PTSD (post-traumatic stress disorder) (Primary Dx); Primary osteoarthritis of both knees; Hyperlipidemia, unspecified hyperlipidemia type; Hypothyroidism, unspecified type; Type 2 diabetes mellitus without complication, without long-term current use of insulin; Preventative health care; Pain in both knees, unspecified chronicity 09/13/2018 Office Visit [facility] Donald Frank MD Moderate episode of recurrent [...] with cough and congestion 07/06/2018 Office Visit [facility] Jackson Rose III, MD Primary osteoarthritis of both knees; Pain in both knees, unspecified chronicity 07/06/2018 Refill [facility] Jackson Rose III, MD Controlled type 2 diabetes mellitus without complication, without long-term current use of insulin 06/28/2018 Refill [facility] Jackson Rose III, MD Hypothyroidism, unspecified type 06/13/2018 Refill [facility] Jackson Rose III, MD Hypothyroidism, unspecified type 04/11/2018 Refill [facility] Clau Phan 03/06/2018 Clinical Case Social [...] Pain in joint, multiple sites; Need for kuhbfamtho-wffcejy-tzagxjvyb (Tdap) vaccine; PTSD (post-traumatic stress disorder) 02/14/2018 Office Visit Family Practice Dina Rebollar RN 01/31/2018 Nurse Triage after 01/21/2018 Immunizations Name Administration Dates Next Due DTaP [...] Description Date Type Specialty Alicia Perez DO [address] [place] [address] [place] [address] 01/31/2019 Lab Appointment Lab Ailyn Mattson [address] [place] [address] [id number] [place] [address] [phone] 02/21/2019 Office Visit Psychology FrankDonald MD [address] [facility] 2nd Floor [address] [place], [place] [phone] 03/14/2019 Office Visit Psychiatry Health Maintenance Due [...] MAMMOGRAM BILAT SCREEN Routine 10/18/2018 [facility] DIGITAL 1:41 PM CDT OPHTHALMOLOGY RETINAL Routine [...] STAT 07/06/2018 Pressure in chest 3:59 PM PERISHABLE FREIGHT INSPECTOR DIABETIC FOOT EXAM Routine 07/06/2018 Controlled type 2 3:30 PM PERISHABLE FREIGHT INSPECTOR diabetes mellitus with complication, without long-term current use of insulin DIABETIC FOOT EXAM Routine 02/14/2018 Controlled type 2 3:58 PM CDT diabetes mellitus without complication, without long-term current use of insulin after 01/21/2018 Results * TSH (11/13/2018 8:24 AM CDT) [...] 5.18 uIU/mL Specimen Blood Performing Organization Address [facility] Phone Number [facility] [address] [place] [address] * FREE T4 (11/13/2018 8:24 AM CDT) Free T4 0.97 0.61 - 1.18 ng/dl [facility] Specimen Blood Performing Organization Address [facility] Phone Number [facility] [address] [place] [address] * LIPID PROFILE (11/13/2018 8:24 AM CDT) [...] >=190 mg/dL Specimen Blood Performing Organization Address [facility] Phone Number [facility] [address] [place] [address] * GLUCOSE (11/13/2018 8:24 AM CDT) Glucose 145 (H) 70 - 110 mg/dL [facility] Specimen Blood Performing Organization Address [facility] Phone Number [facility] [address] [place] [address] * ALT/AST (11/13/2018 8:24 AM CDT) ALT 13 7 - 52 U/L [facility] AST 10 (L) 13 - 39 U/L [facility] Specimen Blood Performing Organization Address [facility] Phone Number [facility] [address] [place] [address] * MICROALBUM, URINE (11/13/2018 8:23 AM CDT) Microalbumin, <0.7 <30.0 mg/dL [facility] Creatinine, 128 20 - 320 mg/dL [facility] Urine [facility]OR[facility] Urine <5.5 0.0 - 30.0 mg/g [facility] Microalbumin [facility] Specimen Urine Performing Organization Address [facility] Phone Number [facility] [address] [place] [address] * HEMOGLOBIN A1C (11/13/2018 8:23 AM CDT) Only the most recent of 2 results within the time period is included. Hemoglobin A1c 7.1 % [facility] Estimated 157 (H) 70 - 110 mg/dL [facility] Average Glucose LABORATORY Specimen Blood Performing Organization Address [facility] Phone Number [facility] [address] [place] [address] * MAMMOGRAM BILAT SCREEN DIGITAL (10/18/2018 1:41 PM CDT) Specimen Impressions Performed At IMPRESSION: BENIGN SMS There is no mammographic evidence of malignancy. A 1 year screening mammogram is recommended. This document has been electronically signed. Dodie sung/roni:10/18/2018 14:10:10 Senior C Software Engineer: Leda Byrd Sr. Crusher And Binder Operator, [facility] letter sent: Mammography Normal Mammogram BI-RADS: 2 Benign G0202 Z85.3 Narrative Performed At #[id number] - MAMMOGRAM BILAT SCREEN DIGITAL SMS BILATERAL DIGITAL SCREENING MAMMOGRAM WITH CAD: 10/18/2018 CLINICAL: Screening for malignancy. Comparison is made to exams dated:10/12/2017, 10/17/2016, 10/17/2016 [facility], 08/21/2015, and 07/09/2014 [facility] [place]. The tissue of both breasts is heterogeneously dense. This may lower the sensitivity of mammography. Current study was also evaluated with a Computer Aided Detection (CAD) system. There are benign calcifications in both breasts.There also are benign masses in both breasts. No significant masses, calcifications, or other findings are seen in either breast. Procedure Note Interface, Rad/Mammog In - 10/18/2018 2:28 PM CDT #[id number] - MAMMOGRAM BILAT SCREEN DIGITAL BILATERAL DIGITAL SCREENING MAMMOGRAM WITH CAD: 10/18/2018 CLINICAL: Screening for malignancy. Comparison is made to exams dated: 10/12/2017, 10/17/2016, 10/17/2016 [facility], 08/21/2015, and 07/09/2014 [facility] [place]. The tissue of both breasts is heterogeneously [...] has been electronically signed. Dodie sung/penlinda:10/18/2018 14:10:10 Senior C Software Engineer: Leda Byrd Sr. Crusher And Binder Operator, [facility] letter sent: Mammography Normal Mammogram BI-RADS: 2 Benign G0202 Z85.3 Performing Organization Address City/[facility] Phone Number SMS * OPHTHALMOLOGY [...] y/o, F (: 1955, ) presented to [facility] on 08-06-2018 for a retinal imaging [...] signed by Alonzo Alan MD, , Taxonomy: [id number] on 08-06-2018 11:42:25 [facility] time. NOTE:Any pathology noted on this diabetic retinal evaluation should be confirmed by an appropriate ophthalmic examination. Performing Organization Address [facility] Phone Number IRIS * LIVER [...] (Abs) 2 Specimen Blood Performing Organization Address [facility] Phone Number MISYS BT MAIN-STATION 2 * [...] Am 1 Specimen Blood Performing Organization Address [facility] Phone Number MISYS BT MAIN-STATION 1 * 12 LEAD EKG (07/06/2018 3:59 PM PERISHABLE FREIGHT INSPECTOR) 12 LEAD EKG FOR [facility] Test Date:2018-07-06 Pat Name: MARIBELL Tobias ent: [id number] Room: Gender: F Rn Transitional Care: :1956-0 12-27 Requested By: DENA Hansen Order Number: [id number] Reading MD: Noelle Borrero Measurements Intervals Zenda Rate: 65 P:10 SD: 152 QRS: 28 QRSD: 77 T:53 QT: 382 QTc:399 Interpretive Statements SINUS RHYTHM Electronically Signed On 07-06-2018 16:08:02 PERISHABLE FREIGHT INSPECTOR by Noelle Borrero Specimen Performing Organization Address [facility] Phone Number [facility] * DIABETIC FOOT EXAM (07/06/2018 3:30 PM PERISHABLE FREIGHT INSPECTOR) Only the most recent of 2 results within the time period is included. Narrative Performed At Dena Chavez NP 07/06/20184:36 PM Diabetic Foot Exam was performed at 07/06/2018 4:35 PM.Right foot sensation is normal, right foot pulses are normal, right foot appearance is normal.Left foot sensation is normal,left foot pulses are normal, left foot appearance is normal. after 01/21/2018 Insurance Type Payer Benefit Subscriber ID Effective Phone Address Plan / Dates Group AARP MEDICARE COMPLETE AAR xxxxxxxxx 2016-P [phone] MEDICARE [address] [id number] [place] [address] [facility] x[facility] 2018-P [phone] BEHAVIOR resent [id number] [facility] [id number]
--- OUTSIDE RECORDS SUMMARY | 2019-01-22 01:21 | XMS REPORT | Clinical Summary ---
Author Author [facility] Address Unknown Phone Unavailable Care Team Providers Care Bat Boy/Girl Name Role Phone Asked, No Pcp PCP [...] Manufactur er 11/05/2020 XL 5410 / / [id number] Epifix Xl 4 X 10 - [id number] Surgical N/A: N/A MIMEDX Implanted: Qty: 1 on 05/24/2016 by Implants; [employer] Kandi Pete MD at [facility] Expanders; HOSPITAL Extenders; Surgical Wires [id number] / / Drain Wound Hbls Round Radopaq Surgical N/A: N/A Trocar Radha White 0.25in 19fr - Implants; [id number] Expanders; Implanted: Qty: 1 on 05/24/2016 by Extenders; Kandi Pete MD at [facility] Surgical HOSPITAL Wires 12/06/2020 XL 5410 / / [id number] Epifix Xl 4 X 10 - [id number] Surgical N/A: N/A MIMEDX Implanted: 05/24/2016 at [facility] Implants; [facility] (Quantity not on file) Expanders; Extenders; Surgical Wires Results Not on fileafter 01/21/2018 Insurance Type Payer Benefit Subscriber ID Effective Phone Address Plan / Dates Group Medicare MEDICARE MEDICARE xxxxxxxxxx 2013-P MARTINEZ, PART A AND [place] B Advance Directives For more information, please contact: [phone] Patient Weatherization Director Explanation Type Date Recorded Advance Directives, Living Will and Medical Power of Capsule Filler Date Inactivated Comments Code Status Date Activated 05/26/2016 7:54 PM Full Code 05/24/2016 11:39 PM Code Status decision reached by: Patient
--- OUTSIDE RECORDS SUMMARY | 2019-01-22 01:22 | XMS REPORT | Continuity of Care Document ---
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 Moderate episode of recurrent major depressive disorder Active 10/12/2017 01/22/[address] [facility] Rectal cancer, s/p entire tumor removed 05/24/2016, large bowel recto-sigmoid resection Active 06/02/2016 01/22/[address] [facility] S/P colonoscopy with polypectomy done at [facility] 03/2016 Active 05/10/2016 01/22/[address] [facility] Family history of breast cancer- breast ,colon Active 08/03/2015 01/22/[address] [facility] Diabetes mellitus type II, uncontrolled Active 07/31/2015 01/22/[address] [facility] Hyperlipidemia Active 06/12/2015 01/22/[address] [facility] Thrombocytopenia, unspecified-per ER visit 05/26/2015 Active 06/12/2015 01/22/[address] [facility] S/P colonoscopic polypectomy done at [place] Active 04/23/2015 01/22/[address] [facility] Vitamin D deficiency Active 02/05/2015 01/22/[address] [facility] Osteoporosis Active 02/05/2015 01/22/[address] [facility] Arthralgia Active 02/05/2015 01/22/[address] [facility] Shoulder pain Active 09/18/2014 01/22/[address] [facility] PTSD - sisters dying (grief... per patient) Active 09/05/2014 11/13/[address] [facility] Shoulder injury Active 09/05/2014 01/22/[address] [facility] PTSD (post-traumatic stress disorder) - sisters dying (grief... per patient) Active 09/05/2014 01/22/[address] [facility] Ankle pain, left- per history had fracture 2012 -intermittent pain Active 10/12/2012 11/13/[address] [facility] Ankle pain, left- per history had fracture 2012 -intermittent pain Active 10/12/2012 01/22/[address] [facility] Depressive disorder Active 06/14/2012 01/22/[address] [facility] Unspecified hypothyroidism Active 06/14/2012 01/22/[address] [facility] Unspecified hearing loss Active 06/14/2012 01/22/[address] [facility] Tympanic membrane rupture Active 06/14/2012 01/22/[address] [facility] Broken tooth Active 04/27/2012 01/22/[address] [facility] Osteopenia Active 04/11/2012 01/22/[address] [facility] Osteoporosis, unspecified Active 04/11/2012 01/22/[address] [facility] PTSD Active 11/13/[address] [facility] Hypothyroidism, unspecified type Active 01/22/[address] [facility] Hyperlipidemia, unspecified hyperlipidemia type Active 01/22/[address] [facility] Type 2 diabetes mellitus without complication, without long-term current use of insulin Active 01/22/[address] [facility] Preventative health care Active 01/22/[address] [facility] Pain in both knees, unspecified chronicity Active 01/22/[address] [facility] Grief Active 01/22/[address] [facility] MDD , severe Active 11/13/[address] [facility] Controlled type 2 diabetes mellitus with complication, without long-term current use of insulin Active 01/22/[address] [facility] Senile osteoporosis Active 01/22/[address] [facility] Pressure in chest Active 01/22/[address] [facility] Upper respiratory infection with cough and congestion Active 01/22/[address] [facility] Controlled type 2 diabetes mellitus without complication, without long-term current use of insulin Active 01/22/[address] [facility] Perforated ear drum, bilateral Active 01/22/[address] [facility] MDD , recurrent episode, moderate Active 11/13/[address] [facility] Flu vaccine need Active 01/22/[address] [facility] Dietary counseling Active 01/22/[address] [facility] Exercise counseling Active 01/22/[address] [facility] Seasonal allergic rhinitis, unspecified trigger Active 01/22/[address] [facility] Pain in joint, multiple sites Active 01/22/[address] [facility] Need for wqweqomxaf-jykunuw-terksvldp vaccine Active 11/13/[address] [facility] Hypertriglyceridemia Active 01/22/[address] [facility] PTSD (post-traumatic stress disorder) Active 01/22/[address] [facility] MDD (major depressive disorder), severe Active 01/22/[address] [facility] MDD (major depressive disorder), recurrent episode, moderate Active 01/22/[address] [facility] Need for yyfemsixyj-ezltdba-rvxpzqyag (Tdap) vaccine Active 01/22/[address] [facility] Sebaceous cyst Active 01/22/[address] [facility] Dry skin dermatitis Active 01/22/[address] [facility] Medications Medication Details Route Status Patient Instructions Ordering Provider Order Date Source ammonium lactate (LAC-HYDRIN) 12 % lotion Apply to affected area as needed for dry skin. Topical Inactive 01/10/[address] [facility] traZODone (DESYREL) 50 mg tablet Take 1/2 to 2 tablets by mouth nightly at bedtime as needed for Sleep. Oral Active 01/10/[address] [facility] busPIRone (BUSPAR) 10 mg tablet Take 1 tablet by mouth 3 times daily For anxiety.. Oral Active 01/10/[address] [facility] FLUoxetine (PROZAC) 20 mg capsule Take 1 capsule by mouth daily For depression. Oral Active 01/10/[address] [facility] fenofibrate (LOFIBRA) 160 mg tablet TAKE 1 TABLET BY MOUTH EVERY DAY Active 12/25/[address] [facility] metFORMIN (GLUCOPHAGE) 500 mg tablet TAKE 1 TABLET BY MOUTH TWICE DAILY WITH FOOD. Active 12/25/[address] [facility] levothyroxine (SYNTHROID) 88 mcg tablet TAKE 1 TABLET BY MOUTH EVERY MORNING BEFORE BREAKFAST. Inactive 11/29/[address] [facility] atorvastatin (LIPITOR) 20 mg tablet Take 1 tablet by mouth at bedtime nightly. Oral Inactive 11/29/[address] [facility] traMADol (ULTRAM) 50 mg tablet Take 1 tablet by mouth every 8 hours as needed for Pain. Oral Inactive 11/29/[address] [facility] traZODone (DESYREL) 50 mg tablet Take 1/2 to 2 tablets by mouth nightly at bedtime as needed for Sleep. Oral No Longer Active 11/15/[address] [facility] busPIRone (BUSPAR) 10 mg tablet Take 1 tablet by mouth 3 times daily For anxiety.. Oral No Longer Active 11/15/[address] [facility] levothyroxine (SYNTHROID) 75 mcg tablet TAKE 1 TABLET BY MOUTH EVERY MORNING BEFORE BREAKFAST No Longer Active 09/26/[address] [facility] busPIRone (BUSPAR) 10 mg tablet Take 1 tablet by mouth 3 times daily For anxiety.. Oral No Longer Active 09/24/[address] [facility] traMADol (ULTRAM) 50 mg tablet Take 1 tablet by mouth every 8 hours as needed for Pain. Oral No Longer Active 09/14/[address] [facility] naproxen (NAPROSYN) 500 mg tablet Take 1 tablet by mouth 2 times daily as needed for Pain (take with food) (1 [id number] mg). Oral Inactive 09/13/[address] [facility] busPIRone (BUSPAR) 10 mg tablet Take 1 tablet by mouth 3 times daily For anxiety.. Oral No Longer Active 08/23/[address] [facility] FLUoxetine (PROZAC) 20 mg capsule Take 1 capsule by mouth daily For depression. Oral No Longer Active 08/23/[address] [facility] traZODone (DESYREL) 50 mg tablet Take 0.5-2 tablets by mouth nightly at bedtime as needed for Sleep. Oral No Longer Active 08/23/[address] [facility] naproxen (NAPROSYN) 500 mg tablet TAKE 1 TABLET BY MOUTH TWICE DAILY WITH FOOD No Longer Active 07/09/[address] [facility] tropicamide (MYDRIACYL) 0.5 % ophthalmic solution Instill 1 Drop in each eye once as needed for up to 1 dose (for poor retina scan image). No Longer Active 07/06/[address] [facility] blood glucose meter (ACCU-CHEK RASHIDA PLUS METER) Use as directed.. Active 07/06/[address] [facility] blood glucose (ACCU-CHEK RASHIDA PLUS TEST STRP) test strips Use 2 times daily to test blood sugar. Active 07/06/[address] [facility] lancets (ACCU-CHEK SOFTCLIX LANCETS) Use 2 times daily to check blood sugar. Active 07/06/[address] [facility] metFORMIN (GLUCOPHAGE) 500 mg tablet TAKE 1 TABLET BY MOUTH TWICE DAILY WITH MEALS. No Longer Active 07/06/[address] [facility] sertraline (ZOLOFT) 100 mg tablet Take 2 tablets by mouth daily For depression and anxiety. Take every day, do not skip doses.. Oral No Longer Active 07/06/[address] [facility] alendronate (FOSAMAX) 70 mg tablet Take 1 tablet once a week on empty stomach with 8 oz of water and remain upright for 30 minutes. Active 07/06/[address] [facility] fenofibrate (LOFIBRA) 160 mg tablet Take 1 tablet by mouth daily. Oral No Longer Active 07/06/[address] [facility] naproxen (NAPROSYN) 500 mg tablet Take 1 tablet by mouth 2 times daily (with meals). Oral Inactive 07/06/[address] [facility] traMADol (ULTRAM) 50 mg tablet Take 1 tablet by mouth every 8 hours as needed for Pain. Oral No Longer Active 07/06/[address] [facility] azithromycin (ZITHROMAX) 250 mg tablet Take 2 tablets by mouth on the first day, then take one tablet every day for the next 4 days. No Longer Active 07/06/[address] [facility] loratadine (CLARITIN) 10 mg tablet Take 1 tablet by mouth daily. Oral Active 07/06/[address] [facility] benzonatate (TESSALON PERLES) 100 mg capsule Take 2 capsules by mouth 3 times daily as needed for Cough. Oral Active 07/06/[address] [facility] metFORMIN (GLUCOPHAGE) 500 mg tablet TAKE 1 TABLET BY MOUTH TWICE DAILY WITH MEALS No Longer Active 06/29/[address] [facility] levothyroxine (SYNTHROID) 75 mcg tablet TAKE 1 TABLET BY MOUTH EVERY MORNING BEFORE BREAKFAST No Longer Active 06/14/[address] [facility] levothyroxine (SYNTHROID) 75 mcg tablet TAKE 1 TABLET BY MOUTH EVERY MORNING BEFORE BREAKFAST No Longer Active 04/12/[address] [facility] Tramadol 50 Mg Tablet Take 1 tablet by mouth every 8 hours as needed for Pain. Oral Active 02/14/[address] [facility] Naproxen 500 Mg Tablet Naprosyn 500 Mg Tablet Take 1 tablet by mouth 2 times daily (with meals). Oral Active 02/14/[address] [facility] Buspirone 7.5 Mg Tablet Take 1 tablet by mouth 3 times daily For anxiety.. Oral Active 02/14/[address] [facility] Sertraline 100 Mg Tablet Take 2 tablets by mouth daily For depression and anxiety. Take every day, do not skip doses.. Oral Active 02/14/[address] [facility] traMADol (ULTRAM) 50 mg tablet Take 1 tablet by mouth every 8 hours as needed for Pain. Oral No Longer Active 02/14/[address] [facility] naproxen (NAPROSYN) 500 mg tablet Take 1 tablet by mouth 2 times daily (with meals). Oral No Longer Active 02/14/[address] [facility] busPIRone (BUSPAR) 7.5 mg tablet Take 1 tablet by mouth 3 times daily For anxiety.. Oral No Longer Active 02/14/[address] [facility] sertraline (ZOLOFT) 100 mg tablet Take 2 tablets by mouth daily For depression and anxiety. Take every day, do not skip doses.. Oral No Longer Active 02/14/[address] [facility] Triamcinolone Acetonide 40 Mg/Ml Suspension For Injection INTRA-ARTICULAR Inactive 01/17/[address] [facility] Lidocaine 10 Mg/Ml (1 %) Injection Solution Injection Inactive 01/17/[address] [facility] triamcinolone acetonide (KENALOG-40) injection 40 mg INTRA-ARTICULAR Inactive 01/17/[address] [facility] lidocaine 1 % (XYLOCAINE) injection 2 mL Injection Inactive 01/17/[address] [facility] Tramadol 50 Mg Tablet Take 1 tablet by mouth every 8 hours as needed for Pain. Oral No Longer Active 12/29/[address] [facility] traMADol (ULTRAM) 50 mg tablet Take 1 tablet by mouth every 8 hours as needed for Pain. Oral No Longer Active 12/29/[address] [facility] Sertraline 100 Mg Tablet Take 2 tablets by mouth daily For depression and anxiety. Take every day, do not skip doses.. Oral No Longer Active 12/28/[address] [facility] Buspirone 7.5 Mg Tablet Take 1 tablet by mouth 3 times daily For anxiety.. Oral No Longer Active 12/28/[address] [facility] sertraline (ZOLOFT) 100 mg tablet Take 2 tablets by mouth daily For depression and anxiety. Take every day, do not skip doses.. Oral No Longer Active 12/28/[address] [facility] busPIRone (BUSPAR) 7.5 mg tablet Take 1 tablet by mouth 3 times daily For anxiety.. Oral No Longer Active 12/28/[address] [facility] Blood-Glucose Meter Accu-Chek Rashida Plus Meter Use as directed.. Active 11/01/[address] [facility] Blood Sugar Diagnostic Strips Accu-Chek Rashida Plus Test Strips Use 2 times weekly (once per day on Mon,) to test blood sugar. Active 11/01/[address] [facility] Lancets Accu-Chek Softclix Lancets Use 2 times weekly as directed. Active 11/01/[address] [facility] Tramadol 50 Mg Tablet Take 1 tablet by mouth every 8 hours as needed for Pain. Oral No Longer Active 11/01/[address] [facility] blood glucose meter (ACCU-CHEK RASHIDA PLUS METER) Use as directed.. No Longer Active 11/01/[address] [facility] blood glucose (ACCU-CHEK RASHIDA PLUS TEST STRP) test strips Use 2 times weekly (once per day on Mon,) to test blood sugar. No Longer Active 11/01/[address] [facility] lancets (ACCU-CHEK SOFTCLIX LANCETS) Use 2 times weekly as directed. No Longer Active 11/01/[address] [facility] traMADol (ULTRAM) 50 mg tablet Take 1 tablet by mouth every 8 hours as needed for Pain. Oral No Longer Active 11/01/[address] [facility] Sertraline 100 Mg Tablet Take 2 tablets by mouth daily For depression and anxiety. Take every day, do not skip doses.. Oral No Longer Active 10/12/[address] [facility] Buspirone 5 Mg Tablet Take 1 tablet by mouth 3 times daily . For anxiety.. Oral No Longer Active 10/12/[address] [facility] sertraline (ZOLOFT) 100 mg tablet Take 2 tablets by mouth daily For depression and anxiety. Take every day, do not skip doses.. Oral No Longer Active 10/12/[address] [facility] busPIRone (BUSPAR) 5 mg tablet Take 1 tablet by mouth 3 times daily . For anxiety.. Oral No Longer Active 10/12/[address] [facility] Tramadol 50 Mg Tablet Take 1 tablet by mouth every 8 hours as needed for Pain. Oral Inactive 09/13/[address] [facility] Sertraline 100 Mg Tablet Take 1.5 tablets by mouth daily For depression and anxiety. Take every day, do not skip doses.. Oral No Longer Active 07/27/[address] [facility] Buspirone 5 Mg Tablet Take 1 tablet by mouth 3 times daily . For anxiety.. Oral No Longer Active 07/27/[address] [facility] Tropicamide 0.5 % Eye Drops Instill 1 Drop in each eye once as needed for up to 1 dose (for poor retina scan image). No Longer Active 06/01/[address] [facility] Levothyroxine 75 McG Tablet Take 1 tablet by mouth every morning (before breakfast). Oral Active 06/01/[address] [facility] Fenofibrate 160 Mg Tablet Take 1 tablet by mouth daily. Oral Active 06/01/[address] [facility] Metformin 500 Mg Tablet Take 1 tablet by mouth 2 times daily (with meals). Oral Active 06/01/[address] [facility] Alendronate 70 Mg Tablet Take 1 tablet once a week on empty stomach with 8 oz of water and remain upright for 30 minutes. Active 06/01/[address] [facility] Buspirone 5 Mg Tablet Take 1 tablet by mouth 3 times daily . For anxiety.. Oral No Longer Active 06/01/[address] [facility] Sertraline 100 Mg Tablet Take 1 tablet by mouth daily For depression and anxiety. Take every day, do not skip doses.. Oral No Longer Active 06/01/[address] [facility] Azelastine 0.05 % Eye Drops Instill 1 Drop in each eye 2 times daily. Active 06/01/[address] [facility] Tramadol 50 Mg Tablet Take 1 tablet by mouth every 8 hours as needed for Pain. Oral No Longer Active 06/01/[address] [facility] levothyroxine (SYNTHROID) 75 mcg tablet Take 1 tablet by mouth every morning (before breakfast). Oral No Longer Active 06/01/[address] [facility] fenofibrate (LOFIBRA) 160 mg tablet Take 1 tablet by mouth daily. Oral No Longer Active 06/01/[address] [facility] metFORMIN (GLUCOPHAGE) 500 mg tablet Take 1 tablet by mouth 2 times daily (with meals). Oral No Longer Active 06/01/[address] [facility] alendronate (FOSAMAX) 70 mg tablet Take 1 tablet once a week on empty stomach with 8 oz of water and remain upright for 30 minutes. No Longer Active 06/01/[address] [facility] azelastine (OPTIVAR) 0.05 % ophthalmic solution Instill 1 Drop in each eye 2 times daily. Active 06/01/[address] [facility] Tramadol 50 Mg Tablet TAKE 1 TABLET BY MOUTH EVERY 8 HOURS NEEDED FOR PAIN Oral No Longer Active 04/14/[address] [facility] Lidocaine 10 Mg/Ml (1 %) Injection Solution Injection Inactive 04/07/[address] [facility] triamcinolone acetonide (KENALOG-40) injection 40 mg INTRA-ARTICULAR Inactive 04/07/[address] [facility] Ergocalciferol (Vitamin D2) 50,000 Unit Capsule Vitamin D2 50,000 Unit Capsule Take 1 capsule by mouth weekly. Oral Active 02/22/[address] [facility] ergocalciferol (VITAMIN D2) 50,000 unit capsule Take 1 capsule by mouth weekly. Oral No Longer Active 02/22/[address] [facility] Tramadol 50 Mg Tablet Ultram 50 Mg Tablet Take 1 tablet by mouth every 8 hours as needed for Pain. Oral No Longer Active [address] [facility] Sertraline 100 Mg Tablet Take 1 tablet by mouth daily For depression and anxiety. Take every day, do not skip doses.. Oral No Longer Active 12/22/[address] [facility] Buspirone 5 Mg Tablet Take 1 tablet by mouth 3 times daily . For anxiety.. Oral No Longer Active 12/22/[address] [facility] Alendronate 70 Mg Tablet Take 1 tablet once a week on empty stomach with 8 oz of water and remain upright for 30 minutes. No Longer Active 09/15/[address] [facility] Levothyroxine 75 McG Tablet Take 1 tablet by mouth every morning (before breakfast). Oral No Longer Active 09/15/[address] [facility] Fenofibrate 160 Mg Tablet Take 1 tablet by mouth daily. Oral No Longer Active 09/15/[address] [facility] Metformin 500 Mg Tablet Take 1 tablet by mouth 2 times daily (with meals). Oral No Longer Active 09/15/[address] [facility] Lancets 28 Gauge 1 Each 2 times weekly. Active 05/12/[address] [facility] Blood Sugar Diagnostic Strips 1 Each 2 times weekly. Active 05/12/[address] [facility] lancets 28 gauge 1 Each 2 times weekly. No Longer Active 05/12/[address] [facility] blood glucose test strips 1 Each 2 times weekly. No Longer Active 05/12/[address] [facility] Blood-Glucose Meter Use as directed 2 times weekly. Active 05/10/[address] [facility] blood glucose meter Use as directed 2 times weekly. No Longer Active 05/10/[address] [facility] Hydrocortisone Acetate 25 Mg Rectal Suppository Anusol-Hc 25 Mg Rectal Suppository Insert 1 Suppository rectally 2 times daily as needed for hemorrhoids. Rectal Active 06/10/[address] [facility] hydrocortisone (ANUSOL-HC) 25 mg rectal suppository Insert 1 Suppository rectally 2 times daily as needed for hemorrhoids. Rectal No Longer Active 06/10/[address] [facility] Allergies, Adverse Reactions, Alerts Substance Category Reaction Severity Reaction type Status Date Reported Comments Source Penicillin G Propensity to adverse reactions to drug Active 03/26/[address] [facility] Penicillins Itching, Rash Low, Low Propensity to adverse reactions to drug Active 04/29/[address] [facility] Penicillin Unknown Allergy to Substance Active 01/20/2019 [facility] Trazodone Unknown Allergy to Substance Active 01/20/2019 [facility] Immunizations Immunization Date Given Site Status Last Updated Comments Source Tropicamide 0.5% Eye-Annabel 15ml 08/06/2018 completed Jose Armando [facility] Influenza, Vaccine<FLUCELVAX>(Multi-Dose) 02/14/[address] [facility] TDap (Tetanus Toxoid, Reduced Diphtheria Toxoid And Acellular Pertussis, Absorbed) 02/14/[address] [facility] Influenza, Vaccine<FLUCELVAX>(Multi-Dose) 02/14/[address] [facility] Tdap (Tetanus Toxoid, Reduced Diphtheria Toxoid And Acellular Pertussis, Absorbed) 02/14/[address] [facility] Influenza Vaccine, Seasonal, Injectable 06/01/2017 Not Given Deferred: Patient Refused - refused [facility] Influenza Vaccine 04/09/[address] [facility] Influenza Vaccine 07/31/2014 Not Given Deferred: Patient already had this immunization [facility] PNEUMOCOCCAL 23-VALPS VACCINE 25 MCG/0.5 ML INJECTION 07/31/2014 completed [facility] Influenza Vaccine 02/08/[address] [facility] DTaP Diphtheria, Tetanus, Acellular, Pertussis 02/27/2008 [facility] Results Order Name Results Value Reference Range Date Interpretation Comments Source Blood leukocytes automated count (number/volume) 9.55 4.8 - 10.8 01/20/2019 [facility] Blood erythrocytes automated count (number/volume) 4.54 3.6 - 5.1 01/20/2019 [facility] Blood hemoglobin measurement (moles/volume) 13.7 12.0 - 16.0 01/20/2019 [facility] Automated blood hematocrit (volume fraction) 37.8 34.2 - 44.1 01/20/2019 [facility] Automated erythrocyte mean corpuscular volume 83.3 81 - 99 01/20/2019 [facility] Automated erythrocyte mean corpuscular hemoglobin (mass per erythrocyte) 30.2 28 - 32 01/20/2019 [facility] Automated erythrocyte mean corpuscular hemoglobin concentration measurement (mass/volume) 36.2 31 - 35 01/20/2019 [facility] RDW BldCo-Rto 11.9 11.7 - 14.4 01/20/2019 [facility] Automated blood platelet count (count/volume) 295 140 - 360 01/20/2019 [facility] Automated blood segmented neutrophil count as percentage of total leukocytes 71.9 38.7 - 80.0 01/20/2019 [facility] Automated blood lymphocyte count as percentage ot total leukocytes 18.5 18.0 - 39.1 01/20/2019 [facility] Automated blood monocyte count as percentage of total leukocytes 7.9 4.4 - 11.3 01/20/2019 [facility] Automated blood eosinophil count as percentage of total leukocytes 0.8 0.0 - 6.0 01/20/2019 [facility] Automated blood basophil count as percentage of total leukocytes 0.4 0.0 - 1.0 01/20/2019 [facility] IM GRANULOCYTES % 0.5 0.0 - 1.0 01/20/2019 [facility] Automated blood neutrophil count 6.9 2.1 - 6.9 01/20/2019 [facility] Blood lymphocytes count (number/volume) 1.8 1.0 - 3.2 01/20/2019 [facility] Blood monocytes automated count (number/volume) 0.8 0.2 - 0.8 01/20/2019 [facility] Automated blood eosinophil count 0.1 0.0 - 0.4 01/20/2019 [facility] Automated blood basophil count (count/volume) 0.0 0.0 - 0.1 01/20/2019 [facility] Absolute Immature Granulocyte (auto 0.05 0 - 0.1 01/20/2019 [facility] Urine color determination YELLOW YELLOW 01/20/2019 [facility] Urine clarity CLEAR CLEAR 01/20/2019 [facility] Specific gravity of Urine by Test strip <=1.005 1.010 - 1.025 01/20/2019 [facility] Urine pH measurement by automated test strip 6 5 - 7 01/20/2019 [facility] Urine leukocyte esterase detection by automated test strip SMALL NEGATIVE 01/20/2019 [facility] Urine nitrite detection by automated test strip NEGATIVE NEGATIVE 01/20/2019 [facility] Urine protein detection by automated test strip NEGATIVE NEGATIVE 01/20/2019 [facility] Urine glucose detection by automated test strip NEGATIVE NEGATIVE 01/20/2019 [facility] Urine ketones detection by automated test strip NEGATIVE NEGATIVE 01/20/2019 [facility] Urine urobilinogen measurement by test strip (mass/volume) 0.2 0.2 - 1 01/20/2019 [facility] Urine total bilirubin detection NEGATIVE NEGATIVE 01/20/2019 [facility] Urine erythrocytes detection NEGATIVE NEGATIVE 01/20/2019 [facility] Automated urine sediment leukocyte count by microscopy (number/high power field) 6-10 0 - 5 01/20/2019 [facility] Erythrocytes detection in urine sediment by light microscopy 0-5 0 - 5 01/20/2019 [facility] Bacteria detection in urine sediment by light microscopy MODERATE NONE 01/20/2019 [facility] Epithelial cells detection in urine sediment by light microscopy FEW NONE 01/20/2019 [facility] Serum or plasma sodium measurement (moles/volume) 135 136 - 145 01/20/2019 [facility] Serum or plasma potassium measurement (moles/volume) 3.3 3.5 - 5.1 01/20/2019 [facility] Serum or plasma chloride measurement (moles/volume) 97 98 - 107 01/20/2019 [facility] Serum or plasma carbon dioxide, total measurement (moles/volume) 28 22 - 29 01/20/2019 [facility] Serum or plasma anion gap 13.3 8 - 16 01/20/2019 [facility] Serum or plasma urea nitrogen measurement (mass/volume) 5 7 - 26 01/20/2019 [facility] Serum or plasma creatinine measurement (mass/volume) 0.82 0.57 - 1.11 01/20/2019 [facility] Serum or plasma urea nitrogen/creatinine mass ratio 6 6 - 25 01/20/2019 [facility] Estimated glomerular filtration rate (GFR) determination > 60 60 01/20/2019 [facility] Glucose measurement 164 74 - 118 01/20/2019 [facility] Serum or plasma calcium measurement (mass/volume) 9.2 8.4 - 10.2 01/20/2019 [facility] Serum or plasma total bilirubin measurement (mass/volume) 0.7 0.2 - 1.2 01/20/2019 [facility] Aspartate Amino Transf (AST/SGOT) 15 5 - 34 01/20/2019 [facility] Serum or plasma alanine aminotransferase measurement (enzymatic activity/volume) 16 0 - 55 01/20/2019 [facility] Serum or plasma protein measurement (mass/volume) 7.1 6.5 - 8.1 01/20/2019 [facility] Serum or plasma albumin measurement (mass/volume) 3.7 3.5 - 5.0 01/20/2019 [facility] Plasma globulin measurement (mass/volume) 3.4 2.3 - 3.5 01/20/2019 [facility] Serum or plasma albumin/globulin mass ratio 1.1 0.8 - 2.0 01/20/2019 [facility] Serum or plasma alkaline phosphatase measurement (enzymatic activity/volume) 119 40 - 150 01/20/2019 [facility] Serum or plasma lipase measurement (enzymatic activity/volume) 22 8 - 78 01/20/2019 [facility] FREE T4 Free T4 0.97 0.61 - 1.18 11/13/[address] [facility] FREE T4 Lab Interpretation Normal 11/13/[address] [facility] TSH TSH 5.13 0.57 - 3.74 11/13/2018 If , please see the following reference ranges (not verified by lab):

1st Trimester: 0.05 -3.70 uIU/mL
2nd Trimester: 0.31 -4.35 uIU/mL
3rd Trimester: 0.41 - 5.18 uIU/mL
[facility] TSH Lab Interpretation Abnormal 11/13/[address] [facility] ALT/AST ALT 13 7 - 52 11/13/[address] [facility] ALT/AST AST 10 13 - 39 11/13/[address] [facility] ALT/AST Lab Interpretation Abnormal 11/13/[address] [facility] GLUCOSE Glucose 145 70 - 110 11/13/[address] [facility] GLUCOSE Lab Interpretation Abnormal 11/13/[address] [facility] LIPID PROFILE Triglyceride 369 <150 11/13/2018 Normal: < 150.0 mg/dL
Borderline: 150-199 mg/dL
High: 200- 499 mg/dL
Very High: >=500 mg/dL
[facility] LIPID PROFILE <td ID="[id number]">Cholesterol</td><td><span>200.0</span>
<span style="allIndent"><span style="cellHeader">Comment: </span>
<span ID="[id number]" style="pre">Desirable: < 200.0 mg/dL
Borderline: 200 - 240 mg/dL
High Risk: > 240 mg/dL
</span&gt ;</span></td><td><=200.0 mg/dL</td><td>[facility]</td><td ID="[id number]"/> 200.0 <=200.0 11/13/2018 Desirable: < 200.0 mg/dL
Borderline: 200 - 240 mg/dL
High Risk: > 240 mg/dL
[facility] LIPID PROFILE <td ID="[id number]">HDL</td><td><span>41.0</span>
<span style="allIndent"><span style="cellHeader">Comment: </span>
<span ID="[id number]" style="pre">Increased CHD Risk: < 40.0 mg/dL
Decreased CHD Risk: > 60 mg/dL
</span></span></td><td>See Reference Range Narrative. mg/dL</td><td>[facility]</td><td ID="[id number]"/> 41.0 See Reference Range Narrative. 11/13/2018 Increased CHD Risk: < 40.0 mg/dL
Decreased CHD Risk: > 60 mg/dL
[facility] LIPID PROFILE <td ID="[id number]">LDL</td><td><span>85</span>
<span style="allIndent"><span style="cellHeader">Comment: </span>
<span ID="[id number]" style="pre">Optimal: < 100.0 mg/dL
Near Optimal: 120-129 mg/dL
Borderline: 130-159 mg/dL
High: 160-189 mg/dL
Very High: >=190 mg/dL
</span></span></td><td><100 mg/dL</td><td>[facility]</td><td ID="[id number]"/> 85 <100 11/13/2018 Optimal: < 100.0 mg/dL
Near Optimal: 120-129 mg/dL
Borderline: 130-159 mg/dL
High: 160-189 mg/dL
Very High: >=190 mg/dL
[facility] LIPID PROFILE Lab Interpretation Abnormal 11/13/[address] [facility] MICROALBUM, URINE Microalbumin, Random <0.7 <30.0 mg/dL 11/13/[address] [facility] MICROALBUM, URINE Creatinine, Urine 128 20 - 320 11/13/[address] [facility] MICROALBUM, URINE Urine Microalbumin <5.5 0 - 30 11/13/[address] [facility] MICROALBUM, URINE Lab Interpretation Normal 11/13/[address] [facility] HEMOGLOBIN A1C <td ID="[id number]">Hemoglobin A1c</td><td>7.1</td><td>%</td><td>[facility]</td><td ID="[id number]"/> 7.1 11/13/[address] [facility] HEMOGLOBIN A1C Estimated Average Glucose 157 70 - 110 11/13/[address] [facility] HEMOGLOBIN A1C Lab Interpretation Abnormal 11/13/[address] [facility] MAMMOGRAM BILAT SCREEN DIGITAL <p>IMPRESSION: BENIGN</p><p>There is no mammographic evidence of malignancy. A 1 year </p><p>screening mammogram is recommended.</p><p>This document has been electronically signed.</p><p> </p><p>Dodie Parada M.D.</p><p>aar/penrad:10/18/2018 14:10:10</p><p> </p><p>[employer]: [employer], </p><p>[facility]</p><p>letter sent: Mammography Normal</p><p>Mammogram BI-RADS: 2 Benign G0202 Z85.3</p> IMPRESSION: BENIGNThere is no mammographic evidence of malignancy. A 1 year screening mammogram is recommended.This document has been electronically signed. Dodie Parada M.D.aar/penrad:10/18/2018 14:10:10 Manager [employer]: [employer] NormalMammogram BI-RADS: 2 Benign G0202 Z85.3 10/18/[address] [facility] MAMMOGRAM BILAT SCREEN DIGITAL <p> </p><p>#[id number] - MAMMOGRAM BILAT SCREEN DIGITAL</p><p>BILATERAL DIGITAL SCREENING MAMMOGRAM WITH CAD: 10/18/2018</p><p>CLINICAL: Screening for malignancy.</p><p> </p><p>Comparison is made to exams dated:10/12/2017, 10/17/2016, 10/17/2016</p><p> [facility], 08/21/2015, and 07/09/2014 [facility] </p><p>[facility].</p><p>The tissue of both breasts is heterogeneously dense. This may </p><p>lower the sensitivity of mammography.</p><p>Current study was also evaluated with a Computer Aided Detection </p><p>(CAD) system.</p><p>There are benign calcifications in both breasts.There also are </p><p>benign masses in both breasts.</p><p>No significant masses, calcifications, or other findings are seen </p><p>in either breast.</p><p> </p> #[id number] - MAMMOGRAM BILAT SCREEN DIGITALBILATERAL DIGITAL SCREENING MAMMOGRAM WITH CAD: 10/18/2018CLINICAL: Screening for malignancy. Comparison is made to exams dated:10/12/2017, 10/17/2016, 10/17/2016 [facility], 08/21/2015, and 07/09/2014 [facility].The tissue of both breasts is heterogeneously dense. This may lower the sensitivity of mammography.Current study was also evaluated with a Computer Aided Detection (CAD) system.There are benign calcifications in both breasts.There also are benign masses in both breasts.No significant masses, calcifications, or other findings are seen in either breast. 10/18/[address] [facility] MAMMOGRAM BILAT SCREEN DIGITAL <p styleCode="header">Interface, Rad/Mammog In - 10/18/2018 2:28 PM CDT</p><p>
<span>#[id number] - MAMMOGRAM BILAT SCREEN DIGITAL</span>
<span>BILATERAL DIGITAL SCREENING MAMMOGRAM WITH CAD: 10/18/2018</span>
<span>CLINICAL: Screening for malignancy. </span>

<span>Comparison is made to exams dated: 10/12/2017, 10/17/2016, 10/17/2016</span>
<span> [facility], 08/21/2015, and 07/09/2014 [facility] </span>
<span>[facility]. </span>
<span>The tissue [...] Parada M.D. </span>
<span>ana lilia/roni:10/18/2018 14:10:10 </span>

<span>Manager [employer]: [employer], </span>
<span>[facility]</span>
<span>letter sent: Mammography Normal </span>
<span>Mammogram BI-RADS: 2 Benign G0202 Z85.3</span></p> Interface, Rad/Mammog In - 10/18/2018 2:28 PM CDT #[id number] - MAMMOGRAM BILAT SCREEN DIGITAL BILATERAL DIGITAL SCREENING MAMMOGRAM WITH CAD: 10/18/2018 CLINICAL: Screening for malignancy. Comparison is made to exams dated: 10/12/2017, 10/17/2016, 10/17/2016 [facility], 08/21/2015, and 07/09/2014 [facility]. The tissue of both [...] electronically signed. Dodie Parada M.D. aar/penrad:10/18/2018 14:10:10 Manager [employer]: [employer], [facility] letter sent: Mammography Normal Mammogram BI-RADS: 2 Benign G0202 Z85.3 10/18/[address] [facility] HEMOGLOBIN A1C <td ID="[id number]">Hemoglobin A1c</td><td><span style="flagData">7.5</span><span style="flagData"> (H)</span></td><td>4.3 - 6.1 %</td><td>[facility]</td><td ID="[id number]"/> 7.5 4.3 - 6.1 08/07/[address] [facility] HEMOGLOBIN A1C Est Average Gluc 168.6 08/07/[address] [facility] HEMOGLOBIN A1C Lab Interpretation Abnormal 08/07/[address] [facility] OPHTHALMOLOGY RETINAL SCAN RETINAL SCAN-FINAL RESULT NORMAL 08/06/[address] [facility] OPHTHALMOLOGY RETINAL SCAN Right Diabetic Retinopathy None 08/06/[address] [facility] OPHTHALMOLOGY RETINAL SCAN Right Macular Edema None 08/06/[address] [facility] OPHTHALMOLOGY RETINAL SCAN Right Other Suspected Conditions None 08/06/[address] [facility] OPHTHALMOLOGY RETINAL SCAN Right Image Quality Gradeable Image 08/06/[address] [facility] OPHTHALMOLOGY RETINAL SCAN Left Diabetic Retinopathy None 08/06/[address] [facility] OPHTHALMOLOGY RETINAL SCAN Left Macular Edema None 08/06/[address] [facility] OPHTHALMOLOGY RETINAL SCAN Left Other Suspected Conditions None 08/06/[address] [facility] OPHTHALMOLOGY RETINAL SCAN Left Image Quality Gradeable Image 08/06/[address] [facility] OPHTHALMOLOGY RETINAL SCAN <p>Retinal Study Result for MARA FRANCES</p><p> </p><p>MARA FRANCES a 62 y/o, F (: 1955, )</p><p>presented to [facility] on [...] signed by Alonzo Alan MD, , Taxonomy: [id number] on 08-06-2018 11:42:25 UTC time.</p><p> </p><p>NOTE:Any pathology noted on this diabetic retinal evaluation should be confirmed by an appropriate ophthalmic examination.</p> Retinal Study Result for MARA FRANCES MAGDALENA, a 62 y/o, F (: 1955, )presented to [facility] on [...] signed by Alonzo Alan MD, , Taxonomy: [id number] on 08-06-2018 11:42:25 UTC time. NOTE:Any pathology noted on this diabetic retinal evaluation should be confirmed by an appropriate ophthalmic examination. 08/06/[address] [facility] TSH <td ID="[id number]">TSH</td><td><span style="flagData">5.51</span><span style="flagData"> (H)</span></td><td>0.57 - 3.74 uIU/mL</td><td>[facility]IN-STATION [facility]</td><td ID="[id number]"/> 5.51 0.57 - 3.74 08/06/[address] [facility] TSH Lab Interpretation Abnormal 08/06/[address] [facility] BASIC METABOLIC PANEL <td ID="[id number]">CO2</td><td><span style="flagData">33</span><span style="flagData"> (H)</span></td><td>21 - 31 mmol/L</td><td>BT MAIN-STATION 1</td><td ID=&a mp;quot;[id number]"/> 33 21 - 31 08/06/[address] [facility] BASIC METABOLIC PANEL <td ID="[id number]">Chloride</td><td>103</td><td>98 - 107 mmol/L</td><td>BT MAIN-STATION 1</td><td ID="[id number]"/> 103 98 - 107 08/06/[address] [facility] BASIC METABOLIC PANEL <td ID="[id number]">Potassium</td><td>4.0</td><td>3.5 - 5.1 mmol/L</td><td>BT MAIN-STATION 1</td><td ID="[id number]"/> 4.0 3.5 - 5.1 08/06/[address] [facility] BASIC METABOLIC PANEL <td ID="[id number]">Sodium</td><td>140</td><td>136 - 145 mmol/L</td><td>BT MAIN-STATION 1</td><td ID="[id number]"/> 140 136 - 145 08/06/2018 [facility] BASIC METABOLIC PANEL <td ID="[id number]">Glucose</td><td><span style="flagData">130</span><span style="flagData"> (H)</span></td><td>70 - 110 mg/dL</td><td>BT MAIN-STATION 1</td><td ID="[id number]"/> 130 70 - 110 08/06/[address] [facility] BASIC METABOLIC PANEL <td ID="[id number]">BUN</td><td>11</td><td>7 - 25 mg/dL</td><td>BT MAIN-STATION 1</td><td ID="[id number]"/> 11 7 - 25 08/06/[address] [facility] BASIC METABOLIC PANEL <td ID="[id number]">Creatinine</td><td>0.80</td><td>0.6 - 1.2 mg/dL</td><td>BT MAIN-STATION 1</td><td ID="[id number]"/> 0.80 0.6 - 1.2 08/06/2018 [facility] BASIC METABOLIC PANEL Anion Gap 4 08/06/[address] [facility] BASIC METABOLIC PANEL <td ID="[id number]">Calcium</td><td>9.1</td><td>8.6 - 10.3 mg/dL</td><td>BT MAIN-STATION 1</td><td ID="[id number]"/> 9.1 8.6 - 10.3 08/06/[address] [facility] BASIC METABOLIC PANEL GFR, Estimated >60 mL/min/1.73 m2 08/06/[address] [facility] BASIC METABOLIC PANEL eGFR If Africn Am >60 mL/min/1.73 m2 08/06/[address] [facility] BASIC METABOLIC PANEL Lab Interpretation Abnormal 08/06/[address] [facility] LIPID PROFILE <td ID="[id number]">Cholesterol</td><td><span>206</span>
<span style="allIndent"><span style="cellHeader">Comment: </span>
<span ID="[id number]" style="pre">REFERENCE RANGE:
Desirable: <200 mg/dL
Borderline: 200-240 mg/dL
High Risk: >240 mg/dL

</span></span></td><td>mg/dL</td><td>BT MAIN-STATION 1</td><td ID=&amp ;quot;[id number]"/> 206 08/06/2018 REFERENCE RANGE:
Desirable: <200 mg/dL
Borderline: 200-240 mg/dL
High Risk: >240 mg/dL

[facility] LIPID PROFILE <td ID="[id number]">Triglyceride</td><td><span style="flagData">229</span><span style="flagData"> (H)</span>
<span style="allIndent"><span style="cellHeader">Comment: </span>
<span ID="[id number]" style="pre">REFERENCE RANGE:
Normal: &lt ;150 mg/dL
Borderline High: 150-199 mg/dL
High: 200-499 mg/dL
Very High: >xl=413 mg/dL

</span></span></td><td><150 mg/dL</td><td>BT [facility]IN-STATION 1</td><td ID="[id number]"/> 229 <150 08/06/2018 REFERENCE RANGE:
Normal: <150 mg/dL
Borderline High: 150-199 mg/dL
High: 200-499 mg/dL
Very High: >ab=918 mg/dL

[facility] LIPID PROFILE <td ID="[id number]">HDL</td><td><span>40</span>
<span style="allIndent"><span style="cellHeader">Comment: </span>
<span ID="[id number]" style="pre">Increased CHD risk: <40 mg/dL
Decreased CHD risk: >60 mg/dL

</span></span>&am p;lt;/td><td>mg/dL</td><td> MAIN-STATION 1</td><td ID="[id number]"/> 40 08/06/2018 Increased CHD risk: <40 mg/dL
Decreased CHD risk: >60 mg/dL

[facility] LIPID PROFILE <td ID="[id number]">LDL</td><td><span>120</span>
<span style="allIndent"><span style="cellHeader">Comment: </span>
<span ID="[id number]" style="pre">REFERENCE RANGE:
Optimal: <100 mg/dL
Near Optimal: 100-129 mg/dL
Borderline High: 130-159 mg/dL
High: 160-189 mg/dL
Very High: >di=499 mg/dL

</span></span></td><td>mg/dL</td><td>[facility] MAIN-STATION 1</td><td ID="[id number]"/> 120 08/06/2018 REFERENCE RANGE:
Optimal: <100 mg/dL
Near Optimal: 100-129 mg/dL
Borderline High: 130-159 mg/dL
High: 160-189 mg/dL
Very High: >yz=251 mg/dL

[facility] LIPID PROFILE Lab Interpretation Abnormal 08/06/2018 [facility] LIVER PROFILE <td ID="[id number]">Protein, Total, Serum</td><td>6.8</td><td>6.0 - 8.3 g/dL</td><td>BT MAIN-STATION 1</td><td ID="[id number]"/> 6.8 6 - 8.3 08/06/2018 [facility] LIVER PROFILE <td ID="[id number]">Albumin</td><td>4.1</td><td>3.7 - 5.3 g/dL</td><td>BT MAIN-STATION 1</td><td ID="[id number]"/> 4.1 3.7 - 5.3 08/06/2018 [facility] LIVER PROFILE <td ID="[id number]">Bilirubin, Total</td><td>0.8</td><td>0.2 - 1.2 mg/dL</td><td>BT MAIN-STATION 1</td><td ID="[id number]"/> 0.8 0.2 - 1.2 08/06/2018 [facility] LIVER PROFILE <td ID="[id number]">Alkaline Phosphatase, S</td><td>103</td><td>34 - 104 U/L</td><td>BT MAIN-STATION 1</td><td ID="[id number]"/> 103 34 - 104 08/06/2018 [facility] LIVER PROFILE <td ID="[id number]">AST (SGOT)</td><td><span style="flagData">10</span><span style="flagData"> (L)</span></td><td>13 - 39 U/L</td><td>BT MAIN-STATION 1</td><td ID="[id number]"/> 10 13 - 39 08/06/[address] [facility] LIVER PROFILE <td ID="[id number]">ALT</td><td>10</td><td>7 - 52 U/L</td><td>BT MAIN-STATION 1</td><td ID="[id number]"/> 10 7 - 52 08/06/[address] [facility] LIVER PROFILE <td ID="[id number]">D Bilirubin</td><td>0.1</td><td>0.0 - 0.2 mg/dL</td><td>BT MAIN-STATION 1</td><td ID="[id number]"/> 0.1 0 - 0.2 08/06/[address] [facility] LIVER PROFILE Lab Interpretation Abnormal 08/06/[address] [facility] CBC/DIFF <td ID="[id number]">WBC</td><td>8.1</td><td>4.5 - 11.0 K/uL</td><td>BT MAIN-STATION 2</td><td ID="[id number]"/> 8.1 4.5 - 11 08/06/[address] [facility] CBC/DIFF <td ID="[id number]">RBC</td><td>4.49</td><td>4.20 - 5.40 M/uL</td><td>BT MAIN-STATION 2</td><td ID="[id number]"/> 4.49 4.20 - 5.40 08/06/[address] [facility] CBC/DIFF <td ID="[id number]">Hemoglobin</td><td>13.6</td><td>12.0 - 16.0 g/dL</td><td> MAIN-STATION 2</td><td ID="[id number]"/> 13.6 12 - 16 08/06/[address] [facility] CBC/DIFF <td ID="[id number]">Hematocrit</td><td>41.7</td><td>37.0 - 47.0 %</td><td> MAIN-STATION 2</td><td ID="[id number]"/> 41.7 37 - 47 08/06/[address] [facility] CBC/DIFF <td ID="[id number]">MCV</td><td><span style="flagData">93</span><span style="flagData"> (H)</span></td><td>82 - 92 fL</td><td>BT MAIN-STATION 2</td><td ID="[id number]"/> 93 82 - 92 08/06/[address] [facility] CBC/DIFF <td ID="[id number]">MCH</td><td>30.3</td><td>27.0 - 32.0 pg</td><td>BT MAIN-STATION 2</td><td ID="[id number]"/> 30.3 27 - 32 08/06/[address] [facility] CBC/DIFF <td ID="[id number]">MCHC</td><td>32.6</td><td>32.0 - 36.0 g/dL</td><td>BT MAIN-STATION 2</td><td ID="[id number]"/> 32.6 32 - 36 08/06/[address] [facility] CBC/DIFF <td ID="[id number]">RDW</td><td>42.5</td><td>36.4 - 46.3 fL</td><td>BT MAIN-STATION 2</td><td ID="[id number]"/> 42.5 36.4 - 46.3 08/06/[address] [facility] CBC/DIFF <td ID="[id number]">Platelets</td><td>262</td><td>150 - 400 K/uL</td><td>BT MAIN-STATION 2</td><td ID="[id number]"/> 262 150 - 400 08/06/[address] [facility] CBC/DIFF <td ID="[id number]">Mean Platelet Volume</td><td>11.1</td><td>9.4 - 12.4 fL</td><td>BT MAIN-STATION 2</td><td ID="[id number]"/> 11.1 9.4 - 12.4 08/06/[address] [facility] CBC/DIFF Percent NRBC 0.0 08/06/[address] [facility] CBC/DIFF Absolute NRBC 0.00 08/06/[address] [facility] CBC/DIFF <td ID="[id number]">Neutrophils</td><td>59.6</td><td>34.0 - 70.0 %</td><td>BT MAIN-STATION 2</td><td ID="[id number]"/> 59.6 34 - 70 08/06/[address] [facility] CBC/DIFF <td ID="[id number]">Lymphs</td><td>30.9</td><td>20.0 - 50.0 %</td><td>BT MAIN-STATION 2</td><td ID="[id number]"/> 30.9 20 - 50 08/06/[address] [facility] CBC/DIFF <td ID="[id number]">Monocytes</td><td>8.2</td><td>5.0 - 12.0 %</td><td>BT MAIN-STATION 2</td><td ID="[id number]"/> 8.2 5 - 12 08/06/[address] [facility] CBC/DIFF <td ID="[id number]">Eos</td><td>0.7</td><td>0.7 - 5.0 %</td><td>BT MAIN-STATION 2</td><td ID="[id number]"/> 0.7 0.7 - 5 08/06/[address] [facility] CBC/DIFF <td ID="[id number]">Basos</td><td>0.4</td><td>0.1 - 1.2 %</td><td>BT MAIN-STATION 2</td><td ID="[id number]"/> 0.4 0.1 - 1.2 08/06/[address] [facility] CBC/DIFF Immature Granulocytes 0.2 0.0 - 0.5 08/06/[address] [facility] CBC/DIFF Neutrophils (Absolute) 4.79 1.56 - 6.13 08/06/[address] [facility] CBC/DIFF Lymphs (Absolute) 2.49 1.18 - 3.74 08/06/[address] [facility] CBC/DIFF Monocytes(Absolute) 0.66 0.24 - 0.36 08/06/[address] [facility] CBC/DIFF Eos (Absolute) 0.06 0.04 - 0.36 08/06/[address] [facility] CBC/DIFF Baso (Absolute) 0.03 0.01 - 0.08 08/06/[address] [facility] CBC/DIFF Immature Grans (Abs) 0.02 0 - 0.03 08/06/[address] [facility] CBC/DIFF Lab Interpretation Abnormal 08/06/[address] [facility] 12 LEAD EKG 12 LEAD EKG FOR [facility] Test Date:2018-07-06 Pat Name: MARA Jordanpartment: [id number] : Gender: FTechnician: :[id number] Requested By: DENA Hansen Order Number: [id number] MD: Noelle Borrero Measurements IntervalsAxis Rate: 65 P:10 LA: 152QRS:28 QRSD: 77 T:53 QT: 382 QTc:399 Interpretive Statements SINUS RHYTHM Electronically Signed On 07-06-2018 16:08:02 AUTOPSY PATHOLOGIST by Noelle Borrero 07/06/[address] [facility] DIABETIC FOOT EXAM <p>Dena Chavez [...] are normal,left foot appearance is normal. 07/06/[address] [facility] DIABETIC FOOT EXAM <p>Dena Chavez NP :30 [...] are normal,left foot appearance is normal. 02/14/[address] [facility] MAMMOGRAM BILAT SCREEN DIGITAL <p>IMPRESSION: BENIGN</p><p>There is no mammographic evidence of malignancy. 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 Mary Henriquez RT(R)(M), [place] </p><p>[facility]</p><p>letter sent: Benign Exam</p><p>Mammogram BI-RADS: 2 Benign G0202 Z12.31</p> IMPRESSION: BENIGNThere is no mammographic evidence of malignancy. A 1 year screening mammogram is recommended. I have reviewed the study and agree with the findings in the report. This document has been electronically signed. Talia Wang,dp/:10/12/2017 14:15:49 Manager Fast Food: [facility]. Mary Henriquez [facility]R)(M[facility] Mammogram BI-RADS: 2 Benign G0202 Z12.31 10/12/[address] [facility] MAMMOGRAM BILAT SCREEN DIGITAL <p> </p><p>#[id number] - MAMMOGRAM BILAT SCREEN DIGITAL</p><p>BILATERAL DIGITAL SCREENING MAMMOGRAM WITH CAD: 10/12/2017</p><p>CLINICAL: Screening for malignancy.</p><p> </p><p>Comparison is made to exams dated:08/21/2015, 08/21/2015, </p><p>07/09/2014, 07/09/2014 [facility], 06/27/2014, </p><p>and 05/29/2012 [facility].</p><p>The tissue of both breasts is heterogeneously dense. This may </p><p>lower the sensitivity of mammography.</p><p>Current study was also evaluated with a Computer Aided Detection </p><p>(CAD) system.</p><p>There are benign calcifications and calcifications in both </p><p>breasts.There also are benign masses in both breasts.</p><p>No significant masses, calcifications, or other findings are seen </p><p>in either breast.</p><p>There has been no significant interval change.</p><p> </p> #[id number] - MAMMOGRAM BILAT SCREEN DIGITALBILATERAL DIGITAL SCREENING MAMMOGRAM WITH CAD: 10/12/2017CLINICAL: Screening for malignancy. Comparison is made to exams dated:08/21/2015, 08/21/2015, 07/09/2014, [facility], 06/27/2014, and 05/29/2012 [facility].The tissue of both breasts is heterogeneously dense. This may lower the sensitivity of mammography.Current study was also evaluated with a Computer Aided Detection (CAD) system.There are benign calcifications and calcifications in both breasts.There also are benign masses in both breasts.No significant masses, calcifications, or other findings are seen in either breast.There has been no significant interval change. 10/12/[address] [facility] MAMMOGRAM BILAT SCREEN DIGITAL <p styleCode="header">Interface, Rad/Mammog In - 10/12/2017 3:49 PM CDT</p><p>
<span>#[id number] - MAMMOGRAM BILAT SCREEN DIGITAL</span>
<span>BILATERAL DIGITAL SCREENING MAMMOGRAM WITH CAD: 10/12/2017</span>
<span>CLINICAL: Screening for malignancy. </span>

<span>Comparison is made to exams dated: 08/21/2015, 08/21/2015, </span>
<span>07/09/2014, 07/09/2014 [facility], 06/27/2014, </span>
<span>and 05/29/2012 [facility]. </sp an>
<span>The tissue of [...] signed.</span>

<span>Talia St M.D.</span>
<span>farshaddp/:10/12/2017 14:15:49 </span>

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 Mary Henriquez RT(R)(M), [place] </span>
<span>[facility]</span>
<span>letter sent: Benign Exam </span>
<span>Mammogram BI-RADS: 2 Benign G0202 Z12.31</span></p> Interface, Rad/Mammog In - 10/12/2017 3:49 PM CDT #[id number] - MAMMOGRAM BILAT SCREEN DIGITAL BILATERAL DIGITAL SCREENING MAMMOGRAM WITH CAD: 10/12/2017 CLINICAL: Screening for malignancy. Comparison is made to exams dated: 08/21/2015, 08/21/2015, 07/09/2014, 07/09/2014 [facility], 06/27/2014, and 05/29/2012 [facility]. The tissue of both breasts [...] electronically signed. Talia St M.D. apb,dp/:10/12/2017 14:15:49 Manager [employer]: Ms. Mary Henriquez RT(R)(M), [facility] letter sent: Benign Exam Mammogram BI-RADS: 2 Benign G0202 Z12.31 10/12/[address] [facility] HEMOGLOBIN A1C Hemoglobin A1c 7.1 4.3 - 6.1 09/16/[address] [facility] HEMOGLOBIN A1C Est Average Gluc 157.1 09/16/[address] [facility] HEMOGLOBIN A1C Lab Interpretation Abnormal 09/16/[address] [facility] BASIC METABOLIC PANEL CO2 29 21 - 31 09/15/[address] [facility] BASIC METABOLIC PANEL Chloride 105 98 - 107 09/15/[address] [facility] BASIC METABOLIC PANEL Potassium 4.4 3.5 - 5.1 09/15/[address] [facility] BASIC METABOLIC PANEL Sodium 144 136 - 145 09/15/[address] [facility] BASIC METABOLIC PANEL Glucose 130 70 - 110 09/15/[address] [facility] BASIC METABOLIC PANEL Urea Nitrogen 9 7 - 25 09/15/[address] [facility] BASIC METABOLIC PANEL Creatinine 0.80 0.6 - 1.2 09/15/[address] [facility] BASIC METABOLIC PANEL Anion Gap 10 09/15/[address] [facility] BASIC METABOLIC PANEL Calcium 9.4 8.6 - 10.3 09/15/[address] [facility] BASIC METABOLIC PANEL GFR, Estimated >60 mL/min/1.73 m2 09/15/[address] [facility] BASIC METABOLIC PANEL GFR, Estim, Afr-Am >60 mL/min/1.73 m2 09/15/[address] [facility] BASIC METABOLIC PANEL Lab Interpretation Abnormal 09/15/[address] [facility] LIPID PROFILE Cholesterol 203 09/15/2017 REFERENCE RANGE:
Desirable: <200 mg/dL
Borderline: 200-240 mg/dL
High Risk: >240 mg/dL

[facility] LIPID PROFILE Triglyceride 343 <150 09/15/2017 REFERENCE RANGE:
Normal: <150 mg/dL
Borderline High: 150-199 mg/dL
High: 200-499 mg/dL
Very High: >io=321 mg/dL

[facility] LIPID PROFILE HDL 39 09/15/2017 Increased CHD risk: <40 mg/dL
Decreased CHD risk: >60 mg/dL

[facility] LIPID PROFILE LDL 95 09/15/2017 REFERENCE RANGE:
Optimal: <100 mg/dL
Near Optimal: 100-129 mg/dL
Borderline High: 130-159 mg/dL
High: 160-189 mg/dL
Very High: >cb=054 mg/dL

[facility] LIPID PROFILE Lab Interpretation Abnormal 09/15/2017 [facility] LIVER PROFILE T Protein 6.5 6 - 8.3 09/15/[address] [facility] LIVER PROFILE Albumin 3.9 3.7 - 5.3 09/15/[address] [facility] LIVER PROFILE T Bilirubin 0.6 0.2 - 1.2 09/15/2017 [facility] LIVER PROFILE Alk Phos 121 34 - 104 09/15/2017 [facility] LIVER PROFILE AST 10 13 - 39 09/15/[address] [facility] LIVER PROFILE ALT 11 7 - 52 09/15/[address] [facility] LIVER PROFILE D Bilirubin 0.1 0 - 0.2 09/15/[address] [facility] LIVER PROFILE Lab Interpretation Abnormal 09/15/[address] [facility] TSH TSH 1.97 0.57 - 3.74 09/15/[address] [facility] CBC/DIFF WBC 8.1 4.5 - 11 09/15/[address] [facility] CBC/DIFF RBC 4.61 4.20 - 5.40 09/15/[address] [facility] CBC/DIFF Hemoglobin 13.8 12 - 16 09/15/[address] [facility] CBC/DIFF Hematocrit 41.8 37 - 47 09/15/[address] [facility] CBC/DIFF MCV 91 82 - 92 09/15/[address] [facility] CBC/DIFF MCH 29.9 27 - 32 09/15/[address] [facility] CBC/DIFF MCHC 33.0 32 - 36 09/15/[address] [facility] CBC/DIFF RDW 41.0 36.4 - 46.3 09/15/[address] [facility] CBC/DIFF Platelet 292 150 - 400 09/15/[address] [facility] CBC/DIFF Mean Platelet Volume 10.8 9.4 - 12.4 09/15/[address] [facility] CBC/DIFF Percent NRBC 0.0 09/15/[address] [facility] CBC/DIFF Absolute NRBC 0.00 09/15/[address] [facility] CBC/DIFF Neutrophil 62.0 34 - 70 09/15/[address] [facility] CBC/DIFF Lymphocyte 29.7 20 - 50 09/15/[address] [facility] CBC/DIFF Monocyte 6.6 5 - 12 09/15/[address] [facility] CBC/DIFF Eosinophil 1.1 0.7 - 5 09/15/[address] [facility] CBC/DIFF Basophil 0.4 0.1 - 1.2 09/15/[address] [facility] CBC/DIFF Pct Immat Gran 0.2 0.0 - 0.5 09/15/[address] [facility] CBC/DIFF Neutrophil, Abs 5.01 1.56 - 6.13 09/15/[address] [facility] CBC/DIFF Lymphocyte, Abs 2.40 1.18 - 3.74 09/15/[address] [facility] CBC/DIFF Monocyte, Abs 0.53 0.24 - 0.36 09/15/[address] [facility] CBC/DIFF Eosinophil, Abs 0.09 0.04 - 0.36 09/15/[address] [facility] CBC/DIFF Basophil, Abs 0.03 0.01 - 0.08 09/15/[address] [facility] CBC/DIFF Absol Immat Gran 0.02 0 - 0.03 09/15/[address] [facility] CBC/DIFF Lab Interpretation Abnormal 09/15/[address] [facility] MICROALBUM, URINE Microalbum, Random <0.7 0 - 09/14/[address] [facility] MICROALBUM, URINE Creatinine, Ur 20.4 20 - 320 09/14/[address] [facility] MICROALBUM, URINE Urine Microalbumin Unable to calculate, parameters incomplete 0 - 09/14/2017 To minimize intra-individual variation, analysis of three random urine
samples collected over the course of a week is recommended.

[facility] OPHTHALMOLOGY RETINAL SCAN RETINAL SCAN-FINAL RESULT NORMAL 06/08/[address] [facility] OPHTHALMOLOGY RETINAL SCAN Right Diabetic Retinopathy None 06/08/[address] [facility] OPHTHALMOLOGY RETINAL SCAN Right Macular Edema None 06/08/[address] [facility] OPHTHALMOLOGY RETINAL SCAN Right Other Suspected Conditions None 06/08/[address] [facility] OPHTHALMOLOGY RETINAL SCAN Right Image Quality Gradeable Image 06/08/[address] [facility] OPHTHALMOLOGY RETINAL SCAN Left Diabetic Retinopathy None 06/08/[address] [facility] OPHTHALMOLOGY RETINAL SCAN Left Macular Edema None 06/08/[address] [facility] OPHTHALMOLOGY RETINAL SCAN Left Other Suspected Conditions None 06/08/[address] [facility] OPHTHALMOLOGY RETINAL SCAN Left Image Quality Gradeable Image 06/08/[address] [facility] OPHTHALMOLOGY RETINAL SCAN <p>Retinal Study Result for MARA FRANCES</p><p> </p><p>MARA FRANCES a 61 y/o, F (: 1955, )</p><p>presented to [facility] on 06-08-2017 for a retinal imaging [...] electronically signed by Alonzo Alan MD. Taxonomy: [id number] on 06-08-2017 10:11:06 [facility] time.</p><p> </p><p>NOTE:Any pathology noted on this diabetic retinal evaluation should be confirmed by an appropriate ophthalmic examination.</p> Retinal Study Result for MARA FRANCES MAGDALENAevita 61 y/o, F (: 1955, )presented to [facility] on 06-08-2017 for a retinal imaging [...] electronically signed by Alonzo Alan MD. Taxonomy: [id number] on 06-08-2017 10:11:06 [facility] time. NOTE:Any pathology noted on this diabetic retinal evaluation should be confirmed by an appropriate ophthalmic examination. 06/08/[address] [facility] Pathology Reports No Data Provided for This Section Diagnostic Reports No Data Provided for This Section Consultation Notes No Data Provided for This Section Discharge Summaries No Data Provided for This Section History and Physicals No Data Provided for This Section Vital Signs Vital Sign Value Date Comments Source Systolic (mm Hg) 119 01/10/[address] [facility] Diastolic (mm Hg) 65 01/10/[address] [facility] Heart Rate 81 01/10/[address] [facility] Temperature Oral (F) 36.72 Maribel 01/10/[address] [facility] Respitory Rate 20 01/10/2019 [facility] Height [...] cm 02/14/2018 [facility] Weight 72.576 02/14/[address] [facility] BMI Calculated 30.23 02/14/[address] [facility] Encounters Location Location Details Encounter Type Encounter Number Reason For Visit Attending Provider ADM Date DC Date Status Source [facility] [place] Refill [id number] Pain in both knees, unspecified chronicity Jackson Rose MD 04/05/[address] [facility] Procedures [place] [facility] Visit [id number] Primary osteoarthritis of left knee Dena Chavez ETHNOLOGY TEACHER 04/07/2017 04/07/[address] [facility] Nursing [place] Telephone [id number] Nohemy Hernandezhandy AMEZQUITAN 04/14/2017 [facility] [place] [facility] Visit [id number] Controlled type 2 diabetes mellitus without complication, without long-term current use of insulin Hypothyroidism, unspecified type Hyperlipidemia, unspecified hyperlipidemia type Senile osteoporosis PTSD (post-traumatic stress disorder) Itchy eyes Flu vaccine need Pain in both knees, unspecified chronicity Dena Chavez NP 06/01/2017 06/01/[address] [facility] Ophthalmology/Optometry Straw* Ancillary Procedure [id number] Controlled type 2 diabetes mellitus without complication, without long-term current use of insulin Dena Chavez NP 06/08/2017 06/08/[address] [facility] Psychiatry [place] [facility] Visit [id number] Other recurrent depressive disorders PTSD (post-traumatic stress disorder) Dena Chavez ETHNOLOGY TEACHER 07/27/2017 07/27/[address] [facility] Pharmacy [place] [facility] [id number] 07/28/2017 [facility] [place] [facility] Visit [id number] Hospital discharge follow-up S/P laparoscopic cholecystectomy Controlled type 2 diabetes mellitus with complication, without long-term current use of insulin Other hyperlipidemia Rectal cancer Screening for breast cancer Pain in both knees, unspecified chronicity Dena Chavez NP 09/13/2017 09/13/2017 [facility] [place] Refill [id number] Pain in both knees, unspecified chronicity Jackson Rose MD 09/23/[address] [facility] Mammography [place] Ancillary Procedure [id number] Dena Chavez ETHNOLOGY TEACHER 10/12/2017 10/12/[address] [facility] Psychiatry [place] [facility] Visit [id number] Moderate episode of recurrent major depressive disorder PTSD (post-traumatic stress disorder) Kar Ochoa MD 10/12/2017 10/12/2017 [facility] [place] Refill [id number] Vitamin D deficiency Jessica Ring RN 10/27/2017 [facility] [place] [facility] Visit [id number] Encounter to discuss test results Controlled type 2 diabetes mellitus with complication, without long-term current use of insulin Hypertriglyceridemia Primary osteoarthritis of both knees Pain in both knees, unspecified chronicity Dena Chavez NP 11/01/2017 11/01/2017 [facility] [place] Refill [id number] Jackson Rose MD 12/28/[address] [facility] Psychiatry [place] [facility] Visit [id number] Donald Frank MD 12/28/2017 12/28/2017 [facility] [place] Orders Only [id number] Dena Chavez NP 12/29/[address] [facility] Procedures [place] [facility] Visit [id number] Harlan Brooks MD 01/12/2018 01/12/[address] [facility] Nursing [place] Telephone [id number] Jessica Ring RN 01/31/[address] [facility] ASK YOUR NURSE PROGRAM Nurse Triage [id number] Dina Rebollar RN 01/31/2018 [facility] [place] [facility] Visit [id number] Dena Chavez NP 02/14/2018 02/14/[address] [facility] Behavioral Health/Counseling [place] [facility] Visit [id number] Ailyn Mattson 02/20/2018 02/21/2018 [facility] [place] Telephone [id number] Clau Phan 03/02/2018 [facility] [place] Clinical Case Mgt [id number] Clau Phan 03/06/2018 [facility] [place] Telephone [id number] Dena Chavez NP 03/18/2018 [facility] [place] Telephone [id number] Clau Phan 04/02/2018 [facility] [place] Refill [id number] Jackson Rose MD 04/11/2018 [facility] [place] Telephone [id number] Clau Phan 04/16/2018 [facility] [place] Telephone [id number] Elizabeth Najera RN 05/14/2018 [facility] [place] Refill [id number] Jackson Rose MD 06/13/2018 [facility] [place] Refill [id number] Jackson Rose MD 06/28/2018 [facility] [place] Refill [id number] Jackson Rose MD 07/06/[address] [facility] Travel [id number] 07/06/2018 [facility] [place] [facility] Visit [id number] Dena Chavez NP 07/06/2018 08/16/[address] [facility] Nursing [place] Nurse Only [id number] Dena Suárez RN 08/06/[address] [facility] Travel [id number] 08/06/[address] [facility] Ophthalmology/Optometry [facility]* Ancillary Procedure [id number] Dena Chavez ETHNOLOGY TEACHER 08/06/2018 08/06/[address] [facility] Travel [id number] 08/17/[address] [facility] ASK YOUR NURSE PROGRAM Nurse Triage [id number] Ana Rosa Rodriges RN 08/17/[address] [facility] ASK YOUR NURSE PROGRAM Nurse Triage [id number] Dina Rebollar RN 08/20/2018 [facility] [place] Telephone [id number] Elizabeth Najera RN 08/21/[address] [facility] Behavioral Health/Counseling [place] [facility] Visit [id number] Ailyn Mattson 08/21/2018 08/21/[address] [facility] Psychiatry [place] [facility] Visit [id number] Donald Frank MD 08/23/2018 08/23/[address] [facility] Travel [id number] 09/13/2018 [facility] [place] [facility] Visit [id number] Jackson Rose MD 09/13/2018 11/14/2018 [facility] [place] Refill [id number] Jackson Rose MD 09/21/2018 [facility] [place] Refill [id number] Jessica Ring RN 09/24/[address] [facility] Travel [id number] 10/18/[address] [facility] Nursing [place] Telephone [id number] Kelsey Ann 10/18/[address] [facility] Mammography [place] Ancillary Procedure [id number] Jackson Rose MD 10/18/2018 10/18/[address] [facility] Travel [id number] 11/13/2018 [facility] [place] Refill [id number] Jessica Ring RN 11/15/2018 [facility] [place] Orders Only [id number] Alicia Perez DO 11/29/2018 [facility] [place] Office Visit [id number] Alicia Perez DO 11/29/2018 11/29/2018 [facility] [place] Refill [id number] Jackson Rose MD 12/20/[address] [facility] Travel [id number] 12/21/[address] [facility] Behavioral Health/Counseling [place] [facility] Visit [id number] Ailyn Mattson 12/21/2018 12/21/[address] [facility] Psychiatry [place] Orders Only [id number] Donald Frank MD 01/10/2019 [facility] [place] Refill [id number] Ivett Macias RN 01/10/2019 [facility] [place] Office Visit [id number] Alicia Perze DO 01/10/2019 01/10/[address] [facility] Radiology [facility] Hospital Encounter [id number] Alicia Perez DO 01/17/[address] [facility] Depart Emergency Room [id number] ELI JOHNSON MD 01/20/2019 01/20/2019 [facility] Behavioral Health/Counseling [place] Office Visit [id number] Ailyn Mattson 01/21/2019 01/21/[address] [facility] Procedures Procedure Code Date Perfomer Comments Source Computed tomography of abdomen and pelvis with contrast [id number] 01/20/2019 [facility] GLUCOSE 59484 11/13/2018 [facility] FREE T4 42471 11/13/2018 [facility] ALANINE AMINOTRASFERASE/ASPARTATE AMINOTRANSFERASE (ALT/AST) 61086 11/13/2018 [facility] MICROALBUMIN / CREATININE URINE RATIO 18525 11/13/2018 [facility] MAMMOGRAM BILAT SCREEN DIGITAL G0202 10/18/2018 [facility] OPHTHALMOLOGY RETINAL SCAN [id number] 08/06/2018 [facility] BASIC METABOLIC PANEL 46451 08/06/2018 [facility] CBC/DIFF 30903 08/06/2018 [facility] HEMOGLOBIN A1C 31418 08/06/2018 [facility] LIPID PROFILE 80349 08/06/2018 [facility] LIVER PROFILE 94637 08/06/2018 [facility] THYROID STIMULATING HORMONE (TSH) [id number] 08/06/2018 [facility] 12 LEAD EKG [id number] 07/07/2018 [facility] DIABETIC FOOT EXAM 8F 02/15/2018 [facility] TSH [id number] 09/15/2017 [facility] MICROALBUM, URINE [id number] 09/13/2017 [facility] OPHTHALMOLOGY RETINAL SCAN [id number] 06/08/2017 [facility] Assessment and Plan No Data Provided for This Section Plan of Care Plan of Care Date Source DM HGBA1C (Yearly) 11/14/[address] [facility] Breast Cancer Scrn (Yearly) 10/19/[address] [facility] DM Retinal Exam (Yearly) 08/07/[address] [facility] DM Foot Exam (Yearly) 07/07/[address] [facility] DM Foot Exam (Yearly) 02/14/[address] [facility] Upcoming EncountersDateTypeSpecialtyCare TeamDescription 01/31/2019 Lab Appointment Lab Alicia Perez, DO[address] [phone] (Fax) 02/21/2019 Office Visit Psychology Ailyn Mattson M927 [facility] [place] [address] [phone] (Fax) 03/14/2019 Office Visit Psychiatry Donald Frank MD[address] [place] [address] [phone] (Fax) Health MaintenanceDue DateLast DoneComments Cervical Cancer [...] 11/13/2018, 09/13/2017, 08/24/2016, Additional history exists 01/21/[address] [facility] Discharge Date 01/20/19 8:16am Disposition HOME, SELF-CARE Condition at Discharge Stable Instructions/Education Provided Abdominal Pain - Adult Urinary Tract Infection - Women Forms Provided Work/School Excuse Prescriptions See Medication Section Referrals [facility] Order Date: Call for an appointment Additional Instructions/Education FOLLOW UP WITH YOUR PRIMARY DOCTOR TAKE MEDICATION PROVIDED IF SYMPTOMS WORSEN, RETURN TO NEAREST EMERGENCY ROOM 01/20/2019 [facility] Upcoming EncountersDateTypeSpecialtyCare TeamDescription 01/21/2019 Office Visit Psychology Ailyn Mattson M927 [facility] [place] [address] [phone] (Fax) 01/31/2019 Lab Appointment Lab Alicia Perez, DO9[id number] [place], [place] [phone] (Fax) 03/14/2019 Office Visit Psychiatry Donald Frank MD[address] [place] [address] [phone] (Fax) Health MaintenanceDue DateLast DoneComments Cervical Cancer [...] 11/13/2018, 09/13/2017, 08/24/2016, Additional history exists 12/21/[address] [facility] Upcoming EncountersDateTypeSpecialtyCare TeamDescription 12/21/2018 Office Visit Psychology Ailyn Mattson [address], [place] [phone] (Fax) adv $95 if [facility] not active 01/31/2019 Lab Appointment Lab Alicia Perez DO[address] [place], [place] [id number] [place]cdonough [phone] (Fax) Health MaintenanceDue DateLast DoneComments Cervical Cancer [...] 11/13/2018, 09/13/2017, 08/24/2016, Additional history exists 12/20/[address] [facility] Upcoming EncountersDateTypeSpecialtyCare TeamDescription 12/21/2018 Office Visit Psychology Ailyn Mattson[address] [place] [id number], [place] [phone] 01/31/2019 Lab Appointment Lab Alicia Perez DO927 [facility] [phone] (Fax) [facility] DateLast DoneComments Cervical Cancer Scrn [...] 11/13/2018, 09/13/2017, 08/24/2016, Additional history exists 11/29/[address] [facility] Upcoming EncountersDateTypeSpecialtyCare TeamDescription 11/14/2018 Appointment Audiology Juwan Perry of [address] [place], [place] [phone] Katharine Salas [facility] DateLast DoneComments Cervical Cancer Scrn [...] 10/18/2018, 10/12/2017, 10/17/2016, Additional history exists 11/13/[address] [facility] Breast Cancer Scrn (Yearly) 10/12/[address] [facility] DM HGBA1C (Yearly) 09/15/[address] [facility] DM Microalbumin Urine Scrn (Yearly) 09/13/[address] [facility] DM Retinal Exam (Yearly) 06/08/[address] [facility] Upcoming EncountersDateTypeSpecialtyCare TeamDescription 03/21/2018 Office Visit Psychology Ailyn Mattson927 [facility] [phone] (Fax) 03/22/2018 Office Visit Psychiatry Donald Frank MD927 [facility], [place] [phone] (Fax) E 1 04/05/2018 Lab Appointment Lab Scott Dena, [phone] (Fax) Health MaintenanceDue DateLast DoneComments Cervical Cancer [...] 02/14/2018, 06/01/2017, 2016, Additional history exists 03/11/[address] [facility] Cervical Cancer Scrn (3 Yrs) 06/27/[address] [facility] Social History Social History Date Source Smoking Status Start Date Stop Date Never Smoker 01/20/2019 [facility] Tobacco UseTypesPacks/DayYears UsedDate Never Smoker Smokeless Tobacco: [...] End No recent travel history available. 01/10/[address] [facility] Family History Value Date Source Medical HistoryRelationNameComments Cancer Brother Other Brother accident Cancer Daughter Cancer Mother breast Cancer Sister colon Cancer Sister breast RelationNameStatusComments Brother Alive Brother Brother Daughter Alive Father Maternal Grandfather Maternal Grandmother Mother Paternal Grandfather Paternal Grandmother Sister Sister Alive Sister Alive Sister Alive Sister Alive Son Alive 01/21/[address] [facility] Medical HistoryRelationNameComments Cancer Brother Other Brother accident Cancer Daughter Cancer Mother breast Cancer Sister colon Cancer Sister breast RelationNameStatusComments Brother Alive Brother Brother Daughter Alive Father Maternal Grandfather Maternal Grandmother Mother Paternal Grandfather Paternal Grandmother Sister Sister Alive Sister Alive Sister Alive Sister Alive Son Alive 12/21/[address] [facility] Medical HistoryRelationNameComments Cancer Brother Other Brother accident Cancer Daughter Cancer Mother breast Cancer Sister colon Cancer Sister breast RelationNameStatusComments Brother Alive Brother Brother Daughter Alive Father Maternal Grandfather Maternal Grandmother Mother Paternal Grandfather Paternal Grandmother Sister Sister Alive Sister Alive Sister Alive Sister Alive Son Alive 12/20/[address] [facility] Medical HistoryRelationNameComments Cancer Brother Other Brother accident Cancer Daughter Cancer Mother breast Cancer Sister colon Cancer Sister breast RelationNameStatusComments Brother Alive Brother Brother Daughter Alive Father Maternal Grandfather Maternal Grandmother Mother Paternal Grandfather Paternal Grandmother Sister Sister Alive Sister Alive Sister Alive Sister Alive Son Alive 11/29/[address] [facility] Medical HistoryRelationNameComments Cancer Brother Other Brother accident Cancer Daughter Cancer Mother breast Cancer Sister colon Cancer Sister breast RelationNameStatusComments Brother Alive Brother Brother Daughter Alive Father Maternal Grandfather Maternal Grandmother Mother Paternal Grandfather Paternal Grandmother Sister Sister Alive Sister Alive Sister Alive Sister Alive Son Alive 11/13/[address] [facility] Medical HistoryRelationNameComments Cancer Brother Other Brother accident Cancer Daughter Cancer Mother breast Cancer Sister colon Cancer Sister breast RelationNameStatusComments Brother Alive Brother Brother Daughter Alive Father Maternal Grandfather Maternal Grandmother Mother Paternal Grandfather Paternal Grandmother Sister Sister Alive Sister Alive Sister Alive Sister Alive Son Alive 03/11/[address] [facility] Advance Directives Order Name Results Value Date Source Advance Directives Advance Directives Directive Response Recorded Date/Time Does the patient have an advance directive? No 01/20/19 5:48am Do you have a Directive to Physician? No 01/20/19 5:48am Do you have a Medical Power of Powerhouse Attendant? No 01/20/19 5:48am Do you have an [...] rights and responsibilities? Yes 01/20/19 5:49am 01/20/2019 [facility] Functional Status No Data Provided for This Section
[2019-01-22] MEDS ORDERED: DICYCLOMINE HCL 20 MG/2 ML VIAL IM ONE ×2 (01:29→01:30)
[2019-01-22 01:37] VITALS: BP 155/73
== END 2019-01-22 02:15 | disposition home or self-care (01) ==
LOC: ER 01:18
DX: R10.84 Generalized abdominal pain (principal); I10 Essential (primary) hypertension; E11.9 Type 2 diabetes mellitus without complications; E03.9 Hypothyroidism, unspecified; E78.5 Hyperlipidemia, unspecified; F41.9 Anxiety disorder, unspecified; Z85.038 Personal history of other malignant neoplasm of large intestine
CPT/HCPCS: 96372; 99282; J0500

== ENCOUNTER 2019-02-05 14:05 | Emergency (ER) | payer MEDICARE ==
[~2019-02-05] VITALS: Ht 154.9 cm; Wt 65.8 kg
== END 2019-02-05 14:40 | disposition left against medical advice (07) ==
LOC: ER 14:05
DX: L72.9 Follicular cyst of the skin and subcutaneous tissue, unspecified (principal)

== ENCOUNTER 2023-02-18 03:49 | Emergency (ER) | payer MEDICARE ==
[~2023-02-18] VITALS: Ht 154.9 cm; Wt 63.5 kg
[~2023-02-18 03:49] MED LIST: BENZONATATE200 MG PO; CORTISPORIN-TC10 M1 EACH EAR; DOXYCYCLINE HY100 MG PO
[2023-02-18 03:55] VITALS: O2SAT 98
[2023-02-18] MEDS ORDERED: DEXAMETHASONE SOD PHOS 10 MG/1 ML VIAL IM STA (04:18)
[2023-02-18] MEDS ORDERED: VENTOLIN HFA18 GM INH (05:05)
[2023-02-18] MEDS ORDERED: AZITHROMYCIN250 MG PO (05:05)
[2023-02-18] MEDS ORDERED: PREDNISONE20 MG PO (05:05)
[2023-02-20] MEDS ORDERED: BENZONATATE100 MG PO (09:58)
== END 2023-02-18 05:16 | disposition home or self-care (01) ==
LOC: ER 04:15
DX: R50.9 Fever, unspecified (principal); J06.9 Acute upper respiratory infection, unspecified; R05.9 Cough, unspecified; I10 Essential (primary) hypertension; E11.9 Type 2 diabetes mellitus without complications; E78.5 Hyperlipidemia, unspecified; E03.9 Hypothyroidism, unspecified; K21.9 Gastro-esophageal reflux disease without esophagitis; G47.00 Insomnia, unspecified; F41.9 Anxiety disorder, unspecified; Z20.822 Contact with and (suspected) exposure to COVID-19; Z85.038 Personal history of other malignant neoplasm of large intestine
CPT/HCPCS: 87400; 99282; J1100; U0002

== ENCOUNTER 2023-11-09 16:53 | Emergency (ER) | payer MEDICARE ==
[~2023-11-09] VITALS: Ht 154.9 cm; Wt 63.5 kg
[~2023-11-09 16:53] MED LIST changes: +AZITHROMYCIN250 MG PO; +BENZONATATE100 MG PO; +PREDNISONE20 MG PO; +VENTOLIN HFA18 GM INH
[2023-11-09 18:58] VITALS: TEMP 98.9
[2023-11-09 19:21] LABS: BASOPHILS % 0.2 % (0.0-1.0); EOSINOPHILS # (AUTO) 0.1 (0.0-0.4); EOSINOPHILS % 0.4 % (0.0-6.0); HEMATOCRIT 43.8 % (34.2-44.1); HEMOGLOBIN 15.1 g/dL (12.0-16.0); LYMPHOCYTES # (AUTO) 0.5 (1.0-3.2); LYMPHOCYTES % 3.2 % (18.0-39.1); MEAN CORPUSCULAR HEMOGLOBIN 30.4 pg (28-32); MEAN CORPUSCULAR HGB CONC 34.5 g/dL (31-35); MEAN CORPUSCULAR VOLUME 88.1 fL (81-99); MONOCYTES # (AUTO) 0.7 (0.2-0.8); MONOCYTES % 4.3 % (4.4-11.3); NEUTROPHILS # (AUTO) 14.5 (2.1-6.9); NEUTROPHILS % 91.6 % (38.7-80.0); PLATELET COUNT 229 x10e3/uL (140-360); RED BLOOD COUNT 4.97 x10e6/uL (3.6-5.1); RED CELL DISTRIBUTION WIDTH 12.3 % (11.7-14.4); WHITE BLOOD COUNT 15.79 x10e3/uL (4.8-10.8)
[2023-11-09 19:26] LABS: CLARITY,URINE CLEAR (CLEAR); COLOR,URINE YELLOW (YELLOW); PH,URINE 5.5 (5 - 7)
[2023-11-09 19:27] LABS: LEUKOCYTE ESTERASE ,URINE TRACE (NEGATIVE); NITRITE,URINE NEGATIVE (NEGATIVE); PROTEIN,URINE DIPSTICK NEGATIVE (NEGATIVE)
[2023-11-09 19:28] LABS: BILIRUBIN,URINE NEGATIVE (NEGATIVE); GLUCOSE, URINE NEGATIVE (NEGATIVE); KETONES,URINE 1+ (NEGATIVE); URINE UROBILINOGEN 0.2 mg/dL (0.2 - 1)
[2023-11-09] MEDS: SODIUM CHLORIDE 0.9% 1000ML 1,000 ML IV STA (19:32)
[2023-11-09 19:38] LABS: BACTERIA,URINE RARE /HPF; EPITHELIAL CELLS,URINE RARE /LPF; RBC,URINE 0-5 /HPF (0-5)
[2023-11-09 19:39] LABS: CREATINE KINASE 43 IU/L (29-168)
[2023-11-09 19:40] LABS: ALBUMIN 3.9 g/dL (3.5-5.0); ALBUMIN/GLOBULIN RATIO 1.1 (0.8-2.0); ANION GAP 16.9 mmol/L (8-16); BILIRUBIN,TOTAL 1.5 mg/dL (0.2-1.2); CALCIUM 8.6 mg/dL (8.4-10.2); CREATININE, SERUM 0.88 mg/dL (0.57-1.11); POTASSIUM 3.9 mmol/L (3.5-5.1); TOTAL PROTEIN 7.6 g/dL (6.5-8.1)
[2023-11-09 19:47] LABS: TROPONIN I < 0.001 ng/mL (0-0.300)
[2023-11-09] MEDS ORDERED: IOPAMIDOL 370 MG/ML 100 ML INFUS..BTL INJ ONE (19:51)
[2023-11-09] MEDS: Morphine 4mg INJECTION 4 MG/ML INJ IV STA (21:01)
[2023-11-09] MEDS: ONDANSETRON HCL INJ 2MG/ML 2ML 2 MG/ML VIAL IV STA (21:01)
[2023-11-09 22:14] VITALS: PULSE 71; RESP 16
[2023-11-09] MEDS ORDERED: PEPCID20 MG PO (23:03)
[2023-11-09] MEDS ORDERED: LEVOFLOXACIN750 MG PO (23:03)
[2023-11-09] MEDS ORDERED: ONDANSETRON ODT4 MG PO (23:03)
[2023-11-09 23:31] VITALS: BP 138/89; PULSE 79; RESP 16; TEMP 98.4; O2SAT 98
[2023-11-10] MEDS ORDERED: CIPRO500 MG PO (10:08)
== END 2023-11-09 23:32 | disposition home or self-care (01) ==
LOC: ER 17:46
DX: R10.13 Epigastric pain (principal); I10 Essential (primary) hypertension; K21.9 Gastro-esophageal reflux disease without esophagitis; Z85.038 Personal history of other malignant neoplasm of large intestine; Z88.0 Allergy status to penicillin
CPT/HCPCS: 36415; 74177; 80053; 81001; 82550; 83690; 84484; 85025; 93005; 99284; J2270; J2405; J7030; Q9967; U0002